=== PATIENT | female | born 1970 | race Caucasian/White ===

== ENCOUNTER 2024-07-01 12:33 | Emergency (ER) | payer BC, SELFPAY ==
[2024-07-01 12:40] VITALS: BP 127/67; PULSE 86; RESP 20; TEMP 36.6; O2SAT 98
--- NOTE | 2024-07-01 13:05 | ED_ITS ---
HPI - URI/Sore Throat General Chief Complaint: Upper Respiratory Infection Stated Complaint: congestion/ears/throat Time Seen by Provider: 07/01/24 13:05 Source: patient Mode of arrival: ambulatory Limitations: no limitations History of Present Illness HPI Narrative: 54-year-old female presents with complaint of cough, congestion, hoarse voice for 2 days. Afebrile. Patient is well-appearing. Not taking any ov fk-bux-isojuwx medications to treat symptoms. Thought I may need antibiotic . All systems reviewed and negative except as noted above. Related Data Home Medications Medication Instructions Recorded Confirmed levothyroxine 50 mcg tablet mcg 07/01/24 tirzepatide 7.5 mg/0.5 mL mg subcut 07/01/24 subcutaneous pen injector (Sharron) Allergies Allergy/AdvReac Type Severity Reaction Status Date / Time acetaminophen Allergy Unknown Unconscious Verified 07/01/24 13:00 oseltamivir Allergy Unknown Swelling Verified 08/09/21 16:07 sulfamethoxazole Allergy Unknown Unknown Verified 07/01/24 13:00 trimethoprim Allergy Unknown Unknown Verified 07/01/24 13:00 azithromycin AdvReac Unknown DOESNT Verified 08/09/21 16:07 WORK FLUVOXAMINE MALEATE Allergy Unknown Unknown Uncoded 07/01/24 13:00 PROPOXYPHENE NAPSYLATE Allergy Unknown Unknown Uncoded 07/01/24 13:00 Review of Systems Review of Systems: CONSTITUTIONAL: Denies fever, chills, or sweats. EYES: Denies visual changes, redness, or discharge. ENT: Reports rhinorrhea, congestion, hoarse voice. Denies sore throat, or otalgia. CARDIOVASCULAR: Denies chest pain, palpitations, or edema. RESPIRATORY: reports cough. Denies dyspnea. GASTROINTESTINAL: Denies abdominal pain, nausea, vomiting, or diarrhea. GENITOURINARY: Denies dysuria or hematuria. SKIN: Denies rash or itching. MUSCULOSKELETAL: Denies back pain, joint pain, or myalgia. NEUROLOGIC: Denies headache, numbness, or weakness. PSYCHIATRIC: Denies anxiety or depression. All other systems reviewed are negative, except as documented in HPI. PMFSH Comments At time of signature, agree with nursing past medical, surgical, social and family history. There is no relevant family history pertinent to the presenting complaint. Exam Narrative: GENERAL: This is a well-nourished, well-developed patient, in no apparent distress. HEAD: normocephalic, atraumatic. EYES: PERRL. Sclera clear/white. Vision is grossly intact. EARS: External ears normal, auditory canals clear and without drainage, TMs normal without perforation. Hearing grossly intact. NOSE: External nose normal with no obvious nasal discharge, nares without redness, no rhinorrhea. THROAT: Mucous membranes moist, postnasal drainage with mild erythema. Voice is hoarse. NECK: Neck supple, non-tender without lymphadenopathy, masses or thyromegaly. CARDIOVASCULAR: Regular rate and rhythm without murmurs, gallops, or rubs. RESPIRATORY: Clear to auscultation. Breath sounds equal bilaterally. No wheezes, rales, or rhonchi. SKIN: warm, Dry, intact with no suspicious lesions or rash, good texture and turgor. NEURO: awake, alert, and oriented to person, place and time. There were no obvious focal neurologic abnormalities. EXTREMITIES: No joint tenderness, effusion, or edema noted. Course Course Level of Care: Express Care Visit Vital Signs Vital signs: Vital Signs Temperature 36.6 C 07/01/24 12:40 Pulse Rate 86 07/01/24 12:40 Respiratory Rate 20 07/01/24 12:40 Blood Pressure 127/67 07/01/24 12:40 Pulse Oximetry 98 07/01/24 12:40 Oxygen Delivery Room Air 07/01/24 12:40 Temperature 36.6 C 07/01/24 12:40 Pulse Rate 86 07/01/24 12:40 Respiratory Rate 20 07/01/24 12:40 Blood Pressure 127/67 07/01/24 12:40 Pulse Oximetry 98 07/01/24 12:40 Oxygen Delivery Room Air 07/01/24 12:40 Review MDM - URI/Sore Throat MDM Narrative Medical decision making narrative: patient is well-appearing. Lungs clear to auscultation. Afebrile. Recommend she take qjtw-uee-inoovae medications to treat viral symptoms. Patient is aware of diagnosis, understands and agrees to treatment plan. Anticipatory guidance given. Patient agrees to follow-up as directed and is aware of reasons to seek care at the emergency department. Portions of this record may have been created with voice recognition software Differential Diagnosis Differential diagnosis: Likely upper respiratory infection, sinusitis and viral infection Discharge Plan Discharge Clinical Impression: Viral upper respiratory tract infection with cough, Laryngitis Patient Disposition: Home, Self-Care Condition: Stable Instructions: Upper Respiratory Infection (ED) Additional Instructions: your symptoms are viral and may last 10-14 days. Take medications as prescribed. Take Tylenol or ibuprofen every 6-8 hours as needed for pain and fever. Drink at least 64 oz of water a day. Place cool mist humidifier in bedroom where you sleep. Follow-up your primary care physician if symptoms are not improving. Prescriptions: New benzonatate 200 mg capsule 200 mg PO TID PRN (Reason: cough) Qty: 20 0RF methylprednisolone [Medrol (Randal)] 4 mg tablets,dose pack See Rx Instructions PO .COMPLEX Qty: 21 0RF Rx Instructions: orally per package directions No Action levothyroxine 50 mcg tablet Сергейunlisa 7.5 mg/0.5 mL pen injector SUBCUT Follow-up/Referrals: PHYSICIAN NOT ON STAFF,NONSTAFF [Primary Care Provider] - Time of Disposition: 13:10
== END 2024-07-01 13:19 | disposition home or self-care (01) ==
PROVIDERS: Emergency Provider Nurse Practitioner Family
DX: J06.9 Acute upper respiratory infection, unspecified (principal); J04.0 Acute laryngitis; E11.9 Type 2 diabetes mellitus without complications; E03.9 Hypothyroidism, unspecified
CPT/HCPCS: 99203; G0463

== ENCOUNTER 2024-08-24 11:30 | Emergency (ER) | payer BC, SELFPAY ==
--- NOTE | ~2024-08-24 | XR_ITS ---
EXAMINATION: XR chest 2V DATE: 08/24/2024 12:20 INDICATION: Chest pain. TECHNIQUE: Frontal and lateral views of the chest were obtained. COMPARISON: None. FINDINGS: There is no pneumonia, pleural effusion, or pneumothorax. The heart size is normal. Surgica l clips in the right upper quadrant are likely from cholecystectomy. IMPRESSION: 1. No acute cardiopulmonary disease. Reviewed, dictated and finalized at location A. R SALES ASSOCIATE
--- OUTSIDE RECORDS SUMMARY | 2024-08-24 11:33 | XMS_ITS | Encounter Summary ---
Author Organization [facility] Address [address] [place] [address] Care Team Providers Care Hash Slinger Name Role Phone Enoch Rosario MD Primary Care Provider [phone] Reason for Visit * Reason Onset Date Comments Question 11/11/2021 Encounter Details Date Type Department Care Team (Late st Contact Info) Description 11/11/2021 Telephone [facility] - [place] [address] [facility] [place] [address] Enoch Rosario MD [address] [place] [address] Question Social History Tobacco Use Types Packs/Day Years Used Date Smoking Tobacco: Former Cigarettes 0.5 15 Smokeless Tobacco: Never Alcohol Use Standard Drinks/Week Comments Yes 0 (1 standard drink = 0.6 oz pur e alcohol) rare Comments No Sex and Gender Information Value Date Recorded Sex Assigned at Not on file Legal Sex Female 5:48 AM CASTING MACHINE ADJUSTER Gender Identity Not on file Sexual Orientation Not on file COVID-19 Exposure Response Date Recorded In the last 10 days, have yo u been in contact with someone who was confirmed or suspected to have Coronavirus/COVID-19? No / Unsure 11/10/2021 2:24 PM CDT documented as of this encounter Miscellaneous Notes * Telephone Encounter - Romulo Curry Kaela - 11/11/2021 3:33 PM CDT The patient called and said that Dr. Rosario was suppose to send her a prescription to the pharmacy for Acid Reflux documented in this encounter Plan of Treatment Upcoming Encounters Date Type Department Care Team (Late st Contact Info) Description 08/26/2024 10:45 AM CASTING MACHINE ADJUSTER Office Visit [facility] Orthopedic Surgery at the [facility] [address] [place] [phone] Alli Ferrer MD [address] [facility] [address] [place] [address] 08/26/2024 4:30 PM CASTING MACHINE ADJUSTER Video Visit [facility] - [place] [address] [facility] [place] [address] Enoch Rosario MD [address] [facility] [address] [facility] [address] [place] [address] documented as of this encounter Visit Diagnoses Not on filedocumented in this encounter Additional Health Concerns Infection Onset Date Last Indicated Resolved Time COVID-19 05/16/2022 05/16/2022 06/15/2022 1:16 AM CASTING MACHINE ADJUSTER documented as of this encounter Care Teams Hash Slinger Relationship Specialty Start Date End Date Enoch Rosario MD [address] [facility] [address] [place] [address] PCP - General Family Practice 09/14/11 documented as of this encounter
--- OUTSIDE RECORDS SUMMARY | 2024-08-24 11:33 | XMS_ITS | Clinical Summary ---
Author Organization [facility] Address [address] [place] [address] Care Team Providers Care Pier Hand Helper Name Role Phone Unavailable Primary Care Provider Unavailabl e Social History Tobacco Use Types Packs/Day Years Used Date Smoking Tobacco: Never Assessed Comments Unknown Sex and Gender Information Value Date Recorded Sex Assigned at Not on file Legal Sex Female 10:56 AM PDT Gender Identity Not on file Sexual Orientation Not on file Plan of Treatment Upcoming Encounters Date Type Department Care Team (Late st Contact Info) Description 10/03/2024 2:30 PM CDT Office Visit [facility] [address] [place] [phone] Luisa Kraft, DMD [address] [place] [address] Health Maintenance Due Date Last Done Comments Dental Prophylaxis 1968 Dental Oral Exam 09/21/2024 03/20/2024 Dental X-Ray: Bitewings 09/21/2024 03/20/2024 Dental X-Ray: Full Mouth 03/21/2027 03/20/2024 Dental X-Ray: Panoramic 03/21/2027 03/20/2024, 02/27 Meningococcal B Vaccine Aged Out No l onger eligible based on patient's age to complete this topic Procedures Procedure Name Priority Date/Time Associated Diagnosis Comments PANORAMIC RADIOGRAPHIC IMAGE Routine 03/20/2024 3:00 PM CDT INTRAORAL - COMPREHENSIVE SERIES OF RADIOGRAPHIC IMAGES Routine 03/20/2024 3:00 PM CDT COMPREHENSIVE ORAL EVALUATION - NEW OR ESTABLISHED PATIENT Routine 03/20/2024 3:00 PM CDT Encounter for dental examination and cleaning without abnormal findings from Last 3 Months or Most Recently Relevant to Health Maintenance Insurance
--- OUTSIDE RECORDS SUMMARY | 2024-08-24 11:33 | XMS_ITS | Encounter Summary ---
Author Organization [facility] Address [address] [place] [address] Care Team Providers Care Real Estate Firm Manager Name Role Phone Enoch Rosario MD Primary Care Provider [phone] Encounter Details Date Type Department Care Team (Late st Contact Info) Description 05/06/2015 Nurse Triage Report [facility] ABSTRACTION Katie Isaacs, RN Social History Tobacco Use Types Packs/Day Years Used Date Smoking Tobacco: Every Day Cigarettes 0.5 15 Smokeless Tobacco: Never Alcohol Use Standard Drinks/Week Comments Yes 0 (1 standard drink = 0.6 oz pur e alcohol) rare Comments No Sex and Gender Information Value Date Recorded Sex Assigned at Not on file Legal Sex Female 5:48 AM ECHOCARDIOGRAPHER Gender Identity Not on file Sexual Orientation Not on file documented as of this encounter Progress Notes * Katie Isaacs, RN - 05/06/2015 5:22 PM CDT CHART DOCUMENTATION ONLY Call Type: Triage Call Addendum Date and Time [id number] Presenting Problem: I am almost of out my sample Rx of Bystolic. Report feedback to Dr. Rosario. <<<<<<<< TRIAGE NOTE >>>>>>>> Triage Note: Floor Plan Adjuster Katie Isaacs added this note on May 06 2015 4:32PM: Pt's symptoms of palpations and BP have not improved on the sample 7 days of the bystolic 5mg. She has also had diarrhea as well. She had called in to the MD office Monday but has not heard back as to whether she needs to stay on this med or go onto another one. Paged MD to call me back. Floor Plan Adjuster [email or web address] added this note on May 06 2015 5:22PM [place]int[place] from Dr Rosario's nurse, Deann, and she asked MD. He requests that pt increase the Bystolic to 10mg and report back to the office Monday with her BP results and how she feels. Deann did e-scribe the med and I returned a call to the patient to let her know the instructions. She was grateful about solving her problem. She will also take her last 5mg tab that she has today so that today she will have gotten 10mg of the med. <<<<<<<< TRIAGE/OUTCOME >>>>>>>> Guideline Title: Medication Questions - Adult Recommended Disposition: Call Provider within 4 Hours Physician Contacted: No Recurrence of a symptom(s) or illness post prescribed medication treatment AND provider instructed patient to call if symptom(s) returned. ? YES documented in this encounter Plan of Treatment Upcoming Encounters Date Type Department Care Team (Late st Contact Info) Description 08/26/2024 10:45 AM ECHOCARDIOGRAPHER Office Visit [facility] Orthopedic Surgery at the [facility] [address] [place] [phone] Alli Ferrer MD [address] [facility] [address] [place] [address] 08/26/2024 4:30 PM ECHOCARDIOGRAPHER Video Visit [facility] Primary Care - [address] [place] [address] Enoch Rosario MD [address] [facility] [address] [place] [phone] documented as of this encounter Visit Diagnoses Not on filedocumented in this encounter Additional Health Concerns Infection Onset Date Last Indicated Resolved Time COVID-19 05/31/2021 05/31/2021 06/30/2021 1:16 AM ECHOCARDIOGRAPHER COVID-19 05/16/2022 05/16/2022 06/15/2022 1:16 AM ECHOCARDIOGRAPHER documented as of this encounter Care Teams Real Estate Firm Manager Relationship Specialty Start Date End Date Enoch Rosario MD [address] [facility] [address] [facility] [address] [place] [address] [place] [phone] PCP - General Family Practice 09/14/11 documented as of this encounter
--- OUTSIDE RECORDS SUMMARY | 2024-08-24 11:33 | XMS_ITS | Continuity of Care Document ---
Author Organization [facility] Address [address] [place] [address] Phone Care Team Providers Care Tobacco Sample Puller Name Role Phone Renan Escobar MD Unavailable Unavailable Allergies, Adverse Reactions, Alerts Substance Reaction Status Criticality No Known allergies Medications Medication Instructions Dosage Effective Dates (start - stop) Status Comments Percocet 5 mg-325 mg tablet take 1 - 2 Tablet by oral route every 4 - 6 hours as needed 1-2 Tablet - Active METOPROLOL SUCCINATE (unknown strength) Not Available - Active LIPITOR (unknown strength) Not Available - Active CLONAZEPAM (unknown strength) Not Available - Active PRILOSEC (unknown strength) Not Available - Active Procedures Procedure Date OFFICE/OUTPATIENT VISIT [facility] Advance Directives Directive Yes / No Effective Date File Name Resuscitation Not Answered N/A N/A Life Support Not Answered N/A N/A Intubation Not Answered N/A N/A Antibiotics Not Answered N/A N/A IV Fluid Support Not Answered N/A N/A Tube Feed Not Answered N/A N/A Other Directive N/A N/A WARNING:The information contained in this section is historical and is provided for information only and does not constitute a legal document or any assurance that the information is still accurate. Please verify the information with the srinivasan of the legal document before using it for clinical purposes. Encounters Encounter Description Practice Location Reason(s) For Visit Diagnoses Date Provider Providers Copied on Encounter OFFICE/OUTPAT IENT VISIT [facility], [address], [place], [address], [place] tel:[phone] [facility] Navicular fracture [address]. [address], [place], [place], [id number] . tel: [phone] Referring Provider: Enoch Rosario , [address], [place], [address]. tel:[phone] Family History Family Member Type Diagnosis Age At Onset No Information Payers Payer name Insurance type Covered green party ID Authorsilvioa mansoor(s) No Information Social History Type Description Quantity Date Captured Comments Alcohol Use Details Unknown Caffeine Use Details Unknown Tobacco Use Status No Information Smoking Status Current every day smoker Smoking Tobacco Use Details Cigarette: No Details Available Cigarette: No Details Available Sex Female Vital Signs Date / Time: Height Weight BMI Pulse Rate Blood Pressure Temperature Respiratory Rate Body Surface Area Head Circumference Head Circ. Percentile Wt./Robin. Percentile BMI percentile Pulse Ox Inhaled Ox 10:44 AM 60.00 in 162.00 lbs 31.6 4 kg/m eter (2) 139/89 mm[Hg] Chief Complaint And Reason For Visit No Information Reason For Referral Reason For Referral No Information Plan Of Treatment Date Type Action Status Referral Ordered: RADEX FOOT COMPL MINIMUM 3 VIEWS RT foot ordered History Of Present Illness Encounter Date Complaint History Of Prese nt Illness No Information Functional Status Date Functional Assessmen t No Information Instructions Date Instruction Additional Infor mation No Information Assessments Type Assessment Date No Information Patient Care Teams Name Effective Dates (start - stop) Status Members No Information
--- OUTSIDE RECORDS SUMMARY | 2024-08-24 11:33 | XMS_ITS | Referral Summary ---
Author Organization [facility] Address [address] [place] [address] Care Team Providers Care Safety Lead Name Role Phone Enoch Rosario MD Primary Care Provider [phone] Allergies Active Allergy Reactions Criticality Noted Date Comments Doxycycline Vomiting,Other (See comments) Low 08/12/2020 Hydrocodone-Acetaminophen Hydroxychloroquine Sulfate Rash Medium Metronidazole Rash Medium 08/14/2020 Possible reaction to metrogel-redness, itching and irritation Oseltamivir Phosphate Rash Medium 08/18/2020 Conjugated Estrogens Rash Medium 06/19/2023 Vaginal rash Propoxyphene-Acetaminophen Rosuvastatin Muscle pain Medium 12/29/2020 Sertraline Dizziness Low 09/29/2009 Sulfamethoxazole-Trimethopr im Medications ibuprofen (ADVIL,MOTRIN) 800 mg tablet Take 1 tablet (800 mg total) by mouth 3 (three) times a day as needed for pain Take with food. 30 tablet 07/21/20 22 Active nebivoloL (Bystolic) 2.5 mg tablet Take 1 tablet (2.5 mg total) by mouth daily Active clonazePAM (KlonoPIN) 0.125 mg disintegrating tablet Take 1 tablet (0.125 mg total) by mouth daily Active levothyroxine (SYNTHROID) 50 mcg tablet Take 1 tablet (50 mcg total) by mouth daily 03/08/20 23 Active simvastatin (ZOCOR) 20 mg tablet Take 0.5 tablets (10 mg total) by mouth daily 11/16/19 23 Active blood glucose diagnostic strip Test blood sugar 4 times a day 06/13/20 22 Active blood-glucose meter kit See package 09/30/19 Active lancets 33 gauge misc Test blood sugar 4 times a day 06/13/20 Active Mounjaro 2.5 mg/0.5 mL pen injector Inject 0.5 mL (2.5 mg total) under the skin once a week 06/07/20 Active olmesartan (BENICAR) 20 mg tablet Active estrogens, conjugated, (PREMARIN) vaginal cream Insert 0.5 g into the vagina daily 5 g 06/13/20 Active Additional Information Patient not taking.Reported on 06/19/2023 Mounjaro 5 mg/0.5 mL pen injector 06/13/20 Active Active Problems Problem Noted Date Diagnosed Date Well woman exam with routine gynecological exam 06/29/2023 Assessment & Plan (06/29/2023 11:49 AM HOG CUTTER): Postmenopausal, s/p ablation Pap smear: 2022 NILM, HRHPV neg Sexually transmitted disease screening: not indicated Mammogram: ordered Osteoporosis with Dexa Scan: completed 2022 normal Colon Cancer Screening: up to date History of UTI 06/29/2023 Assessment & Plan (06/29/2023 12:18 PM HOG CUTTER): Patient requests UCx to ensure resolution Asymptomatic at this time Stress incontinence, female 06/20/2023 Postmenopausal bleeding 04/20/2023 Assessment & Plan (06/29/2023 12:17 PM HOG CUTTER): Continues to have daily orange and brown spotting Normal pap 2022 Patient status post ablation procedure EMB attempted at prior visit but unable due to cervical stenosis Able to add on for TVUS today: normal with EMS 1.4mm Brown spotting likely from vaginal irritation, will proceed with monitoring and moisturization If symptoms persist or get worse will consider proceeding with hysteroscopy Assessment & Plan (04/20/2023 2:27 PM CDT): Notes orange and brown spotting for last 2 months 2021 normal pap, recollected today due to PMB and friable appearing cervix Attempted EMB but unable due to cervical stenosis, patient status post ablation Plan for TVUS to assess uterine lining Itching in the vaginal area 04/20/2023 Assessment & Plan (04/20/2023 2:27 PM CDT): Normal external vaginal exam BV swab obtained Discuss vulvar care with the patient Mixed incontinence 04/20/2023 Assessment & Plan (04/20/2023 2:28 PM CDT): Mixed picture of incontinence Not resolved with medications or pelvic floor exercises Desires referral for treatment Social History Tobacco Use Types Packs/Day Years Used Date Smoking Tobacco: Never Smokeless Tobacco: Never Tobacco Cessation:Counseling Given: Not Answered Alcohol Use Standard Drinks/Week Comments Yes 0 (1 standard drink = 0.6 oz pur e alcohol) occasionally Personal Safety Answer Date Recorded Getting School Help Needed Not on file 07/27 Comments No Sex and Gender Information Value Date Recorded Sex Assigned at Not on file Legal Sex Female 12:57 AM HOG CUTTER Gender Identity Not on file Sexual Orientation Not on file Last Filed Vital Signs Vital Sign Reading Time Taken Comments Blood Pressure 138/72 06/29/2023 2:32 PM HOG CUTTER Pulse 88 06/29/2023 2:32 PM HOG CUTTER Temperature 36.8 ??C (98.2 ??F) 07/21/2022 2:35 PM CS T Respiratory Rate 20 07/21/2022 2:35 PM HOG CUTTER Oxygen Saturation 92% 06/29/2023 2:32 PM HOG CUTTER Inhaled Oxygen Concentration - - Weight 80.2 kg (176 lb 14.4 oz) 06/29/2023 2:32 PM HOG CUTTER Height 152.4 cm (5') 06/29/2023 2:32 PM HOG CUTTER Body Mass Index 34.55 06/29/2023 2:32 PM HOG CUTTER Plan of Treatment Not on file Procedures Procedure Name Priority Date/Time Associated Diagnosis Comments HIGH RISK HPV DNA DETECTION WITH GENOTYPING Routine 04/20/2023 2:19 PM CDT Postmenopausal bleeding from Last 3 Months or Most Recently Relevant to Health Maintenance Results * High Risk HPV DNA Detection with Genotyping (Molecular component) (04/20/2023 2:19 PM CDT) HPV HR 16 Not Detected Not Detected [facility] HPV HR 18 Not Detected Not Detected [facility] HPV HR Non 16/18 Not Detected Not Detected [facility] Comment: Interpretive Data Nucleic acid amplification for detection of high-risk Human Papilloma virus (HPV) is performed by the Alesha Carito 4800 HPV test, which specifically detects high-risk HPV-16, 18, 31, 33, 35, 39, 45, 51, 52, 56, 58, 59, 66, and 68 genotypes. ??This assay has been approved by the [place] Food and Drug Administration for detection of HPV in cervical specimens collected by a physician using an endocervical brush/spatula or cervical broom and placed in the ThinPrep Pap Test PreservCyt collection containers. ??The performance characteristics of this test have been verified by the [facility]. Correlate with separately reported cytology results, as applicable. Interpretive data last revised 23 Endocervical 04/20/2023 2:19 PM CDT 04/20/2023 9:17 PM CDT Narrative JOSE GUADALUPE [facility] - 04/26/2023 7:34 PM CDT Clinical history and diagnosis->postmenopausal spotting Testing type->Diagnostic Last menstrual period (date if known)->postmenopauseal, status post ablation Menstrual status->Postmenopausal Previous atypical cytology->ASCUS Becca Wolfe MD LAB BODY FLUIDS AND STOOLS ORDERABLES Final Result Performing Organization Address City/State/[facility] Co de Phone Number [facility] [address] Department [place] [address] from Last 3 Months or Most Recently Relevant to Health Maintenance Insurance [address] [place] [address] [place] [address] Care Teams Safety Lead Relationship Specialty Start Date End Date Enoch Rosario MD PCP - General 09/13/18
--- OUTSIDE RECORDS SUMMARY | 2024-08-24 11:33 | XMS_ITS ---
Author Organization [facility] Address [address] [place] [address] Care Team Providers Care Manager Software Name Role Phone Unavailable Unavailable Unavailable Surgery Details Not on file Complications Check Surgery Details section. Procedure Estimated Blood Loss Check Surgery Details section. Procedure Findings Check Surgery Details section. Procedure Specimens Taken Check Surgery Details section.
--- OUTSIDE RECORDS SUMMARY | 2024-08-24 11:33 | XMS_ITS | Clinical Summary ---
Author Organization [facility] Address [address] [place] [address] Care Team Providers Care Industrial Welder Name Role Phone Enoch Rosario MD Primary Care Provider [phone] Source Comments [facility],non-owned Affiliates and Associated Physician Practices is amultiple site organization consisting of ambulatory clinics and hospital sitesin [place], [place], [place] and [place]. This disclosure is being madepursuant to the Care Everywhere program and may not contain all information available regarding this patient. Last updated 18.[facility] Outbox Allergies Active Allergy Reactions Criticality Noted Date Comments Doxycycline ADHESIVE PRIMER Dysfunction Low 08/12/2020 Hydrocodone-Acetaminophen Dizziness 12/25/2019 Hydroxychloroquine Sulfate Other Metronidazole Rash Medium 08/14/2020 Possible reaction to metrogel-redness, itching and irritation Oseltamivir Phosphate Unknown 08/18/2020 Rosuvastatin Myalgias Low 12/29/2020 Sertraline Dizziness Low 09/29/2009 Sulfamethoxazole W-Trimethoprim Unknown 05/12/2009 Bad stomach pains Medications * Be aware that medications may not be up to date on this document. Alwaysverify current medications with the patient. Medication Sig Dispensed Refills Start Date End Date Status aspirin EC (ECOTRIN) 81 MG tablet Take 81 mg by mouth once daily Active clonazePAM, disintegrating, (KLONOPIN WAFER) 0.125 MG tablet 09/30/2021 Active nebivolol (BYSTOLIC) 2.5 MG tablet TAKE 1 TABLET BY MOUTH ONCE DAILY. MAY TAKE AN EXTRA TABLET NEEDED FOR PALPITATIONS. 12/21/2021 Active Family History Medical History Relation Name Comments Arthritis - Osteo Mother Arthritis - Rheumatoid Mother CAD (Coronary Artery Disease) Mother Diabetes; unknown type Mother Hypertension Mother Arthritis - Osteo Sister Arthritis - Rheumatoid Sister Diabetes; unknown type Sister Hypertension Sister Relation Name Status Comments Mother Sister Social History Tobacco Use Types Packs/Day Years Used Date Smoking Tobacco: Former Cigarettes 1 8 Smokeless Tobacco: Never Alcohol Use Standard Drinks/Week Comments Yes 0 (1 standard drink = 0.6 oz pur e alcohol) Sex and Gender Information Value Date Recorded Sex Assigned at Not on file Gender Identity Not on file Sexual Orientation Not on file Last Filed Vital Signs Vital Sign Reading Time Taken Comments Blood Pressure 153/81 01/14/2022 1:27 PM CDT Pulse 94 01/14/2022 1:27 PM CDT Temperature 36.3 ??C (97.4 ??F) 01/14/2022 1:27 PM CD T Respiratory Rate - - Oxygen Saturation 97% 01/14/2022 1:27 PM CDT Inhaled Oxygen Concentration - - Weight 80.9 kg (178 lb 6 oz) 01/14/2022 1:27 PM CDT Height 152.4 cm (5') 01/14/2022 1:27 PM CDT Body Mass Index 34.84 01/14/2022 1:27 PM CDT Plan of Treatment Health Maintenance Due Date Last Done Comments COLOGUARD (AGES 45-75) - COL ON CA SCREENING 1968 COLON MONITORING 1968 COLONOSCOPY - COLON CA SCREENING 1968 CT COLONOGRAPHY - COLON CA SCREENING 1968 Colorectal Cancer Screening 1968 FIT - COLON CA SCREENING 1968 FLEX SIG - COLON CA SCREENING 1968 LIPID TESTING 1968 MAMMOGRAM 1968 PAP SMEAR 1968 HIV SCREENING 1983 HEPATITIS C SCREENING 04/06/1986 DTAP/TDAP/TD VACCINES (1 - Tdap) 1987 HEPATITIS B VACCINE (1 of 3 - 19+ 3-dose series) 1987 PNEUMOCOCCAL VACCINE 50+ (1 of 1 - PCV) 2018 ZOSTER VACCINE (1 of 2) 2018 COVID-19 VACCINE ( - 2023-2 5 season) 2024 INFLUENZA VACCINE (#1) 2024 DEPRESSION SCREENING 07/24/2024 SCREENING FOR DIABETES 01/14/2025 01/14/2022 HIB VACCINE Aged Out No longer eligi ble based on patient's age to complete this topic HPV VACCINE Aged Out No longer eligi ble based on patient's age to complete this topic MENINGOCOCCAL (Group B) VACCINE Aged Out No longer eligible based on patient's age to complete this topic MENINGOCOCCAL VACCINE Aged Out No montrell linda eligible based on patient's age to complete this topic PNEUMOCOCCAL VACCINE Aged Out No long er eligible based on patient's age to complete this topic Procedures Procedure Name Priority Date/Time Associated Diagnosis Comments COMPREHENSIVE METABOLIC PANEL Routine 01/14/2022 2:18 PM CDT Polyarthralgia from Last 3 Months or Most Recently Relevant to Health Maintenance Results * (ABNORMAL) COMPREHENSIVE METABOLIC PANEL (01/14/2022 2:18 PM CDT) Glucose 81 70 - 105 mg/dL [facility] ACCOUNT BILL BUN 9(L) 9.8 - 20.1 mg/dL [facility] ACCOUNT BILL Creatinine 0.82 0.57 - 1.11 mg/dL [facility] ACCOUNT BILL eGFR by CKD-EPI 85(L) >=90 mL/min/1.7 3 m2 [facility] ACCOUNT BILL Sodium 141 136 - 145 mmol/L [facility] ACCOUNT BILL Potassium 4.5 3.5 - 5.1 mmol/L [facility] ACCOUNT BILL Chloride 106 98 - 107 mmol/L [facility] ACCOUNT BILL CO2 25 23 - 31 mmol/L [facility] ACCOUNT BILL Calcium 10.0 8.4 - 10.4 mg/dL [facility] ACCOUNT BILL Protein Total 7.4 6.4 - 8.3 gm/dL [facility] ACCOUNT BILL Albumin 4.4 3.5 - 5.2 gm/dL [facility] ACCOUNT BILL Bilirubin Total 0.5 0.2 - 1.2 mg/dL [facility] ACCOUNT BILL Alkaline Phosphatase 111 40 - 150 U/L [facility] ACCOUNT BILL AST 19 5 - 34 U/L [facility] ACCOUNT BILL ALT 28 0 - 61 U/L [facility] ACCOUNT BILL Blood BLOOD SPECIMEN / Unknown 01/14/2022 2:18 PM CDT 01/14/2022 Narrative Resulting Agency Comment Lab Testing performed at: [address] ?? Nayeli EDWARDS [id number] Trang Zavala MD LAB - CHEMISTRY ABDULLAHI STANTON [facility] ACCOUNT BILL [address] [place] [address] from Last 3 Months or Most Recently Relevant to Health Maintenance Care Teams Industrial Welder Relationship Specialty Start Date End Date Enoch Rosario MD [address] [facility] [facility] [address] [place] [id number] PCP - General Family Medicine 01/14/22
--- OUTSIDE RECORDS SUMMARY | 2024-08-24 11:33 | XMS_ITS | Referral Summary ---
Author Organization [facility] Address [address] [place] [address] Care Team Providers Care Lens Fabricating Machine Tender Name Role Phone Unavailable Primary Care Provider [...] Description 10/03/2024 2:30 PM CDT Office Visit [facility] [address] [place] [id number] Luisa Kraft, DMD [address] [place] [address] Procedures Procedure Name Priority Date/Time Associated Diagnosis Comments PANORAMIC RADIOGRAPHIC IMAGE Routine 03/20/2024 3:00 PM CDT INTRAORAL - COMPREHENSIVE SERIES OF RADIOGRAPHIC IMAGES Routine 03/20/2024 3:00 PM CDT COMPREHENSIVE ORAL EVALUATION - NEW OR ESTABLISHED PATIENT Routine 03/20/2024 3:00 PM CDT Encounter for dental examination and cleaning without abnormal findings from Last 3 Months or Most Recently Relevant to Health Maintenance Insurance [facility] H[facility]
--- OUTSIDE RECORDS SUMMARY | 2024-08-24 11:33 | XMS_ITS | Encounter Summary ---
Author Organization [facility] Address [address] [place] [address] Care Team Providers Care Sap Senior Developer Name Role Phone Enoch Rosario MD Primary Care Provider [phone] Reason for Visit * Reason Comments Medication Refill Question Medication Assistance Encounter Details Date Type Department Care Team (Late st Contact Info) Description 12/20/2023 Telephone [facility] [place] [address] [facility] [place] [address] Enoch Rosario MD [address] [facility] [facility] [place] [address] Medication Refill; Question; Medication Assistance Social History Tobacco Use Types Packs/Day Years Used Date Smoking Tobacco: Former Cigarettes 0.5 15 1 - 05/17/2016 Smokeless Tobacco: Never Alcohol Use Standard Drinks/Week Comments Yes 4 (1 standard drink = 0.6 oz pur e alcohol) rare Feeling Safe Answer Date Recorded Are you in a relationship wi th someone who hurts you emotionally and/or physically? No 01/07/2023 Comments No Sex and Gender Information Value Date Recorded Sex Assigned at Not on file Legal Sex Female 5:48 AM ROLL INSPECTOR Gender Identity Not on file Sexual Orientation Not on file documented as of this encounter Miscellaneous Notes * Telephone Encounter - Lea Agudelo LPN - 12/21/2023 3:42 PM CDT I called and spoke with patient and she is asking what dose of Mounjaro she should take. The 5mg/0.5ml or the 7.5mg/0.5ml every 7 days Mik Agudelo LPN * Telephone Encounter - Kassie Regalado - 12/21/2023 2:53 PM CDT Copied from [facility] #[id number]. Topic: Patient or Caregiver Communication Request >> December 21, 2023 2:49 PM Kassie Jett wrote: Patient or Caregiver insisting that a message be sent to Care Team Caller: Chantalmari Singh Patient/Caregiver Callback Number: [phone] (home) Call Notes: Patient calling in stating that pharmacy has only one more box of mounjaro left and shewould really like to get this. Asking if mounjaro can be sent to pharmacy today if possible. Patient has called in multiple times about this. Asking if mounjaro can be sent over to pharmacy listed below. Please advise. [facility] [address] [place] [address] [[id number]] * Telephone Encounter - Veena Blandon - 12/21/2023 10:23 AM CDT Copied from [facility] #[id number]. Topic: Patient or Caregiver Communication Request >> December 21, 2023 10:21 AM Veena Houser wrote: Patient or Caregiver requesting advice Caller: Chantal Singh Patient/Caregiver Callback Number: [phone] (home) Call Notes: Patient is calling to check the status of the PA that she requested to have expedited. A call back was requested. * Telephone Encounter - Мария Valles - 12/20/2023 12:16 PM CDT Copied from [facility] #[id number]. Topic: Medication Request >> December 20, 2023 12:14 PM Мария Murillo wrote: Medication Refill Request from: Patient/Caregiver Did the patient/caregiver contact their pharmacy for refill prior to calling? Yes Medication (Ask patient/caregiver to spell if possible): tirzepatide (Mounjaro) 5 mg/0.5 mL Pen Injector, and tirzepatide (Mounjaro) 7.5 mg/0.5 mL Pen Injector [facility] [address] [place] [address] Patient/Caregiver Callback Number: Telephone Information: Call Notes: Patient needs a medication refill for this. She states that she needs it expedited and a PA sent to the above pharmacy. documented in this encounter Plan of Treatment Upcoming Encounters Date Type Department Care Team (Late st Contact Info) Description 08/26/2024 10:45 AM ROLL INSPECTOR [facility] Medicine [address] [address] [place] [phone] Alli Ferrer MD [address] [facility] [address] [place] [address] 08/26/2024 4:30 PM ROLL INSPECTOR Video Visit [facility] - [address] [place] [address] Enoch Rosario MD [address] [place] [address] [address] documented as of this encounter Visit Diagnoses Not on filedocumented in this encounter Care Teams Sap Senior Developer Relationship Specialty Start Date End Date Enoch Rosario MD [address] [place], [place] [address] S[address]on [address] [place] [address] PCP - General Family Practice 09/14/11 documented as of this encounter
--- OUTSIDE RECORDS SUMMARY | 2024-08-24 11:33 | XMS_ITS | Referral Summary ---
Author Organization [facility] Address [address] [facility] [address] [place] [address] Care Team Providers Care Clock And Watch Hands Dipper Name Role Phone Enoch Rosario MD Primary Care Provider [phone] Source Comments [facility],non-owned Affiliates and Associated Physician Practices is amultiple site organization consisting of ambulatory clinics and hospital sitesin [place], [place], [place] and [place]. This disclosure is being madepursuant to the Care Everywhere program and may not contain all information available regarding this patient. Last updated 18.[facility] Allergies Active Allergy Reactions Criticality Noted Date Comments Doxycycline AIRWORTHINESS SAFETY INSPECTOR Dysfunction Low 08/12/2020 Hydrocodone-Acetaminophen Dizziness 12/25/2019 Hydroxychloroquine [...] EXTRA TABLET NEEDED FOR PALPITATIONS. 12/21/2021 Active Social History Tobacco Use Types Packs/Day Years [...] 01/14/2022 1:27 PM CDT Plan of Treatment Not on file Procedures [...] Resulting Agency Comment Lab Testing performed at: [place] [address] [facility] ?? Nayeli EDWARDS [id number] Trang Zavala MD LAB - CHEMISTRY ABDULLAHI STANTON [facility] ACCOUNT BILL [address] [place] [address] from Last 3 Months or Most Recently Relevant to Health Maintenance Care Teams Clock And Watch Hands Dipper Relationship Specialty Start Date End Date Enoch Rosario MD [address] [place] [address] PCP - General Family Medicine 01/14/22
--- OUTSIDE RECORDS SUMMARY | 2024-08-24 11:33 | XMS_ITS | Clinical Summary ---
Author Organization [facility] Address [address] [place] [address] Care Team Providers Care Radiology Rn Name Role Phone Enoch Rosario MD Primary Care Provider [phone] Allergies Active Allergy Reactions Criticality Noted Date [...] 06/29/2023 Assessment & Plan (06/29/2023 11:49 AM MEXICAN FOOD MAKER): Postmenopausal, s/p ablation Pap smear: 2022 NILM, HRHPV neg Sexually transmitted disease screening: not indicated Mammogram: ordered Osteoporosis with Dexa Scan: completed 2022 normal Colon Cancer Screening: up to date History of UTI 06/29/2023 Assessment & Plan (06/29/2023 12:18 PM MEXICAN FOOD MAKER): Patient requests UCx to ensure resolution Asymptomatic at this time Stress incontinence, female 06/20/2023 Postmenopausal bleeding 04/20/2023 Assessment & Plan (06/29/2023 12:17 PM MEXICAN FOOD MAKER): Continues to have daily orange and brown [...] pelvic floor exercises Desires referral for treatment Surgical History Surgery Date Site/Laterality Comments CHOLECYSTECTOMY 07/24/2015 - 07/23/2016 SECTION x4 ENDOMETRIAL ABLATION 07/24/2015 - 07/23/2016 Medical History Medical History Date Comments Diabetes mellitus (HCC) Family History Medical History Relation Name Comments intestinal cancer Father Diabetes Mother Hypertension Mother Heart attack Sister 1 Diabetes Sister 2 Relation Name Status Comments Father Mother Sister 1 Sister 2 Alive Social History Tobacco Use Types Packs/Day Years [...] on file Legal Sex Female 12:57 AM MEXICAN FOOD MAKER Gender Identity Not on file Sexual Orientation Not on file Obstetrics History Para Term AB IAB SAB Ectopic Multiple Livin g Live Births 4 4 4 4 4 Date Outcome GA Total Labor Labor/2nd/3rd Weight Sex Type Anes PTL Princess A1 A5 Name Clin 02/22 Term 40w 0d F C-S j incis N Living Complications:None 1985 Term 3.6 kg (7 lb 15 oz) M C-S j incis N Living Complications:None 1991 Term 2.948 kg (6 lb 8 oz) F C-S j incis N Living Complications:None 1992 Term M C-S j incis N Living Complications:None Last Filed Vital Signs Vital Sign Reading Time Taken Comments Blood Pressure 138/72 06/29/2023 2:32 PM MEXICAN FOOD MAKER Pulse 88 06/29/2023 2:32 PM MEXICAN FOOD MAKER Temperature 36.8 ??C (98.2 ??F) 07/21/2022 2:35 PM CS T Respiratory Rate 20 07/21/2022 2:35 PM MEXICAN FOOD MAKER Oxygen Saturation 92% 06/29/2023 2:32 PM MEXICAN FOOD MAKER Inhaled Oxygen Concentration - - Weight 80.2 kg (176 lb 14.4 oz) 06/29/2023 2:32 PM MEXICAN FOOD MAKER Height 152.4 cm (5') 06/29/2023 2:32 PM MEXICAN FOOD MAKER Body Mass Index 34.55 06/29/2023 2:32 PM MEXICAN FOOD MAKER Plan of Treatment Health Maintenance Due Date Last Done Comments Colon Cancer Screening-Colonoscopy 1968 Depression Screening 1968 Hepatitis C Screening 1968 DTaP/Tdap/Td Vaccine (1 - Tdap) 1979 Hepatitis B Screening 1986 Zoster Vaccine (1 of 2) 2018 Breast Cancer Screening-Mammogram 12/23/2022 12/23/2021 Influenza Vaccine (#1) 2024 Cervical Cancer Screening 04/20/20242022, 04/20/2023 Regular Well Visit/Exam 18-64 06/29/2024 06/29/2023 Pneumococcal vaccine <65 Aged Out No longer eligible based on [...] HPV HR 16 Not Detected Not Detected [facility] HPV HR 18 Not Detected Not Detected [facility] HPV HR Non 16/18 Not Detected Not Detected [facility] Comment: Interpretive Data Nucleic acid amplification for [...] this test have been verified by the [facility]. Correlate with separately reported cytology results, as applicable. Interpretive data last revised 23 Endocervical 04/20/2023 2:19 PM CDT 04/20/2023 9:17 PM CDT Narrative [facility] - 04/26/2023 7:34 PM CDT Clinical history and diagnosis->postmenopausal spotting Testing type->Diagnostic Last menstrual period (date if known)->postmenopauseal, status post ablation Menstrual status->Postmenopausal Previous atypical cytology->ASCUS us Becca Wolfe MD LAB BODY FLUIDS AND STOOLS ORDERABLES Final Result [facility] [address] Department [place] [address] from Last 3 Months or Most Recently Relevant to Health Maintenance Insurance ANTHEM ACCESS ANTHEM ACCESS Care Teams Radiology Rn Relationship Specialty Start Date End Date Enoch Rosario MD PCP - General 09/13/18
--- OUTSIDE RECORDS SUMMARY | 2024-08-24 11:33 | XMS_ITS | Clinical Summary ---
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 Name Role Phone Enoch Rosario MD Primary Care Provider [phone] Allergies Active Allergy Reactions Criticality Noted Date Comments Doxycycline Hyclate Confusion Low 08/12/2020 Hydrocodone-Acetaminophen Nausea and Vomiting Low 12/25/2019 Hydroxychloroquine Sulfate Rash Low Metronidazole Rash Low 08/14/2020 Possible reaction to metrogel-redness, itching and irritation Oseltamivir Phosphate Rash Low 08/18/2020 Propoxyphene N-Acetaminophen Nausea and Vomiting Low 05/12/2009 Propoxyphene-Acetaminophen Nausea and Vomiting Low 12/25/2019 Rosuvastatin Muscle Pain Low 12/29/2020 Sertraline Dizziness Low 09/29/2009 Sulfamethoxazole-Trimethopr im Other (See Comments) Low 05/12/2009 Bad stomach pains Medications vitamin E mixed/tocotrien ol (VITAMIN E COMPLEX ORAL) Take by mouth. A ctive blood sugar diagnostic (OneTouch Verio test strips) Strip Test blood sugar 4 times a day 200 Each 10 06/13/20 22 Active clonazePAM (KlonoPIN RAPID DISSOLVE) 0.125 mg Tablet, Rapid DissolveIndicat ions:Panic disorder without agoraphobia PLACE 1 TABLET ON THE TONGUE EVERY 12 HOURS NEEDED 180 Tablet 04/24/20 23 Active nebivoloL (BYSTOLIC) 2.5 mg TabletIndicatio ns:Palpitations ,Benign hypertension,PV C's (premature ventricular contractions) TAKE 1 TABLET DAILY, MAY TAKE AN EXTRA TABLET NEEDED FOR PALPITATIONS 90 Tablet 1 07/20/20 23 Active tirzepatide (Mounjaro) 7.5 mg/0.5 mL Pen Injector Inject 0.5 mL (7.5 mg) by subcutaneous injection every 7 days. 6 mL 2 10/04/19 24 Active simvastatin (ZOCOR) 20 mg tablet TAKE 1 TABLET DAILY AT BEDTIME 90 Tablet 3 01/02/20 24 Active meloxicam (MOBIC) 7.5 mg tablet Take 1 Tablet (7.5 mg) by mouth daily. 30 Tablet 5 01/24/20 24 Active collagen-hyalur vvhg-khqh-jlcw 515 mg Capsule Take 1 Capsule by mouth daily. 30 Capsule 11 01/24/20 24 Active 5-hydroxytrypto vizcaino,5HTP,-B6-C 50-4-60 mg Tablet, Delayed Release (E.C.) Take 1 Tablet by mouth 2 times daily. 60 Tablet 11 01/24/20 24 Active Blood-Glucose Meter (Alkermes Ultra System Kit) Kit See package 1 Kit 02/01/20 24 Active lancets (One Touch Delica) 33 gauge Test blood sugar 4 times a day 200 Each 10 02/01/20 24 Active nystatin (NYSTOP) 100,000 unit/gram powder Apply to affected area 2 times daily. Abdominal area 60 Gram 11 05/01/20 24 Active tirzepatide (Mounjaro) 7.5 mg/0.5 mL Pen Injector Inject 0.5 mL (7.5 mg) by subcutaneous injection every 7 days. 4 mL 08/01/19 25 Active levothyroxine 50 mcg tablet Take 1 Tablet (50 mcg) by mouth daily in the morning. 90 Tablet 3 08/01/19 25 Active levothyroxine 50 mcg tablet Take 1 Tablet (50 mcg) by mouth daily in the morning. 90 Tablet 3 05/01/20 24 025 Discontin ued(Reord er) Mounjaro 7.5 mg/0.5 mL Pen Injector INJECT 7.5 MG SUBCUTANEOUSLY ONCE A WEEK, EVERY 7 DAYS. 4 mL 07/12/20 24 025 Discontin ued(Reord er) Active Problems Patient Care Coordination No te Formatting of this note migh t be different from the original. 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 Problem Noted Date Diagnosed Date Family history of colon cancer 04/24/2023 History of IBS 04/24/2023 Itching in the vaginal area 04/20/2023 Overview (04/24/2023): Last Assessment & Plan: Normal external vaginal exam BV swab obtained Discuss vulvar care with the patient Mixed incontinence 04/20/2023 Overview (04/24/2023): Last Assessment & Plan: Mixed picture of incontinence Not resolved with medications or pelvic floor exercises Desires referral for treatment Postmenopausal bleeding 04/20/2023 Overview (04/24/2023): Last Assessment & Plan: Notes orange and brown spotting for last 2 months 2021 normal pap, recollected today due to PMB and friable appearing cervix Attempted EMB but unable due to cervical stenosis, patient status post ablation Plan for TVUS to assess uterine lining Constipation 05/03/2022 Diarrhea 05/03/2022 Heartburn 05/03/2022 Agatston coronary artery calcium score between 2 00 and 399 04/14/2022 Statin intolerance 11/29/2021 Rapid or irregular heartbeat 05/31/2021 Expressive aphasia 12/19/2019 Benign hypertension 08/18/2015 Pain, joint, multiple sites 10/14/2013 Status post endometrial ablation 04/04/2010 Dyslipidemia 10/21/2009 Hyperglycemia 09/18/2009 Panic disorder without agoraphobia 09/18/2009 Anxiety Acute cystitis Paresthesia HTN (hypertension), benign Pre-diabetes Acute confusional state Transient neurological symptoms Resolved Problems Problem Noted Date Diagnosed Date Resolved Date Type 2 diabetes mellitus with hyperglycemia 12/19/2019 09/23/2020 Chewing tobacco dependence 04/15/2015 1 Numbness and tingling of right face 05/03/2022 RA (rheumatoid arthritis) Encounters Date Type Department Care Team Description 08/20/2024 External Device Data STL ABSTRACTION Provider, Abstract 08/16/2024 Telephone [facility] Primary Care - [address] [place] [phone] Enoch Rosario MD Clinical Consult Before Scheduling 08/14/2024 External Device Data STL ABSTRACTION Provider, Abstract 08/06/2024 External Device Data STL ABSTRACTION Provider, Abstract 08/01/2024 [facility] [address] [place] [phone] Enoch Rosario MD 07/31/2024 [facility] [address] [place] [phone] Enoch Rosario MD Provider Call 07/29/[address] [place] [phone] Enoch Rosario MD Information 07/26/2024 1:45 PM EMERGENCY PLANNER - 07/26/2024 11:59 PM EMERGENCY PLANNER Hospital Encounter [address] [place] [phone] Enoch Rosario MD Discharge Disposition: Home or Self Care 07/12/[address] [place] [phone] Enoch Rosario MD 07/04/[address] [place] [phone] Enoch Rosario MD Clinical Consult Before Scheduling 07/02/[address] [place] [phone] Enoch Rosario MD Needs Orders Written 06/15/2024 [facility] [address] [place] [phone] Enoch Rosario MD 06/10/[address] [place] [phone] Enoch Rosario MD Results 06/10/[address] [place] [phone] Enoch Rosario MD 06/07/[address] [place] [phone] Enoch Rosario MD Results; Clinical Consult Before Scheduling 06/06/[address] [place] [phone] Enoch Rosario MD Clinical Consult Before Scheduling from Last 3 Months Family History Medical History Relation Name Comments Diabetes Brother 1 Other Brother 2 Twin Gout Healthy Daughter 1 Healthy Daughter 2 Colon Cancer Father Josh High Cholesterol Father Josh Hypertension Father Josh colon cancer/De mentia Arrhythmia Mother Komal Colon Cancer Mother Komal Diabetes Mother Komal Heart Attack Mother Komal Heart Disease Mother Komal High Cholesterol Mother Komal Hypertension Mother Komal Other Mother Komal Heart Surgery Other neice Other Other neice Heart Surgery Sister R Hypertension Sister R Other Sister R Healthy Son 1 Healthy Son 2 Relation Name Status Comments Brother 1 Alive Brother 2 Twin Alive Daughter 1 Alive Daughter 2 Alive Father Josh Alive Maternal Grandfather Maternal Grandmother Mother Komal heart murmur, M I age 42 Other neice Alive heart murmur Paternal Grandfather Paternal Grandmother Sister R heart murmur Son 1 Alive Son 2 Alive Social History Tobacco Use Types Packs/Day Years Used Date Smoking Tobacco: Former Cigarettes 0.5 15 1 - 05/17/2016 Smokeless Tobacco: Never Tobacco Cessation:Counseling Given: Not Answered Alcohol Use Standard Drinks/Week Comments Yes 4 (1 standard drink = 0.6 oz pur e alcohol) rare Feeling Safe Answer Date Recorded Are you in a relationship wi th someone who hurts you emotionally and/or physically? No 01/07/2023 Comments No Sex and Gender Information Value Date Recorded Sex Assigned at Not on file Legal Sex Female 5:48 AM EMERGENCY PLANNER Gender Identity Not on file Sexual Orientation Not on file Last Filed Vital Signs Vital Sign Reading Time Taken Comments Blood Pressure 126/70 05/01/2024 12:13 PM CDT Pulse 79 10/04/2023 2:05 PM CDT Temperature 36.4 ??C (97.5 ??F) 10/04/2023 2:05 PM CD T Respiratory Rate 16 06/02/2023 2:24 PM EMERGENCY PLANNER Oxygen Saturation 94% 10/04/2023 2:05 PM CDT Inhaled Oxygen Concentration - - Weight 73.5 kg (162 lb) 05/01/2024 12:13 PM CDT Height 154.9 cm (5' 1 ) 05/01/2024 12:13 PM CDT Body Mass Index 30.61 05/01/2024 12:13 PM CDT Plan of Treatment Upcoming Encounters Date Type Department Care Team (Late st Contact Info) Description 08/26/2024 10:45 AM EMERGENCY PLANNER Office Visit [facility] Orthopedic Surgery at the [facility] [address] [place] [phone] Alli Ferrer MD [address] [place], [place] [id number] 08/26/2024 4:30 PM EMERGENCY PLANNER Video Visit [facility] Primary Care - [place] [address] [place] [address] Enoch Rosario MD [address] [place] [address] Health Maintenance Due Date Last Done Comments DTAP/TDAP/TD VACCINES (1 - Tdap) 1987 HEPATITIS B VACCINES (1 of 3 - 19+ 3-dose series) 1987 FIT-DNA Q 3 years 2013 FIT/FOBT Q 1 year 2013 Flex Sig/CT Colonography Q 5 years 2013 ZOSTER VACCINE (1 of 2) 2018 BREAST CANCER SCREENING 12/23/2022 12/23/2021, 01/04 DIABETES ANNUAL FOOT EXAM 08/29/2023 08/29/2022 INFLUENZA VACCINE (#1) 2024 DIABETES ANNUAL RETINAL EXAM 04/24/202408/2022, 02/07/2023, 12/22/2021, Additional history exists Preventative Visit- Commercial 07/24/2024 1 08/30/2022, 08/29/2022, 08/16/2021, Additional history exists DIABETES HBA1C Q 6 MONTHS 12/04/20242023, 05/02/2024, 10/04/2023, Additional history exists DIABETES MICROALBUMIN ANNUAL SCREEN 05/02/2025 05/02/2024 LDL CHOLESTEROL ANNUAL 05/02/2025 , 10/04/2023, 08/29/2022, Additional history exists DIABETES: A1C (Auto Order) 06/06/202506/06, 05/02/2024, 10/04/2023, Additional history exists CERVICAL CANCER SCREENING 04/20/20262022, 08/16/2021, 08/10/2020 COLORECTAL SCREENING 05/09/2029 05/09/2019, 05/09/2019, 08/18/2011 Colorectal Cancer Screening 05/09/2029 Procedures Procedure Name Priority Date/Time Associated Diagnosis Comments MRI KNEE WO CONTRAST RIGHT Routine 07/26/2024 2:16 PM EMERGENCY PLANNER Acute pain of both knees Knee pain, unspecified chronicity, unspecified laterality HEMOGLOBIN A1C Routine 06/06/2024 2:13 PM EMERGENCY PLANNER Type 2 diabetes mellitus without complication, unspecified whether skilled nursing insulin use ([facility]) URINALYSIS WITH REFLEX CULTURE Routine 06/06/2024 2:09 PM EMERGENCY PLANNER Urinary tract infection without hematuria, site unspecified URINE CULTURE Routine 06/06/2024 2:09 PM EMERGENCY PLANNER MICROALBUMIN/CREATI NINE RATIO, RANDOM UR Routine 05/02/2024 9:59 AM CDT Type 2 diabetes mellitus without complication, unspecified whether skilled nursing insulin use ([facility]) LIPID PANEL Routine 05/02/2024 9:56 AM CDT Type 2 diabetes mellitus without complication, unspecified whether skilled nursing insulin use ([facility]) MAMMO 3D ORIN SCREEN BILAT W OR WO CAD Routine 12/23/2021 10:41 AM CDT Screening mammogram, encounter for HM DIABETES EYE EXAM Routine 12/22/2021 CERV/VAG CYTO AGE BASED SCREEN PAP Routine 08/16/2021 3:21 PM EMERGENCY PLANNER Encounter for gynecological examination without abnormal finding Screening for HPV (human papillomavirus) ENDOSCOPY, COLON, SCREENING Routine 05/09/2019 from Last 3 Months or Most Recently Relevant to Health Maintenance Results * MRI KNEE WO CONTRAST RIGHT (07/26/2024 2:16 PM EMERGENCY PLANNER) Anatomical Region Laterality Modality Lower Extremity Magnetic Resonan ce 07/26/2024 2:17 PM EMERGENCY PLANNER Impressions 07/26/2024 5:04 PM EMERGENCY PLANNER IMPRESSION: 1. 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 2. Slightly abnormal signal of the medial meniscus but no definitive MRI evidence of a meniscal tear. 3. Superolateral Hoffa's fat edema that can be seen in patellar maltracking and fat pad impingement. DICTATION LOCATION: [address] CPM Narrative 07/26/2024 5:04 PM EMERGENCY PLANNER MRI KNEE WO CONTRAST RIGHT DATE: 07/26/2024 2:16 PM HISTORY: Knee pain, chronic, positive xray (Age >= 5y), no relief from physical therapy. ?? Acute pain of both knees; Acute pain of both knees; Knee pain, unspecified chronicity, unspecified laterality ?? Technique:: Multiplanar, multisequence without contrast COMPARISON: Radiographs from 04/23/2024 FINDINGS: The osseous structures are intact and there is no fracture or mass. Degenerative disease at the patellofemoral joint is present. This includes large areas of full-thickness patellar cartilage loss with reactive subchondral edema and cystic change. There is mild to moderate cartilage loss at the medial femoral condyle. There is trace joint fluid. No loose bodies are identified. There is intermediate signal within the substance of the medial meniscus that approaches the inferior horn. No definitive tear is seen on MRI. The lateral meniscus appears intact with no definite tear. The cruciate and collateral ligaments are intact. Extensor mechanism is intact. Slight superolateral Hoffa's fat edema is seen. There is no soft tissue mass or fluid collection. Procedure Note Jhonny Cano MD - 07/26/2024 MRI KNEE WO CONTRAST RIGHT DATE: 07/26/2024 2:16 PM HISTORY: Knee pain, chronic, positive xray (Age >= 5y), no relief from physical therapy. Acute pain of both knees; Acute pain of both knees; Knee pain, unspecified chronicity, unspecified laterality Technique:: Multiplanar, multisequence without contrast COMPARISON: Radiographs from 04/23/2024 FINDINGS: The osseous structures are intact and there is no fracture or mass. Degenerative disease at the patellofemoral joint is present. This includes large areas of full-thickness patellar cartilage loss with reactive subchondral edema and cystic change. There is mild to moderate cartilage loss at the medial femoral condyle. There is trace joint fluid. No loose bodies are identified. There is intermediate signal within the substance of the medial meniscus that approaches the inferior horn. No definitive tear is seen on MRI. The lateral meniscus appears intact with no definite tear. The cruciate and collateral ligaments are intact. Extensor mechanism is intact. Slight superolateral Hoffa's fat edema is seen. There is no soft tissue mass or fluid collection. IMPRESSION: 1. 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 2. Slightly abnormal signal of the medial meniscus but no definitive MRI evidence of a meniscal tear. 3. Superolateral Hoffa's fat edema that can be seen in patellar maltracking and fat pad impingement. DICTATION LOCATION: [address] Enoch Rosario MD MR ORDERABLES Final Result * (ABNORMAL) HEMOGLOBIN A1C (06/06/2024 2:13 PM EMERGENCY PLANNER) HEMOGLOBIN A1C 5.8(H) <5.7 % of total Hgb [facility] Comment: For someone without known diabetes, a hemoglobin A1c value between 5.7% and 6.4% is consistent with prediabetes and should be confirmed with a follow-up test. For someone with known diabetes, a value <7% indicates that their diabetes is well controlled. A1c targets should be individualized based on duration of diabetes, age, comorbid conditions, and other considerations. This assay result is consistent with an increased risk of diabetes. Currently, no consensus exists regarding use of hemoglobin A1c for diagnosis of diabetes for children. ESTIMATED AVERAGE GLUCOSE (MG/DL) 120 mg/dL [facility] ESTIMATED AVERAGE GLUCOSE (MMOL/L) 6.6 mmol/L [facility] Comment: FASTING:NO AN UPDATE OR CORRECTION HAS BEEN MADE TO NAME FASTING: NO Test Performed at: [facility] [address] [place] ??[phone] Carter Velasquez Vo Blood 06/06/2024 2:13 PM EMERGENCY PLANNER 06/06/2024 2:14 PM EMERGENCY PLANNER Enoch Rosario MD CHEMISTRY ORDERABLES Final R esult [facility] [phone] [facility] [place] [address] [place] [phone] * (ABNORMAL) URINALYSIS WITH REFLEX CULTURE (06/06/2024 2:09 PM EMERGENCY PLANNER) COLOR UA DARK YELLOW YELLOW [facility] CLARITY UA CLOUDY(A) CLEAR [facility] SPECIFIC GRAVITY UA 1.005 1.001 - 1.[address] [facility] PH UA 5.5 5.0 - 8.0 [facility] GLUCOSE UA NEGATIVE NEGATIVE [facility] BILIRUBIN UA NEGATIVE NEGATIVE [facility] KETONES UA NEGATIVE NEGATIVE [facility] BLOOD UA 3+(A) NEGATIVE [facility] PROTEIN UA NEGATIVE NEGATIVE [facility] NITRITE UA POSITIVE(A) NEGATIVE [facility] LEUKOCYTE ESTERASE UA 2+(A) NEGATIVE [facility] WBC UA 20-40(A) < OR = 5 /HPF [facility] RBC UA NONE SEEN < OR = 2 /HPF [facility] EPITHELIAL CELLS, URINE NONE SEEN < OR = 5 /HPF [facility] BACTERIA UA FEW(A) NONE SEEN /HPF [facility] HYALINE CAST NONE SEEN NONE SEEN /LPF [facility] URINE NOTE [facility] Comment: This urine was analyzed for the presence of WBC, RBC, bacteria, casts, and other formed elements. Only those elements seen were reported. URINE CULTURE [facility] Comment: CULTURE INDICATED - RESULTS TO FOLLOW Test Performed at: [place] [address] [place] ??[phone] Carter Johnson Urine URINE SPECIMEN OBTAINED BY CLEAN CATCH PROCEDURE / Unknown 06/06/2024 2:09 PM EMERGENCY PLANNER 06/06/2024 2:12 PM EMERGENCY PLANNER us Enoch Rosario MD URINE ORDERABLES Final Resul t [facility] [phone] [place] [address] [place] [phone] * (ABNORMAL) URINE CULTURE (06/06/2024 2:09 PM EMERGENCY PLANNER) URINE CULTURE SEE NOTE(A) [facility] Comment: ??CULTURE, URINE, ROUTINE ?Micro Number: ?[id number] ??Test Status: ? Final ??Specimen Source: ?? Urine ??Specimen Quality: ??Adequate ??Result: ?50,000-100,000 CFU/mL of Escherichia coli ?E.coli ?INT ?? BRIGITTE ?? AMOX/CLAVULANATE ? S ? 4 ?? AMP/SULBACTAM ?I ? 16 ?? CEFAZOLIN ?NR ?<=4 2 ?? CEFEPIME ? S ? <=0.12 ?? CEFTAZIDIME ?S ? <=1 ?? CEFTRIAXONE ?S ? <=0.25 ?? CIPROFLOXACIN ?R ? >=4 ?? GENTAMICIN ? S ? <=1 ?? IMIPENEM ? S ? <=0.25 ?? LEVOFLOXACIN ? R ? >=8 ?? MEROPENEM ?S ? <=0.25 ?? NITROFURANTOIN ? S ? <=16 ?? PIP/TAZOBACTAM ? S ? <=4 ?? TRIMETHOPRIM/SULFA ? S ? <=20 S = Susceptible ??I = Intermediate ??R = Resistant ??NS = Not susceptible SDD = Susceptible Dose Dependent ??* = Not Tested ??NR = Not Reported NN = See Therapy Comments THERAPY COMMENTS ?Note 1: ?For infections other than uncomplicated UTI ?caused by E. coli, K. pneumoniae or P. mirabilis: ?Cefazolin is resistant if BRIGITTE > or = 8 mcg/mL. ?(Distinguishing susceptible versus intermediate ?for isolates with BRIGITTE < or = 4 mcg/mL requires ?additional testing.) ?Note 2: ?For uncomplicated UTI caused by E. coli, ?K. pneumoniae or P. mirabilis: Cefazolin is ?susceptible if BRIGITTE <32 mcg/mL and predicts ?susceptible to the oral agents cefaclor, cefdinir, ?cefpodoxime, cefprozil, cefuroxime, cephalexin ?and loracarbef. Test Performed at: [facility] [address] [place] ??[phone] Carter Johnson 06/06/2024 2:09 PM EMERGENCY PLANNER 06/06/2024 2:12 PM EMERGENCY PLANNER Enoch Rosario MD MICROBIOLOGY - GENERAL ORDER ALISHA Final Result Performing Organization Address City/[facility]/ZIP [facility] Phone Number [facility] [phone] [facility] [address] [place] [address] * (ABNORMAL) MICROALBUMIN/CREATININE RATIO, RANDOM UR (05/02/2024 9:59 AM CDT) Creatinine, Urine 174 20 - 275 mg/dL [facility] MICROALBUMIN, URINE 6.8 See Note: mg/dL [facility] Comment: Reference Range: Reference Range Not established MICROALBUMIN/CREAT RATIO, UR 39(H) <30 mg/g creat [facility] Comment: The ADA defines abnormalities in albumin excretion as follows: Albuminuria Category ?Result (mg/g creatinine) Normal to Mildly increased ?? <30 Moderately increased ? 30-299 Severely increased ? > OR = 300 The ADA recommends that at least two of three specimens collected within a 3-6 month period be abnormal before considering a patient to be within a diagnostic category. FASTING:YES FASTING: YES Test Performed at: [facility] [address] [place], [place] ??[phone] Carter Johnson MD Urine URINE SPECIMEN OBTAINED BY CLEAN CATCH PROCEDURE / Unknown 05/02/2024 9:59 AM CDT 05/02/2024 9:59 AM CDT Enoch Rosario MD URINE ORDERABLES Final Resul t Performing Organization Address City/State/ZIP Co il Phone Number [facility] [phone] [facility] [address] [place] [address] * (ABNORMAL) LIPID PANEL (05/02/2024 9:56 AM CDT) CHOLESTEROL 264(H) <200 mg/dL [facility] HDL 54 > OR = 50 mg/dL [facility] TRIGLYCERIDE 207(H) <150 mg/dL [facility] Comment: If a non-fasting specimen was collected, consider repeat triglyceride testing on a fasting specimen if clinically indicated. Anand et al. J. of Clin. Lipidol. 2015;9:129-169. LDL CALCULATED 173(H) mg/dL (calc) [facility] Comment: Reference range: <100 Desirable range <100 mg/dL for primary prevention; ?? <70 mg/dL for patients with CHD or diabetic patients with > or = 2 CHD risk factors. LDL-C is now calculated using the Rudi calculation, which is a validated novel method providing better accuracy than the Friedewald equation in the estimation of LDL-C. Leobardo SS et al. DARYL. 2013;310(19): 8569-4483 (http://education.LearnUpon/faq/XDT212) CHOL/HDL RATIO 4.9 <5.0 (calc) [facility] NON-HDL CHOLESTEROL 210(H) <130 mg/dL (calc) [facility] Comment: For patients with diabetes plus 1 major ASCVD risk factor, treating to a non-HDL-C goal of <100 mg/dL (LDL-C of <70 mg/dL) is considered a therapeutic option. Test Performed at: [employer] [facility] [address] [facility] [place] ??[phone] Carter Johnson MD Blood 05/02/2024 9:56 AM CDT 05/02/2024 9:57 AM CDT us Enoch Rosario MD CHEMISTRY ORDERABLES Final R esult [facility] [phone] [facility] [address] [place] [address] * MAMMO SCRN BILAT 3D ORIN W OR WO CAD (12/23/2021 10:41 AM CDT) Anatomical Region Laterality Modality Breast Bilateral Mammography Narrative 12/23/2021 12:39 PM CDT Bilateral Digital Mammogram with CAD and 3D Tomography Reason for Exam: Screening Comparison: No prior exam(s) for comparison. Technique: 3D MLO and CC digital tomosynthesis images were acquired and synthesized 2D images (C view) were generated. ??This digital mammogram was also analyzed by the Computer Aided Detection System CAD). Findings: ??There are scattered areas of fibroglandular density. There are no suspicious masses, areas of architectural distortions, or microcalcifications to suggest malignancy. Impression: Negative screening mammogram. Recommendation: Routine annual follow-up Overall Assessment: Birads Category 1: Negative us Marija Peralta SAW EDGE FUSER CIRCULAR MAMMO ORDERABLES Final Result * DIABETES EYE EXAM (12/22/2021) us Mendez Vega HEALTH MAINTENANCE Final Result [facility] CLIA# [id number] [address] [place] [address] * CERV/VAG CYTO AGE BASED SCREEN PAP (08/16/2021 3:21 PM EMERGENCY PLANNER) COMMENT (PAP): [facility] Comment: This order for age-based cervical cancer and STI screening follows ACOG guidelines(PB 168, 140, CDV860). See individual assays for performing site location. CLINICAL INFORMATION [facility] Comment:SCREENING LAST MENSTRUAL PERIOD [facility] Comment:INFORMATION NOT PROV IDED PREV PAP: [facility] Comment:INFORMATION NOT PROV IDED PREV BX: [facility] Comment:INFORMATION NOT PROV IDED SOURCE [facility] Comment:Endocervix ADEQUACY: [facility] Comment: Satisfactory for evaluation. Endocervical/transformation zone component present. Age and/or menstrual status not provided PAP INTERP [facility] Comment:Negative for intraep ithelial lesion or malignancy. COMMENT (PAP TEST) [facility] Comment: This Pap test has been evaluated with computer assisted technology. ENGRAVER: [facility] Comment: BIANCHI, CT(ASCP) CT Screening location: [facility] [place] [address] EXPLANATORY NOTE [facility] Comment: EXPLANATORY NOTE: The Pap is a screening test for cervical cancer. It is not a diagnostic test and is subject to false negative and false positive results. It is most reliable when a satisfactory sample, regularly obtained, is submitted with relevant clinical findings and history, and when the Pap result is evaluated along with historic and current clinical information. HPV E6/E7 Not Detected Not Detected [facility] Comment: Methodology: Panel Beater-Mediated Amplification This assay detects E6/E7 viral messenger RNA (mRNA) from 14 high-risk HPV types (16,18,31,33,35,39,45,51,52,56,58,59,66,68). The analytical performance characteristics of this assay have been determined by [facility]. The modifications have not been cleared or approved by the FDA. This assay has been validated pursuant to the CLIA regulations and is used for clinical purposes. For additional information, please refer to http://education.Etece/faq/YYR413v5 (This link if provided for information/ educational purposes only.) Test Performed at: [facility] ??[id number] Cesar Ortiz D.O., MPH SL Genital SWAB OF ENDOCERVIX / Unknown 08/16/2021 3:21 PM EMERGENCY PLANNER 08/16/2021 11:13 PM EMERGENCY PLANNER Marija Peralta SAW EDGE FUSER CIRCULAR PATHOLOGY/CYTOLOGY ORDERABLES Final Result Performing Organization Address [facility] Co de Phone Number [facility] [address] [place] [address] * ENDOSCOPY, COLON, SCREENING (05/09/2019) Anton Vang MD GI PROCEDURE ORDERA BLES Edited Result - Final Performing Organization Address City/[facility]/ZIP Co de Phone Number [facility] GRIMALDO IA# [id number] [address] [place] [address] from Last 3 Months or Most Recently Relevant to Health Maintenance Insurance [employer] [address] BCBS BLUE ACCESS/TRUE BLUE PPO [facility] Advance Directives For more information, please contact: [phone] * Full Code (Latest Code Status on File) Date Activated Date Inactivated Comments 12/19/2019 3:38 AM 12/20/2019 3:23 PM * Full Code Date Activated Date Inactivated Comments 12/19/2019 3:37 AM 12/19/2019 3:38 AM Care Teams Ventilation Equipment Tender Relationship Specialty Start Date End Date Enoch Rosario MD [address] [place] [phone] PCP - General Family Practice 09/14/11
--- OUTSIDE RECORDS SUMMARY | 2024-08-24 11:33 | XMS_ITS | Encounter Summary ---
Author Organization [facility] Address [address] [place] [address] Care Team Providers Care Branch Operation Evaluation Manager Name Role Phone Enoch Rosario MD Primary Care Provider [phone] Encounter Details Date Type Department Care Team (Late Contact Info) Description 05/13/2021 Refill [facility] - [place] [address] [place] [address] Enoch Rosario MD [address] [facility] [place] [address] Social History Tobacco Use Types Packs/Day Years Used Date Smoking Tobacco: Former Cigarettes 0.5 15 Smokeless Tobacco: Never Alcohol Use Standard Drinks/Week Comments Yes 0 (1 standard drink = 0.6 oz pur e alcohol) rare Comments No Sex and Gender Information Value Date Recorded Sex Assigned at Not on file Legal Sex Female 5:48 AM FOOD AND BEVERAGE COORDINATOR Gender Identity Not on file Sexual Orientation Not on file COVID-19 Exposure Response Date Recorded In the last month, have you been in contact with someone who was confirmed or suspected to have Coronavirus / COVID-19? No / Unsure 05/03/2021 11:35 AM CDT documented as of this encounter Plan of Treatment Upcoming Encounters Date Type Department Care Team (Late Contact Info) Description 08/26/2024 10:45 AM FOOD AND BEVERAGE COORDINATOR Office Visit [facility] at the [facility] [address] [place] [phone] Alli Ferrer MD [address] [facility] [address] [place] [address] 08/26/2024 4:30 PM FOOD AND BEVERAGE COORDINATOR Video Visit [facility] - [place] [address] [place] [phone] Enoch Rosario MD [address] [place] [address] documented as of this encounter Visit Diagnoses Not on filedocumented in this encounter Additional Health Concerns Infection Onset Date Last Indicated Resolved Time COVID-19 05/31/2021 05/31/2021 06/30/2021 1:16 AM FOOD AND BEVERAGE COORDINATOR COVID-19 05/16/2022 05/16/2022 06/15/2022 1:16 AM FOOD AND BEVERAGE COORDINATOR documented as of this encounter Care Teams Branch Operation Evaluation Manager Relationship Specialty Start Date End Date Enoch Rosario MD [address] [place] [phone] PCP - General Family Practice 09/14/11 documented as of this encounter
--- OUTSIDE RECORDS SUMMARY | 2024-08-24 11:33 | XMS_ITS | Encounter Summary ---
Author Organization [facility] Address [address] [place] [address] Care Team Providers Care Yard Jockey Name Role Phone Unavailable Primary Care Provider Unavailabl e Prior Encounters Date Type Department Care Team Description 05/23/2024 2:00 PM CDT Office Visit [facility] [address] [place] [phone] Luisa Kraft DMD 05/10/2024 12:00 PM CDT Office Visit [facility] [address] [place] [phone] Luisa Kraft DMD 04/23/2024 11:30 AM CDT Office Visit [facility] [address] [place] [phone] Luisa Kraft DMD 03/28/2024 Travel 03/28/2024 2:00 PM CDT Office Visit [facility] [address] [place] [phone] Luisa Kraft DMD 03/20/2024 3:00 PM CDT Office Visit [facility] [address] [place] [phone] Luisa Kraft DMD Encounter for dental examination and cleaning without abnormal findings (Primary Dx) 02/27/2024 Travel 02/27/2024 10:00 AM CDT Office Visit [facility] [address] [place] [phone] Luisa Kraft DMD Plan of Treatment Upcoming Encounters Date Type Department Care Team (Late st Contact Info) Description 10/03/2024 2:30 PM CDT [facility] [address] [place] [phone] Luisa Kraft, MAXX [address] [place] [address] Procedures Procedure Name Priority Date/Time Associated Diagnosis Comments DELIVER UPPER DENT Routine 05/23/2024 2: 00 PM CDT WAX TRY-IN Routine 05/10/2024 12:00 PM CDT WAX TRY-IN Routine 04/23/2024 11:30 AM CDT WAX TRY-IN Routine 03/28/2024 2:00 PM CDT CUSTOM TRAYS Routine 03/20/2024 3:00 PM CDT CLEANING AND INSPECTION OF REMOVABLE COMPLETE DENTURE, MANDIBULAR Routine 03/20/2024 3:00 PM CDT PANORAMIC RADIOGRAPHIC IMAGE Routine 03/20/2024 3:00 PM CDT COMPREHENSIVE ORAL EVALUATION - NEW OR ESTABLISHED PATIENT Routine 03/20/2024 3:00 PM CDT Encounter for dental examination and cleaning without abnormal findings INTRAORAL - COMPREHENSIVE SERIES OF RADIOGRAPHIC IMAGES Routine 03/20/2024 3:00 PM CDT 29 ABUTMENT Routine 03/20/2024 12:00 AM CDT 24 ABUTMENT Routine 03/20/2024 12:00 AM CDT 21 ABUTMENT Routine 03/20/2024 12:00 AM CDT 20 ABUTMENT Routine 03/20/2024 12:00 AM CDT 28 ABUTMENT Routine 03/20/2024 12:00 AM CDT 27 ABUTMENT Routine 03/20/2024 12:00 AM CDT 26 ABUTMENT Routine 03/20/2024 12:00 AM CDT 23 PONTIC Routine 03/20/2024 12:00 AM CDT 22 PONTIC Routine 03/20/2024 12:00 AM CDT 25 PONTIC Routine 03/20/2024 12:00 AM CDT 28 DENTAL IMPLANT Routine 03/20/2024 12: 00 AM CDT 27 DENTAL IMPLANT Routine 03/20/2024 12: 00 AM CDT 26 DENTAL IMPLANT Routine 03/20/2024 12: 00 AM CDT 24 DENTAL IMPLANT Routine 03/20/2024 12: 00 AM CDT 21 DENTAL IMPLANT Routine 03/20/2024 12: 00 AM CDT 20 DENTAL IMPLANT Routine 03/20/2024 12: 00 AM CDT ORAL HEALTH BUNDLE Routine 02/27/2024 10 :00 AM CDT Max FUD PREMIUM Routine 02/27/2024 10:00 AM CDT Visit Diagnoses Diagnosis Start Date Encounter for dental examination and cleaning without abnormal findings 03/20/2024 Insurance
--- OUTSIDE RECORDS SUMMARY | 2024-08-24 11:33 | XMS_ITS | Encounter Summary ---
Author Organization [facility] Address [address] [place] [address] Care Team Providers Care Counselor Manager Name Role Phone Enoch Rosario MD Primary Care Provider [phone] Reason for Visit * Reason Comments Clinical Consult Before Scheduling Encounter Details Date Type Department Care Team (Late st Contact Info) Description 07/04/2024 Telephone [facility] Primary Care - [address] [place] [address] Enoch Rosario MD [address] [facility] [place] [address] Clinical Consult Before Scheduling Social History Tobacco Use Types Packs/Day Years [...] on file Legal Sex Female 5:48 AM QA AUTOMATION DEVELOPER Gender Identity Not on file Sexual Orientation Not on file documented as of this encounter Miscellaneous Notes * Telephone Encounter - Lea Agudelo LPN - 07/04/2024 9:42 AM QA AUTOMATION DEVELOPER Called and spoke to patient. Patient stated she has been coughing with chest congestion she stated she has been coughing up green and yellow mucus she was seen in the urgent care and given prednisoneand symptoms have not gotten any better. Let patient know that Dr Rosario is on vacation. Mik Agudelo LPN AUTOMATION DEVELOPER * Telephone Encounter - Clara Gavin - 07/04/2024 9:26 AM CST Copied from [facility] #[id number]. Topic: Symptomatic Care >> Jul 04, 2024 9:20 AM Clara Avalos wrote: Caller has new symptoms and is seeking care. Age Range/Symptom: Adult: 18+ - Cold, Flu, COVID, Sinus, Hay Fever, Allergies, Cough, Fever Does patient have any of the following other urgent symptoms: No urgent symptoms requiring warm call transfer Caller Name: Chantal Singh Callback Number: Telephone Information: Call Notes: patient stated she has been coughing with chest congestion she stated she has been coughing up green and yellow mucus she was seen in the urgent care and given prednisone and symptoms have not gotten any better Unable to schedule appointment within patient's desired timeframe. Patient declined all other options for immediate care, preferring to schedule first available. Scheduled appointment for declined appointment stated she stated she has a flight at 11 am and is requesting an antibiotics to be sent [facility] [address] [facility] please advise SVEN . If this is not clinically appropriate, please contact patient. No AUTOMATION DEVELOPER documented in this encounter Plan of Treatment Upcoming Encounters Date Type Department Care Team (Late st Contact Info) Description 08/26/2024 10:45 AM QA AUTOMATION DEVELOPER Office Visit [facility] Orthopedic Surgery at the [facility] [address] [place] [phone] Alli Ferrer MD [address] [facility] [address] [place] [address] 08/26/2024 4:30 PM QA AUTOMATION DEVELOPER Video Visit [facility] Primary Care - [address] [place] [phone] Enoch Rosario MD [address] [facility] [address] [place] [address] documented as of this encounter Visit Diagnoses Not on filedocumented in this encounter Care Teams Counselor Manager Relationship Specialty Start Date End Date Enoch Rosario MD [address] [facility] [address] [place] [address] PCP - General Family Practice 09/14/11 documented as of this encounter
--- OUTSIDE RECORDS SUMMARY | 2024-08-24 11:33 | XMS_ITS | CCD ---
Author Organization [facility] [place] [address] [place] [address] Care Team Providers Care Blowing Engineer Name Role Phone Unavailable Primary Care Provider [...] Description 10/03/2024 2:30 PM CDT Office Visit [facility] [address] [place] [address] Luisa Kraft, DMD [address] [place], [place] [phone] Procedures Procedure Name Priority Date/Time Associated Diagnosis [...]
--- OUTSIDE RECORDS SUMMARY | 2024-08-24 11:33 | XMS_ITS | Patient Health Summary ---
Author Organization [facility] Address [address] [place] [address] Care Team Providers Care Custom Decorating Consultant Name Role Phone Enoch Rosario MD Primary Care Provider [phone] Note from [facility],non-owned Affiliates and Associated Physician Practices is amultiple site organization consisting of ambulatory clinics and hospital sitesin [place], [place], [place] and [place]. This disclosure is being madepursuant to the Care Everywhere program and may not contain all information available regarding this patient. Last updated 18.[facility] Allergies * Doxycycline(CHAIR CAR ATTENDANT Dysfunction) -Low Criticality * Hydrocodone-Acetaminophen(Dizziness) * Hydroxychloroquine Sulfate(Other) * Metronidazole(Rash) -Medium Criticality * Oseltamivir Phosphate(Unknown) * Rosuvastatin(Myalgias) -Low Criticality * Sertraline(Dizziness) -Low Criticality * Sulfamethoxazole W-Trimethoprim(Unknown) Medications * Be aware that medications may not be up to date on this document. Alwaysverify current medications with the patient. * aspirin EC (ECOTRIN) 81 MG tablet Take 81 mg by mouth once daily * clonazePAM, disintegrating, (KLONOPIN WAFER) 0.125 MG tablet(Started 09/30/2021) * nebivolol (BYSTOLIC) 2.5 MG tablet(Started 12/21/2021) TAKE 1 TABLET BY MOUTH ONCE DAILY. MAY TAKE AN EXTRA TABLET NEEDED FOR PALPITATIONS. Social History Tobacco Use Types Packs/Day Years [...] Mass Index 34.84 01/14/2022 1:27 PM CDT Procedures * XR HAND BILAT 2VW(Performed 01/14/2022) Performed for Polyarthralgia * URIC ACID BLOOD(Performed 01/14/2022) Performed for Polyarthralgia * RHEUMATOID FACTOR BLOOD QUANTITATIVE(Performed 01/14/2022) Performed for Polyarthralgia * ERYTHROCYTE SEDIMENTATION RATE(Performed 01/14/2022) Performed for Polyarthralgia * CYCLIC CITRUL PEPTIDE ANTIBODY IGG/IGA (CCP)(Performed 01/14/2022) Performed for Polyarthralgia * C-REACTIVE PROTEIN(Performed 01/14/2022) Performed for Polyarthralgia * COMPREHENSIVE METABOLIC PANEL(Performed 01/14/2022) Performed for Polyarthralgia * CBC W AUTO DIFFERENTIAL(Performed 01/14/2022) Performed for Polyarthralgia * SS-A/SS-B (SJOGREN'S) ANTIBODY PANEL(Performed 01/14/2022) Performed for Polyarthralgia * NEDA BLOOD SCREEN W/REFLEX TITER(Performed 01/14/2022) Performed for Polyarthralgia * GROSS + MICRO EXAM(Performed 04/20/2007) Results * XR HAND BILAT 2VW (01/14/2022 2:40 PM CDT) Anatomical Region Laterality Modality Wrist / Hand, Upper Extremity Ra diographic Imaging 01/14/2022 2:58 PM CDT Narrative 01/14/2022 3:03 PM CDT 2 VIEWS RIGHT HAND 2 VIEWS LEFT HAND INDICATION: Bilateral hand pain FINDINGS: 2 views right hand shows no fracture, dislocation or osseous destruction. There is joint space narrowing and hypertrophic spurring at the basilar joint and interphalangeal joint of the thumb. Ossicular density is present adjacent to the ulnar styloid. This may represent remote ulnar styloid fracture. 2 views left hand shows no acute fracture, dislocation or osseous destruction. There is joint space narrowing and hypertrophic spurring at the basilar joint and interphalangeal joint of the thumb. There is mild joint space narrowing and hypertrophic spurring at the distal interphalangeal joints of the second and third fingers. *Reading Radiologist: Gagan Vargas on 01/14/2022 at 3:03 PM Procedure Note Gagan Vargas MD - 01/14/2022 2 VIEWS RIGHT HAND 2 VIEWS LEFT HAND INDICATION: Bilateral hand pain FINDINGS: 2 views right hand shows no fracture, dislocation or osseous destruction. There is joint space narrowing and hypertrophic spurring at the basilar joint and interphalangeal joint of the thumb. Ossicular density is present adjacent to the ulnar styloid. This may represent remote ulnar styloid fracture. 2 views left hand shows no acute fracture, dislocation or osseous destruction. There is joint space narrowing and hypertrophic spurring at the basilar joint and interphalangeal joint of the thumb. There is mild joint space narrowing and hypertrophic spurring at the distal interphalangeal joints of the second and third fingers. *Reading Radiologist: Gagan Vargas on 01/14/2022 at 3:03 PM Trang Zavala MD DIAGNOSTIC IMAGING O RDERABLES * CYCLIC CITRUL PEPTIDE ANTIBODY IGG/IGA (CCP) (01/14/2022 2:18 PM CDT) CCP Antibodies IgG/IgA 7 0 - 19 units [facility] ACCOUNT BILL Comment: ? Negative ? <20 ? Weak positive ?20 - 39 ? Moderate positive ??40 - 59 ? Strong positive ?>59 Blood BLOOD SPECIMEN / Unknown 01/14/2022 2:18 PM CDT 01/14/2022 Narrative Resulting Agency Comment Lab Testing performed at: [facility] [address] ??[facility] [id number] Trang Zavala MD LAB - SEROLOGY ORDER ALISHA Performing Organization Address [facility] Co de Phone Number [facility] ACCOUNT BILL [address] [place] [address] * URIC ACID BLOOD (01/14/2022 2:18 PM CDT) Uric Acid 6.0 2.6 - 6.0 mg/dL [facility] ACCOUNT BILL Blood BLOOD SPECIMEN / Unknown 01/14/2022 2:18 PM CDT 01/14/2022 Narrative Resulting Agency Comment Lab Testing performed at: [place] [id number] [facility] ?? [place] [id number] Trang Zavala MD LAB - CHEMISTRY ABDULLAHI STANTON Performing Organization Address [facility] Co de Phone Number [facility] ACCOUNT BILL [address] [place] [address] * RHEUMATOID FACTOR BLOOD QUANTITATIVE (01/14/2022 2:18 PM CDT) Rheumatoid Factor <15 <30 IU/mL [facility] ACCOUNT BILL Blood BLOOD SPECIMEN / Unknown 01/14/2022 2:18 PM CDT 01/14/2022 Narrative Resulting Agency Comment Lab Testing performed at: [address] ??[facility] [id number] Trang Zavala MD LAB - CHEMISTRY ABDULLAHI STANTON Performing Organization Address City/[facility] Co de Phone Number [facility] ACCOUNT BILL [address] [place] [address] * C-REACTIVE PROTEIN (01/14/2022 2:18 PM CDT) C-Reactive Protein 0.38 <=0.50 mg/dL [facility] ACCOUNT BILL Blood BLOOD SPECIMEN / Unknown 01/14/2022 2:18 PM CDT 01/14/2022 Narrative Resulting Agency Comment Lab Testing performed at: [facility] [address] [facility] ?? [facility] [id number] Trang Zavala MD LAB - CHEMISTRY ABDULLAHI STANTON Performing Organization Address [facility] Co de Phone Number [facility] ACCOUNT BILL [address] [place] [address] * NEDA BLOOD SCREEN W/REFLEX TITER (01/14/2022 2:18 PM CDT) NEDA Negative Negative [facility] ACCOUNT BILL Comment: Methodology: Indirect Immunofluorescence Assay (IFA) [facility] Hep-2-Gamma cells. Blood BLOOD SPECIMEN / Unknown 01/14/2022 2:18 PM CDT 01/14/2022 Narrative Resulting Agency Comment Lab Testing performed at: [address] ??[facility] [id number] Trang Zavala MD LAB - CHEMISTRY ABDULLAHI STANTON Performing Organization Address City/[facility]/ZIP Co de Phone Number [facility] ACCOUNT BILL [address] [place] [address] * SS-A/SS-B (SJOGREN'S) ANTIBODY PANEL (01/14/2022 2:18 PM CDT) Sjogren's Antibodies (SSA) 0.4 0.0 - 0.9 AI [facility] ACCOUNT BILL Sjogren's Antibodies (SSB) <0.2 0.0 - 0.9 AI [facility] ACCOUNT BILL Blood BLOOD SPECIMEN / Unknown 01/14/2022 2:18 PM CDT 01/14/2022 Narrative Resulting Agency Comment Lab Testing performed at: [facility] [place] [id number] [facility] ??[facility] [id number] Trang Zavala MD LAB - CHEMISTRY ABDULLAHI STANTON Performing Organization Address City/[facility]/ZIP Co de Phone Number [facility] ACCOUNT BILL [address] [place] [address] * ERYTHROCYTE SEDIMENTATION RATE (01/14/2022 2:18 PM CDT) Erythrocyte Sedimentation Rate Westergren 11 0 - 30 MM/HR [facility] ACCOUNT BILL Blood BLOOD SPECIMEN / Unknown 01/14/2022 2:18 PM CDT 01/14/2022 Narrative Resulting Agency Comment Lab Testing performed at: [place] [address] [facility] ?? [place] [id number] Trang Zavala MD LAB - HEMATOLOGY SONJA WALSH Performing Organization Address City/[facility]/ZIP Co de Phone Number [facility] ACCOUNT BILL [address] [place] [address] * (ABNORMAL) CBC WITH DIFFERENTIAL (01/14/2022 2:18 PM CDT) WBC 7.7 4.4 - 10.7 x10E9/L [facility] ACCOUNT BILL RBC 5.18 3.80 - 5.20 x10E12/L [facility] ACCOUNT BILL Hemoglobin 15.1 12.0 - 15.6 gm/dL [facility] ACCOUNT BILL Hematocrit 47.1(H) 35.9 - 45.5 % [facility] ACCOUNT BILL MCV 90.9 80.7 - 98.3 fl [facility] ACCOUNT BILL MCH 29.2 26.7 - 34.0 pg [facility] ACCOUNT BILL MCHC 32.1 30.8 - 35.9 gm/dL [facility] ACCOUNT BILL RDW 12.5 12.1 - 14.9 % [facility] ACCOUNT BILL Platelet Count 311 153 - 416 x10E9/L [facility] ACCOUNT BILL Comment:MPV FL BLOOD ([facility]) 9 .6 fl 9.4-12.9 Granulocytes % 53.7 44.0 - 73.0 % [facility] ACCOUNT BILL Lymphocytes % 35.3 20.0 - 43.0 % [facility] ACCOUNT BILL Monocytes % 7.5 5.0 - 13.0 % [facility] ACCOUNT BILL Eosinophils % 2.6 0.0 - 6.0 % [facility] ACCOUNT BILL Basophils % 0.6 0.0 - 2.0 % [facility] ACCOUNT BILL Granulocytes Absolute 4.14 2.01 - 7.14 x10E9/L [facility] ACCOUNT BILL Lymphocytes Absolute 2.72 1.07 - 3.94 x10E9/L [facility] ACCOUNT BILL Monocytes Absolute 0.58 0.26 - 1.07 x10E9/L [facility] ACCOUNT BILL Eosinophils Absolute 0.20 0 - 0.47 x10E9/L [facility] ACCOUNT BILL Basophils Absolute 0.05 0 - 0.08 x10E9/L [facility] ACCOUNT BILL Immature Granulocytes 0.3 0 - 1 % [facility] ACCOUNT BILL Immature Granulocytes Absolute 0.02 0.00 - 0.06 x10E9/L [facility] ACCOUNT BILL nRBC 0 /100 WBC [facility] ACCOUNT BILL Blood BLOOD SPECIMEN / Unknown 01/14/2022 2:18 PM CDT 01/14/2022 Narrative Resulting Agency Comment Lab Testing performed at: [address] ?? [place] [id number] Trang Zavala MD LAB - HEMATOLOGY ORD ERABLES [facility] ACCOUNT BILL [address] [place] [address] * (ABNORMAL) COMPREHENSIVE METABOLIC PANEL (01/14/2022 2:18 PM CDT) [facility] Glucose 81 70 - 105 mg/dL [facility] [...] Resulting Agency Comment Lab Testing performed at: [address] ?? [place] [id number] Trang Zavala MD LAB - CHEMISTRY ABDULLAHI STANTON [facility] Organization Address City/State/ZIP Co de Phone Number [facility] ACCOUNT BILL [address] [place] [address] * GROSS + MICRO EXAM (04/20/2007 2:11 PM CDT) Result CASE NUMBER [id number] Comment: ORDERING PHYSICIAN ??LYDIA ADDISON SPECIMEN TYPE ?Gallbladder Date ? 04/20/2007 Physician ?Vince Addison Gross Description ? The specimen is labeled with the patient's name, Chantal Figueroa, and gallbladder. ??It consists of a gallbladder measuring 7 cm in length and 2 cm in maximum transverse dimension. ??The external surface is unremarkable. ??On opening, the lumen is filled with green viscous bile. No gallstones identified. ??The mucosal surface is greenish yellow and velvety. ??No lymph nodes or tumor mass identified. ??The cystic duct is patent. ??The wall varies in thickness from 1-2 mm. ??Biomass Boiler Operator sections are submitted in one block. RN day Microscopic Exam ? Sections show gallbladder with focal mild chronic inflammation. No dysplasia or malignancy is seen. MC/na Diagnosis ? I. ?Gallbladder, cholecystectomy -- ?Focal mild chronic inflammation MC/na Master Motorcycle Technician ? na Pathologist ?Elaina Pete M.D. [place]. ?04/23/2007 1135 <1> CPT code ? 70411 MISCELLANEOUS SAMPLES / Unknown 04/20/2007 2:11 PM CDT 04/20/2007 2:11 PM CDT Historical Provider MD LAB - PATHOLOGY/C YTOLOGY ORDERABLES Care Teams Custom Decorating Consultant Relationship Specialty Start Date End Date Enoch Rosario MD [address] [facility] [facility] [address] [place] [phone] PCP - General Family Medicine 01/14/22
--- OUTSIDE RECORDS SUMMARY | 2024-08-24 11:33 | XMS_ITS | Continuity of Care Document ---
Author Organization [facility] Address [address] [place] [address] Phone Care Team Providers Care It Sales Executive Name Role Phone Agusto Guerra MD Unavailable Unavailable Allergies, Adverse Reactions, Alerts Substance Reaction Status Criticality No Known allergies Medications Medication Instructions Dosage Effective Dates (start - stop) Status Comments dicyclomine 20 mg tablet take 1 tablet by oral route 4 times every day prn as needed 20 MG - Active Bystolic 5 mg tablet take 1 tablet by oral route every day 5 MG - Active clonazepam 0.5 mg tablet take 1 tablet by oral route 3 times every day 0.5 MG - Active FISH OIL (unknown strength) Not Available - Active Advance Directives Directive Yes / No Effective Date File Name No Information Encounters Encounter Description Practice Location Reason(s) For Visit Diagnoses Date Provider Providers Copied on Encounter [facility], [address], [place], [place], [id number], [place] tel:[phone] [facility] Di[facility] [address] [place], [place], [id number], [place]. tel:[phone] Referring Provider: Enoch Rosario, [address] [place] [address] [address], [place], [address]. tel:[phone] Family History Family Member Type Diagnosis Age At Onset Close relative Problem (finding) cancer of colon Payers Payer name Insurance type Covered libertarian ID Authoriza tion(s) BCBS INACTIVE OUT OF STATE [id number] 1 Social History Type Description Quantity Date Captured Comments Alcohol Use Details Unknown Caffeine Use Details Unknown Tobacco Use Status Smoking Status Current every day smoker 2015 Sex Female Vital Signs Date / Time: Height Weight BMI Pulse Rate Blood Pressure Temperature Respiratory Rate Body Surface Area Head Circumference Head Circ. Percentile Wt./Robin. Percentile BMI percentile Pulse Ox Inhaled Ox 1:56 PM 60.00 in 80.739 kg (178.00 lbs) 34.7 6 kg/m eter (2) 64 /min 100/60 mm[Hg] Chief Complaint And Reason For Visit No Information Reason For Referral Reason For Referral No Information History Of Present Illness Encounter Date Complaint History Of Prese nt Illness No Information Functional Status Date Functional Assessmen t No Information Instructions Date Instruction Additional Infor mation No Information Assessments Type Assessment Date No Information Patient Care Teams Name Effective Dates (start - stop) Status Members No Information
[2024-08-24 11:47] VITALS: BP 123/70; PULSE 88; RESP 20; TEMP 36.6; O2SAT 100
--- NOTE | 2024-08-24 11:47 | ECG_ITS ---
Test Date: 2024-08-24 11:54:43 Measurements Intervals [place] Rate: 79 P: 75 MI: 158 QRS: 74 QRSD: 101 T: 63 QT: 385 QTc: 443 Interpretive Statements SINUS RHYTHM WITH SINUS ARRHYTHMIA POSSIBLE LEFT ATRIAL ENLARGEMENT BORDERLINE ECG No previous ECG available for comparison Electronically Signed On 08-24-2024 18:16:57 MANAGER CLEANING by Boston Triplett D.O.
[2024-08-24 12:14] LABS: Basophils Absolute Auto 0.1 K/mm3 (0.0-0.1); Eosinophils Absolute Auto 0.3 K/mm3 (0-0.3); Eosinophils Percent Auto 5.6 % (0-4.4); Hematocrit 44.4 % (37.0-47.0); Hemoglobin 14.6 g/dL (12.0-15.0); Immature Granulocyte Absolute 0.01 K/mm3 (0.00-0.031); Immature Granulocyte Percent A 0.2 % (0-0.5); Lymphocytes Absolute Auto 1.78 K/mm3 (0.9-3.2); Lymphocytes Percent Auto 29.4 % (18.3-44.2); Mean Corpuscular HGB Conc 32.9 g/dl (32-36); Mean Corpuscular Hemoglobin 29.3 pg (26-34); Mean Platelet Volume 8.8 fl (7.4-10.4); Monocytes Absolute Auto 0.3 K/mm3 (0.1-0.6); Monocytes Percent Auto 5.1 % (2.6-8.5); Neutrophils Absolute Auto 3.6 K/mm3 (1.3-6.7); Neutrophils Percent Auto 58.7 % (45.5-73.1); Platelet Count Result 238 k/mm3 (150-375); Red Blood Count 4.99 M/mm3 (4.2-5.4); Red Cell Distribution Width 12.9 % (11.5-14.5); White Blood Count 6.1 K/mm3 (4.5-10.0)
[2024-08-24 12:27] LABS: Alanine Aminotransferase 29 U/L (6-35); Albumin Level 4.1 g/dL (3.5-5.1); Alkaline Phosphatase 107 U/L (38-126); Anion Gap 9 mmol/L (4-12); Aspartate Amino Transferase 26 U/L (14-36); Bilirubin,Total 0.7 mg/dL (0.2-1.3); Blood Urea Nitrogen 16 mg/dL (7-17); Calcium 9.4 mg/dL (8.4-10.2); Carbon Dioxide 24 mmol/L (22-30); Chloride 106 mmol/L (98-107); Estimated CRCL calculation 79 ml/min; Estimated Glomerular Filt Rate > 60; Glucose 106 mg/dL (65-110); Lipase 99 U/L (23-300); Potassium 4.1 mmol/L (3.4-5.0); Sodium 139 mmol/L (137-145)
[2024-08-24 12:34] VITALS: BP 134/73; PULSE 78; RESP 16; O2SAT 97
[2024-08-24 12:35] LABS: Partial Thromboplastin Time 27.4 Seconds (22.3-36.8); Prothrombin Time 13.1 Seconds (11.1-14.7)
[2024-08-24 12:37] LABS: Troponin I < 0.012 ng/mL (0.000-0.034)
[2024-08-24] MEDS: ASPIRIN 81 MG CHEWABLE TABLET 324 MG PO (12:52)
--- NOTE | 2024-08-24 13:23 | ED_ITS ---
HPI - Arrhythmia/Palpitations General Chief Complaint: Arrhythmia/Palpitations Stated Complaint: IRREGULAR HEART RATE CHEST PAIN Time Seen by Provider: 08/24/24 13:22 Source: patient and family Mode of arrival: ambulatory History of Present Illness HPI narrative: 54 YEARS OLD WHITE FEMALE WITH HISTORY OF DIABETES AND HYPOTHYROIDISM CAME TO THE EMERGENCY ROOM BY PRIVATE CAR COMPLAINING OF INTERMITTENT PALPITATION, SHE FEELS THAT HER HEART JUMPING AND FLUTTERING MAXIMUM 10 MINUTES EACH TIME. SHE DENIES CHEST PAIN, SHORTNESS OF BREATH, FEVER, CHILLS OR RESPIRATORY SYMPTOMS. PATIENT DENIES ANY STRESS Related Data Home Medications ?Medication ?Instructions ?Recorded ?Confirmed ?Last Taken ?Type levothyroxine 50 mcg tablet mcg 07/01/24 Unknown History tirzepatide 7.5 mg/0.5 mL mg subcut 07/01/24 Unknown History subcutaneous pen injector (Сергейunlisa) Allergies Allergy/AdvReac Type Severity Reaction Status Date / Time acetaminophen Allergy Unknown Unconscious Verified 08/24/24 11:31 oseltamivir Allergy Unknown Swelling Verified 08/24/24 11:31 sulfamethoxazole Allergy Unknown Unknown Verified 08/24/24 11:31 trimethoprim Allergy Unknown Unknown Verified 08/24/24 11:31 azithromycin AdvReac Unknown DOESNT Verified 08/24/24 11:31 WORK FLUVOXAMINE MALEATE Allergy Unknown Unknown Uncoded 08/24/24 11:31 PROPOXYPHENE NAPSYLATE Allergy Unknown Unknown Uncoded 08/24/24 11:31 Review of Systems 2 Review of Systems: All systems reviewed & are unremarkable except as noted in HPI and below Exam 2 Narrative: GENERAL APPEARANCE: WELL-DEVELOPED, WELL-NOURISHED SKIN: NORMAL COLOR HEAD: NORMOCEPHALIC, NONTRAUMATIC EYES: CLEAR CONJUNCTIVA ENT: OROPHARYNX NORMAL, EARS NORMAL, NOSE NORMAL NECK: SUPPLE, NONTENDER CHEST AND RESPIRATORY: AIRWAY PATENT, NO RESPIRATORY DISTRESS, NO ACCESSORY MUSCLE USE HEART: REGULAR RATE/RHYTHM ABDOMEN: SOFT, NONTENDER, NO ORGANOMEGALY, QUIET BOWEL SOUNDS VASCULAR: NORMAL PERIPHERAL PULSES, NORMAL CAPILLARY REFILL. MUSCULOSKELETAL: NORMAL RANGE OF MOTION, NONTENDER BACK NEUROLOGIC: ALERT AND ORIENTED ?3, ARCHITECTURAL WOOD MODEL MAKER IS NORMAL TESTED, NO GROSS MOTOR DEFICIT Course Vital Signs Vital signs: Vital Signs Temperature 36.6 C 08/24/24 11:47 Pulse Rate 88 08/24/24 11:47 Respiratory Rate 20 08/24/24 11:47 Blood Pressure 123/70 08/24/24 11:47 Pulse Oximetry 100 08/24/24 11:47 Oxygen Delivery Room Air 08/24/24 11:47 Temperature 36.6 C 08/24/24 11:47 Pulse Rate 78 08/24/24 12:34 Respiratory Rate 16 08/24/24 12:34 Blood Pressure 134/73 08/24/24 12:34 Pulse Oximetry 97 08/24/24 12:34 Oxygen Delivery Room Air 08/24/24 11:47 MDM - Arrhythmia/Palpitations MDM Narrative Medical decision making narrative: PATIENT PRESENTS WITH PALPITATION VITAL SIGNS ARE STABLE PHYSICAL EXAMINATION IS UNREMARKABLE DIFFERENTIAL DIAGNOSIS INCLUDE ANXIETY LIKE SYMPTOMS, INTERMITTENT CARDIAC ARRHYTHMIA, ELECTROLYTE IMBALANCE, DEHYDRATION, HYPERTHYROIDISM BLOOD WORKUP TODAY INCLUDES CBC, CMP, TROPONIN SHOWED NO SIGNIFICANT ABNORMALITIES EKG ON ARRIVAL SHOWED NORMAL SINUS RHYTHM CHEST X-RAY SHOWED NO ACUTE ABNORMALITIES ED DIAGNOSIS PALPITATION OF UNKNOWN ETIOLOGY. PATIENT WAS ADVISED TO FOLLOW-UP WITH HER FAMILY PHYSICIAN FOR POSSIBLE HOLTER MONITOR PLACEMENT. THE PT WAS DISCHARGED TO HOME.THE PT,S CONDITION UPON DISCHARGE WAS FAIR,EDUCATION WAS PROVIDED TO THE PT IN REFERENCE TO THE FINAL IMPRESSION,DISCHARGE STUDY RESULTS,TREATMENT,PROGNOSIS AND NEED FOR FOLLOW UP . Lab Data 08/24/24 12:08 08/24/24 12:08 Labs: Lab Results 08/24/24 Range/Units 12:08 WBC 6.1 (4.5-10.0) K/mm3 RBC 4.99 (4.2-5.4) M/mm3 Hgb 14.6 (12.0-15.0) g/dL Hct 44.4 (37.0-47.0) % MCV 89.0 (80-100) fl MCH 29.3 (26-34) pg MCHC 32.9 (32-36) g/dl RDW 12.9 (11.5-14.5) % Plt Count 238 (150-375) k/mm3 MPV 8.8 (7.4-10.4) fl Immature Gran % (Auto) 0.2 (0-0.5) % Neut % (Auto) 58.7 (45.5-73.1) % Lymph % (Auto) 29.4 (18.3-44.2) % Tyrrell % (Auto) 5.1 (2.6-8.5) % Eos % (Auto) 5.6 H (0-4.4) % Baso % (Auto) 1.0 (0.2-1.2) % Lymph # (Auto) 1.78 (0.9-3.2) K/mm3 Tyrrell # (Auto) 0.3 (0.1-0.6) K/mm3 Eos # (Auto) 0.3 (0-0.3) K/mm3 Baso # (Auto) 0.1 (0.0-0.1) K/mm3 Abs Immat Gran (auto) 0.01 (0.00-0.031) K/mm3 Absolute Neuts (auto) 3.6 (1.3-6.7) K/mm3 Absolute Nucleated RBC 0.000 (0.0-0.012) K/mm3 Nucleated RBC % 0.0 (0.0-0.2) % PT 13.1 (11.1-14.7) Seconds INR 1.0 APTT 27.4 (22.3-36.8) Seconds Sodium 139 (137-145) mmol/L Potassium 4.1 (3.4-5.0) mmol/L Chloride 106 (98-107) mmol/L Carbon Dioxide 24 (22-30) mmol/L Anion Gap 9 (4-12) mmol/L BUN 16 (7-17) mg/dL Creatinine 0.61 L (0.7-1.0) mg/dL Estim Creat Clear Calc 79 ml/min Estimated GFR > 60 (59 - ) Glucose 106 (65-110) mg/dL Calcium 9.4 (8.4-10.2) mg/dL Total Bilirubin 0.7 (0.2-1.3) mg/dL AST 26 (14-36) U/L ALT 29 (6-35) U/L Alkaline Phosphatase 107 (38-126) U/L Troponin I < 0.012 (0.000-0.034) ng/mL Total Protein 7.0 (6.3-8.2) g/dL Albumin 4.1 (3.5-5.1) g/dL Lipase 99 (23-300) U/L TSH Pending Imaging Data Radiologist's impression: Impressions Chest X-Ray 08/24/24 12:23 IMPRESSION: 1. No acute cardiopulmonary disease. ECG Data EKG #1: Attestation: I personally reviewed and interpreted this ECG as follows: ECG completion date: 08/24/24 Interpretation: NORMAL SINUS RHYTHM AT 79 BEATS PER MINUTE WITH SINUS ARRHYTHMIA, LEFT ATRIAL ENLARGEMENT, NO PREVIOUS EKG AVAILABLE FOR COMPARISON Discharge Plan Discharge Clinical Impression: Palpitation Patient Disposition: Home, Self-Care Condition: Stable Instructions: Heart Palpitations (ED) Additional Instructions: RETURN IF SYMPTOMS ARE WORSENING , CALL YOUR FAMILY PHYSICIAN FOR APPOINTMENT, TAKE TYLENOL NEEDED FOR ACHES AND PAIN, CONTINUE HOME MEDICATIONS. Patient Language: Finnish Prescriptions: No Action levothyroxine 50 mcg tablet Mounjaro 7.5 mg/0.5 mL pen injector SUBCUT benzonatate 200 mg capsule 200 mg PO TID PRN (Reason: cough) Qty: 20 0RF methylprednisolone [Medrol (Randal)] 4 mg tablets,dose pack See Rx Instructions PO .COMPLEX Qty: 21 0RF Rx Instructions: orally per package directions Follow-up/Referrals: PHYSICIAN NOT ON STAFF,NONSTAFF [Primary Care Provider] -
--- OUTSIDE RECORDS SUMMARY | 2024-08-24 13:38 | XMS_ITS | Encounter Summary ---
Author Organization [facility] Address [address] [place] [address] Care Team Providers Care Business Objects Architect Name Role Phone Enoch Rosario MD Primary Care Provider [phone] Encounter Details Date Type Department Care Team [...] on file Legal Sex Female 5:48 AM COMMUNITY RELATIONS SPECIALIST Gender Identity Not on file Sexual Orientation Not on file documented as of this encounter Progress Notes * Katie Isaacs, RN - 05/06/2015 5:22 PM CDT CHART DOCUMENTATION ONLY Call Type: Triage Call Addendum Date and Time [id number] Presenting Problem: I am almost of out my sample Rx of Bystolic. Report feedback to Dr. Rosario. <<<<<<<< TRIAGE NOTE >>>>>>>> Triage Note: Plant Senior Manager Katie Isaacs added this note on May [...] one. Paged MD to call me back. Plant Senior Manager [email or web address] added this note on May 06 2015 5:22PM [place] from Dr Rosario's nurse, Deann, and she [...] st Contact Info) Description 08/26/2024 10:45 AM COMMUNITY RELATIONS SPECIALIST Office Visit [facility] Orthopedic Surgery at the [facility] [address] [address] [place] [phone] Alli Ferrer MD [address] [facility] [address] [place] [address] 08/26/2024 4:30 PM COMMUNITY RELATIONS SPECIALIST Video Visit [facility] Primary Care - [address] [place] [address] Enoch Rosario MD [address] [facility] [address] [place] [phone] documented as of this encounter Visit Diagnoses Not on filedocumented in this encounter Additional Health Concerns Infection Onset Date Last Indicated Resolved Time COVID-19 05/31/2021 05/31/2021 06/30/2021 1:16 AM COMMUNITY RELATIONS SPECIALIST COVID-19 05/16/2022 05/16/2022 06/15/2022 1:16 AM COMMUNITY RELATIONS SPECIALIST documented as of this encounter Care Teams Business Objects Architect Relationship Specialty Start Date End Date Enoch Rosario MD [address] [facility] [address] [place] [address] [place] [phone] PCP - General Family Practice 09/14/11 documented as of this encounter
--- OUTSIDE RECORDS SUMMARY | 2024-08-24 13:39 | XMS_ITS | Referral Summary ---
Author Organization [facility] Address [address] [place] [address] Care Team Providers Care Seam Stayer Name Role Phone Unavailable Primary Care Provider [...] Description 10/03/2024 2:30 PM CDT Office Visit [facility] [address] [place] [phone] Luisa Kraft, DMD [address] [place] [address] Procedures Procedure Name Priority Date/Time Associated Diagnosis Comments PANORAMIC RADIOGRAPHIC IMAGE Routine 03/20/2024 3:00 PM CDT INTRAORAL - COMPREHENSIVE SERIES OF RADIOGRAPHIC IMAGES Routine 03/20/2024 3:00 PM CDT COMPREHENSIVE ORAL EVALUATION - NEW OR ESTABLISHED PATIENT Routine 03/20/2024 3:00 PM CDT Encounter for dental examination and cleaning without abnormal findings from Last 3 Months or Most Recently Relevant to Health Maintenance Insurance [facility] H[facility]
--- OUTSIDE RECORDS SUMMARY | 2024-08-24 13:39 | XMS_ITS | Clinical Summary ---
Author Organization [facility] Address [address] [facility] [place] [address] Care Team Providers Care Logistics Coordinator Name Role Phone Enoch Rosario MD Primary Care Provider [phone] Source Comments [facility],non-owned Affiliates and Associated Physician Practices is amultiple site organization consisting of ambulatory clinics and hospital sitesin [place], [place], [place] and [place]. This disclosure is being madepursuant to the Care Everywhere program and may not contain all information available regarding this patient. Last updated 18.[facility] [employer] Allergies Active Allergy Reactions Criticality Noted Date Comments Doxycycline ORACLE DATABASE ANALYST Dysfunction Low 08/12/2020 Hydrocodone-Acetaminophen Dizziness 12/25/2019 Hydroxychloroquine [...] Resulting Agency Comment Lab Testing performed at: [address] ?? Nayeli EDWARDS [id number] Trang Zavala MD LAB - CHEMISTRY ABDULLAHI [facility] ACCOUNT BILL [address] [place] [address] from Last 3 Months or Most Recently Relevant to Health Maintenance Care Teams Logistics Coordinator Relationship Specialty Start Date End Date Enoch Rosario MD [address] [place] [address] PCP - General Family Medicine 01/14/22
--- OUTSIDE RECORDS SUMMARY | 2024-08-24 13:39 | XMS_ITS | Encounter Summary ---
Author Organization [facility] Address [address] [place] [address] Care Team Providers Care Data Processing Auditor Name Role Phone Unavailable Primary Care Provider Unavailabl e Prior Encounters Date Type Department Care Team Description 05/23/2024 2:00 PM CDT Office Visit [facility] [address] [place] [phone] Luisa Kraft DMD 05/10/2024 12:00 PM CDT Office Visit [facility] [address] [place] [phone] Luisa Kraft DMD 04/23/2024 11:30 AM CDT Office Visit [facility] [address] [place] [phone] Luisa Kraft DMD 03/28/2024 Travel 03/28/2024 2:00 PM CDT Office Visit [facility] [address] [place] [phone] Luisa Kraft DMD 03/20/2024 3:00 PM CDT Office Visit [facility] [address] [place] [phone] Luisa Kraft DMD Encounter for dental examination and cleaning without abnormal findings (Primary Dx) 02/27/2024 Travel 02/27/2024 10:00 AM CDT Office Visit [facility] [address] [place] [phone] Luisa Kraft DMD Plan of Treatment Upcoming Encounters Date Type Department Care Team (Late st Contact Info) Description 10/03/2024 2:30 PM CDT [facility] [address] [place] [phone] Luisa Kraft, MAXX [address] [place] [address] Procedures Procedure Name Priority Date/Time Associated Diagnosis [...]
--- OUTSIDE RECORDS SUMMARY | 2024-08-24 13:39 | XMS_ITS | Clinical Summary ---
Author Organization [facility] Address [address] [place] [address] Phone Care Team Providers Care Sporting Goods Sales Associate Name Role Phone Enoch Rosario MD Primary Care Provider [phone] Allergies Active Allergy Reactions Criticality Noted Date [...] 30 Tablet 5 01/24/20 24 Active collagen-hyalur arnu-tfax-shbh 515 mg Capsule Take 1 Capsule by mouth daily. 30 Capsule 11 01/24/20 24 Active 5-hydroxytrypto vizcaino,5HTP,-B6-C 50-4-60 mg Tablet, Delayed Release (E.C.) Take 1 Tablet by mouth 2 times daily. 60 Tablet 11 01/24/20 24 Active Blood-Glucose Meter (TextualAds Ultra System Kit) Kit See package 1 [...] migh t be different from the original. Spiral Binder Dr Troy Lazo Problem Noted Date Diagnosed [...] Data STL ABSTRACTION Provider, Abstract 08/16/[address] [facility] Primary Care - [address] [place] [address] Enoch Rosario MD Clinical Consult Before Scheduling 08/14/2024 External Device Data STL ABSTRACTION Provider, Abstract 08/06/2024 External Device Data STL ABSTRACTION Provider, Abstract 08/01/2024 [facility] [address] [place] [phone] Enoch Rosario MD 07/31/2024 [facility] [address] [place] [phone] Enoch Rosario MD Provider Call 07/29/[address] [place] [address] Enoch Rosario MD Information 07/26/2024 1:45 PM PBX TEACHER - 07/26/2024 11:59 PM PBX TEACHER Hospital Encounter [address] [place] [address] Enoch Rosario MD Discharge Disposition: Home or Self Care 07/12/[address] [place] [phone] Enoch Rosario MD 07/04/[address] [place] [phone] Enoch Rosario MD Clinical Consult Before Scheduling 07/02/[address] [place] [phone] Enoch Rosario MD Needs Orders Written 06/15/2024 [facility] [address] [place] [phone] Enoch Rosario MD 06/10/[address] [place] [phone] Enoch Rosario MD Results 06/10/[address] [place] [address] Enoch Rosario MD 06/07/[address] [place] [phone] Enoch Rosario MD Results; Clinical Consult Before Scheduling 06/06/[address] [place] [address] Enoch Rosario MD Clinical Consult Before [...] on file Legal Sex Female 5:48 AM PBX TEACHER Gender Identity Not on file Sexual Orientation Not on file Last Filed Vital Signs Vital Sign Reading Time Taken Comments Blood Pressure 126/70 05/01/2024 12:13 PM CDT Pulse 79 10/04/2023 2:05 PM CDT Temperature 36.4 ??C (97.5 ??F) 10/04/2023 2:05 PM CD T Respiratory Rate 16 06/02/2023 2:24 PM PBX TEACHER Oxygen Saturation 94% 10/04/2023 2:05 PM CDT Inhaled Oxygen Concentration - - Weight 73.5 kg (162 lb) 05/01/2024 12:13 PM CDT Height 154.9 cm (5' 1 ) 05/01/2024 12:13 PM CDT Body Mass Index 30.61 05/01/2024 12:13 PM CDT Plan of Treatment Upcoming Encounters Date Type Department Care Team (Late st Contact Info) Description 08/26/2024 10:45 AM PBX TEACHER Office Visit [facility] Orthopedic Surgery at the [facility] Medicine [address] [place] [phone] Alli Ferrer MD [address] [facility] [address] [place], [place] [phone] 08/26/2024 4:30 PM PBX TEACHER Video Visit [facility] Primary Care - [place] [address] [place] [address] Enoch Rosario MD [address] [place] [address] Health Maintenance Due Date Last [...] WO CONTRAST RIGHT Routine 07/26/2024 2:16 PM PBX TEACHER Acute pain of both knees Knee pain, unspecified chronicity, unspecified laterality HEMOGLOBIN A1C Routine 06/06/2024 2:13 PM PBX TEACHER Type 2 diabetes mellitus without complication, unspecified whether usp insulin use ([facility]) URINALYSIS WITH REFLEX CULTURE Routine 06/06/2024 2:09 PM PBX TEACHER Urinary tract infection without hematuria, site unspecified URINE CULTURE Routine 06/06/2024 2:09 PM PBX TEACHER MICROALBUMIN/CREATI NINE RATIO, RANDOM UR Routine 05/02/2024 9:59 AM CDT Type 2 diabetes mellitus without complication, unspecified whether usp insulin use ([facility]) LIPID PANEL Routine 05/02/2024 9:56 AM CDT Type 2 diabetes mellitus without complication, unspecified whether usp insulin use ([facility]) MAMMO 3D ORIN SCREEN BILAT W OR WO CAD Routine 12/23/2021 10:41 AM CDT Screening mammogram, encounter for HM DIABETES EYE EXAM Routine 12/22/2021 CERV/VAG CYTO AGE BASED SCREEN PAP Routine 08/16/2021 3:21 PM PBX TEACHER Encounter for gynecological examination without abnormal finding Screening for HPV (human papillomavirus) ENDOSCOPY, COLON, SCREENING Routine 05/09/2019 from Last 3 Months or Most Recently Relevant to Health Maintenance Results * MRI KNEE WO CONTRAST RIGHT (07/26/2024 2:16 PM PBX TEACHER) Anatomical Region Laterality Modality Lower Extremity Magnetic Resonan ce 07/26/2024 2:17 PM PBX TEACHER Impressions 07/26/2024 5:04 PM PBX TEACHER IMPRESSION: 1. 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 2. Slightly abnormal signal of the medial meniscus but no definitive MRI evidence of a meniscal tear. 3. Superolateral Hoffa's fat edema that can be seen in patellar maltracking and fat pad impingement. DICTATION LOCATION: [address] CPM Narrative 07/26/2024 5:04 PM PBX TEACHER MRI KNEE WO CONTRAST RIGHT DATE: 07/26/2024 [...] maltracking and fat pad impingement. DICTATION LOCATION: [address] Enoch Rosario MD MR ORDERABLES Final Result * (ABNORMAL) HEMOGLOBIN A1C (06/06/2024 2:13 PM PBX TEACHER) HEMOGLOBIN A1C 5.8(H) <5.7 % of total Hgb [facility] Comment: For someone without known diabetes, [...] children. ESTIMATED AVERAGE GLUCOSE (MG/DL) 120 mg/dL [facility] ESTIMATED AVERAGE GLUCOSE (MMOL/L) 6.6 mmol/L [facility] Comment: FASTING:NO AN UPDATE OR CORRECTION HAS BEEN MADE TO NAME FASTING: NO Test Performed at: [facility] [address] [phone] Carter Velasquez Vo Blood 06/06/2024 2:13 PM PBX TEACHER 06/06/2024 2:14 PM PBX TEACHER Enoch Rosario MD CHEMISTRY ORDERABLES Final R esult [facility] [phone] [facility] [address] [place] [address] * (ABNORMAL) URINALYSIS WITH REFLEX CULTURE (06/06/2024 2:09 PM PBX TEACHER) COLOR UA DARK YELLOW [facility]LLOW [facility] CLARITY UA CLOUDY(A) CLEAR [facility] SPECIFIC GRAVITY UA 1.005 1.001 - 1.035 [facility] PH UA 5.5 5.0 - 8.[address] [facility] GLUCOSE UA NEGATIVE NEGATIVE [facility] BILIRUBIN UA NEGATIVE NEGATIVE [facility] KETONES UA NEGATIVE NEGATIVE [facility] BLOOD UA 3+(A) NEGATIVE [facility] PROTEIN UA NEGATIVE NEGATIVE [facility] NITRITE UA POSITIVE(A) NEGATIVE [facility] LEUKOCYTE ESTERASE UA 2+(A) NEGATIVE [facility] WBC UA 20-40(A) < OR = 5 /HPF [facility] RBC UA NONE SEEN < OR = 2 /HPF [facility] EPITHELIAL CELLS, URINE NONE SEEN < OR = 5 /HPF [facility] BACTERIA UA FEW(A) NONE SEEN /HPF [facility] HYALINE CAST NONE SEEN NONE SEEN /LPF [facility] URINE NOTE [facility] Comment: This urine was analyzed for the presence of WBC, RBC, bacteria, casts, and other formed elements. Only those elements seen were reported. URINE CULTURE [facility] Comment: CULTURE INDICATED - RESULTS TO FOLLOW Test Performed at: [place] [address] [place] ??[phone] Carter Johnson Urine URINE SPECIMEN OBTAINED BY CLEAN CATCH PROCEDURE / Unknown 06/06/2024 2:09 PM PBX TEACHER 06/06/2024 2:12 PM PBX TEACHER us Enoch Rosario MD URINE ORDERABLES Final Resul t [facility] [phone] [place] [address] [place] [address] * (ABNORMAL) URINE CULTURE (06/06/2024 2:09 PM PBX TEACHER) URINE CULTURE SEE NOTE(A) [facility][1][facility] Comment: ??CULTURE, URINE, ROUTINE ?Micro Number: ?[id number] ??Test Status: ? Final ??Specimen Source: ?? [...] cefuroxime, cephalexin ?and loracarbef. Test Performed at: [facility] [address] [place] ??[address] Carter Johnson 06/06/2024 2:09 PM PBX TEACHER 06/06/2024 2:12 PM PBX TEACHER Enoch Rosario MD MICROBIOLOGY - GENERAL ORDER ALISHA Final Result Performing Organization Address City/[facility]/ZIP [facility] Phone Number [facility] [phone] [facility] [place] [address] [place] [address] * (ABNORMAL) MICROALBUMIN/CREATININE RATIO, RANDOM UR (05/02/2024 [...] category. FASTING:YES FASTING: YES Test Performed at: [facility] [address] [place], [place] ??[address] Carter Johnson MD Urine URINE SPECIMEN OBTAINED BY CLEAN CATCH PROCEDURE / Unknown 05/02/2024 9:59 AM CDT 05/02/2024 9:59 AM CDT Enoch Rosario MD URINE ORDERABLES Final Resul t Performing Organization Address City/State/ZIP Co il Phone Number [facility] [phone] [facility] [address] [place] [address] * (ABNORMAL) LIPID PANEL (05/02/2024 9:56 AM [...] LDL-C. Leobardo SS et al. DARYL. 2013;310(19): 3858-8615 (http://education.We Heart It/faq/EPL509) CHOL/HDL RATIO 4.9 <5.0 (calc) [facility] NON-HDL CHOLESTEROL 210(H) <130 mg/dL (calc) [facility] Comment: For patients with diabetes plus 1 major ASCVD risk factor, treating to a non-HDL-C goal of <100 mg/dL (LDL-C of <70 mg/dL) is considered a therapeutic option. Test Performed at: [facility] [address] [facility] [place] ??[phone] Carter Johnson MD Blood 05/02/2024 9:56 AM CDT 05/02/2024 9:57 AM CDT us Enoch Rosario MD CHEMISTRY ORDERABLES Final R esult [facility] [phone] [facility] [address] [place] [address] * MAMMO SCRN BILAT 3D ORIN W [...] Birads Category 1: Negative us Marija Peralta RIVET THROWER MAMMO ORDERABLES Final Result * DIABETES EYE EXAM (12/22/2021) us Mendez [facility] HEALTH MAINTENANCE Final Result [facility] CLIA# [id number] [address] [place] [address] * CERV/VAG CYTO AGE BASED SCREEN PAP (08/16/2021 3:21 PM PBX TEACHER) COMMENT (PAP): [facility] Comment: This order for age-based cervical cancer and STI screening follows ACOG guidelines(PB 168, 140, XDJ598). See individual assays for performing site location. [...] has been evaluated with computer assisted technology. MANAGER OF PMO: [facility] Comment: BIANCHI, CT(ASCP) CT Screening location: [facility] [place] [address] EXPLANATORY NOTE [facility] Comment: EXPLANATORY NOTE: The Pap is a [...] information. HPV E6/E7 Not Detected Not Detected [facility] Comment: Methodology: Pipe Caulker-Mediated Amplification This assay detects E6/E7 viral messenger RNA (mRNA) from 14 high-risk HPV types (16,18,31,33,35,39,45,51,52,56,58,59,66,68). The analytical performance characteristics of this assay have been determined by [facility]. The modifications have not been cleared or approved by the FDA. This assay has been validated pursuant to the CLIA regulations and is used for clinical purposes. For additional information, please refer to http://education.T[employer]/faq/IFA425v6 (This link if provided for information/ educational purposes only.) Test Performed at: [facility] ??[phone] Cesar Ortiz D.O., MPH SL Genital SWAB OF ENDOCERVIX / Unknown 08/16/2021 3:21 PM PBX TEACHER 08/16/2021 11:13 PM PBX TEACHER Marija Peralta RIVET THROWER PATHOLOGY/CYTOLOGY ORDERABLES Final Result Performing Organization Address [facility] Co de Phone Number [facility] [address] [place] [address] * ENDOSCOPY, COLON, SCREENING (05/09/2019) Anton Vang MD GI PROCEDURE ORDERA BLES Edited Result - Final Performing Organization Address City/[facility]/ZIP Co de Phone Number [facility] [place]# [id number] [address] [place] [address] from Last 3 Months or Most Recently Relevant to Health Maintenance Insurance RX [employer] [address] BCBS BLUE ACCESS/TRUE BLUE PPO [facility] Advance Directives For more information, please contact: [phone] * Full Code (Latest Code Status on File) Date Activated Date Inactivated Comments 12/19/2019 3:38 AM 12/20/2019 3:23 PM * Full Code Date Activated Date Inactivated Comments 12/19/2019 3:37 AM 12/19/2019 3:38 AM Care Teams Sporting Goods Sales Associate Relationship Specialty Start Date End Date Enoch Rosario MD [address] [place] [address] PCP - General Family Practice 09/14/11
--- OUTSIDE RECORDS SUMMARY | 2024-08-24 13:39 | XMS_ITS | Continuity of Care Document ---
Author Organization [facility] Address [address] [place] [address] Phone Care Team Providers Care Skylights Assembler Name Role Phone Agusto Guerra MD Unavailable [...] route every day 5 MG - Active FISH OIL (unknown strength) Not Available - Active clonazepam 0.5 mg tablet take 1 tablet by oral route 3 times every day 0.5 MG - Active Advance Directives Directive Yes / No Effective Date File Name No Information Encounters Encounter Description Practice Location Reason(s) For Visit Diagnoses Date Provider Providers Copied on Encounter [facility], [address], [place], [place], [id number], [place] tel:[phone] [facility] [address] [place], [place], [id number], [place]. tel:[phone] Referring Provider: Enoch Rosario, [address] [place] [address] [address], [place], [address]. tel:[phone] Family History Family Member Type Diagnosis Age At Onset Close relative Problem (finding) cancer of colon Payers Payer name Insurance type Covered republican ID Authoriza tion(s) BCBS INACTIVE OUT OF STATE [id number] 1 Social History Type Description Quantity Date [...]
--- OUTSIDE RECORDS SUMMARY | 2024-08-24 13:39 | XMS_ITS | Encounter Summary ---
Author Organization [facility] Address [address] [place] [address] Care Team Providers Care Certified Personal Chef Name Role Phone Enoch Rosario MD Primary Care Provider [phone] Reason for Visit * Reason Comments Medication Refill Question Medication Assistance Encounter Details Date Type Department Care Team (Late st Contact Info) Description 12/20/2023 Telephone [facility] Primary Care - [place] [address] [place] [address] Enoch Rosario MD [address] [facility] [place] [address] Medication Refill; Question; Medication Assistance [...] on file Legal Sex Female 5:48 AM METAL MOULDER Gender Identity Not on file Sexual Orientation [...] - 12/21/2023 2:53 PM CDT Copied from [facility] #[id number]. Topic: Patient or Caregiver Communication Request >> December 21, 2023 2:49 PM Kassie Jett wrote: Patient or Caregiver insisting that a message be sent to Care Team Caller: Chantalmari Singh Patient/Caregiver Callback Number: [phone] (home) Call Notes: Patient calling in stating that pharmacy has only one more box of mounjaro left and shewould really like to get this. Asking if mounjaro can be sent to pharmacy today if possible. Patient has called in multiple times about this. Asking if mounjaro can be sent over to pharmacy listed below. Please advise. [facility] [address] [place] [address] [[id number]] * Telephone Encounter - Veena Blandon - 12/21/2023 10:23 AM CDT Copied from [facility] #[id number]. Topic: Patient or Caregiver Communication Request >> December 21, 2023 10:21 AM Veena Houser wrote: Patient or Caregiver requesting advice Caller: Chantal Singh Patient/Caregiver Callback Number: [phone] (home) Call Notes: Patient is calling to check the status of the PA that she requested to have expedited. A call back was requested. * Telephone Encounter - Мария Valles - 12/20/2023 12:16 PM CDT Copied from [facility] #[id number]. Topic: Medication Request >> December 20, 2023 12:14 PM Мария Murillo wrote: Medication Refill Request from: Patient/Caregiver Did the patient/caregiver contact their pharmacy for refill prior to calling? Yes Medication (Ask patient/caregiver to spell if possible): tirzepatide (Mounjaro) 5 mg/0.5 mL Pen Injector, and tirzepatide (Mounjaro) 7.5 mg/0.5 mL Pen Injector [facility] [address] [place] [address] Patient/Caregiver Callback Number: Telephone Information: Call Notes: Patient needs a medication refill for this. She states that she needs it expedited and a PA sent to the above pharmacy. documented in this encounter Plan of Treatment Upcoming Encounters Date Type Department Care Team (Late st Contact Info) Description 08/26/2024 10:45 AM METAL MOULDER Office Visit [facility] Orthopedic Surgery at the [facility] Medicine [address] [address] [place] [address] Alli Ferrer MD [address] [facility] [address] [place] [address] 08/26/2024 4:30 PM METAL MOULDER Video Visit [facility] Primary Care - [address] [place] [address] Enoch Rosario MD [address] [place] [address] [address] documented as of this encounter Visit Diagnoses Not on filedocumented in this encounter Care Teams Certified Personal Chef Relationship Specialty Start Date End Date Enoch Rosario MD [address] [place], [place] [address]bryan Simeon [address] [place] [address] PCP - General Family Practice 09/14/11 documented as of this encounter
--- OUTSIDE RECORDS SUMMARY | 2024-08-24 13:39 | XMS_ITS | Encounter Summary ---
Author Organization [facility] Address [address] [place] [address] Care Team Providers Care Tax Manager Cpa Name Role Phone Enoch Rosario MD Primary Care Provider [phone] Encounter Details Date Type Department Care Team (Late Contact Info) Description 05/13/2021 Refill [facility] Primary Care - [place] [address] [place] [address] Enoch Rosario MD [address] [facility] [place] [address] Social History Tobacco Use Types Packs/Day Years Used Date Smoking Tobacco: Former Cigarettes 0.5 15 Smokeless Tobacco: Never Alcohol Use Standard Drinks/Week Comments Yes 0 (1 standard drink = 0.6 oz pur e alcohol) rare Comments No Sex and Gender Information Value Date Recorded Sex Assigned at Not on file Legal Sex Female 5:48 AM OPERATIONS ASST Gender Identity Not on file Sexual Orientation [...] (Late Contact Info) Description 08/26/2024 10:45 AM OPERATIONS ASST Office Visit [facility] Orthopedic Surgery at the [facility] Medicine [address] [place] [address] Alli Ferrer MD [address] [facility] [address] [place] [address] 08/26/2024 4:30 PM OPERATIONS ASST Video Visit [facility] Primary Care - [place] [address] [place] [address] Enoch Rosario MD [address] [place] [address] documented as of this encounter Visit Diagnoses Not on filedocumented in this encounter Additional Health Concerns Infection Onset Date Last Indicated Resolved Time COVID-19 05/31/2021 05/31/2021 06/30/2021 1:16 AM OPERATIONS ASST COVID-19 05/16/2022 05/16/2022 06/15/2022 1:16 AM OPERATIONS ASST documented as of this encounter Care Teams Tax Manager Cpa Relationship Specialty Start Date End Date Enoch Rosario MD [address] [facility] [place] [address] PCP - General Family Practice 09/14/11 documented as of this encounter
--- OUTSIDE RECORDS SUMMARY | 2024-08-24 13:39 | XMS_ITS | Clinical Summary ---
Author Organization [facility] Address [address] [place] [address] Care Team Providers Care Quality Process Lead Name Role Phone Unavailable Primary Care Provider [...] Description 10/03/2024 2:30 PM CDT Office Visit [facility] [address] [place] [phone] Luisa Kraft, DMD [address] [place] [address] Health Maintenance Due Date Last Done Comments [...]
--- OUTSIDE RECORDS SUMMARY | 2024-08-24 13:39 | XMS_ITS | Referral Summary ---
Author Organization [facility] Address [address] [place] [address] Care Team Providers Care Oil Well Service Operator Name Role Phone Enoch Rosario MD Primary Care Provider [phone] Allergies Active Allergy Reactions Criticality Noted Date [...] 06/29/2023 Assessment & Plan (06/29/2023 11:49 AM MINISTER HELPER): Postmenopausal, s/p ablation Pap smear: 2022 NILM, HRHPV neg Sexually transmitted disease screening: not indicated Mammogram: ordered Osteoporosis with Dexa Scan: completed 2022 normal Colon Cancer Screening: up to date History of UTI 06/29/2023 Assessment & Plan (06/29/2023 12:18 PM MINISTER HELPER): Patient requests UCx to ensure resolution Asymptomatic at this time Stress incontinence, female 06/20/2023 Postmenopausal bleeding 04/20/2023 Assessment & Plan (06/29/2023 12:17 PM MINISTER HELPER): Continues to have daily orange and brown [...] on file Legal Sex Female 12:57 AM MINISTER HELPER Gender Identity Not on file Sexual Orientation Not on file Last Filed Vital Signs Vital Sign Reading Time Taken Comments Blood Pressure 138/72 06/29/2023 2:32 PM MINISTER HELPER Pulse 88 06/29/2023 2:32 PM MINISTER HELPER Temperature 36.8 ??C (98.2 ??F) 07/21/2022 2:35 PM CS T Respiratory Rate 20 07/21/2022 2:35 PM MINISTER HELPER Oxygen Saturation 92% 06/29/2023 2:32 PM MINISTER HELPER Inhaled Oxygen Concentration - - Weight 80.2 kg (176 lb 14.4 oz) 06/29/2023 2:32 PM MINISTER HELPER Height 152.4 cm (5') 06/29/2023 2:32 PM MINISTER HELPER Body Mass Index 34.55 06/29/2023 2:32 PM MINISTER HELPER Plan of Treatment Not on file Procedures Procedure Name Priority Date/Time Associated Diagnosis Comments HIGH RISK HPV DNA DETECTION WITH GENOTYPING Routine 04/20/2023 2:19 PM CDT Postmenopausal bleeding from Last 3 Months or Most Recently Relevant to Health Maintenance Results * High Risk HPV DNA Detection with Genotyping (Molecular component) (04/20/2023 2:19 PM CDT) HPV HR 16 Not Detected Not Detected [facility] HPV HR 18 Not Detected Not Detected [facility] HPV HR Non 16/18 Not Detected Not Detected [facility] Comment: Interpretive Data Nucleic acid amplification for [...] this test have been verified by the [facility]. Correlate with separately reported cytology results, as applicable. Interpretive data last revised 23 Endocervical 04/20/2023 2:19 PM CDT 04/20/2023 9:17 PM CDT Narrative [facility]SE [facility] - 04/26/2023 7:34 PM CDT Clinical history and diagnosis->postmenopausal spotting Testing type->Diagnostic Last menstrual period (date if known)->postmenopauseal, status post ablation Menstrual status->Postmenopausal Previous atypical cytology->ASCUS Becca Wolfe MD LAB BODY FLUIDS AND STOOLS ORDERABLES Final Result Performing Organization Address City/State/[facility] Co de Phone Number [facility] [address] Department [place] [address] from Last 3 Months or Most Recently Relevant to Health Maintenance Insurance [employer] [address] [place] [address] [place] [address] Care Teams Oil Well Service Operator Relationship Specialty Start Date End Date Enoch Rosario MD PCP - General 09/13/18
--- OUTSIDE RECORDS SUMMARY | 2024-08-24 13:39 | XMS_ITS | Clinical Summary ---
Author Organization [facility] Address [address] [place] [address] Care Team Providers Care Sales Trainer Name Role Phone Enoch Rosario MD Primary Care Provider [phone] Allergies Active Allergy Reactions Criticality Noted Date [...] 06/29/2023 Assessment & Plan (06/29/2023 11:49 AM UPHOLSTERY COVERS INSPECTOR): Postmenopausal, s/p ablation Pap smear: 2022 NILM, HRHPV neg Sexually transmitted disease screening: not indicated Mammogram: ordered Osteoporosis with Dexa Scan: completed 2022 normal Colon Cancer Screening: up to date History of UTI 06/29/2023 Assessment & Plan (06/29/2023 12:18 PM UPHOLSTERY COVERS INSPECTOR): Patient requests UCx to ensure resolution Asymptomatic at this time Stress incontinence, female 06/20/2023 Postmenopausal bleeding 04/20/2023 Assessment & Plan (06/29/2023 12:17 PM UPHOLSTERY COVERS INSPECTOR): Continues to have daily orange and brown [...] on file Legal Sex Female 12:57 AM UPHOLSTERY COVERS INSPECTOR Gender Identity Not on file Sexual [...] Comments Blood Pressure 138/72 06/29/2023 2:32 PM UPHOLSTERY COVERS INSPECTOR Pulse 88 06/29/2023 2:32 PM UPHOLSTERY COVERS INSPECTOR Temperature 36.8 ??C (98.2 ??F) 07/21/2022 2:35 PM CS T Respiratory Rate 20 07/21/2022 2:35 PM UPHOLSTERY COVERS INSPECTOR Oxygen Saturation 92% 06/29/2023 2:32 PM UPHOLSTERY COVERS INSPECTOR Inhaled Oxygen Concentration - - Weight 80.2 kg (176 lb 14.4 oz) 06/29/2023 2:32 PM UPHOLSTERY COVERS INSPECTOR Height 152.4 cm (5') 06/29/2023 2:32 PM UPHOLSTERY COVERS INSPECTOR Body Mass Index 34.55 06/29/2023 2:32 PM UPHOLSTERY COVERS INSPECTOR Plan of Treatment Health Maintenance Due Date [...] HPV HR 16 Not Detected Not Detected [facility] HPV HR 18 Not Detected Not Detected [facility] HPV HR Non 16/18 Not Detected Not Detected [facility] Comment: Interpretive Data Nucleic acid amplification for [...] this test have been verified by the [facility]. Correlate with separately reported cytology results, as applicable. Interpretive data last revised 23 Endocervical 04/20/2023 2:19 PM CDT 04/20/2023 9:17 PM CDT Narrative [facility]ADAL[facility] - 04/26/2023 7:34 PM CDT Clinical history and diagnosis->postmenopausal spotting Testing type->Diagnostic Last menstrual period (date if known)->postmenopauseal, status post ablation Menstrual status->Postmenopausal Previous atypical cytology->ASCUS us Becca oWlfe MD LAB BODY FLUIDS AND STOOLS ORDERABLES Final Result [facility] [address] [place] [address] from Last 3 Months or Most Recently Relevant to Health Maintenance Insurance ANTHEM ACCESS ANTHEM ACCESS Care Teams Sales Trainer Relationship Specialty Start Date End Date Enoch Rosario MD PCP - General 09/13/18
--- OUTSIDE RECORDS SUMMARY | 2024-08-24 13:39 | XMS_ITS | CCD ---
Author Organization [facility] Address [address] [place] [address] Care Team Providers Care Workers Compensation Legal Secretary Name Role Phone Unavailable Primary Care Provider [...] Description 10/03/2024 2:30 PM CDT Office Visit [facility] [address] [place] [address] Luisa Kraft, DMD [address] [place], [place] [id number] Procedures Procedure Name Priority Date/Time Associated Diagnosis [...]
--- OUTSIDE RECORDS SUMMARY | 2024-08-24 13:39 | XMS_ITS | Encounter Summary ---
Author Organization [facility] Address [address] [place] [address] Care Team Providers Care Nursery Helper Name Role Phone Enoch Rosario MD Primary Care Provider [phone] Reason for Visit * Reason Comments Clinical Consult Before Scheduling Encounter Details Date Type Department Care Team (Late st Contact Info) Description 07/04/2024 Telephone [facility] Primary Care - [address] [place] [address] Enoch Rosario MD [address] [place] [address] Clinical Consult Before Scheduling Social [...] on file Legal Sex Female 5:48 AM CONSTRUCTION SITE CROSSING GUARD Gender Identity Not on file Sexual Orientation Not on file documented as of this encounter Miscellaneous Notes * Telephone Encounter - Lea Agudelo LPN - 07/04/2024 9:42 AM CONSTRUCTION SITE CROSSING GUARD Called and spoke to patient. Patient stated she has been coughing with chest congestion she stated she has been coughing up green and yellow mucus she was seen in the urgent care and given prednisoneand symptoms have not gotten any better. Let patient know that Dr Rosario is on vacation. Mik Agudelo LPN TRUCTION SITE CROSSING GUARD * Telephone Encounter - Clara Gavin - 07/04/2024 9:26 AM CST Copied from [facility] #[id number]. Topic: Symptomatic Care >> Jul 04, 2024 [...] is requesting an antibiotics to be sent [place] [address] [facility] please advise SVEN . If this is not clinically appropriate, please contact patient. No TRUCTION SITE CROSSING GUARD documented in this encounter Plan of Treatment Upcoming Encounters Date Type Department Care Team (Late st Contact Info) Description 08/26/2024 10:45 AM CONSTRUCTION SITE CROSSING GUARD Office Visit [facility] Orthopedic Surgery at the [facility] [address] [place] [address] Alli Ferrer MD [address] [facility] [address] [place] [address] 08/26/2024 4:30 PM CONSTRUCTION SITE CROSSING GUARD Video Visit [facility] Primary Care - [address] [place] [address] Enoch Roasrio MD [address] [facility] [address] [place] [address] documented as of this encounter Visit Diagnoses Not on filedocumented in this encounter Care Teams Nursery Helper Relationship Specialty Start Date End Date Enoch Rosario MD [address] [facility] [address] [place] [address] PCP - General Family Practice 09/14/11 documented as of this encounter
--- OUTSIDE RECORDS SUMMARY | 2024-08-24 13:39 | XMS_ITS | Continuity of Care Document ---
Author Organization [facility] Address [address] [place] [address] Phone Care Team Providers Care Drafting Supervisor Name Role Phone Renan Escobar MD Unavailable [...] - Active Procedures Procedure Date OFFICE/OUTPATIENT VISIT [facility] Advance Directives Directive Yes / No Effective [...] Providers Copied on Encounter OFFICE/OUTPAT IENT VISIT [facility], [address], [place], [address], [place] tel:[phone] [facility] [place] [facility] Navicular fracture [address]. [address], [place], [place], [address] . tel: [phone] Referring Provider: Enoch Rosario , [address], [place], [address]. tel:[phone] Family History Family Member Type Diagnosis Age At Onset No Information Payers Payer name Insurance type Covered democrat ID [id number] mansoor(s) No Information Social History [...]
--- OUTSIDE RECORDS SUMMARY | 2024-08-24 13:39 | XMS_ITS | Referral Summary ---
Author Organization [facility] Address [address] [place] [address] Care Team Providers Care Donkey Doctor Name Role Phone Enoch Rosario MD Primary Care Provider [phone] Source Comments [facility],non-owned Affiliates and Associated Physician Practices is amultiple site organization consisting of ambulatory clinics and hospital sitesin [place], [place], [place] and [place]. This disclosure is being madepursuant to the Care Everywhere program and may not contain all information available regarding this patient. Last updated 18.[facility] Allergies Active Allergy Reactions Criticality Noted Date Comments Doxycycline HAZARDOUS WASTE TECHNICIAN Dysfunction Low 08/12/2020 Hydrocodone-Acetaminophen Dizziness 12/25/2019 Hydroxychloroquine [...] Resulting Agency Comment Lab Testing performed at: [place] [id number] [facility] ?? [place] [id number] Trang Zavala MD LAB - CHEMISTRY ABDULLAHI STANTON [facility] ACCOUNT BILL [address] [place] [address] from Last 3 Months or Most Recently Relevant to Health Maintenance Care Teams Donkey Doctor Relationship Specialty Start Date End Date Enoch Rosario MD [address] [place] [address] PCP - General Family Medicine 01/14/22
--- OUTSIDE RECORDS SUMMARY | 2024-08-24 13:39 | XMS_ITS | Patient Health Summary ---
Author Organization [facility] Address [address] [facility] [place] [address] Care Team Providers Care Brake Liner Name Role Phone Enoch Rosario MD Primary Care Provider [phone] Note from [facility],non-owned Affiliates and Associated Physician Practices is amultiple site organization consisting of ambulatory clinics and hospital sitesin [place], [place], [place] and [place]. This disclosure is being madepursuant to the Care Everywhere program and may not contain all information available regarding this patient. Last updated 18.[facility] Allergies * Doxycycline(MARKETING PLANNER Dysfunction) -Low Criticality * Hydrocodone-Acetaminophen(Dizziness) * Hydroxychloroquine [...] Agency Comment Lab Testing performed at: [facility] [address] ??[facility] [id number] Trang Zavala MD LAB - SEROLOGY ORDER ALISHA Performing Organization Address [facility] Co de Phone Number [facility] ACCOUNT BILL [address] [place] [address] * URIC ACID BLOOD (01/14/2022 2:18 PM CDT) Uric Acid 6.0 2.6 - 6.0 mg/dL [facility] ACCOUNT BILL Blood BLOOD SPECIMEN / Unknown 01/14/2022 2:18 PM CDT 01/14/2022 Narrative Resulting Agency Comment Lab Testing performed at: [place] [id number] [facility] ?? [place] [id number] Trang Zavala MD LAB - CHEMISTRY ABDULLAHI STANTON Performing Organization Address [facility] Co de Phone Number [facility] ACCOUNT BILL [address] [place] [address] * RHEUMATOID FACTOR BLOOD QUANTITATIVE (01/14/2022 2:18 PM CDT) Rheumatoid Factor <15 <30 IU/mL [facility] ACCOUNT BILL Blood BLOOD SPECIMEN / Unknown 01/14/2022 2:18 PM CDT 01/14/2022 Narrative Resulting Agency Comment Lab Testing performed at: [address] ??[facility] [id number] Trang Zavala MD LAB - CHEMISTRY ABDULLAHI STANTON Performing Organization Address City/[facility] Co de Phone Number [facility] ACCOUNT BILL [address] [place] [address] * C-REACTIVE PROTEIN (01/14/2022 2:18 PM CDT) C-Reactive Protein 0.38 <=0.50 mg/dL [facility] ACCOUNT BILL Blood BLOOD SPECIMEN / Unknown 01/14/2022 2:18 PM CDT 01/14/2022 Narrative Resulting Agency Comment Lab Testing performed at: [facility] [address] [facility] ?? [facility] [id number] Trang Zavala MD LAB - CHEMISTRY ABDULLAHI STANTON Performing Organization Address [facility] Co de Phone Number [facility] ACCOUNT BILL [address] [place] [address] * NEDA BLOOD SCREEN W/REFLEX TITER (01/14/2022 2:18 PM CDT) NEDA Negative Negative [facility] ACCOUNT BILL Comment: Methodology: Indirect Immunofluorescence Assay (IFA) [facility] Hep-2-Gamma cells. Blood BLOOD SPECIMEN / Unknown 01/14/2022 2:18 PM CDT 01/14/2022 Narrative Resulting Agency Comment Lab Testing performed at: [address] ??[facility] [id number] Trang Zavala MD LAB - CHEMISTRY ABDULLAHI STANTON Performing Organization Address City/[facility]/ZIP Co de Phone Number [facility] ACCOUNT BILL [address] [place] [address] * SS-A/SS-B (SJOGREN'S) ANTIBODY PANEL (01/14/2022 2:18 PM CDT) Sjogren's Antibodies (SSA) 0.4 0.0 - 0.9 AI [facility] ACCOUNT BILL Sjogren's Antibodies (SSB) <0.2 0.0 - 0.9 AI [facility] ACCOUNT BILL Blood BLOOD SPECIMEN / Unknown 01/14/2022 2:18 PM CDT 01/14/2022 Narrative Resulting Agency Comment Lab Testing performed at: [facility] [place] [id number] [facility] ??[facility] [id number] Trang Zavala MD LAB - CHEMISTRY ABDULLAHI STANTON Performing Organization Address City/[facility]/ZIP Co de Phone Number [facility] ACCOUNT BILL [address] [place] [address] * ERYTHROCYTE SEDIMENTATION RATE (01/14/2022 2:18 PM CDT) Erythrocyte Sedimentation Rate Westergren 11 0 - 30 MM/HR [facility] ACCOUNT BILL Blood BLOOD SPECIMEN / Unknown 01/14/2022 2:18 PM CDT 01/14/2022 Narrative Resulting Agency Comment Lab Testing performed at: [place] [address] [facility] ?? [place] [id number] Trang Zavala MD LAB - HEMATOLOGY SONJA WALSH Performing Organization Address City/[facility]/ZIP Co de Phone Number [facility] ACCOUNT BILL [address] [place] [address] * (ABNORMAL) CBC WITH DIFFERENTIAL (01/14/2022 2:18 [...] x10E9/L [facility] ACCOUNT BILL Comment:MPV FL BLOOD ([facility]) 9 .6 fl 9.4-12.9 Granulocytes % 53.7 [...] Resulting Agency Comment Lab Testing performed at: [address] ?? [place] [id number] Trang Zavala MD LAB - HEMATOLOGY ORD ERABLES [facility] ACCOUNT BILL [address] [place] [address] * (ABNORMAL) COMPREHENSIVE METABOLIC PANEL (01/14/2022 2:18 PM CDT) [facility] Glucose 81 70 - 105 mg/dL [facility] [...] Resulting Agency Comment Lab Testing performed at: [address] ?? [place] [id number] Trang Zavala MD LAB - CHEMISTRY ABDULLAHI STANTON [facility] Organization Address City/State/ZIP Co de Phone Number [facility] ACCOUNT BILL [address] [place] [address] * GROSS + MICRO EXAM (04/20/2007 2:11 [...] wall varies in thickness from 1-2 mm. ??Corporate Operations Compliance Manager sections are submitted in one block. RN day Microscopic Exam ? Sections show gallbladder with focal mild chronic inflammation. No dysplasia or malignancy is seen. MC/na Diagnosis ? I. ?Gallbladder, cholecystectomy -- ?Focal mild chronic inflammation MC/na Millwright Instructor ? na Pathologist ?Elaina Pete M.D. Snomed. ?04/23/2007 1135 <1> CPT code ? 13072 MISCELLANEOUS SAMPLES / Unknown 04/20/2007 2:11 PM CDT 04/20/2007 2:11 PM CDT Historical Provider MD LAB - PATHOLOGY/C YTOLOGY ORDERABLES Care Teams Brake Liner Relationship Specialty Start Date End Date Enoch Rosario MD [address] [place] [address] PCP - General Family Medicine 01/14/22
--- OUTSIDE RECORDS SUMMARY | 2024-08-24 13:39 | XMS_ITS | Encounter Summary ---
Author Organization [facility] Address [address] [place] [address] Care Team Providers Care Diamond Die Driller Name Role Phone Enoch Rosario MD Primary Care Provider [phone] Reason for Visit * Reason Onset Date Comments Question 11/11/2021 Encounter Details Date Type Department Care Team (Late st Contact Info) Description 11/11/2021 Telephone [facility] Primary Care - [place] [address] [facility] [place] [address] Enoch Rosario MD [address] [facility] [place] [address] Question Social History Tobacco Use Types Packs/Day Years Used Date Smoking Tobacco: Former Cigarettes 0.5 15 Smokeless Tobacco: Never Alcohol Use Standard Drinks/Week Comments Yes 0 (1 standard drink = 0.6 oz pur e alcohol) rare Comments No Sex and Gender Information Value Date Recorded Sex Assigned at Not on file Legal Sex Female 5:48 AM NUCLEAR PHYSICIAN Gender Identity Not on file Sexual Orientation [...] st Contact Info) Description 08/26/2024 10:45 AM NUCLEAR PHYSICIAN Office Visit [facility] Orthopedic Surgery at the [facility] [address] [place] [address] Alli Ferrer MD [address] [facility] [address] [place] [address] 08/26/2024 4:30 PM NUCLEAR PHYSICIAN Video Visit [facility] Primary Care - [place] [address] [facility] [place] [address] Enoch Rosario MD [address] [facility] [address] [place] [address] documented as of this encounter Visit Diagnoses Not on filedocumented in this encounter Additional Health Concerns Infection Onset Date Last Indicated Resolved Time COVID-19 05/16/2022 05/16/2022 06/15/2022 1:16 AM NUCLEAR PHYSICIAN documented as of this encounter Care Teams Diamond Die Driller Relationship Specialty Start Date End Date Enoch Rosario MD [address] [facility] [address] [place] [address] PCP - General Family Practice 09/14/11 documented as of this encounter
--- OUTSIDE RECORDS SUMMARY | 2024-08-24 13:39 | XMS_ITS ---
Author Organization [facility] Address [address] [place] [address] Care Team Providers Care Block Sorter Name Role Phone Unavailable Unavailable Unavailable Surgery Details Not on file Complications Check Surgery Details section. Procedure Estimated Blood Loss Check Surgery Details section. Procedure Findings Check Surgery Details section. Procedure Specimens Taken Check Surgery Details section.
[2024-08-24 15:04] VITALS: BP 118/76; PULSE 91; RESP 16; TEMP 36.9; O2SAT 100
== END 2024-08-24 15:06 | disposition home or self-care (01) ==
PROVIDERS: Emergency Provider Emergency Medicine
DX: R00.2 Palpitations (principal); E11.9 Type 2 diabetes mellitus without complications; E03.9 Hypothyroidism, unspecified
CPT/HCPCS: 36415; 71046; 80053; 83690; 84443; 84484; 85025; 85610; 85730; 93005; 99284; A9270

== ENCOUNTER 2024-09-10 04:44 | Emergency (ER) | payer BC, SELFPAY ==
--- NOTE | ~2024-09-10 | XR_ITS ---
Portable chest x-ray Comparison: 08/24/2024 Clinical History: Shortness of breath Findings: Lungs are clear, without focal consolidation or pleural effusion. Cardiomediastinal silho uette is stable. Bones and soft tissues are unremarkable. Impression: Clear lungs. Reviewed, dictated and finalized at location . ER EMBOSSER Impression: Clear lungs.
--- NOTE | 2024-09-10 04:45 | ECG_ITS ---
Test Date: 2024-09-10 04:51:21 Measurements Intervals [place] Rate: 86 P: 78 AR: 147 QRS: 55 QRSD: 93 T: 49 QT: 363 QTc: 435 Interpretive Statements SINUS RHYTHM BASELINE ARTIFACT- I, II, III, AVR, AVL, AVF NORMAL ECG Compared to ECG 08/24/2024 11:54:43 Sinus arrhythmia no longer present Electronically Signed On 09-10-2024 06:26:43 RECYCLING SPECIALIST by Boston Triplett D.O.
[2024-09-10 04:47] VITALS: BP 161/64; PULSE 96; RESP 14; TEMP 36.6; O2SAT 100
--- OUTSIDE RECORDS SUMMARY | 2024-09-10 04:47 | XMS_ITS | Referral Summary ---
Author Organization [facility] Address [address] [place] [address] Care Team Providers Care House Piping Inspector Name Role Phone Enoch Rosario MD Primary Care Provider [phone] Source Comments [facility],non-owned Affiliates and Associated Physician Practices is amultiple site organization consisting of ambulatory clinics and hospital sitesin [place], [place], [place] and [place]. This disclosure is being madepursuant to the Care Everywhere program and may not contain all information available regarding this patient. Last updated 18.[facility] Allergies Active Allergy Reactions Criticality Noted Date Comments Doxycycline STOCKROOM KEEPER Dysfunction Low 08/12/2020 Hydrocodone-Acetaminophen Dizziness 12/25/2019 Hydroxychloroquine [...] 94 01/14/2022 1:27 PM CDT Temperature 36.3 C (97.4 F) 01/14/2022 1:27 PM CDT Respiratory Rate - - Oxygen Saturation 97% [...] Resulting Agency Comment Lab Testing performed at: [place] [id number] [facility] [id number] Trang Zavala MD LAB - CHEMISTRY ABDULLAHI STANTON [facility] Organization Address City/State/ZIP Co de Phone Number [facility] ACCOUNT BILL [address] [place] [address] from Last 3 Months or Most Recently Relevant to Health Maintenance Care Teams House Piping Inspector Relationship Specialty Start Date End Date Enoch Rosario MD [address] [place] [address] PCP - General Family Medicine 01/14/22
--- OUTSIDE RECORDS SUMMARY | 2024-09-10 04:47 | XMS_ITS | Referral Summary ---
Author Organization [facility] Address [address] [place] [address] Care Team Providers Care It Trainer Name Role Phone Unavailable Primary Care Provider [...] Description 10/03/2024 2:30 PM CDT Office Visit [facility] [address] [place] [phone] Luisa Kraft, DMD [address] [place] [address] Procedures Procedure Name Priority Date/Time Associated Diagnosis Comments PANORAMIC RADIOGRAPHIC IMAGE Routine 03/20/2024 3:00 PM CDT INTRAORAL - COMPREHENSIVE SERIES OF RADIOGRAPHIC IMAGES Routine 03/20/2024 3:00 PM CDT COMPREHENSIVE ORAL EVALUATION - NEW OR ESTABLISHED PATIENT Routine 03/20/2024 3:00 PM CDT Encounter for dental examination and cleaning without abnormal findings from Last 3 Months or Most Recently Relevant to Health Maintenance Insurance [facility]
--- OUTSIDE RECORDS SUMMARY | 2024-09-10 04:47 | XMS_ITS | Patient Health Record ---
Author Organization [facility] Address [address] [facility] [address] [place] [address] Support Name Relationship Address Phone Harman Singh Emergency Contact Unknown Chantal Singh Guarantor Unknown [phone] Reason For Referral No Information Medications Medication SIG (Take, Route, Frequency, Duration) Notes Start Date End Date Status Bystolic 2.5 MG take 2 tablets (5 mg ) by oral route once daily Oral 1 Active Olmesartan Medoxomil 20 MG Oral Active clonazePAM 0.125 MG Oral Active Plan Of Treatment No Information Insurance Providers Payer Name Payer Address Payer Phone Subscriber Number Group Number Insured Name Patient Relationship to Insured Coverage Start Date Coverage End Date Shepherd [address] [place] [address] [id number] Francisco Chantal Self - patient is the insured Medical (General) History Surgical History Surgery Date(Month/Year) endometrial ablation, Date of Procedure: 2005; 2019-09-06 tonsilectomy; 2019-09-06 : [id number]; Gallbladder removal, Date of Procedure: 2007; 2019-09-06 Knee replacement: Right knee., Date of P rocedure: 07/2018; 2019-09-06
--- OUTSIDE RECORDS SUMMARY | 2024-09-10 04:47 | XMS_ITS | CCD ---
Author Organization [facility] Address [address] [place] [address] Care Team Providers Care Middle School Art Teacher Name Role Phone Unavailable Primary Care Provider [...] Description 10/03/2024 2:30 PM CDT Office Visit [facility] [address] [place] [address] Luisa Kraft, DMD [address] [place], [place] [phone] Procedures Procedure Name Priority Date/Time Associated Diagnosis [...]
--- OUTSIDE RECORDS SUMMARY | 2024-09-10 04:47 | XMS_ITS | Patient Health Summary ---
Author Organization [facility] Address [address] [facility] [place] [place] [address] Care Team Providers Care Credit Director Name Role Phone Enoch Rosario MD Primary Care Provider [phone] Note from [facility],non-owned Affiliates and Associated Physician Practices is amultiple site organization consisting of ambulatory clinics and hospital sitesin [place], [place], [place] and [place]. This disclosure is being madepursuant to the Care Everywhere program and may not contain all information available regarding this patient. Last updated 18.[facility] Allergies * Doxycycline(HUMANE OFFICER Dysfunction) -Low Criticality * Hydrocodone-Acetaminophen(Dizziness) * Hydroxychloroquine [...] - 19 units [facility] ACCOUNT BILL Comment: Negative <20 Weak positive 20 - 39 Moderate positive 40 - 59 Strong positive >59 Blood BLOOD SPECIMEN / Unknown 01/14/2022 2:18 PM CDT 01/14/2022 Narrative Resulting Agency Comment Lab Testing performed at: [facility] [id number] Trang Zavala MD LAB - SEROLOGY ORDER ALISHA [facility] ACCOUNT BILL [address] [place] [address] * URIC ACID BLOOD (01/14/2022 2:18 PM CDT) Uric Acid 6.0 2.6 - 6.0 mg/dL [facility] ACCOUNT BILL Blood BLOOD SPECIMEN / Unknown 01/14/2022 2:18 PM CDT 01/14/2022 Narrative Resulting Agency Comment Lab Testing performed at: [address] [id number] Trang Zavala MD LAB - CHEMISTRY ABDULLAHI STANTON [facility] ACCOUNT BILL [address] [place] [address] * RHEUMATOID FACTOR BLOOD QUANTITATIVE (01/14/2022 2:18 PM CDT) Rheumatoid Factor <15 <30 IU/mL [facility] ACCOUNT BILL Blood BLOOD SPECIMEN / Unknown 01/14/2022 2:18 PM CDT 01/14/2022 Narrative Resulting Agency Comment Lab Testing performed at: [facility] [address] [place] [id number] Trang Zavala MD LAB - CHEMISTRY ABDULLAHI STANTON [facility] ACCOUNT BILL [address] [place] [address] * C-REACTIVE PROTEIN (01/14/2022 2:18 PM CDT) C-Reactive Protein 0.38 <=0.50 mg/dL [facility] ACCOUNT BILL Blood BLOOD SPECIMEN / Unknown 01/14/2022 2:18 PM CDT 01/14/2022 Narrative Resulting Agency Comment Lab Testing performed at: [address] [id number] Trang Zavala MD LAB - CHEMISTRY ABDULLAHI STANTON [facility] ACCOUNT BILL [address] [place] [address] * NEDA BLOOD SCREEN W/REFLEX TITER (01/14/2022 2:18 PM CDT) NEDA Negative Negative [facility] ACCOUNT BILL Comment: Methodology: Indirect Immunofluorescence Assay (IFA) rachna arana Hep-2-Gamma cells. Blood BLOOD SPECIMEN / Unknown 01/14/2022 2:18 PM CDT 01/14/2022 Narrative Resulting Agency Comment Lab Testing performed at: [facility] [address] [id number] Trang Zavala MD LAB - CHEMISTRY ABDULLAHI STANTON [facility] ACCOUNT BILL [address] [place] [address] * SS-A/SS-B (SJOGREN'S) ANTIBODY PANEL (01/14/2022 2:18 PM CDT) Sjogren's Antibodies (SSA) 0.4 0.0 - 0.9 AI [facility] ACCOUNT BILL Sjogren's Antibodies (SSB) <0.2 0.0 - 0.9 AI [facility] ACCOUNT BILL Blood BLOOD SPECIMEN / Unknown 01/14/2022 2:18 PM CDT 01/14/2022 Narrative Resulting Agency Comment Lab Testing performed at: [facility] [address] [facility] [id number] Trang Zavala MD LAB - CHEMISTRY ABDULLAHI STANTON [facility] ACCOUNT BILL [address] [place] [address] * ERYTHROCYTE SEDIMENTATION RATE (01/14/2022 2:18 PM CDT) Erythrocyte Sedimentation Rate Westergren 11 0 - 30 MM/HR [facility] ACCOUNT BILL Blood BLOOD SPECIMEN / Unknown 01/14/2022 2:18 PM CDT 01/14/2022 Narrative Resulting Agency Comment Lab Testing performed at: [address] [id number] Trang Zavala MD LAB - HEMATOLOGY ORD ERABLES [facility] ACCOUNT BILL [address] [place] [address] * (ABNORMAL) CBC WITH DIFFERENTIAL (01/14/2022 2:18 [...] x10E9/L [facility] ACCOUNT BILL Comment:MPV FL BLOOD (SSM) 9 .6 fl 9.4-12.9 Granulocytes % 53.7 [...] Resulting Agency Comment Lab Testing performed at: [address] [id number] Trang Zavala MD LAB - HEMATOLOGY ORD NICO [facility] ACCOUNT BILL [address] [place] [address] * (ABNORMAL) COMPREHENSIVE METABOLIC PANEL (01/14/2022 2:18 [...] Resulting Agency Comment Lab Testing performed at: [address] [id number] Trang Zavala MD LAB - CHEMISTRY ABDULLAHI STANTON [facility] ACCOUNT [place] [address] * GROSS + MICRO EXAM (04/20/2007 2:11 PM CDT) Result CASE NUMBER [id number] Comment: ORDERING PHYSICIAN LYDIA ADDISON SPECIMEN TYPE Gallbladder Date 04/20/2007 Physician Vince Addison Gross Description The specimen is labeled with the patient's name, Chantal Figueroa, and gallbladder. It consists of a gallbladder measuring 7 cm in length and 2 cm in maximum transverse dimension. The external surface is unremarkable. On opening, the lumen is filled with green viscous bile. No gallstones identified. The mucosal surface is greenish yellow and velvety. No lymph nodes or tumor mass identified. The cystic duct is patent. The wall varies in thickness from 1-2 mm. Rapid Extractor Operator sections are submitted in one block. RN day Microscopic Exam Sections show gallbladder with focal mild chronic inflammation. No dysplasia or malignancy is seen. MC/na Diagnosis I. Gallbladder, cholecystectomy -- Focal mild chronic inflammation MC/na Mammalogy Teacher na Pathologist Elaina Pete M.D. Snomed. 04/23/2007 1135 <1> CPT code 93661 MISCELLANEOUS SAMPLES / Unknown 04/20/2007 2:11 PM CDT 04/20/2007 2:11 PM CDT Historical Provider LAB - PATHOLOGY/C YTOLOGY ORDERABLES Care Teams Credit Director Relationship Specialty Start Date End Date Enoch Rosario MD [address] [place] [address] [place] [phone] PCP - General Family Medicine 01/14/22
--- OUTSIDE RECORDS SUMMARY | 2024-09-10 04:47 | XMS_ITS | Continuity of Care Document ---
Author Organization [facility] Address [address] [place] [address] Phone Care Team Providers Care Nitric Acid Plant Operator Name Role Phone Agusto Guerra MD Unavailable [...] Diagnoses Date Provider Providers Copied on Encounter [facility], [address], [place], [place], [id number], [place] tel:[phone] [facility] Diarrhea Mari Liz. [address] [place], [place], [id number], [place]. tel:[phone] Referring Provider: Enoch Rosario, [address] [place] [address] [address], [place], [address]. tel:[phone] Family History Family Member Type Diagnosis Age At Onset Close relative Problem (finding) cancer of colon Payers Payer name Insurance type Covered republican ID Authoriza tion(s) BCBS INACTIVE OUT OF STATE [id number] 1 Social History Type Description Quantity Date [...]
--- OUTSIDE RECORDS SUMMARY | 2024-09-10 04:47 | XMS_ITS | Encounter Summary ---
Author Organization [facility] Address [address] [place] [address] Care Team Providers Care Shoe Parts Molder Name Role Phone Unavailable Primary Care Provider Unavailabl e Prior Encounters Date Type Department Care Team Description 05/23/2024 2:00 PM CDT Office Visit [facility] [address] [place] [phone] Luisa Kraft DMD 05/10/2024 12:00 PM CDT Office Visit [facility] [address] [place] [phone] Luisa Kraft DMD 04/23/2024 11:30 AM CDT Office Visit [facility] [address] [place] [phone] Luisa Kraft DMD 03/28/2024 Travel 03/28/2024 2:00 PM CDT Office Visit [facility] [address] [place] [phone] Luisa Kraft DMD 03/20/2024 3:00 PM CDT Office Visit [facility] [address] [place] [phone] Luisa Kraft DMD Encounter for dental examination and cleaning without abnormal findings (Primary Dx) 02/27/2024 Travel 02/27/2024 10:00 AM CDT Office Visit [facility] [address] [place] [phone] Luisa Kraft DMD Plan of Treatment Upcoming Encounters Date Type Department Care Team (Late st Contact Info) Description 10/03/2024 2:30 PM CDT [facility] [address] [place] [phone] Luisa Kraft, MAXX [address] [place] [address] Procedures Procedure Name Priority Date/Time Associated Diagnosis [...]
--- OUTSIDE RECORDS SUMMARY | 2024-09-10 04:47 | XMS_ITS ---
Author Organization [facility] Address [address] [facility] [address] [place] [address] Care Team Providers Care Gameplay Engineer Name Role Phone zcarlaMigration, zulyProvider Unavailable Unav ailable REASON FOR VISIT [facility] Medications Medication SIG (Take, Route, Frequency, Duration) Notes Start Date End Date Status Bystolic 2.5 MG take 2 tablets (5 mg ) by oral route once daily Oral 1 Active Olmesartan Medoxomil 20 MG Oral Active clonazePAM 0.125 MG Oral Active Encounters Encounter Location Date Provider Diagnosis [facility] [address] [facility] [address] [place] [address] 05/14/2023 zzzzProvider zzzzMigration Plan Of Treatment No Information Progress Notes * Steffanie CARTWRIGHTaDOB:1970 ( 54 yo F)Acc No.[id number]:05/14/2023 Patient: Chantal SINCLAIR :1970 A ge:53 Y S ex:Female Address:[address] [place] [address] [facility] [address] Subjective: * Chief Complaints: * E MR-Kwasi * Medical History: * Surgical History: t onsilectomy; 2465-70-81qnwikpqetlc ablation, Date of Procedure: 2005; 8116-01-89Uwdp replacement: Right knee., Date of Procedure: 07/2018; 7878-08-70R-section: [id number]; 6070-02-99Rcmhfuewtez removal, Date of Procedure: 2007; 2019-09-06 * Hospitalization/Major Diagno stic Procedure: * Family History: M other: Heart Attack . * Social History: M igrated Social History: M igrated Social History: :: Shoe Size: :: note : 07/25 , Substance Use :: Tobacco :: Never. * Medications: T akingOlmesartan Medoxomil 20 MG Tablet Oral Bystolic 2.5 MG Tablet take 2 tablets (5 mg) by oral route once daily Oral 1 clonazePAM 0.125 MG Tablet Disintegrating Oral Taking Olmesartan Medoxomil 20 MG Tablet Oral Taking Bystolic 2.5 MG Tablet take 2 tablets (5 mg) by oral route once daily Oral 1 Taking clonazePAM 0.125 MG Tablet Disintegrating Oral Objective: * Vitals: * Physical Examination: Assessment: Plan: * Treatment: * Procedure Codes: * * Date:
--- OUTSIDE RECORDS SUMMARY | 2024-09-10 04:47 | XMS_ITS ---
Author Organization [facility]ene Address [address] [facility] [address] [place] [address] Care Team Providers Care Fine Wire Drawer Name Role Phone zzzzMigration, zzzzProvider Unavailable Unav ailable REASON FOR VISIT EMR-Kwasi Encounters Encounter Location Date Provider Diagnosis [facility] [address] [facility] [address] [place] [address] 05/13/2023 zzzzProvider zzzzMigration Plan Of Treatment Medication Medication Name Sig Start Date Stop Date Notes PARoxetine HCl ER 12.5 MG take 1 tablet (12.5 mg) by oral route once daily Oral 1 Pantoprazole Sodium 40 MG Oral LORazepam 0.5 MG Oral Progress Notes * Steffanie CARTWRIGHTLeighB:1970 ( 54 yo F)Acc No.[id number]:05/13/2023 Patient: Chantal SINCLAIR :1970 A ge:53 Y S ex:Female Address:[address] [place], [place] [address], [address] * Refills Stop Pantoprazole Sodium Tablet Delayed Release, 40 MG, Oral, 0 Stop PARoxetine HCl ER Tablet Extended Release 24 Hour, 12.5 MG, Oral, 0, take 1 tablet (12.5 mg) by oral route once daily, 1 Stop LORazepam Tablet, 0.5 MG, Oral, 0 Subjective: * Chief Complaints: * E MR-Kwasi * Medical History: * Surgical History: * Hospitalization/Major Diagno stic Procedure: * Medications: Objective: * Vitals: * Physical Examination: Assessment: Plan: * Treatment: * Procedure Codes: * * Date:
--- OUTSIDE RECORDS SUMMARY | 2024-09-10 04:47 | XMS_ITS | Referral Summary ---
Author Organization [facility] Address [address] [place] [address] Care Team Providers Care Bank Secrecy Act Officer Name Role Phone Enoch Rosario MD Primary Care Provider [phone] Allergies Active Allergy Reactions Criticality Noted Date [...] 06/29/2023 Assessment & Plan (06/29/2023 11:49 AM SUPPLEMENTAL MANAGER): Postmenopausal, s/p ablation Pap smear: 2022 NILM, HRHPV neg Sexually transmitted disease screening: not indicated Mammogram: ordered Osteoporosis with Dexa Scan: completed 2022 normal Colon Cancer Screening: up to date History of UTI 06/29/2023 Assessment & Plan (06/29/2023 12:18 PM SUPPLEMENTAL MANAGER): Patient requests UCx to ensure resolution Asymptomatic at this time Stress incontinence, female 06/20/2023 Postmenopausal bleeding 04/20/2023 Assessment & Plan (06/29/2023 12:17 PM SUPPLEMENTAL MANAGER): Continues to have daily orange and brown [...] on file Legal Sex Female 12:57 AM SUPPLEMENTAL MANAGER Gender Identity Not on file Sexual Orientation Not on file Last Filed Vital Signs Vital Sign Reading Time Taken Comments Blood Pressure 138/72 06/29/2023 2:32 PM SUPPLEMENTAL MANAGER Pulse 88 06/29/2023 2:32 PM SUPPLEMENTAL MANAGER Temperature 36.8 C (98.2 F) 07/21/2022 2:35 PM SUPPLEMENTAL MANAGER Respiratory Rate 20 07/21/2022 2:35 PM SUPPLEMENTAL MANAGER Oxygen Saturation 92% 06/29/2023 2:32 PM SUPPLEMENTAL MANAGER Inhaled Oxygen Concentration - - Weight 80.2 kg (176 lb 14.4 oz) 06/29/2023 2:32 PM SUPPLEMENTAL MANAGER Height 152.4 cm (5') 06/29/2023 2:32 PM SUPPLEMENTAL MANAGER Body Mass Index 34.55 06/29/2023 2:32 PM SUPPLEMENTAL MANAGER Plan of Treatment Not on file Procedures Procedure Name Priority Date/Time Associated Diagnosis Comments HIGH RISK HPV DNA DETECTION WITH GENOTYPING Routine 04/20/2023 2:19 PM CDT Postmenopausal bleeding from Last 3 Months or Most Recently Relevant to Health Maintenance Results * High Risk HPV DNA Detection with Genotyping (Molecular component) (04/20/2023 2:19 PM CDT) HPV HR 16 Not Detected Not Detected [facility] HPV HR 18 Not Detected Not Detected [facility] HPV HR Non 16/18 Not Detected Not Detected [facility] Comment: Interpretive Data Nucleic acid amplification for detection of high-risk Human Papilloma virus (HPV) is performed by the Alesha Carito 4800 HPV test, which specifically detects high-risk HPV-16, 18, 31, 33, 35, 39, 45, 51, 52, 56, 58, 59, 66, and 68 genotypes. This assay has been approved by the [place] Food and Drug Administration for detection of HPV in cervical specimens collected by a physician using an endocervical brush/spatula or cervical broom and placed in the ThinPrep Pap Test PreservCyt collection containers. The performance characteristics of this test have been verified by the [facility]. Correlate with separately reported cytology results, as applicable. Interpretive data last revised 23 Endocervical 04/20/2023 2:19 PM CDT 04/20/2023 9:17 PM CDT Narrative [facility] - 04/26/2023 7:34 PM CDT Clinical history and diagnosis->postmenopausal spotting Testing type->Diagnostic Last menstrual period (date if known)->postmenopauseal, status post ablation Menstrual status->Postmenopausal Previous atypical cytology->ASCUS us Becca Wolfe MD LAB BODY FLUIDS AND STOOLS ORDERABLES Final Result Performing Organization Address City/State/[facility] Co de Phone Number [facility] [address] [place] [address] from Last 3 Months or Most Recently Relevant to Health Maintenance Insurance [employer] Care Teams Bank Secrecy Act Officer Relationship Specialty Start Date End Date Enoch Rosario MD PCP - General 09/13/18
--- OUTSIDE RECORDS SUMMARY | 2024-09-10 04:47 | XMS_ITS | Patient Health Record ---
Author Organization [facility] Address [address] [place] [address] Care Team Providers Care General Farmworker Name Role Phone Enoch Rosario MD Primary Care Provider Unava ilable Reason For Referral No Information Medications Medication SIG (Take, Route, Frequency, Duration) Notes Start Date End Date Status Olmesartan Medoxomil-HCTZ Active Bystolic Active KlonoPIN Active Social History Tobacco Use: Social History Observation Description Date Details (start date - stop date) Never Smoker NA - NA Tobacco Use/Smoking Question Answer Notes Are you a nonsmoker Problems Problem Type SNOMED Code ICD Code Onset Dates Problem Status W/U Status Risk Notes Problem 03486888 Heartburn (R12) Active confirmed She has frequent heartburn and is taking rhtq-cqj-jthywq r Rolaids as needed. There are no other alarm features. Suspect she has symptoms related to GERD. Other considerations for ongoing symptoms would include Moore's esophagus, hiatal hernia, esophagitis, peptic ulcer, H. pylori, or others. Problem 08416500 Diarrhea, unspecified type (R19.7) Active confirmed She has known IBS with fecal urgency. Her stools have been alternating between constipation and diarrhea in form for the past two months, which is new. She has associated bloating and nausea. There are no other alarm features. She has not had a colonoscopy. Her father had colon cancer. Differential diagnosis includes C. Diff, Giardia, parasitic infection, microscopic colitis, IBD, neoplasm, or others. Other thoughts would be SIBO or food intolerance. Problem 291434579 Family history of colon cancer (Z80.0) Active confirmed Problem 42496316 Constipation, unspecified constipation type (K59.00) Active confirmed Problem 06331445552334 History of IBS (Z87.19) Active confirmed Plan Of Treatment Pending Test Test Name Order Date Colonoscopy 05/06/2019 GIARDIA AG, EIA, STOOL 05/06/2019 C difficile Toxins A+B, EIA 05/10/2019 Insurance Providers Payer Name Payer Address Payer Phone Subscriber Number Group Number Insured Name Patient Relationship to Insured Coverage Start Date Coverage End Date Blue Access PPO E2 [address] [place] [address] [id number] Harman Singh Spouse - patient is the spouse of the insured Medical (General) History Medical History History ICD Code Hypertension Surgical History Surgery Date(Month/Year) EGD 2011 Cholecystectomy x4
--- OUTSIDE RECORDS SUMMARY | 2024-09-10 04:47 | XMS_ITS | Clinical Summary ---
Author Organization [facility] Address [address] [place] [address] Care Team Providers Care Field Crop Farm Worker Name Role Phone Unavailable Primary Care Provider [...] Description 10/03/2024 2:30 PM CDT Office Visit [facility] [address] [place] [phone] Luisa Kraft, DMD [address] [place] [address] Health Maintenance Due Date Last Done Comments [...]
--- OUTSIDE RECORDS SUMMARY | 2024-09-10 04:47 | XMS_ITS ---
Author Organization [facility] Address [address] [place] [address] Care Team Providers Care Belting Cutter Name Role Phone Unavailable Unavailable Unavailable Surgery Details Not on file Complications Check Surgery Details section. Procedure Estimated Blood Loss Check Surgery Details section. Procedure Findings Check Surgery Details section. Procedure Specimens Taken Check Surgery Details section.
--- OUTSIDE RECORDS SUMMARY | 2024-09-10 04:47 | XMS_ITS | Clinical Summary ---
Author Organization [facility] Address [address] [facility] [place] [address] Care Team Providers Care Site Monitor Name Role Phone Enoch Rosario MD Primary Care Provider [phone] Source Comments [facility],non-owned Affiliates and Associated Physician Practices is amultiple site organization consisting of ambulatory clinics and hospital sitesin [place], [place], [place] and [place]. This disclosure is being madepursuant to the Care Everywhere program and may not contain all information available regarding this patient. Last updated 18.[facility] Allergies Active Allergy Reactions Criticality Noted Date Comments Doxycycline LINING MARKER Dysfunction Low 08/12/2020 Hydrocodone-Acetaminophen Dizziness 12/25/2019 Hydroxychloroquine [...] VACCINE (1 of 2) 2018 COVID-19 VACCINE (1 - 2023-2 5 season) 2024 INFLUENZA VACCINE [...] Resulting Agency Comment Lab Testing performed at: [address] [phone] Trang Zavala MD LAB - CHEMISTRY ABDULLAHI Davalos Organization Address City/State/ZIP Co de Phone Number [facility] ACCOUNT BILL [address] [place] [address] from Last 3 Months or Most Recently Relevant to Health Maintenance Care Teams Site Monitor Relationship Specialty Start Date End Date Enoch Rosario MD [address] [facility] [address] [place] [phone] PCP - General Family Medicine 01/14/22
--- OUTSIDE RECORDS SUMMARY | 2024-09-10 04:47 | XMS_ITS | Continuity of Care Document ---
Author Organization [facility] Address [address] [place] [address] Phone Care Team Providers Care Aurist Name Role Phone Renan Escobar MD Unavailable [...] - Active Procedures Procedure Date OFFICE/OUTPATIENT VISIT [facility] Advance Directives Directive Yes / No [...] Providers Copied on Encounter OFFICE/OUTPAT IENT VISIT [facility], [address], [place], [address], [place] tel:[phone] [facility] Navicular fracture 3 Shawn Urrutia. [address], [place], [place], [id number] . tel: [phone] Referring Provider: Enoch Rosario , [address], [place], [address]. tel:[phone] Family History Family Member Type Diagnosis Age [...]
--- OUTSIDE RECORDS SUMMARY | 2024-09-10 04:47 | XMS_ITS | Clinical Summary ---
Author Organization [facility] Address [address] [place] [address] Care Team Providers Care Bunk House Worker Name Role Phone Enoch Rosario MD Primary Care Provider [phone] Allergies Active Allergy Reactions Criticality Noted Date [...] 06/29/2023 Assessment & Plan (06/29/2023 11:49 AM LPN): Postmenopausal, s/p ablation Pap smear: 2022 NILM, HRHPV neg Sexually transmitted disease screening: not indicated Mammogram: ordered Osteoporosis with Dexa Scan: completed 2022 normal Colon Cancer Screening: up to date History of UTI 06/29/2023 Assessment & Plan (06/29/2023 12:18 PM LPN): Patient requests UCx to ensure resolution Asymptomatic at this time Stress incontinence, female 06/20/2023 Postmenopausal bleeding 04/20/2023 Assessment & Plan (06/29/2023 12:17 PM LPN): Continues to have daily orange and brown [...] on file Legal Sex Female 12:57 AM LPN Gender Identity Not on file Sexual Orientation [...] Comments Blood Pressure 138/72 06/29/2023 2:32 PM LPN Pulse 88 06/29/2023 2:32 PM LPN Temperature 36.8 C (98.2 F) 07/21/2022 2:35 PM LPN Respiratory Rate 20 07/21/2022 2:35 PM LPN Oxygen Saturation 92% 06/29/2023 2:32 PM LPN Inhaled Oxygen Concentration - - Weight 80.2 kg (176 lb 14.4 oz) 06/29/2023 2:32 PM LPN Height 152.4 cm (5') 06/29/2023 2:32 PM LPN Body Mass Index 34.55 06/29/2023 2:32 PM LPN Plan of Treatment Health Maintenance Due Date [...] HPV HR 16 Not Detected Not Detected [facility] HPV HR 18 Not Detected Not Detected [facility] HPV HR Non 16/18 Not Detected Not Detected [facility] Comment: Interpretive Data Nucleic acid [...] this test have been verified by the [facility]. Correlate with separately reported cytology results, as applicable. Interpretive data last revised 23 Endocervical 04/20/2023 2:19 PM CDT 04/20/2023 9:17 PM CDT Narrative [facility] - 04/26/2023 7:34 PM CDT Clinical history and diagnosis->postmenopausal spotting Testing type->Diagnostic Last menstrual period (date if known)->postmenopauseal, status post ablation Menstrual status->Postmenopausal Previous atypical cytology->ASCUS Becca Wolfe MD LAB BODY FLUIDS AND STOOLS ORDERABLES Final Result [facility] [address] [place] [address] from Last 3 Months or Most Recently Relevant to Health Maintenance Insurance ANTHEM ACCESS ANTHEM ACCESS Care Teams Bunk House Worker Relationship Specialty Start Date End Date Enoch Rosario MD PCP - General 09/13/18
[2024-09-10 05:04] LABS: Basophils Percent Auto 0.4 % (0.2-1.2); Eosinophils Absolute Auto 0.3 K/mm3 (0-0.3); Eosinophils Percent Auto 3.6 % (0-4.4); Hematocrit 45.9 % (37.0-47.0); Hemoglobin 15.4 g/dL (12.0-15.0); Immature Granulocyte Absolute 0.02 K/mm3 (0.00-0.031); Immature Granulocyte Percent A 0.3 % (0-0.5); Lymphocytes Absolute Auto 2.73 K/mm3 (0.9-3.2); Lymphocytes Percent Auto 36.5 % (18.3-44.2); Mean Corpuscular HGB Conc 33.6 g/dl (32-36); Mean Corpuscular Hemoglobin 30.1 pg (26-34); Mean Corpuscular Volume 89.8 fl (80-100); Monocytes Absolute Auto 0.5 K/mm3 (0.1-0.6); Monocytes Percent Auto 6.7 % (2.6-8.5); Neutrophils Absolute Auto 3.9 K/mm3 (1.3-6.7); Neutrophils Percent Auto 52.5 % (45.5-73.1); Platelet Count Result 255 k/mm3 (150-375); Red Blood Count 5.11 M/mm3 (4.2-5.4); White Blood Count 7.5 K/mm3 (4.5-10.0)
[2024-09-10 05:14] LABS: INR 0.9; Prothrombin Time 12.3 Seconds (11.1-14.7)
[2024-09-10 05:15] LABS: Partial Thromboplastin Time 26.7 Seconds (22.3-36.8)
--- OUTSIDE RECORDS SUMMARY | 2024-09-10 05:24 | XMS_ITS | Encounter Summary ---
Author Organization [facility] Address [address] [place] [address] Care Team Providers Care Patient Service Technician Pst Name Role Phone Enoch Rosario MD Primary Care Provider [phone] Reason for Visit * Reason Onset Date Comments Question 11/11/2021 Encounter Details Date Type Department Care Team (Late st Contact Info) Description 11/11/2021 Telephone [facility] Primary Care - [place] [address] [place] [address] Enoch Rosario MD [address] [place] [address] Question Social History Tobacco Use Types Packs/Day Years Used Date Smoking Tobacco: Former Cigarettes 0.5 15 Smokeless Tobacco: Never Alcohol Use Standard Drinks/Week Comments Yes 0 (1 standard drink = 0.6 oz pur e alcohol) rare Comments No Sex and Gender Information Value Date Recorded Sex Assigned at Not on file Legal Sex Female 5:48 AM VISUAL LEAD Gender Identity Not on file Sexual Orientation Not on file COVID-19 Exposure Response Date Recorded In the last 10 days, have yo u been in contact with someone who was confirmed or suspected to have Coronavirus/COVID-19? No / Unsure 11/10/2021 2:24 PM CDT documented as of this encounter Miscellaneous Notes * Telephone Encounter - Romulo Curry - 11/11/2021 3:33 PM CDT The patient called and said that Dr. Rosario was suppose to send her a prescription to the pharmacy for Acid Reflux documented in this encounter Plan of Treatment Upcoming Encounters Date Type Department Care Team (Late st Contact Info) Description 09/11/2024 1:45 PM VISUAL LEAD Hospital Encounter [facility] Diagnostic Cardiology Services [address] [place] [phone] Enoch Rosario MD [address] [place] [address] documented as of this encounter Visit Diagnoses Not on filedocumented in this encounter Additional Health Concerns Infection Onset Date Last Indicated Resolved Time COVID-19 05/16/2022 05/16/2022 06/15/2022 1:16 AM VISUAL LEAD documented as of this encounter Care Teams Patient Service Technician Pst Relationship Specialty Start Date End Date Enoch Rosario MD [address] [place] [address] PCP - General Family Practice 09/14/11 documented as of this encounter
--- OUTSIDE RECORDS SUMMARY | 2024-09-10 05:24 | XMS_ITS | Referral Summary ---
Author Organization [facility] Address [address] [place] [address] Care Team Providers Care Caustic Loader Name Role Phone Enoch Rosario MD Primary Care Provider [phone] Source Comments [facility],non-owned Affiliates and Associated Physician Practices is amultiple site organization consisting of ambulatory clinics and hospital sitesin [place], [place], [place] and [place]. This disclosure is being madepursuant to the Care Everywhere program and may not contain all information available regarding this patient. Last updated 18.[facility] Allergies Active Allergy Reactions Criticality Noted Date Comments Doxycycline GREENSMAN Dysfunction Low 08/12/2020 Hydrocodone-Acetaminophen Dizziness 12/25/2019 Hydroxychloroquine [...] Resulting Agency Comment Lab Testing performed at: [place] [id number] [facility] [id number] Trang Zavala MD LAB - CHEMISTRY ABDULLAHI STANTON [facility] Organization Address City/State/ZIP Co de Phone Number [facility] ACCOUNT BILL [address] [place] [address] from Last 3 Months or Most Recently Relevant to Health Maintenance Care Teams Caustic Loader Relationship Specialty Start Date End Date Enoch Rosario MD [address] [place] [address] PCP - General Family Medicine 01/14/22
--- OUTSIDE RECORDS SUMMARY | 2024-09-10 05:24 | XMS_ITS | Continuity of Care Document ---
Author Organization [facility] Address [address] [place] [address] Phone Care Team Providers Care Facsimile Operator Name Role Phone Renan Escobar MD Unavailable [...] - Active Procedures Procedure Date OFFICE/OUTPATIENT VISIT [facility] Advance Directives Directive Yes / No Effective [...] Providers Copied on Encounter OFFICE/OUTPAT IENT VISIT [facility] Orthopaedic Surgery, [address], [place], [address], [place] tel:[phone] [facility] Navicular fracture 3 Shawn Urrutia. [address], [place], [place], [address] . tel: [phone] Referring Provider: Enoch Rosario , [address], [place], [address]. tel:[phone] Family History Family Member Type Diagnosis Age [...]
--- OUTSIDE RECORDS SUMMARY | 2024-09-10 05:24 | XMS_ITS | Encounter Summary ---
Author Organization [facility] Address [address] [place] [address] Care Team Providers Care Pump Rebuilder Name Role Phone Unavailable Primary Care Provider Unavailabl e Prior Encounters Date Type Department Care Team Description 05/23/2024 2:00 PM CDT Office Visit [facility] [address] [place] [phone] Luisa Kraft DMD 05/10/2024 12:00 PM CDT Office Visit [facility] [address] [place] [phone] Luisa Kraft DMD 04/23/2024 11:30 AM CDT Office Visit [facility] [address] [place] [phone] Luisa Kraft DMD 03/28/2024 Travel 03/28/2024 2:00 PM CDT Office Visit [facility] [address] [place] [phone] Luisa Kraft DMD 03/20/2024 3:00 PM CDT Office Visit [facility] [address] [place] [phone] Luisa Kraft DMD Encounter for dental examination and cleaning without abnormal findings (Primary Dx) 02/27/2024 Travel 02/27/2024 10:00 AM CDT Office Visit [facility] [address] [place] [phone] Luisa Kraft DMD Plan of Treatment Upcoming Encounters Date Type Department Care Team (Late st Contact Info) Description 10/03/2024 2:30 PM CDT [facility] [address] [place] [phone] Luisa Kraft, MAXX [address] [place] [address] Procedures Procedure Name Priority Date/Time Associated Diagnosis [...]
--- OUTSIDE RECORDS SUMMARY | 2024-09-10 05:24 | XMS_ITS | Referral Summary ---
Author Organization [facility] Address [address] [place] [address] Care Team Providers Care Automotive Detailer Name Role Phone Enoch [place]ario MD Primary Care Provider [phone] Allergies Active Allergy Reactions Criticality Noted Date [...] 06/29/2023 Assessment & Plan (06/29/2023 11:49 AM TOPOLOGY PROFESSOR): Postmenopausal, s/p ablation Pap smear: 2022 NILM, HRHPV neg Sexually transmitted disease screening: not indicated Mammogram: ordered Osteoporosis with Dexa Scan: completed 2022 normal Colon Cancer Screening: up to date History of UTI 06/29/2023 Assessment & Plan (06/29/2023 12:18 PM TOPOLOGY PROFESSOR): Patient requests UCx to ensure resolution Asymptomatic at this time Stress incontinence, female 06/20/2023 Postmenopausal bleeding 04/20/2023 Assessment & Plan (06/29/2023 12:17 PM TOPOLOGY PROFESSOR): Continues to have daily orange and brown [...] on file Legal Sex Female 12:57 AM TOPOLOGY PROFESSOR Gender Identity Not on file Sexual Orientation Not on file Last Filed Vital Signs Vital Sign Reading Time Taken Comments Blood Pressure 138/72 06/29/2023 2:32 PM TOPOLOGY PROFESSOR Pulse 88 06/29/2023 2:32 PM TOPOLOGY PROFESSOR Temperature 36.8 C (98.2 F) 07/21/2022 2:35 PM TOPOLOGY PROFESSOR Respiratory Rate 20 07/21/2022 2:35 PM TOPOLOGY PROFESSOR Oxygen Saturation 92% 06/29/2023 2:32 PM TOPOLOGY PROFESSOR Inhaled Oxygen Concentration - - Weight 80.2 kg (176 lb 14.4 oz) 06/29/2023 2:32 PM TOPOLOGY PROFESSOR Height 152.4 cm (5') 06/29/2023 2:32 PM TOPOLOGY PROFESSOR Body Mass Index 34.55 06/29/2023 2:32 PM TOPOLOGY PROFESSOR Plan of Treatment Not on file Procedures Procedure Name Priority Date/Time Associated Diagnosis Comments HIGH RISK HPV DNA DETECTION WITH GENOTYPING Routine 04/20/2023 2:19 PM CDT Postmenopausal bleeding from Last 3 Months or Most Recently Relevant to Health Maintenance Results * High Risk HPV DNA Detection with Genotyping (Molecular component) (04/20/2023 2:19 PM CDT) HPV HR 16 Not Detected Not Detected [facility] HPV HR 18 Not Detected Not Detected [facility] HPV HR Non 16/18 Not Detected Not Detected [facility] Comment: Interpretive Data Nucleic acid amplification [...] this test have been verified by the [facility]. Correlate with separately reported cytology results, as applicable. Interpretive data last revised 23 Endocervical 04/20/2023 2:19 PM CDT 04/20/2023 9:17 PM CDT Narrative [facility] - 04/26/2023 7:34 PM CDT Clinical history and diagnosis->postmenopausal spotting Testing type->Diagnostic Last menstrual period (date if known)->postmenopauseal, status post ablation Menstrual status->Postmenopausal Previous atypical cytology->ASCUS us Becca Wolfe MD LAB BODY FLUIDS AND STOOLS ORDERABLES Final Result Performing Organization Address City/State/[facility] Co de Phone Number [facility] [address] Department [place] [address] from Last 3 Months or Most Recently Relevant to Health Maintenance Insurance [employer] ANTHEM ACCESS Care Teams Automotive Detailer Relationship Specialty Start Date End Date Enoch [place]ario MD PCP - General 09/13/18
--- OUTSIDE RECORDS SUMMARY | 2024-09-10 05:24 | XMS_ITS | Encounter Summary ---
Author Organization [facility] Address [address] [place] [address] Care Team Providers Care Capsule Maker Name Role Phone Enoch [place] MD Primary Care Provider [phone] Encounter Details Date Type Department Care Team (Late Contact Info) Description 05/13/2021 Refill [facility] Primary Care - [place] [address] [place] [address] Enoch Rosario MD [address] [place] [address] [address] [place] [address] Social History Tobacco Use Types Packs/Day Years Used Date Smoking Tobacco: Former Cigarettes 0.5 15 Smokeless Tobacco: Never Alcohol Use Standard Drinks/Week Comments Yes 0 (1 standard drink = 0.6 oz pur e alcohol) rare Comments No Sex and Gender Information Value Date Recorded Sex Assigned at Not on file Legal Sex Female 5:48 AM INTENSIVE CARE UNIT REGISTERED NURSE Gender Identity Not on file Sexual Orientation Not on file COVID-19 Exposure Response Date Recorded In the last month, have you been in contact with someone who was confirmed or suspected to have Coronavirus / COVID-19? No / Unsure 05/03/2021 11:35 AM CDT documented as of this encounter Plan of Treatment Upcoming Encounters Date Type Department Care Team (Late Contact Info) Description 09/11/2024 1:45 PM INTENSIVE CARE UNIT REGISTERED NURSE Hospital Encounter [facility] Diagnostic Cardiology Services [address] [place] [address] Enoch Rosario MD [address] [place], [place] [address]lydia S[address] [place] [phone] documented as of this encounter Visit Diagnoses Not on filedocumented in this encounter Additional Health Concerns Infection Onset Date Last Indicated Resolved Time COVID-19 05/31/2021 05/31/2021 06/30/2021 1:16 AM INTENSIVE CARE UNIT REGISTERED NURSE COVID-19 05/16/2022 05/16/2022 06/15/2022 1:16 AM INTENSIVE CARE UNIT REGISTERED NURSE documented as of this encounter Care Teams Capsule Maker Relationship Specialty Start Date End Date Enoch [place]ario MD [address] [place] [phone] PCP - General Family Practice 09/14/11 documented as of this encounter
--- OUTSIDE RECORDS SUMMARY | 2024-09-10 05:24 | XMS_ITS | Patient Health Summary ---
Author Organization [facility] Address [address] [place] [address] Care Team Providers Care Relocation Counselor Name Role Phone Enoch Rosario MD Primary Care Provider [phone] Note from [facility],non-owned Affiliates and Associated Physician Practices is amultiple site organization consisting of ambulatory clinics and hospital sitesin [place], [place], [place] and [place]. This disclosure is being madepursuant to the Care Everywhere program and may not contain all information available regarding this patient. Last updated 18.[facility] Allergies * Doxycycline(INTERNAL MEDICINE DOCTOR Dysfunction) -Low Criticality * Hydrocodone-Acetaminophen(Dizziness) * Hydroxychloroquine [...] Resulting Agency Comment Lab Testing performed at: [facility] [id number] Trang Zavala MD LAB - SEROLOGY ORDER ALISHA [facility] ACCOUNT BILL [address] [place] [address] * URIC ACID BLOOD (01/14/2022 2:18 PM CDT) Uric Acid 6.0 2.6 - 6.0 mg/dL [facility] ACCOUNT BILL Blood BLOOD SPECIMEN / Unknown 01/14/2022 2:18 PM CDT 01/14/2022 Narrative Resulting Agency Comment Lab Testing performed at: [address] [id number] Trang Zavala MD LAB - CHEMISTRY ABDULLAHI STANTON [facility] ACCOUNT BILL [address] [place] [address] * RHEUMATOID FACTOR BLOOD QUANTITATIVE (01/14/2022 2:18 PM CDT) Rheumatoid Factor <15 <30 IU/mL [facility] ACCOUNT BILL Blood BLOOD SPECIMEN / Unknown 01/14/2022 2:18 PM CDT 01/14/2022 Narrative Resulting Agency Comment Lab Testing performed at: [facility] [address] [place] [id number] Trang Zavala MD LAB - CHEMISTRY ABDULLAHI STANTON [facility] ACCOUNT BILL [address] [place] [address] * C-REACTIVE PROTEIN (01/14/2022 2:18 PM CDT) C-Reactive Protein 0.38 <=0.50 mg/dL [facility] ACCOUNT BILL Blood BLOOD SPECIMEN / Unknown 01/14/2022 2:18 PM CDT 01/14/2022 Narrative Resulting Agency Comment Lab Testing performed at: [address] [id number] Trang Zavala MD LAB - CHEMISTRY ABDULLAHI STANTON [facility] ACCOUNT BILL [address] [place] [address] * NEDA BLOOD SCREEN W/REFLEX TITER (01/14/2022 2:18 PM CDT) NEDA Negative Negative [facility] ACCOUNT BILL Comment: Methodology: Indirect Immunofluorescence Assay (IFA) rachna arana Hep-2-Gamma cells. Blood BLOOD SPECIMEN / Unknown 01/14/2022 2:18 PM CDT 01/14/2022 Narrative Resulting Agency Comment Lab Testing performed at: [facility] [address] [facility] [id number] Trang Zavala MD LAB - CHEMISTRY ABDULLAHI STANTON [facility] ACCOUNT BILL [address] [place] [address] * SS-A/SS-B (SJOGREN'S) ANTIBODY PANEL (01/14/2022 2:18 PM CDT) Sjogren's Antibodies (SSA) 0.4 0.0 - 0.9 AI [facility] ACCOUNT BILL Sjogren's Antibodies (SSB) <0.2 0.0 - 0.9 AI [facility] ACCOUNT BILL Blood BLOOD SPECIMEN / Unknown 01/14/2022 2:18 PM CDT 01/14/2022 Narrative Resulting Agency Comment Lab Testing performed at: [facility] [address] [facility] [id number] Trang Zavala MD LAB - CHEMISTRY ABDULLAHI STANTON [facility] ACCOUNT BILL [address] [place] [address] * ERYTHROCYTE SEDIMENTATION RATE (01/14/2022 2:18 PM CDT) Erythrocyte Sedimentation Rate Westergren 11 0 - 30 MM/HR [facility] ACCOUNT BILL Blood BLOOD SPECIMEN / Unknown 01/14/2022 2:18 PM CDT 01/14/2022 Narrative Resulting Agency Comment Lab Testing performed at: [address] [id number] Trang Zavala MD LAB - HEMATOLOGY ORD ERABLES [facility] ACCOUNT BILL [address] [place] [address] * (ABNORMAL) CBC WITH DIFFERENTIAL (01/14/2022 2:18 [...] Agency Comment Lab Testing performed at: [address] [id number] Trang Zavala MD LAB - HEMATOLOGY ORD NICO [facility] ACCOUNT BILL [address] [place] [address] * (ABNORMAL) COMPREHENSIVE METABOLIC PANEL (01/14/2022 2:18 [...] Agency Comment Lab Testing performed at: [address] [id number] Trang Zavala MD LAB - CHEMISTRY ABDULLAHI STANTON [facility] ACCOUNT [place]ILL [place] [address] * GROSS + MICRO EXAM (04/20/2007 2:11 [...] wall varies in thickness from 1-2 mm. State Pilot sections are submitted in one block. RN day Microscopic Exam Sections show gallbladder with focal mild chronic inflammation. No dysplasia or malignancy is seen. MC/na Diagnosis I. Gallbladder, cholecystectomy -- Focal mild chronic inflammation MC/na It Service Delivery Manager na Pathologist Elaina Pete M.D. Snomed. 04/23/2007 1135 <1> CPT code 95681 MISCELLANEOUS SAMPLES / Unknown 04/20/2007 2:11 PM CDT 04/20/2007 2:11 PM CDT Historical Provider LAB - PATHOLOGY/C YTOLOGY ORDERABLES Care Teams Relocation Counselor Relationship Specialty Start Date End Date Enoch Rosario MD [address] [place] [address] [place] [phone] PCP - General Family Medicine 01/14/22
--- OUTSIDE RECORDS SUMMARY | 2024-09-10 05:24 | XMS_ITS | Clinical Summary ---
Author Organization [facility] Address [address] [place] [address] Care Team Providers Care Printing Technician Name Role Phone Unavailable Primary Care Provider [...] Description 10/03/2024 2:30 PM CDT Office Visit [facility] [address] [place] [phone] Luisa Kraft, DMD [address] [place] [address] Health Maintenance Due Date Last Done Comments [...]
--- OUTSIDE RECORDS SUMMARY | 2024-09-10 05:24 | XMS_ITS | CCD ---
Author Organization [facility] Address [address] [place] [address] Care Team Providers Care Plan Consultant Name Role Phone Unavailable Primary Care Provider [...] Description 10/03/2024 2:30 PM CDT Office Visit [facility] [address] [place] [address] Luisa Kraft, DMD [address] [place], [place] [phone] Procedures Procedure Name Priority Date/Time Associated Diagnosis [...]
--- OUTSIDE RECORDS SUMMARY | 2024-09-10 05:24 | XMS_ITS | Encounter Summary ---
Author Organization [facility] Address [address] [place] [address] Care Team Providers Care Document Coordinator Name Role Phone Enoch [place] MD Primary Care Provider [phone] Encounter Details Date Type Department Care Team (Late Contact Info) Description 08/28/2024 Telephone [facility] Orthopedic Surgery at the [facility] [address] [place] [address] Alli Ferrer MD [address] [facility] [address] [place] [address] Social History Tobacco Use Types Packs/Day Years [...] on file Legal Sex Female 5:48 AM DEPUTY HEAD Gender Identity Not on file Sexual Orientation Not on file documented as of this encounter Plan of Treatment Upcoming Encounters Date Type Department Care Team (Late st Contact Info) Description 09/11/2024 1:45 PM DEPUTY HEAD Hospital Encounter [facility] Diagnostic Cardiology Services [address] [place] [address] Enoch Rosario MD [address] [facility] [address] [facility] [address] [place] [address] documented as of this encounter Visit Diagnoses Not on filedocumented in this encounter Care Teams Document Coordinator Relationship Specialty Start Date End Date Enoch [place]ario MD [address] [facility] [address] [place] [address] PCP - General Family Practice 09/14/11 documented as of this encounter
--- OUTSIDE RECORDS SUMMARY | 2024-09-10 05:24 | XMS_ITS | Clinical Summary ---
Author Organization [employer] [facility] Address [address] [place] [address] Phone Care Team Providers Care Restaurant Operations Manager Name Role Phone Enoch Rosario MD Primary Care Provider [phone] Allergies Active Allergy Reactions Criticality Noted Date [...] COMPLEX ORAL) Take by mouth. A ctive clonazePAM (KlonoPIN RAPID DISSOLVE) 0.125 mg Tablet, Rapid DissolveIndicat ions:Panic disorder without agoraphobia PLACE 1 TABLET ON THE TONGUE EVERY 12 HOURS NEEDED 180 Tablet 04/24/20 Active nebivoloL (BYSTOLIC) 2.5 mg TabletIndicatio ns:Palpitations ,Benign hypertension,PV C's (premature ventricular contractions) TAKE 1 TABLET DAILY, MAY TAKE AN EXTRA TABLET NEEDED FOR PALPITATIONS 90 Tablet 1 07/20/20 23 Active Additional Information Patient not taking.Reported on 08/26/2024 tirzepatide (Mounjaro) 7.5 mg/0.5 mL Pen Injector Inject 0.5 mL (7.5 mg) by subcutaneous injection every 7 days. 6 mL 2 10/04/19 24 Active meloxicam (MOBIC) 7.5 mg tablet Take 1 Tablet (7.5 mg) by mouth daily. 30 Tablet 5 01/24/20 24 Active nystatin (NYSTOP) 100,000 unit/gram powder [...] morning. 90 Tablet 3 08/01/19 25 Active ciclopirox (LOPROX) 0.77 % Cream Apply to affected area 2 times daily. foot 90 Gram 08/26/19 25 Active cyclobenzaprine (FLEXERIL) 5 mg Tablet Take 1 Tablet (5 mg) by mouth 3 times daily as needed for Spasm. 30 Tablet 08/29/19 25 Active simvastatin (ZOCOR) 20 mg tablet Take 1 Tablet (20 mg) by mouth daily at bedtime. 100 Tablet 09/03/19 25 Active collagen-hyalur exlf-xfdf-dvtz 515 mg Capsule Take 1 Capsule by mouth daily. 30 Capsule 09/03/19 25 Active 5-hydroxytrypto vizcaino,5HTP,-B6-C 50-4-60 mg Tablet, Delayed Release (E.C.) Take 1 Tablet by mouth 2 times daily. 60 Tablet 09/03/19 25 Active blood sugar diagnostic (OneTouch Verio test strips) Strip Test blood sugar 4 times a day 200 Each 09/05/19 25 Active Blood-Glucose Meter (OneTouch Ultra System Kit) KitIndications: Type 2 diabetes mellitus without complication, unspecified whether half-way insulin use ([facility]) See package 1 Kit 09/05/19 25 Active lancets (One Touch Delica) 33 gauge Test blood sugar 4 times a day 200 Each 09/05/19 25 Active blood sugar diagnostic (OneTouch Verio test strips) Strip Test blood sugar 4 times a day 200 Each 10 06/13/20 22 025 Discontin ued(Reord er) simvastatin (ZOCOR) 20 mg tablet TAKE 1 TABLET DAILY AT BEDTIME 90 Tablet 3 01/02/20 24 025 Discontin ued(Reord er) collagen-hyalur pdga-fjxd-gegw 515 mg Capsule Take 1 Capsule by mouth daily. 30 Capsule 11 01/24/20 24 025 Discontin ued(Reord er) 5-hydroxytrypto vizcaino,5HTP,-B6-C 50-4-60 mg Tablet, Delayed Release (E.C.) Take 1 Tablet by mouth 2 times daily. 60 Tablet 11 01/24/20 24 025 Discontin ued(Reord er) Blood-Glucose Meter (OneTouch Ultra System Kit) Kit See package 1 Kit 02/01/20 24 025 Discontin ued(Reord er) lancets (One Touch Delica) 33 gauge Test blood sugar 4 times a day 200 Each 02/01/20 24 025 Discontin ued(Reord er) Blood-Glucose Meter (OneTouch Ultra System Kit) KitIndications: Type 2 diabetes mellitus without complication, unspecified whether half-way insulin use ([facility]) See package 1 Kit 09/02/19 25 025 Discontin ued(Reord er) Hospital, Clinic, or Other Facility Administered Medication Ordered Dose Route Frequency Start Date End Date Status triamcinolone acetonide (KENALOG-40) injectable suspension 60 mgIndications:Primar y osteoarthritis of right knee 60 mg Intra-arTIC u ONE TIME ONLY 08/26/2024 5 Ended Active Problems Patient Care Coordination No te Formatting of this note migh t be different from the original. Pipe [address] Dr Troy Lazo Problem Noted Date Diagnosed [...] Encounters Date Type Department Care Team Description 09/05/2024 Refill [facility] Care [address] [place] [phone] Enoch Rosario MD Type 2 diabetes mellitus without complication, unspecified whether terminal operations manager insulin use ([facility]) 09/03/[address] [place] [address] Enoch Rosario MD 09/01/2024 Results Follow-Up [address] [place] [address] Enoch Rosario MD CBC WITHOUT DIFFERENTIAL, COMPREHENSIVE METABOLIC PANEL, MAGNESIUM LEVEL, Additional followed-up results: 2 08/30/2024 Telephone [place] [address] [place] [address] Enoch Rosario MD Information 08/30/2024 Telephone [place] [address] [place] [address] Enoch Rosario MD Results 08/30/2024 Refill [place] [address] [place] [address] Enoch Rosario MD 08/28/2024 Telephone [facility] Orthopedic Surgery at the [facility] [address] [place] [address] Alli Ferrer MD 08/26/2024 4:30 PM BRICK HANDLER Video Visit [address] [place] [address] Enoch Rosario MD Palpitation (Primary Dx); Hyperglycemia 08/26/2024 10:45 AM BRICK HANDLER Office Visit [facility] Orthopedic Surgery at the [place] [address] [place] [phone] Alli Ferrer MD Primary osteoarthritis of right knee (Primary Dx) 08/26/2024 [place] [address] [place] [address] Enoch Rosario MD Information 08/20/2024 External Device Data STL ABSTRACTION Provider, Abstract 08/16/2024 [place] [address] [place] [address] Enoch Rosario MD Clinical Consult Before Scheduling 08/14/2024 External Device Data STL ABSTRACTION Provider, Abstract 08/06/2024 External Device Data STL ABSTRACTION Provider, Abstract 08/01/2024 Refill [facility] [address] [place] [address] Enoch Rosario MD 07/31/2024 Telephone [facility] [address] [place] [address] Enoch Rosario MD Provider Call 07/29/[address] [place] [address] Enoch Rosario MD Information 07/26/2024 1:45 PM BRICK HANDLER - 07/26/2024 11:59 PM BRICK HANDLER Hospital Encounter [facility] [address] [place] [address] Enoch Rosario MD Discharge Disposition: Home or Self Care 07/12/[address] [place] [address] Enoch Rosario MD 07/04/[address] [place] [address] Enoch Rosario MD Clinical Consult Before Scheduling 07/02/[address] [place] [address] Enoch Rosario MD Needs Orders Written 06/15/2024 Refill [facility] [address] [place] [address] Enoch Rosario MD 06/10/[address] [place] [address] Enoch Rosario MD Results 06/10/2024 Abstract [facility] [address] [place] [address] Enoch Rosario MD from Last 3 Months Family History Medical [...] neice Other Other neice Heart Surgery Sister 1 R Hypertension Sister 1 R Other Sister 1 R Colon Cancer Sister 2 Radha Nathaniel 2 Heart Attacks Healthy Son 1 Healthy Son 2 Relation Name Status Comments Brother 1 Alive Brother 2 Twin Alive Daughter 1 Alive Daughter 2 Alive Father Josh Alive Maternal Grandfather Maternal Grandmother Mother Komal heart murmur, M I age 42 Other neice Alive heart murmur Paternal Grandfather Paternal Grandmother Sister 1 R heart murmur Sister 2 Radha Nathaniel Alive Son 1 Alive Son 2 Alive Social [...] on file Legal Sex Female 5:48 AM BRICK HANDLER Gender Identity Not on file Sexual Orientation Not on file Last Filed Vital Signs Vital Sign Reading Time Taken Comments Blood Pressure 126/70 05/01/2024 12:13 PM CDT Pulse 79 10/04/2023 2:05 PM CDT Temperature 36.4 C (97.5 F) 10/04/2023 2:05 PM CDT Respiratory Rate 16 06/02/2023 2:24 PM BRICK HANDLER Oxygen Saturation 94% 10/04/2023 2:05 PM CDT Inhaled Oxygen Concentration - - Weight 71.2 kg (157 lb) 08/26/2024 3:45 PM BRICK HANDLER Height 152.4 cm (5') 08/26/2024 3:45 PM BRICK HANDLER Body Mass Index 30.66 08/26/2024 3:45 PM BRICK HANDLER Plan of Treatment Upcoming Encounters Date Type Department Care Team (Late st Contact Info) Description 09/11/2024 1:45 PM BRICK HANDLER Hospital Encounter [facility] Diagnostic Cardiology Services [facility] [address] [place] [address] Enoch Rosario MD [address] [place] [address] Health Maintenance Due Date Last [...] exists DIABETES MICROALBUMIN ANNUAL SCREEN 05/02/2025 05/02/2024 DIABETES: A1C (Auto Order) 06/06/202506/06, 05/02/2024, 10/04/2023, Additional history exists LDL CHOLESTEROL ANNUAL 08/28/2025 , 05/02/2024, 10/04/2023, Additional history exists CERVICAL CANCER SCREENING 04/20/20262022, 08/16/2021, 08/10/2020 COLORECTAL SCREENING 05/09/2029 05/09/2019, 05/09/2019, 08/18/2011 Colorectal Cancer Screening 05/09/2029 Procedures Procedure Name Priority Date/Time Associated Diagnosis Comments LIPID PANEL Routine 08/28/2024 12:54 PM BRICK HANDLER Hyperglycemia TSH REFLEXIVE Routine 08/28/2024 12:54 PM BRICK HANDLER Palpitation MAGNESIUM LEVEL Routine 08/28/2024 12:54 PM BRICK HANDLER Palpitation COMPREHENSIVE METABOLIC PANEL Routine 08/28/2024 12:54 PM BRICK HANDLER Palpitation CBC WITHOUT DIFFERENTIAL Routine 08/28/2024 12:54 PM BRICK HANDLER Palpitation ME ARTHROCENTESIS ASPIR&/INJ MAJOR JT/BURSA W/O US Routine 08/26/2024 10:45 AM BRICK HANDLER Primary osteoarthritis of right knee MRI KNEE WO CONTRAST RIGHT Routine 07/26/2024 2:16 PM BRICK HANDLER Acute pain of both knees Knee pain, unspecified chronicity, unspecified laterality HEMOGLOBIN A1C Routine 06/06/2024 2:13 PM BRICK HANDLER Type 2 diabetes mellitus without complication, unspecified whether half-way insulin use (CMS/HCC) MICROALBUMIN/CREATININ E RATIO, RANDOM UR Routine 05/02/2024 9:59 AM CDT Type 2 diabetes mellitus without complication, unspecified whether half-way insulin use (CMS/HCC) MAMMO 3D ORIN SCREEN BILAT W OR WO CAD Routine 12/23/2021 10:41 AM CDT Screening mammogram, encounter for HM DIABETES EYE EXAM Routine 12/22/2021 CERV/VAG CYTO AGE BASED SCREEN PAP Routine 08/16/2021 3:21 PM BRICK HANDLER Encounter for gynecological examination without abnormal finding Screening for HPV (human papillomavirus) ENDOSCOPY, COLON, SCREENING Routine 05/09/2019 from Last 3 Months or Most Recently Relevant to Health Maintenance Results * TSH REFLEXIVE (08/28/2024 12:54 PM BRICK HANDLER) Pathologist [facility] TSH 1.18 0.40 - 4.50 mIU/L [facility] Comment: Test Performed at: [facility] [address] [place] [address] Carter Johnson MD Blood 08/28/2024 12:5 4 PM BRICK HANDLER 08/28/2024 12:55 PM BRICK HANDLER Enoch Rosario MD CHEMISTRY ORDERABLES Final R esult [facility] [phone] [address] * (ABNORMAL) CBC WITHOUT DIFFERENTIAL (08/28/2024 12:54 PM BRICK HANDLER) [facility] WBC 13.0(H) 3.8 - 10.8 Thousand/u L [facility] RBC 4.78 3.80 - 5.10 Million/uL [facility] HEMOGLOBIN 14.4 11.7 - 15.5 g/dL [facility] HEMATOCRIT 42.4 35.0 - 45.0 % [facility] MCV 88.7 80.0 - 100.0 fL [facility] MCH 30.1 27.0 - 33.0 pg [facility] MCHC 34.0 32.0 - 36.0 g/dL [facility] Comment: For adults, a slight decrease in the calculated MCHC value (in the range of 30 to 32 g/dL) is most likely not clinically significant; however, it should be interpreted with caution in correlation with other red cell parameters and the patient's clinical condition. RDW 13.3 11.0 - 15.0 % [facility] PLATELETS 313 140 - 400 Thousand/u L [facility] MPV 9.2 7.5 - 12.5 fL [facility] Comment: Test Performed at: [facility] [address] [facility] [place] [address] Carter Johnson MD Blood 08/28/2024 12:5 4 PM BRICK HANDLER 08/28/2024 12:55 PM BRICK HANDLER Enoch Rosario MD HEMATOLOGY ORDERABLES Final Result Performing Organization Address City/[facility]/ZIP Co de Phone Number [facility] [phone] [facility] [id number] [place] [address] * MAGNESIUM LEVEL (08/28/2024 12:54 PM BRICK HANDLER) MAGNESIUM 2.3 1.5 - 2.5 mg/dL [facility] Comment: Test Performed at: [facility] [address] [place] [address] Carter Johnson MD Blood 08/28/2024 12:5 4 PM BRICK HANDLER 08/28/2024 12:55 PM BRICK HANDLER Enoch Rosario MD CHEMISTRY ORDERABLES Final R esult Performing Organization Address [facility] Co de Phone Number [facility] [phone] [facility] [address] [place] [address] * (ABNORMAL) LIPID PANEL (08/28/2024 12:54 PM BRICK HANDLER) CHOLESTEROL 287(H) <200 mg/dL [facility] HDL 61 > OR = 50 mg/dL [facility] TRIGLYCERIDE 142 <150 mg/dL [facility] LDL CALCULATED 196(H) mg/dL (calc) [facility] Comment: LDL-C levels > or = 190 mg/dL may indicate familial hypercholesterolemia (FH). Clinical assessment and measurement of blood lipid levels should be considered for all first degree relatives of patients with an FH diagnosis. LDL Cholesterol (LDL-C) levels > or = 300 mg/dL may indicate homozygous familial hypercholesterolemia (HoFH). Untreated, these extremely high LDL-C levels can result in premature CV events and mortality. Patients should be identified early and provided appropriate interventions to reduce the cumulative LDL-C burden from . For questions about testing for familial hypercholesterolemia, please call 1-800-DENTIST Client Services at 2.823.GENE.INFO. Anand T, et al. J National Lipid Association Recommendations for Patient-Centered Management of Dyslipidemia: Part 1 Journal of Clinical Lipidology 2015;9(2), 129-169. Kristan Lo et al. (2014). Homozygous familial hypercholesterolaemia: new insights and guidance for clinicians to improve detection and clinical management. Heart Journal, 35(32), 3909-4834. Reference range: <100 Desirable range <100 mg/dL for primary prevention; <70 mg/dL for patients with CHD or diabetic patients with > or = 2 CHD risk factors. LDL-C is now calculated using the Leobardo-Lane calculation, which is a validated novel method providing better accuracy than the Friedewald equation in the estimation of LDL-C. Leobardo LAZAR et al. DARYL. 2013;310(19): 1708-3756 (http://education.[employer]/faq/TXQ728) CHOL/HDL RATIO 4.7 <5.0 (calc) [facility] [place] NON-HDL CHOLESTEROL 226(H) <130 mg/dL (calc) [facility] [place] Comment: Non-HDL level > or = 220 is very high and may indicate genetic familial hypercholesterolemia (FH). Clinical assessment and measurement of blood lipid levels should be considered for all first-degree relatives of patients with an FH diagnosis. For patients with diabetes plus 1 major ASCVD risk factor, treating to a non-HDL-C goal of <100 mg/dL (LDL-C of <70 mg/dL) is considered a therapeutic option. Test Performed at: [facility] [address] [facility] [place] [address] Carter Johnson MD Blood 08/28/2024 12:5 4 PM BRICK HANDLER 08/28/2024 12:55 PM BRICK HANDLER Enoch Rosario MD CHEMISTRY ORDERABLES Final R esult [facility] [phone] [facility] [address] [facility] [place] [address] * COMPREHENSIVE METABOLIC PANEL (08/28/2024 12:54 PM BRICK HANDLER) GLUCOSE 94 65 - 99 mg/dL [facility] Comment: Fasting reference interval BUN 24 7 - 25 mg/dL [facility] CREATININE 0.82 0.50 - 1.03 mg/dL [facility] GFR 84 > OR = 60 mL/min/1. 73m2 [facility] BUN/CREAT RATIO SEE NOTE: 6 - 22 (calc) [facility] Comment: Not Reported: BUN and Creatinine are within reference range. SODIUM 139 135 - 146 mmol/L [facility] POTASSIUM 4.1 3.5 - 5.3 mmol/L [facility] CHLORIDE 106 98 - 110 mmol/L [facility] CO2 22 20 - 32 mmol/L [facility] CALCIUM 9.3 8.6 - 10.4 mg/dL [facility] TOTAL PROTEIN 6.6 6.1 - 8.1 g/dL [facility] ALBUMIN 4.2 3.6 - 5.1 g/dL [facility] GLOBULIN 2.4 1.9 - 3.7 g/dL (calc) [facility] ALBUMIN/GLOBULIN RATIO 1.8 1.0 - 2.5 (calc) [facility] BILIRUBIN TOTAL 0.5 0.2 - 1.2 mg/dL [facility] ALKALINE PHOSPHATASE 81 37 - 153 U/L [facility] AST 13 10 - 35 U/L [facility] ALT 25 6 - 29 U/L [facility] Comment: Test Performed at: [facility] [address] [place] [address] Carter Johnson MD Blood 08/28/2024 12:5 4 PM BRICK HANDLER 08/28/2024 12:55 PM BRICK HANDLER Enoch Rosario MD CHEMISTRY ORDERABLES Final R esult [facility] [phone] [facility] [address] [facility] [place] [address] * ME ARTHROCENTESIS ASPIR&/INJ MAJOR JT/BURSA W/O US (08/26/2024 10:45 AM BRICK HANDLER) Narrative Alli Ferrer MD - 08/26/2024 10:45 AM BRICK HANDLER Alli Ferrer MD 08/26/2024 12:56 PM Large Joint Drain/Inject Date/Time: 08/26/2024 10:45 AM Authorized by: Alli Ferrer MD Performed by: Alli Ferrer MD Consent given by: patient Site marked: site marked Timeout: Immediately prior to procedure a time out was called to verify the correct patient, procedure, equipment, ict support engineer and site/side marked as required Supporting Documentation Indications: pain Sedation Patient sedated?: patient not sedated Procedure Details Location: knee - R knee Preparation: Patient was prepped and draped in the usual sterile fashion Needle size: 22 G Triamcinolone amount: 60 mg Lidocaine 2% amount: 2 mL Patient tolerance: patient tolerated the procedure well with no immediate complications Alli Ferrer MD PROCEDURE/MINOR SURGICAL ORDERAB LES Final Result * MRI KNEE WO CONTRAST RIGHT (07/26/2024 2:16 PM BRICK HANDLER) Anatomical Region Laterality Modality Lower Extremity Magnetic Resonan ce 07/26/2024 2:17 PM BRICK HANDLER Impressions 07/26/2024 5:04 PM BRICK HANDLER IMPRESSION: 1. 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 2. Slightly abnormal signal of the medial meniscus but no definitive MRI evidence of a meniscal tear. 3. Superolateral Hoffa's fat edema that can be seen in patellar maltracking and fat pad impingement. DICTATION LOCATION: Location [address] [place] [address] CPM Narrative 07/26/2024 5:04 PM BRICK HANDLER MRI KNEE WO CONTRAST RIGHT DATE: 07/26/2024 [...] maltracking and fat pad impingement. DICTATION LOCATION: Location [facility] CPM Enoch Rosario MD MR ORDERABLES Final Result * (ABNORMAL) HEMOGLOBIN A1C (06/06/2024 2:13 PM BRICK HANDLER) HEMOGLOBIN A1C 5.8(H) <5.7 % of total Hgb [facility] bill[facility] Comment: For someone without known diabetes, a [...] children. ESTIMATED AVERAGE GLUCOSE (MG/DL) 120 mg/dL [facility] HoldingsHayden manuelito Fregoso ESTIMATED AVERAGE GLUCOSE (MMOL/L) 6.6 mmol/L [employer] manuelito Fregoso Comment: FASTING:NO AN UPDATE OR CORRECTION HAS BEEN MADE TO NAME FASTING: NO Test Performed at: [facility] [place] [address] [place] [address] MarinaLouise Thi Vo Blood 06/06/2024 2:13 PM BRICK HANDLER 06/06/2024 2:14 PM BRICK HANDLER Enoch Rosario MD CHEMISTRY ORDERABLES Final R esult [facility] [phone] [place] [address] [place] [address] * (ABNORMAL) MICROALBUMIN/CREATININE RATIO, RANDOM UR (05/02/2024 9:59 AM CDT) Creatinine, Urine 174 20 - 275 mg/dL [facility] MICROALBUMIN, URINE 6.8 See Note: mg/dL [facility] Comment: Reference Range: Reference Range Not established MICROALBUMIN/CREAT RATIO, UR 39(H) <30 mg/g creat [facility] Comment: The ADA defines abnormalities in albumin excretion as follows: Albuminuria Category Result (mg/g creatinine) Normal to Mildly increased <30 Moderately increased 30-299 Severely increased > OR = 300 The ADA recommends that at least two of three specimens collected within a 3-6 month period be abnormal before considering a patient to be within a diagnostic category. FASTING:YES FASTING: YES Test Performed at: [facility] [address] [place] [address] Carter Johnson MD Urine URINE SPECIMEN OBTAINED BY CLEAN CATCH PROCEDURE / Unknown 05/02/2024 9:59 AM CDT 05/02/2024 9:59 AM CDT Enoch Rosario MD URINE ORDERABLES Final Resul t Performing Organization Address City/[facility]/ZIP Co de Phone Number [facility] [phone] [facility] [address] [place] [address] * MAMMO SCRN BILAT 3D ORIN W OR WO CAD (12/23/2021 10:41 AM CDT) Anatomical Region Laterality Modality Breast Bilateral Mammography Narrative 12/23/2021 12:39 PM CDT Bilateral Digital Mammogram with CAD and 3D Tomography Reason for Exam: Screening Comparison: No prior exam(s) for comparison. Technique: 3D MLO and CC digital tomosynthesis images were acquired and synthesized 2D images (C view) were generated. This digital mammogram was also analyzed by the Computer Aided Detection System CAD). Findings: There are scattered areas of fibroglandular density. There are no suspicious masses, areas of architectural distortions, or microcalcifications to suggest malignancy. Impression: Negative screening mammogram. Recommendation: Routine annual follow-up Overall Assessment: Birads Category 1: Negative us Marija Peralta ENERGY SYSTEMS ENGINEER MAMMO ORDERABLES Final Result * HM DIABETES EYE EXAM (12/22/2021) us Mendez Vega OD HEALTH MAINTENANCE Final Result [facility] CLIA# [id number] [address] [place] [id number] * CERV/VAG CYTO AGE BASED SCREEN PAP (08/16/2021 3:21 PM BRICK HANDLER) COMMENT (PAP): [facility] Comment: This order for age-based cervical cancer and STI screening follows ACOG guidelines(PB 168, 140, PLZ184). See individual assays for performing site location. CLINICAL INFORMATION [facility] Comment:SCREENING LAST MENSTRUAL PERIOD [facility] Comment:INFORMATION NOT PROV IDED PREV PAP: [facility] Comment:INFORMATION NOT PROV IDED PREV BX: [facility] Comment:INFORMATION NOT PROV IDED SOURCE [facility] Comment:Endocervix ADEQUACY: [facility] Comment: Satisfactory for evaluation. Endocervical/transformation zone component present. Age and/or menstrual status not provided PAP INTERP [facility] Comment:Negative for intraep ithelial lesion or malignancy. COMMENT (PAP TEST) [facility] Comment: This Pap test has been evaluated with computer assisted technology. MISSION MANAGER: [facility] Comment: MARY KAY BIANCHI(ASCP) CT Screening location: [address] [place] [address] [place] [address] EXPLANATORY NOTE [facility] Comment: EXPLANATORY NOTE: The Pap is [...] information. HPV E6/E7 Not Detected Not Detected [facility] Comment: Methodology: Cafe Worker-Mediated Amplification This assay detects E6/E7 viral messenger RNA (mRNA) from 14 high-risk HPV types (16,18,31,33,35,39,45,51,52,56,58,59,66,68). The analytical performance characteristics of this assay have been determined by [facility] The modifications have not been cleared or approved by the FDA. This assay has been validated pursuant to the CLIA regulations and is used for clinical purposes. For additional information, please refer to http://education.Creactives/faq/QOD792z4 (This link if provided for information/ educational purposes only.) Test Performed at: [facility] [address] [place] [address] Cesar Ortiz D.O., MPH SL Genital SWAB OF ENDOCERVIX / Unknown 08/16/2021 3:21 PM BRICK HANDLER 08/16/2021 11:13 PM BRICK HANDLER Marija Peralta ENERGY SYSTEMS ENGINEER PATHOLOGY/CYTOLOGY ORDERABLES Final Result [facility] [address] [place] [address] * ENDOSCOPY, COLON, SCREENING (05/09/2019) Anton Vang MD GI PROCEDURE ORDERA BLES Edited Result - Final KIKE PANDYA# [id number] [address] [place] [address] from Last 3 Months or Most Recently Relevant to Health Maintenance Insurance [employer] Commercial BS BLUE ACCESS/TRUE BLUE PPO BCBS BLUE ACCESS/TRUE BLUE PPO [facility] Advance Directives For more information, please contact: [phone] * Full Code (Latest Code Status on File) Date Activated Date Inactivated Comments 12/19/2019 3:38 AM 12/20/2019 3:23 PM * Full Code Date Activated Date Inactivated Comments 12/19/2019 3:37 AM 12/19/2019 3:38 AM Care Teams Restaurant Operations Manager Relationship Specialty Start Date End Date Enoch Rosario MD [address] [place] [phone] PCP - General Family Practice 09/14/11
--- OUTSIDE RECORDS SUMMARY | 2024-09-10 05:24 | XMS_ITS | Encounter Summary ---
Author Organization [facility] Address [address] [place] [address] Care Team Providers Care Chocolate Finisher Name Role Phone Enoch Rosario MD Primary Care Provider [phone] Reason for Visit * Reason Comments Medication Refill Question Medication Assistance Encounter Details Date Type Department Care Team (Late st Contact Info) Description 12/20/2023 Telephone [facility] Primary Care - [place] [address] [facility] [place] [address] Enoch Rosario MD [address] [facility] [place] [address] Medication Refill; Question; Medication Assistance [...] on file Legal Sex Female 5:48 AM EDITOR MANAGING NEWSPAPER Gender Identity Not on file Sexual Orientation Not on file documented as of this encounter Miscellaneous Notes * Telephone Encounter - Lea Agudelo LPN - 12/21/2023 3:42 PM CDT I called and spoke with patient and she is asking what dose of Mounjaro she should take. The 5mg/0.5ml or the 7.5mg/0.5ml every 7 days Mik Agudelo LPN * Telephone Encounter - Kassie Reglaado - 12/21/2023 2:53 PM CDT Copied from [facility] #[id number]. Topic: Patient or Caregiver Communication Request >> December 21, 2023 2:49 PM Kassie Jett wrote: Patient or Caregiver insisting that a message be sent to Care Team Caller: Chantalmari Singh Patient/Caregiver Callback Number: [phone] (home) Call Notes: Patient calling in stating that pharmacy has only one more box of mounjaro left and shewould really like to get this. Asking if mounjaro can be sent to pharmacy today if possible. Patient has called in multiple times about this. Asking if mounjaro can be sent over to pharmacy listed below. Please advise. [facility] [address] [place] [address] [[id number]] * Telephone Encounter - Veena Blandon - 12/21/2023 10:23 AM CDT Copied from [facility] #[id number]. Topic: Patient or Caregiver Communication Request >> December 21, 2023 10:21 AM Veena Houser wrote: Patient or Caregiver requesting advice Caller: Chantal Singh Patient/Caregiver Callback Number: [phone] (home) Call Notes: Patient is calling to check the status of the PA that she requested to have expedited. A call back was requested. * Telephone Encounter - Мария Valles - 12/20/2023 12:16 PM CDT Copied from [facility] #[id number]. Topic: Medication Request >> December 20, 2023 12:14 PM Мария Murillo wrote: Medication Refill Request from: Patient/Caregiver Did the patient/caregiver contact their pharmacy for refill prior to calling? Yes Medication (Ask patient/caregiver to spell if possible): tirzepatide (Mounjaro) 5 mg/0.5 mL Pen Injector, and tirzepatide (Mounjaro) 7.5 mg/0.5 mL Pen Injector Preferred Pharmacy: [facility] [address] [place] [address] Patient/Caregiver Callback Number: Telephone Information: Call Notes: Patient needs a medication refill for this. She states that she needs it expedited and a PA sent to the above pharmacy. documented in this encounter Plan of Treatment Upcoming Encounters Date Type Department Care Team (Late st Contact Info) Description 09/11/2024 1:45 PM EDITOR MANAGING NEWSPAPER Hospital Encounter [facility] Diagnostic Cardiology Services [address] [place] [phone] Enoch Rosario MD [address] [facility] [address] [place] [phone] documented as of this encounter Visit Diagnoses Not on filedocumented in this encounter Care Teams Chocolate Finisher Relationship Specialty Start Date End Date Enoch Rosario MD [address] [place] [address] [place] [phone] PCP - General Family Practice 09/14/11 documented as of this encounter
--- OUTSIDE RECORDS SUMMARY | 2024-09-10 05:24 | XMS_ITS | Clinical Summary ---
Author Organization [facility] Address [address] [place] [address] Care Team Providers Care Claim Auditor Name Role Phone Enoch Rosario MD Primary Care Provider [phone] Source Comments [facility],non-owned Affiliates and Associated Physician Practices is amultiple site organization consisting of ambulatory clinics and hospital sitesin [place], [place], [place] and [place]. This disclosure is being madepursuant to the Care Everywhere program and may not contain all information available regarding this patient. Last updated 18.[facility] [employer] Allergies Active Allergy Reactions Criticality Noted Date Comments Doxycycline CHILDCARE WORKER Dysfunction Low 08/12/2020 Hydrocodone-Acetaminophen Dizziness 12/25/2019 Hydroxychloroquine [...] Resulting Agency Comment Lab Testing performed at: [address] [id number] Trang Zavala MD LAB - CHEMISTRY ABDULLAHI Davalos Organization Address City/State/ZIP Co de Phone Number [facility] ACCOUNT BILL [address] [place] [address] from Last 3 Months or Most Recently Relevant to Health Maintenance Care Teams Claim Auditor Relationship Specialty Start Date End Date Enoch Rosario MD [address] [facility] [address] [place] [phone] PCP - General Family Medicine 01/14/22
--- OUTSIDE RECORDS SUMMARY | 2024-09-10 05:24 | XMS_ITS | Clinical Summary ---
Author Organization [facility] Address [address] [place] [address] Care Team Providers Care Bat Lathe Operator Name Role Phone Enoch Rosario MD Primary Care Provider [phone] Allergies Active Allergy Reactions Criticality Noted Date [...] 06/29/2023 Assessment & Plan (06/29/2023 11:49 AM EDITORIAL MANAGER): Postmenopausal, s/p ablation Pap smear: 2022 NILM, HRHPV neg Sexually transmitted disease screening: not indicated Mammogram: ordered Osteoporosis with Dexa Scan: completed 2022 normal Colon Cancer Screening: up to date History of UTI 06/29/2023 Assessment & Plan (06/29/2023 12:18 PM EDITORIAL MANAGER): Patient requests UCx to ensure resolution Asymptomatic at this time Stress incontinence, female 06/20/2023 Postmenopausal bleeding 04/20/2023 Assessment & Plan (06/29/2023 12:17 PM EDITORIAL MANAGER): Continues to have daily orange and [...] on file Legal Sex Female 12:57 AM EDITORIAL MANAGER Gender Identity Not on file Sexual [...] Comments Blood Pressure 138/72 06/29/2023 2:32 PM EDITORIAL MANAGER Pulse 88 06/29/2023 2:32 PM EDITORIAL MANAGER Temperature 36.8 C (98.2 F) 07/21/2022 2:35 PM EDITORIAL MANAGER Respiratory Rate 20 07/21/2022 2:35 PM EDITORIAL MANAGER Oxygen Saturation 92% 06/29/2023 2:32 PM EDITORIAL MANAGER Inhaled Oxygen Concentration - - Weight 80.2 kg (176 lb 14.4 oz) 06/29/2023 2:32 PM EDITORIAL MANAGER Height 152.4 cm (5') 06/29/2023 2:32 PM EDITORIAL MANAGER Body Mass Index 34.55 06/29/2023 2:32 PM EDITORIAL MANAGER Plan of Treatment Health Maintenance Due Date [...] HPV HR 16 Not Detected Not Detected [facility] HPV HR 18 Not Detected Not Detected [facility] HPV HR Non 16/18 Not Detected Not Detected [facility] Comment: Interpretive Data Nucleic acid [...] this test have been verified by the [facility]. Correlate with separately reported cytology results, as applicable. Interpretive data last revised 23 Endocervical 04/20/2023 2:19 PM CDT 04/20/2023 9:17 PM CDT Narrative [facility] - 04/26/2023 7:34 PM CDT Clinical history and diagnosis->postmenopausal spotting Testing type->Diagnostic Last menstrual period (date if known)->postmenopauseal, status post ablation Menstrual status->Postmenopausal Previous atypical cytology->ASCUS Becca Wolfe MD LAB BODY FLUIDS AND STOOLS ORDERABLES Final Result [facility] [address] Department [place] [address] from Last 3 Months or Most Recently Relevant to Health Maintenance Insurance [facility] Address: [facility] [address] [place] [address] [facility] Address: [facility] [id number] [place] [address] Care Teams Bat Lathe Operator Relationship Specialty Start Date End Date Enoch Rosario MD PCP - General 09/13/18
--- OUTSIDE RECORDS SUMMARY | 2024-09-10 05:24 | XMS_ITS | Encounter Summary ---
Author Organization [facility] Address [address] [place] [address] Care Team Providers Care English As A Second Language Instructor Name Role Phone Enoch Rosario MD Primary Care Provider [phone] Reason for Visit * Reason Comments Clinical Consult Before Scheduling Encounter Details Date Type Department Care Team (Late st Contact Info) Description 07/04/2024 Telephone [facility] Primary Care - [address] [place] [address] Enoch Rosario MD [address] [facility] [place] [address] Clinical Consult Before Scheduling Social [...] on file Legal Sex Female 5:48 AM OFFICE CLERK ROUTINE Gender Identity Not on file Sexual Orientation Not on file documented as of this encounter Miscellaneous Notes * Telephone Encounter - Lea Agudelo LPN - 07/04/2024 9:42 AM OFFICE CLERK ROUTINE Called and spoke to patient. Patient stated she has been coughing with chest congestion she stated she has been coughing up green and yellow mucus she was seen in the urgent care and given prednisoneand symptoms have not gotten any better. Let patient know that Dr Rosario is on vacation. Mik Agudelo LPN CE CLERK ROUTINE * Telephone Encounter - Clara Gavin - 07/04/2024 9:26 AM CST Copied from [facility] #[id number]. Topic: Symptomatic Care >> Jul 04, 2024 [...] is requesting an antibiotics to be sent [facility] on [address] [facility] please advise SVEN . If this is not clinically appropriate, please contact patient. No CE CLERK ROUTINE documented in this encounter Plan of Treatment Upcoming Encounters Date Type Department Care Team (Late st Contact Info) Description 09/11/2024 1:45 PM OFFICE CLERK ROUTINE Hospital Encounter [facility] Diagnostic Cardiology Services [address] [address] Enoch Rosario MD [address] [facility] [address] [place] [address] documented as of this encounter Visit Diagnoses Not on filedocumented in this encounter Care Teams English As A Second Language Instructor Relationship Specialty Start Date End Date Enoch Rosario MD [address] [place] [phone] PCP - General Family Practice 09/14/11 documented as of this encounter
--- OUTSIDE RECORDS SUMMARY | 2024-09-10 05:24 | XMS_ITS | Encounter Summary ---
Author Organization [employer] [facility] Address [address] [place] [address] Care Team Providers Care Communications Controller Name Role Phone Enoch Rosario MD Primary Care Provider [phone] Encounter Details Date Type Department Care Team [...] on file Legal Sex Female 5:48 AM SOCIAL SERVICE DIRECTOR Gender Identity Not on file Sexual Orientation Not on file documented as of this encounter Progress Notes * Katie Isaacs, RN - 05/06/2015 5:22 PM CDT CHART DOCUMENTATION ONLY Call Type: Triage Call Addendum Date and Time [id number] Presenting Problem: I am almost of out my sample Rx of Bystolic. Report feedback to Dr. Rosario. <<<<<<<< TRIAGE NOTE >>>>>>>> Triage Note: Automobile Rental Agent Katie Isaacs added this note on May [...] one. Paged MD to call me back. Automobile Rental Agent [email or web address] added this note on May 06 2015 5:22PM [place] from Dr Rosario's nurse, Deann, and she [...] st Contact Info) Description 09/11/2024 1:45 PM [facility] Hospital Encounter [facility] Diagnostic Cardiology Services [address] [address] Enoch Rosario MD [address] [place] [address] [address] [place] [address] documented as of this encounter Visit Diagnoses Not on filedocumented in this encounter Additional Health Concerns Infection Onset Date Last Indicated Resolved Time COVID-19 05/31/2021 05/31/2021 06/30/2021 1:16 AM SOCIAL SERVICE DIRECTOR COVID-19 05/16/2022 05/16/2022 06/15/2022 1:16 AM SOCIAL SERVICE DIRECTOR documented as of this encounter Care Teams Communications Controller Relationship Specialty Start Date End Date Enoch Rosario MD [address] [facility] [address] [phone] PCP - General Family Practice 09/14/11 documented as of this encounter
--- OUTSIDE RECORDS SUMMARY | 2024-09-10 05:24 | XMS_ITS ---
Author Organization [facility] Address [address] [place] [address] Care Team Providers Care Electronic Prepress System Operator Name Role Phone Unavailable Unavailable Unavailable Surgery Details Not on file Complications Check Surgery Details section. Procedure Estimated Blood Loss Check Surgery Details section. Procedure Findings Check Surgery Details section. Procedure Specimens Taken Check Surgery Details section.
--- OUTSIDE RECORDS SUMMARY | 2024-09-10 05:24 | XMS_ITS | Continuity of Care Document ---
Author Organization [facility] Address [address] [place] [address] Phone Care Team Providers Care Brand Communications Manager Name Role Phone Agusto Guerra MD Unavailable [...] Diagnoses Date Provider Providers Copied on Encounter [facility], [address], [place], [place], [id number], [place] tel:[phone] [facility] Diarrhea [address] [place], [place], [id number], [place]. tel:[phone] Referring Provider: Enoch Rosario, [address] [place] [address] [address], [place], [address]. tel:[phone] Family History Family Member Type Diagnosis Age At Onset Close relative Problem (finding) cancer of colon Payers Payer name Insurance type Covered republican ID Authoriza tion(s) BCBS INACTIVE OUT OF STATE [id number] 1 Social History Type Description Quantity Date [...]
--- OUTSIDE RECORDS SUMMARY | 2024-09-10 05:24 | XMS_ITS | Referral Summary ---
Author Organization [facility] Address [address] [place] [address] Care Team Providers Care Gravity Prospecting Supervisor Name Role Phone Unavailable Primary Care Provider [...] Description 10/03/2024 2:30 PM CDT Office Visit [facility] [address] [place] [phone] Luisa Kraft, DMD [address] [place] [address] Procedures Procedure Name Priority Date/Time Associated Diagnosis Comments PANORAMIC RADIOGRAPHIC IMAGE Routine 03/20/2024 3:00 PM CDT INTRAORAL - COMPREHENSIVE SERIES OF RADIOGRAPHIC IMAGES Routine 03/20/2024 3:00 PM CDT COMPREHENSIVE ORAL EVALUATION - NEW OR ESTABLISHED PATIENT Routine 03/20/2024 3:00 PM CDT Encounter for dental examination and cleaning without abnormal findings from Last 3 Months or Most Recently Relevant to Health Maintenance Insurance [facility]
[2024-09-10 05:31] LABS: Alanine Aminotransferase 32 U/L (6-35); Albumin Level 4.2 g/dL (3.5-5.1); Alkaline Phosphatase 96 U/L (38-126); Anion Gap 12 mmol/L (4-12); Aspartate Amino Transferase 26 U/L (14-36); Bilirubin,Total 0.6 mg/dL (0.2-1.3); Blood Urea Nitrogen 16 mg/dL (7-17); Calcium 9.7 mg/dL (8.4-10.2); Carbon Dioxide 24 mmol/L (22-30); Chloride 105 mmol/L (98-107); Estimated CRCL calculation 80 ml/min; Estimated Glomerular Filt Rate > 60; Glucose 124 mg/dL (65-110); Lipase 116 U/L (23-300); Sodium 141 mmol/L (137-145)
[2024-09-10 05:38] LABS: Troponin I < 0.012 ng/mL (0.000-0.034)
[2024-09-10 05:59] VITALS: BP 125/79; PULSE 88; RESP 15; O2SAT 96
[2024-09-10 06:00] VITALS: O2SAT 97
--- NOTE | 2024-09-10 06:02 | ED.GENADULT ---
HPI - General Adult General Chief complaint: Chest Pain Stated complaint: rapid HR Time Seen by Provider: 09/10/24 05:14 History of Present Illness HPI narrative: This is a 54-year-old female presenting ED with chief complaint palpitations. Patient has been having intermittent palpitations for the last 3 weeks. They usually last less than 5 minutes at time. She can usually control them by taking some deep breaths. They do make her very anxious. She has follow-up with her typesetting machine tender him our tomorrow to get a Holter monitor. She has not had any other physical symptoms. No syncope. No lower extremity edema chest pain difficulty breathing. Related Data Home Medications ?Medication ?Instructions ?Recorded ?Confirmed ?Last Taken ?Type levothyroxine 50 mcg tablet mcg 07/01/24 Unknown History tirzepatide 7.5 mg/0.5 mL mg subcut 07/01/24 Unknown History subcutaneous pen injector (Sharron) Allergies Allergy/AdvReac Type Severity Reaction Status Date / Time oseltamivir Allergy Unknown Swelling Verified 09/10/24 04:53 sulfamethoxazole Allergy Unknown Unknown Verified 09/10/24 04:53 trimethoprim Allergy Unknown Unknown Verified 09/10/24 04:53 azithromycin AdvReac Unknown DOESNT Verified 09/10/24 04:53 WORK FLUVOXAMINE MALEATE Allergy Unknown Unknown Uncoded 09/10/24 04:53 PROPOXYPHENE NAPSYLATE Allergy Unknown Unknown Uncoded 09/10/24 04:53 Exam Narrative: APPEARANCE: No apparent distress. Head: atraumatic. EYES: EOMI, NOSE: Atraumatic NECK: Trachea midline RESPIRATORY: No increased rate of breathing clear to auscultation CARDIOVASCULAR: RRR, no peripheral edema ABDOMINAL: Non-distended nontender MUSCULOSKELETAl: No obvious deformities NEURO: Alert. Moving 4/4 extremities SKIN:: Warm, dry. Normal color PSYCHIATRIC: Normal affect Course Vital Signs Vital signs: Vital Signs Temperature 97.8 F 09/10/24 04:47 Pulse Rate 96 09/10/24 04:47 Respiratory Rate 14 09/10/24 04:47 Blood Pressure 161/64 H 09/10/24 04:47 Pulse Oximetry 100 09/10/24 04:47 Oxygen Delivery Room Air 09/10/24 04:47 Temperature 97.8 F 09/10/24 04:47 Pulse Rate 88 09/10/24 05:59 Respiratory Rate 15 09/10/24 05:59 Blood Pressure 125/79 09/10/24 05:59 Pulse Oximetry 97 09/10/24 06:00 Oxygen Delivery Room Air 09/10/24 06:00 Medical Decision Making MDM Narrative Medical decision making narrative: -Course: 54-year-old female presenting with intermittent palpitations. She is in normal sinus rhythm at this time does not have a palpitations at this moment. She has an appointment to see her typesetting machine tender to get a Holter monitor. No interventions at this time. She can follow up with Cardiology. Return precautions given. -DDX includes but is not limited to: SVT, anxiety, AFib Vital Signs Vital Signs: Vital Signs Temperature 97.8 F 09/10/24 04:47 Pulse Rate 96 09/10/24 04:47 Respiratory Rate 14 09/10/24 04:47 Blood Pressure 161/64 H 09/10/24 04:47 Pulse Oximetry 100 09/10/24 04:47 Oxygen Delivery Room Air 09/10/24 04:47 Temperature 97.8 F 09/10/24 04:47 Pulse Rate 88 09/10/24 05:59 Respiratory Rate 15 09/10/24 05:59 Blood Pressure 125/79 09/10/24 05:59 Pulse Oximetry 97 09/10/24 06:00 Oxygen Delivery Room Air 09/10/24 06:00 Lab Data 09/10/24 04:54 09/10/24 04:54 Labs: Lab Results 09/10/24 Range/Units 04:54 WBC 7.5 (4.5-10.0) K/mm3 RBC 5.11 (4.2-5.4) M/mm3 Hgb 15.4 H (12.0-15.0) g/dL Hct 45.9 (37.0-47.0) % MCV 89.8 (80-100) fl MCH 30.1 (26-34) pg MCHC 33.6 (32-36) g/dl RDW 13.0 (11.5-14.5) % Plt Count 255 (150-375) k/mm3 MPV 9.0 (7.4-10.4) fl Immature Gran % (Auto) 0.3 (0-0.5) % Neut % (Auto) 52.5 (45.5-73.1) % Lymph % (Auto) 36.5 (18.3-44.2) % [place] % (Auto) 6.7 (2.6-8.5) % Eos % (Auto) 3.6 (0-4.4) % Baso % (Auto) 0.4 (0.2-1.2) % Lymph # (Auto) 2.73 (0.9-3.2) K/mm3 [place]worth # (Auto) 0.5 (0.1-0.6) K/mm3 Eos # (Auto) 0.3 (0-0.3) K/mm3 Baso # (Auto) 0.0 (0.0-0.1) K/mm3 Abs Immat Gran (auto) 0.02 (0.00-0.031) K/mm3 Absolute Neuts (auto) 3.9 (1.3-6.7) K/mm3 Absolute Nucleated RBC 0.000 (0.0-0.012) K/mm3 Nucleated RBC % 0.0 (0.0-0.2) % PT 12.3 (11.1-14.7) Seconds INR 0.9 APTT 26.7 (22.3-36.8) Seconds Sodium 141 (137-145) mmol/L Potassium 4.0 (3.4-5.0) mmol/L Chloride 105 (98-107) mmol/L Carbon Dioxide 24 (22-30) mmol/L Anion Gap 12 (4-12) mmol/L BUN 16 (7-17) mg/dL Creatinine 0.59 L (0.7-1.0) mg/dL Estim Creat Clear Calc 80 ml/min Estimated GFR > 60 (59 - ) Glucose 124 H (65-110) mg/dL Calcium 9.7 (8.4-10.2) mg/dL Total Bilirubin 0.6 (0.2-1.3) mg/dL AST 26 (14-36) U/L ALT 32 (6-35) U/L Alkaline Phosphatase 96 (38-126) U/L Troponin I < 0.012 (0.000-0.034) ng/mL Total Protein 8.0 (6.3-8.2) g/dL Albumin 4.2 (3.5-5.1) g/dL Lipase 116 (23-300) U/L Discharge Plan Discharge Clinical Impression: Palpitations Patient Disposition: Home, Self-Care Condition: Stable Instructions: Antibiotic Form, Heart Palpitations (DC) Additional Instructions: Please follow-up with your typesetting machine tender at your appointment to get a Holter monitor. Return to ED if you develop chest pain, persistent palpitations or shortness of breath. Patient Language: [place] Citizen Prescriptions: No Action levothyroxine 50 mcg tablet Mounjaro 7.5 mg/0.5 mL pen injector SUBCUT benzonatate 200 mg capsule 200 mg PO TID PRN (Reason: cough) Qty: 20 0RF methylprednisolone [Medrol (Randal)] 4 mg tablets,dose pack See Rx Instructions PO .COMPLEX Qty: 21 0RF Rx Instructions: orally per package directions Follow-up/Referrals: PHYSICIAN NOT ON STAFF,NONSTAFF [Primary Care Provider] -
[2024-09-10 06:26] VITALS: BP 142/92; PULSE 82; RESP 15; O2SAT 96
== END 2024-09-10 06:28 | disposition home or self-care (01) ==
PROVIDERS: Emergency Provider Emergency Medicine
DX: R00.2 Palpitations (principal)
CPT/HCPCS: 36415; 71045; 80053; 83690; 84484; 85025; 85610; 85730; 93005; 99284

== ENCOUNTER 2025-04-13 18:12 | Emergency (ER) | payer SELFPAY ==
[2025-04-13 18:18] VITALS: BP 147/81; PULSE 70; RESP 20; TEMP 36.6; O2SAT 100
[2025-04-13 18:33] LABS: EDUAAPPEAR Clear; EDUABILI Negative (Negative); EDUABLOOD 1+ (Negative); EDUACOLOR1 Yellow; EDUAGLUCOSE Negative (Negative); EDUAKETONE Negative (Negative); EDUALEUKO 1+ (Negative); EDUANITRATE Positive (Negative); EDUAPH 5.5; EDUAPROTEIN Negative (Negative); EDUASPGRAVITY 1.005; EDUAUROBILI 0.2
--- NOTE | 2025-04-13 18:50 | ED_ITS ---
HPI - General Adult General Chief complaint: Urogenital-Female Stated complaint: UTI Source: patient Mode of arrival: ambulatory Limitations: no limitations History of Present Illness HPI narrative: Patient presents for evaluation of urinary symptoms for last 2 days. Symptoms include urinary frequency, dysuria, urgency, incomplete emptying, suprapubic discomfort and low back pain. She also has had a subjective fever, noting that her T-max at home was 99? F. She denies any nausea, vomiting, diarrhea. She is diabetic. Her blood sugars are controlled since she has started mounjaro, losing a significant amount of weight. She has been taking Azo and a cranberry supplement. Related Data Home Medications ?Medication ?Instructions ?Recorded ?Confirmed ?Last Taken ?Type levothyroxine 50 mcg tablet mcg 07/01/24 Unknown Hist ory tirzepatide 10 mg/0.5 mL mg subcut 04/13/25 Unknown History subcutaneous pen injector (Mounjaro) Allergies Allergy/AdvReac Type Severity Reaction Status Date / Time oseltamivir Allergy Unknown Swelling Verified 04/13/25 18:25 sulfamethoxazole Allergy Unknown Unknown Verified 04/13/25 18:25 trimethoprim Allergy Unknown Unknown Verified 04/13/25 18:25 azithromycin AdvReac Unknown DOESNT Verified 04/13/25 18:25 WORK FLUVOXAMINE MALEATE Allergy Unknown Unknown Uncoded 09/10/24 04:53 PROPOXYPHENE NAPSYLATE Allergy Unknown Unknown Uncoded 09/10/24 04:53 Review of Systems Review of Systems: CONSTITUTIONAL: Denies fever, chills, or sweats. EYES: Denies visual changes, redness, or discharge. ENT: Denies rhinorrhea, congestion, sore throat, or otalgia. CARDIOVASCULAR: Denies chest pain, palpitations, or edema. RESPIRATORY: Denies cough or dyspnea. GASTROINTESTINAL: Denies nausea, vomiting, or diarrhea. GENITOURINARY: Reports suprapubic discomfort, urinary frequency, dysuria, hesitancy, and incomplete emptying SKIN: Denies rash or itching. MUSCULOSKELETAL: Reports low back pain. Denies joint pain, or myalgia. NEUROLOGIC: Denies headache, numbness, dizziness, or weakness. PSYCHIATRIC: Denies anxiety or depression. [facility] Past Medical History Medical History Hypothyroidism Diabetes Surgical History Surgical History No pertinent past surgical history Family History Family History Mother Family history non-contributory Social History Social History Substance use: never Gender identity (if verbalized by the patient): Female Spiritual care concerns: No Exam Narrative: GENERAL: Well-appearing, well-nourished, and in no acute distress. HEAD: Normocephalic, atraumatic. EYES: PERRLA and EOMI. ENT: Nares clear, no rhinorrhea or epistaxis. Mucous membranes moist. Oropharynx without tonsillar hypertrophy exudate or other lesions. Bilateral TMs pearly melton nonbulging NECK: Supple. No adenopathy or masses. No carotid bruits or JVD CHEST: Clear to auscultation. No respiratory distress. No wheezes rales or rhonchi HEART: Regular rate and rhythm. No murmur heard. Normal peripheral pulses. ABDOMEN: Soft, nontender, nondistended, normal active bowel sounds. BACK: Mild bilateral CVA tenderness EXTREMITIES: Normal range of motion. No edema. SKIN: Warm, dry, no rash. NEURO: No focal deficits. Alert and oriented x3. PSYCH: Normal mood and affect. Course Course Emergency Course: This is a 55-year-old female who presented for evaluation of urinary symptoms. She is nitrate positive urine. Based upon presence of bilateral low back pain this appears to be a complicated UTI for which we will treat her with Cipro. Advise she must go to the emergency department if she has intractable vomiting, fever or worsening symptoms. She should increase hydration and follow up with her primary care provider. Patient in agreement with plan of care. Level of Care: Express Care Visit Vital Signs Vital signs: Vital Signs Temperature 36.6 C 04/13/25 18:18 Pulse Rate 70 04/13/25 18:18 Respiratory Rate 20 04/13/25 18:18 Blood Pressure 147/81 H 04/13/25 18:18 Pulse Oximetry 100 04/13/25 18:18 Oxygen Delivery Room Air 04/13/25 18:18 Temperature 36.6 C 04/13/25 18:18 Pulse Rate 70 04/13/25 18:18 Respiratory Rate 20 04/13/25 18:18 Blood Pressure 147/81 H 04/13/25 18:18 Pulse Oximetry 100 04/13/25 18:18 Oxygen Delivery Room Air 04/13/25 18:18 Medical Decision Making Vital Signs Vital Signs: Vital Signs Temperature 36.6 C 04/13/25 18:18 Pulse Rate 70 04/13/25 18:18 Respiratory Rate 20 04/13/25 18:18 Blood Pressure 147/81 H 04/13/25 18:18 Pulse Oximetry 100 04/13/25 18:18 Oxygen Delivery Room Air 04/13/25 18:18 Temperature 36.6 C 04/13/25 18:18 Pulse Rate 70 04/13/25 18:18 Respiratory Rate 04/13/25 18:18 Blood Pressure 147/81 H 04/13/25 18:18 Pulse Oximetry 100 04/13/25 18:18 Oxygen Delivery Room Air 04/13/25 18:18 Lab Data Labs: Lab Results 04/13/25 Range/Units 18:18 POC Urine Color Yellow POC Urine Clarity Clear POC Urine pH 5.5 POC Ur Specif [place] 1.005 POC Urine Protein Negative (Negative) POC Ur Glucose (UA) Negative (Negative) POC Urine Ketones Negative (Negative) POC Urine Blood 1+ (Negative) POC Urine Nitrite Positive (Negative) POC Urine Bilirubin Negative (Negative) POC Urine Urobilinogen 0.2 POC U Leukocyte Esteras 1+ (Negative) Discharge Plan Discharge Clinical Impression: Complicated urinary tract infection Patient Disposition: Home Condition: Stable Instructions: Antibiotic Form, Urinary Tract Infection in Women (DC) Additional Instructions: PLEASE INCREASE WATER INTAKE TAKE ANTIBIOTICS DIRECTED IF YOU HAVE FEVER, WORSENING SYMPTOMS OR ARE NOT ABLE TO KEEP FLUIDS/FOOD/MEDICATION DOWN, PLEASE GO TO THE ER Patient Language: Occitan Prescriptions: New ciprofloxacin HCl [Cipro] 500 mg tablet 500 mg PO Q12H Qty: 14 0RF No Action levothyroxine 50 mcg tablet Mounjaro 10 mg/0.5 mL pen injector SUBCUT Follow-up/Referrals: Stephen Esquivel DO [Physician, Family Practice] Time of Disposition: 18:47
== END 2025-04-13 18:50 | disposition home or self-care (01) ==
PROVIDERS: Emergency Provider Nurse Practitioner
DX: N39.0 Urinary tract infection, site not specified (principal); E11.9 Type 2 diabetes mellitus without complications; Z79.85 Long-term (current) use of injectable non-insulin antidiabetic drugs; E03.9 Hypothyroidism, unspecified
CPT/HCPCS: 81003; 87077; 87086; 87186; 99213; G0463

== ENCOUNTER 2025-07-14 12:28 | Inpatient (IN) | payer BC, SELFPAY ==
[2025-07-14] VITALS (12 sets, daily range): BP systolic 93–173; BP diastolic 72–90; PULSE 93–107; RESP 13–23; TEMP 36.4–36.9; O2SAT 95–100; BMI 31.8
--- NOTE | 2025-07-14 | CONSULT_PTH ---
PATIENT: Chantal Singh LOC: [facility] U#:[id number] AGE/SX: 55/F ROOM: 206 RE07/14/[address]: Robin Keane MD : 1970 BED: 02 DIS: 07/15/2025 SPEC #: [id number] RECD: 07/14/25 13:38 STATUS: KENYATTA REQ #: [id number] JAZMYNE: 07/14/25 00:[address]: Arsalan Fay DEPT: [facility] Consult RECD BY: Karen Isaacs MLT ENTERED: 07/14/25 13:39 SP TYPE: Consult OT DR: UNKNOWN,DOCTOR Tissues: A - Peripheral Smear Procedures: Hematology Consult
--- NOTE | ~2025-07-14 | CT_ITS ---
CTA CHEST CT ABDOMEN PELVIS CLINICAL HISTORY: shortness of breath, poss CA . COMPARISON: Chest x-ray today TECHNIQUE: Helical CT performed from thoracic inlet to symphysis pubis IV contrast information not listed in PACS Coronal, sagittal reformats. Multiplanar MIPS CT images acquired with automatic exposure control for dose reduction DLP: 724 mGy-cm FINDINGS: CHEST- Thoracic Aorta: No dissection. No aneurysm. Atherosclerotic disease. Pulmonary arteries: Normal caliber. No PE. Lungs/Pleura: Mild emphysema. Minimal foci of groundglass opacity, mostly dependent. Heart: Coronary artery calcifications. Tracheobronchial tree: Patent. Nodes: No enlarged nodes. Mediastinal and hilar calcifications. Bones: No acute bony abnormality. Soft tissues: Unremarkable. ABDOMEN/PELVIS- Liver: Enlarged. Steatosis. Gallbladder: Removed. Spleen: Enlarged. Pancreas: Unremarkable. Adrenal glands: Unremarkable. Kidneys: Right kidney- No hydronephrosis. No renal stones. Small cyst. Left kidney- No hydronephrosis. No renal stones. Distal esophagus/stomach: Small sliding hiatal hernia. Small bowel loops: Normal caliber and wall thickness. Colon: Normal caliber and wall thickness. Normal appendix, right upper quadrant. Nodes: No enlarged nodes. Peritoneum: No ascites. No free air. Urinary bladder: Unremarkable. Uterus: Unremarkable. Adnexa: No masses. Bones: No acute bony abnormality. Soft tissues: Unremarkable. Abdominal aorta: Distal aortic stenosis. Atherosclerotic disease. IVC: Unremarkable. Main portal vein, SMV: Patent. IMPRESSION: CHEST- 1. Minimal pneumonitis not excluded. 2. Otherwise no evidence of malignancy or acute cardiopulmonary abnormality. ABDOMEN/PELVIS- 1. No evidence of malignancy or acute abdominopelvic findings. 2. Distal aortic stenosis. Reviewed, dictated and finalized at location R. ING COACH
--- NOTE | ~2025-07-14 | XR_ITS ---
Examination: XR chest 2V Clinical History: cp, sob Comparison: 09/10/2024 Technique: PA and Lateral Findings: Cardiomediastinal silhouette normal size and configuration. Lungs clear. No acute bony abnormality. IMPRESSION: 1. No acute cardiopulmonary findings. Reviewed, dictated and finalized at location R. IDE SALESMAN
--- NOTE | 2025-07-14 12:31 | ECG_ITS ---
Test Date: 2025-07-14 12:33:47 Measurements Intervals Jack Rate: 108 P: 74 MI: 137 QRS: 68 QRSD: 90 T: 55 QT: 354 QTc: 475 Interpretive Statements SINUS TACHYCARDIA POSSIBLE LEFT ATRIAL ENLARGEMENT NONSPECIFIC ST & T-WAVE ABNORMALITY- ANTEROLAT/INF LEADS BASELINE ARTIFACT- I, III, AVR, AVL, AVF, V1-V2 ABNORMAL ECG Compared to ECG 09/10/2024 04:51:21 HEART RATE HAS INCREASED Electronically Signed On 07-14-2025 13:00:53 SAP BASIS by Boston Triplett D.O.
[2025-07-14] MEDS: ASPIRIN 81 MG CHEWABLE TABLET 324 MG PO (12:36)
[2025-07-14 12:58] LABS: Hematocrit 36.2 % (37.0-47.0); Hemoglobin 12.5 g/dL (12.0-15.0); Immature Platelet Fraction Pct 3.5 % (0.9-11.2); Mean Corpuscular HGB Conc 34.5 g/dl (32-36); Mean Corpuscular Hemoglobin 31.4 pg (26-34); Mean Corpuscular Volume 91.0 fl (80-100); Platelet Count Result 32 k/mm3 (150-375); Red Blood Count 3.98 M/mm3 (4.2-5.4); White Blood Count 46.2 K/mm3 (4.5-10.0)
[2025-07-14 13:08] LABS: INR 1.5; Prothrombin Time 17.5 Seconds (11.1-14.7)
[2025-07-14 13:09] LABS: Partial Thromboplastin Time 26.7 Seconds (22.3-36.8)
[2025-07-14 13:16] LABS: Alanine Aminotransferase 31 U/L (6-35); Albumin Level 4.5 g/dL (3.5-5.1); Alkaline Phosphatase 83 U/L (38-126); Anion Gap 8 mmol/L (4-12); Aspartate Amino Transferase 43 U/L (14-36); Bilirubin,Total 1.1 mg/dL (0.2-1.3); Blood Urea Nitrogen 20 mg/dL (7-17); Calcium 9.5 mg/dL (8.4-10.2); Carbon Dioxide 25 mmol/L (22-30); Chloride 106 mmol/L (98-107); Estimated CRCL calculation 59 ml/min; Estimated Glomerular Filt Rate > 60; Glucose 117 mg/dL (65-110); Lipase 47 U/L (23-300); Potassium 4.1 mmol/L (3.4-5.0); Sodium 139 mmol/L (137-145); Total Protein 7.7 g/dL (6.3-8.2)
--- NOTE | 2025-07-14 13:25 | ED_ITS ---
HPI - SOB/Dyspnea General Chief Complaint: Shortness of Breath/Dyspnea Stated Complaint: SOB, CP, headache, tachycardia Time Seen by Provider: 07/14/25 13:09 Source: patient Mode of arrival: ambulatory Limitations: no limitations History of Present Illness HPI Narrative: This is a 55-year-old female with history of hypothyroidism who presents the ED for shortness of breath and palpitations. Patient states for the past week, she has been having the symptoms with chest pain. She states that they tend to happen with exertion including walking short distances. She has never had this issue before. No known cardiac history. Denies fevers, chills. Has had intermittent nausea. She reports feeling weak as well. Related Data Home Medications ?Medication ?Instructions ?Recorded ?Confirmed ?Last Taken ?Type levothyroxine 50 mcg tablet 50 mcg PO DAILY 07/01/24 1 09/14/24 07/13/25 History tirzepatide 10 mg/0.5 mL 10 mg subcut WEEKLY 04/13/25 07/14/25 07/12/25 History subcutaneous pen injector (Mounjaro) Allergies Allergy/AdvReac Type Severity Reaction Status Date / Time oseltamivir Allergy Severe Swelling Verified 07/14/25 16:54 of Lip/Tongue/Throat propoxyphene Allergy Intermediate Vomiting Verified 07/14/25 16:54 fluvoxamine Allergy Unknown Unknown Verified 07/14/25 16:54 sulfamethoxazole Allergy Unknown Unknown Verified 07/14/25 16:54 trimethoprim Allergy Unknown Unknown Verified 07/14/25 16:54 azithromycin AdvReac Unknown DOESNT Verified 07/14/25 16:54 WORK Review of Systems 2 Review of Systems: All systems reviewed & are unremarkable except as noted in HPI and below PMFSH Past Medical History Medical History Hypothyroidism Diabetes Surgical History Surgical History No pertinent past surgical history Family History Family History (Updated 07/14/25 @ 16:58 by Georgette Vega RN) Mother Acute myocardial infarction Passed at age of 43 2 heart attacks prior to passing Sibling Acute myocardial infarction, Onset Age: 57 has pacemaker now Diabetes mellitus Hypertension Other Leukemia Uncle Social History Social History Smoking packs per day: 1 Smoking cigarettes per day: 20.0 Years smoked: 12 Smoking pack-years: 12.00 Smoking status: Former smoker Second hand tobacco smoke exposure: Yes Additional smoking assessment comments: quit in 2014 Alcohol intake: current Drinks per week: 3 Substance use: current Substance use type: marijuana Last use: 07/07/25 Lack of Transportation: No Lack of Food: Never True Current Housing: I Have Housing Concerned About Future Housing: No Difficulty Paying Gas/Electric Bills: No Difficulty Paying for Meds: No Currently Unemployed: No Education: High School Diploma/GED Difficulty w/ Childcare or Family Care: No Gender identity (if verbalized by the patient): Female Spiritual care concerns: No Exam 2 Narrative: APPEARANCE: No acute distress, nontoxic, resting in bed EYES: EOMI. No conjunctival pallor HEENT: Normocephalic, atraumatic, OMM. No mucosal pallor RESPIRATORY: No respiratory distress Clear to auscultation bilaterally with no rhonchi wheezing or rales. CARDIOVASCULAR: Regular rate and rhythm without murmurs rubs or gallops. ABDOMINAL: Soft, nontender, nondistended, no rebound or guarding MUSCULOSKELETAl: Moves all extremities. No clubbing, cyanosis or edema. NEURO: Awake and alert. Following commands, speech normal, no focal deficits SKIN:: Warm, dry. No rashes lesions or abrasions PSYCHIATRIC: Normal affect/mood, Course Vital Signs Vital signs: Vital Signs Temperature 97.6 F 07/14/25 12:31 Pulse Rate 107 H 07/14/25 12:31 Respiratory Rate 23 H 07/14/25 12:31 Blood Pressure 93/78 L 07/14/25 12:31 Pulse Oximetry 100 07/14/25 12:31 Oxygen Delivery Room Air 07/14/25 12:31 Temperature 98 F 07/14/25 16:40 Pulse Rate 106 H 07/14/25 16:40 Respiratory Rate 22 H 07/14/25 16:40 Blood Pressure 173/82 H 07/14/25 16:40 Pulse Oximetry 98 07/14/25 16:40 Oxygen Delivery Room Air 07/14/25 16:40 MDM MDM Narrative Medical decision making narrative: 55-year-old female Presenting for shortness of breath and palpitations. On initial evaluation patient was in no acute distress afebrile, hemodynamic stable. Differentials include but are not limited to: ACS, CHF Exacerbation, COPD exacerbation, PE, PNA, PTX, bronchitis, viral syndrome Notable exam findings: Heart and lungs clear, abdomen soft and nontender. I personally reviewed the patient's lab result. Notable lab findings: Leukocytosis at 46.2, CMP without significant abnormalities. Initial troponin 0.05 for I personally reviewed the patient's images and interpret as follows: Chest x- ray: Normal cardiac silhouette, no consolidations, no pleural effusions, no pulmonary vascular congestion CTA chest showed questionable minimal pneumonitis but no evidence of malignancy, also noted distal aortic stenosis I personally reviewed the patient's EKGs: Sinus tachycardia rate of 108, normal axis, QTC 475, no acute ST or T-wave changes Given elevated troponins, patient will require admission for further evaluation. 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 Case was discussed with hospitalist to will admit the patient. Differential Diagnosis Differential Diagnosis: ACS, CHF Exacerbation, COPD exacerbation, PE, PNA, PTX, bronchitis, viral syndrome Lab Data 07/14/25 12:46 07/14/25 12:46 Labs: Lab Results 07/14/25 07/14/25 Range/Units 12:46 14:34 WBC 46.2 H (4.5-10.0) K/mm3 RBC 3.98 L (4.2-5.4) M/mm3 Hgb 12.5 (12.0-15.0) g/dL Hct 36.2 L (37.0-47.0) % MCV 91.0 (80-100) fl MCH 31.4 (26-34) pg MCHC 34.5 (32-36) g/dl RDW 13.8 (11.5-14.5) % Plt Count 32 L D (150-375) k/mm3 MPV 10.7 H (7.4-10.4) fl Immature Gran % (Auto) Not Reportable Neut % (Auto) Not Reportable Lymph % (Auto) Not Reportable [place] % (Auto) Not Reportable Eos % (Auto) Not Reportable Baso % (Auto) Not Reportable Lymph # (Auto) Not Reportable [place] # (Auto) Not Reportable Eos # (Auto) Not Reportable Baso # (Auto) Not Reportable Abs Immat Gran (auto) Not Reportable Absolute Neuts (auto) Not Reportable Absolute Nucleated RBC Not Reportable Total Counted 100 Neutrophils % (Manual) 17 L (46-73) % Band Neutrophils % 0 (0-6) % Lymphocytes % (Manual) 24 (18-44) % Monocytes % (Manual) 5 (3-9) % Nucleated RBC % Not Reportable Abs Neuts (Manual) 7.85 H (1.3-6.7) K/mm3 Abs Lymphs (Manual) 11.08 H (1.1-4.5) K/mm3 Abs Monocytes (Manual) 2.31 H (0.1-0.90) K/mm3 Nucleated RBCs 1 % Blast Cells 53 % Platelet Estimate Decreased (Adequate) % Immature Plt Fraction 3.5 (0.9-11.2) % Schistocytes None seen PT 17.5 H (11.1-14.7) Seconds INR 1.5 APTT 26.7 (22.3-36.8) Seconds Sodium 139 (137-145) mmol/L Potassium 4.1 (3.4-5.0) mmol/L Chloride 106 (98-107) mmol/L Carbon Dioxide 25 (22-30) mmol/L Anion Gap 8 (4-12) mmol/L BUN 20 H (7-17) mg/dL Creatinine 0.80 (0.7-1.0) mg/dL Estim Creat Clear Calc 59 ml/min Estimated GFR > 60 (59 - ) Glucose 117 H (65-110) mg/dL Calcium 9.5 (8.4-10.2) mg/dL Total Bilirubin 1.1 (0.2-1.3) mg/dL AST 43 H (14-36) U/L ALT 31 (6-35) U/L Alkaline Phosphatase 83 (38-126) U/L Troponin I 0.054 H* (0.000-0.034) ng/mL Total Protein 7.7 (6.3-8.2) g/dL Albumin 4.5 (3.5-5.1) g/dL Lipase 47 (23-300) U/L Influenza A (RT-PCR) Negative (Negative) Influenza B (RT-PCR) Negative (Negative) RSV (RT-PCR) Negative (Negative) SARS-CoV-2 RNA (RT-PCR) Negative (Negative) Imaging Data Radiologist's impression: ITS Impressions Chest X-Ray 07/14/25 13:22 IMPRESSION: 1. No acute cardiopulmonary findings. Chest/Abdomen/Pelvis CTA 07/14/25 13:58 IMPRESSION: CHEST- 1. Minimal pneumonitis not excluded. 2. Otherwise no evidence of malignancy or acute cardiopulmonary abnormality. ABDOMEN/PELVIS- 1. No evidence of malignancy or acute abdominopelvic findings. 2. Distal aortic stenosis. Discharge Plan Discharge Clinical Impression: Acute non-ST elevation myocardial infarction (NSTEMI) Patient Disposition: Still a Patient Condition: Stable
[2025-07-14] MEDS: SODIUM CHLORIDE 0.9% IV 1,000 ML 999 ML IV CONT ×2 (13:27→22:09)
[2025-07-14 13:29] LABS: Troponin I 0.054 ng/mL (0.000-0.034)
[2025-07-14 13:30] LABS: Total Cells Counted 100
[2025-07-14 13:34] LABS: Band Neutrophils Percent 0 % (0-6)
[2025-07-14 13:35] LABS: Lymphocytes Absolute Manual 11.08 K/mm3 (1.1-4.5); Lymphocytes Percent Manual 24 % (18-44); Monocytes Absolute Manual 2.31 K/mm3 (0.1-0.90); Monocytes Percent Manual 5 % (3-9); Neutrophils Absolute Manual 7.85 K/mm3 (1.3-6.7); Neutrophils Percent Manual 17 % (46-73)
[2025-07-14 13:37] LABS: Schistocytes None Seen
--- OUTSIDE RECORDS SUMMARY | 2025-07-14 13:59 | XMS_ITS | Encounter Summary ---
Author Organization [facility] Address [address] [place] [address] Care Team Providers Care Wound Care Nurse Name Role Phone Enoch Rosario MD Primary Care Provider [phone] Reason for Visit * Reason Onset Date Comments Question 11/11/2021 Encounter Details Date Type Department Care Team (Late st Contact Info) Description 11/11/2021 Telephone [facility] Primary Care - [place] [address] [facility] [place] [address] Enoch Rosario MD [address] [facility] [address] [facility] 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 Gender Identity Not on file Sexual [...] documented in this encounter Plan of Treatment Not on file documented as of this encounter Visit Diagnoses Not on filedocumented in this encounter Additional Health Concerns Infection Onset Date Last Indicated Resolved Time COVID-19 05/16/2022 05/16/2022 06/15/2022 1:16 AM FIELD ACCOUNT DIRECTOR documented as of this encounter Care Teams Wound Care Nurse Relationship Specialty Start Date End Date Enoch Rosario MD [address] [facility] [address] [place] [id number] PCP - General Family Practice 09/14/11 documented as of this encounter
--- OUTSIDE RECORDS SUMMARY | 2025-07-14 13:59 | XMS_ITS | Encounter Summary ---
Author Organization [facility] Address [address] [place] [address] Care Team Providers Care Compressor Station Chief Engineer Name Role Phone Enoch Rosario MD Primary Care Provider [phone] Encounter Details Date Type Department Care Team (Late st Contact Info) Description 08/28/[address] [facility] at [facility] [place] [facility] Medicine [address] [facility] [address] [place] [phone] Alli Ferrer MD [address] [facility] [address] [place], [place] [id number] Social History Tobacco Use Types Packs/Day Years [...] on file Legal Sex Female 5:48 AM STATISTICAL ANALYST Gender Identity Not on file Sexual Orientation Not on file documented as of this encounter Plan of Treatment Not on file documented as of this encounter Visit Diagnoses Not on filedocumented in this encounter Care Teams Compressor Station Chief Engineer Relationship Specialty Start Date End Date Enoch Rosario MD [address] [facility] [address] [place] [address] PCP - General Family Practice 09/14/11 documented as of this encounter
--- OUTSIDE RECORDS SUMMARY | 2025-07-14 13:59 | XMS_ITS | Clinical Summary ---
Author Organization [facility] Address [address] [place] [address] Care Team Providers Care Vessel Captain Name Role Phone Enoch Rosario MD Primary Care Provider [phone] Source Comments [facility],non-owned Affiliates and Associated Physician Practices is amultiple site organization consisting of ambulatory clinics and hospital sitesin [place], [place], [place] and [place]. This disclosure is being madepursuant to the Care Everywhere program and may not contain all information available regarding this patient. Last updated 18.[facility] Allergies Active Allergy Reactions Criticality Noted Date Comments Doxycycline EDGER MACHINE HELPER Dysfunction Low 08/12/2020 Hydrocodone-Acetaminophen Dizziness 12/25/2019 Hydroxychloroquine Sulfate Other Metronidazole Rash Medium 08/14/2020 Possible reaction to metrogel-redness, itching and irritation Oseltamivir Phosphate Unknown 08/18/2020 Rosuvastatin Myalgias Low 12/29/2020 Sertraline Dizziness Low 09/29/2009 Sulfamethoxazole W-Trimethoprim Unknown 05/12/2009 Bad stomach pains Medications * Be aware that medications may not be up to date on this document. Alwaysverify current medications with the patient. aspirin EC (ECOTRIN) 81 MG tablet Take 81 mg by mouth once daily Active clonazePAM, disintegrating, (KLONOPIN WAFER) 0.125 MG tablet 09/30/2021 Act arthur nebivolol (BYSTOLIC) 2.5 MG tablet TAKE 1 TABLET BY MOUTH ONCE DAILY. MAY TAKE AN EXTRA TABLET NEEDED FOR PALPITATION S. 12/21/2021 Active Family History Medical History Relation [...] drink = 0.6 oz pur e alcohol) Comments Unknown Sex and Gender Information Value Date Recorded Sex Assigned at Not on file Legal Sex Female 6:32 AM MACHINE MAINTENANCE TECHNICIAN Gender Identity Not on file Sexual Orientation [...] SCREENING 1970 LIPID TESTING 1970 MAMMOGRAM 1970 HIV SCREENING 1983 HEPATITIS C SCREENING 04/06/1986 DTAP/TDAP/TD VACCINES (1 - Tdap) 1987 HEPATITIS B VACCINE (1 of 3 - 19+ 3-dose series) 1987 PNEUMOCOCCAL VACCINE 50+ (1 of 1 - PCV) 2018 ZOSTER VACCINE (1 of 2) 2018 DEPRESSION SCREENING 07/24/2024 SCREENING FOR DIABETES 01/14/2025 01/14/2022 COVID-19 VACCINE (1 - 2024-2 6 season) 2025 INFLUENZA VACCINE (#1) 2025 HIB VACCINE Aged Out No longer eligi ble based on patient's age to complete this topic HPV VACCINE Aged Out No longer eligi ble based on patient's age to complete this topic MENINGOCOCCAL (Group B) VACC INE SHARED DECISION-MAKING Aged Out No longer eligibl e based on patient's age to complete this topic MENINGOCOCCAL GROUPS A/C/Y/W VACCINE Aged Out No longer eligible b ased on patient's age to complete this topic [...] Resulting Agency Comment Lab Testing performed at: [address] [phone] Trang Zavala MD LAB - CHEMISTRY ORDERABLES Final Result [facility] ACCOUNT BILL [address] [place] [address] from Last 3 Months or Most Recently Relevant to Health Maintenance Insurance ANTH Care Teams Vessel Captain Relationship Specialty Start Date End Date Enoch Rosario MD [address] [facility] [place] [phone] PCP - General Family Medicine 01/14/22
--- OUTSIDE RECORDS SUMMARY | 2025-07-14 13:59 | XMS_ITS | Encounter Summary ---
Author Organization [facility] Address [address] [place] [address] Care Team Providers Care Research Test Engine Evaluator Name Role Phone Enoch Rosario MD Primary Care Provider [phone] Reason for Visit * Reason Comments Medication Refill Question Medication Assistance Encounter Details Date Type Department Care Team (Late st Contact Info) Description 12/20/2023 Telephone [facility] Primary Care - [address] [place] [address] Enoch Rosario MD [address] [place] [address] Medication Refill; Question; Medication Assistance [...] on file Legal Sex Female 5:48 AM WAREHOUSE HAND Gender Identity Not on file Sexual Orientation Not on file documented as of this encounter Miscellaneous Notes * Telephone Encounter - Lea Agudelo LPN - 12/21/2023 3:42 PM CDT I called and spoke with patient and she is asking what dose of Mounjaro she should take. The 5mg/0.5ml or the 7.5mg/0.5ml every 7 days Mik Agudelo LPN * Telephone Encounter - RegaladoKassie - 12/21/2023 2:53 PM CDT Copied from [facility] #[id number]. Topic: Patient or Caregiver Communication Request >> December 21, 2023 2:49 PM Kassie Jett wrote: Patient or Caregiver insisting that a message be sent to Care Team Caller: Chantal Singh Patient/Caregiver Callback Number: [phone] (home) Call Notes: Patient calling in stating that pharmacy has only one more box of mounjaro left and shewould really like to get this. Asking if mounjaro can be sent to pharmacy today if possible. Patient has called in multiple times about this. Asking if mounjaro can be sent over to pharmacy listed below. Please advise. [facility] [address] [place] [address] [[id number]] * Telephone Encounter - Veena Blandon - 12/21/2023 10:23 AM CDT Copied from [facility] #[id number]. Topic: Patient or Caregiver Communication Request >> December 21, 2023 10:21 AM Veena Houser wrote: Patient or Caregiver requesting advice Caller: Chantal Singh Patient/Caregiver Callback Number: [phone] (home) Call Notes: Patient is calling to check the status of the PA that she requested to have expedited. A call back was requested. * Telephone Encounter - Мария Valles - 12/20/2023 12:16 PM CDT Copied from [facility] #[id number]. Topic: Medication Request >> December 20, 2023 12:14 PM Мария Murillo wrote: Medication Refill Request from: Patient/Caregiver Did the patient/caregiver contact their pharmacy for refill prior to calling? Yes Medication (Ask patient/caregiver to spell if possible): tirzepatide (Mounjaro) 5 mg/0.5 mL Pen Injector, and tirzepatide (Mounjaro) 7.5 mg/0.5 mL Pen Injector Preferred Pharmacy: [facility] [address] [place] [address] Patient/Caregiver Callback Number: Telephone Information: Call Notes: Patient needs a medication refill for this. She states that she needs it expedited and a PA sent to the above pharmacy. documented in this encounter Plan of Treatment Not on file documented as of this encounter Visit Diagnoses Not on filedocumented in this encounter Care Teams Research Test Engine Evaluator Relationship Specialty Start Date End Date Enoch Rosario MD [address] [place] [address] [address] PCP - General Family Practice 09/14/11 documented as of this encounter
--- OUTSIDE RECORDS SUMMARY | 2025-07-14 13:59 | XMS_ITS | Encounter Summary ---
Author Organization [facility] Address [address] [place] [address] Care Team Providers Care Copper Miner Name Role Phone Enoch Rosario MD Primary Care Provider [phone] Encounter Details Date Type Department Care Team [...] on file Legal Sex Female 5:48 AM SILK SPREADER Gender Identity Not on file Sexual Orientation Not on file documented as of this encounter Progress Notes * Katie Isaacs, RN - 05/06/2015 5:22 PM CDT CHART DOCUMENTATION ONLY Call Type: Triage Call Addendum Date and Time [id number] Presenting Problem: I am almost of out my sample Rx of Bystolic. Report feedback to Dr. Rosario. <<<<<<<< TRIAGE NOTE >>>>>>>> Triage Note: Senior Network Systems Engineer Katie Isaacs added this note on May [...] one. Paged MD to call me back. Senior Network Systems Engineer [email or web address] added this note on May 06 2015 5:22PM Braxton from Dr Rosario's nurse, Deann, and she [...] Time COVID-19 05/31/2021 05/31/2021 06/30/2021 1:16 AM SILK SPREADER COVID-19 05/16/2022 05/16/2022 06/15/2022 1:16 AM SILK SPREADER documented as of this encounter Care Teams Copper Miner Relationship Specialty Start Date End Date Enoch Rosario MD [address] [place] [address] [address] [place] [phone] PCP - General Family Practice 09/14/11 documented as of this encounter
--- OUTSIDE RECORDS SUMMARY | 2025-07-14 13:59 | XMS_ITS | Data Portability ---
Author Organization [facility], Main Office Address [address] [place] [address] Assessment Encounter Date Assessment Date Assessment LastModified by Organization Details LastModified Time 02/06/2025 02/06/2025 spider reticular veins bilateral lower extremities. Options discussed patient. Discussed injection sclerotherapy as first-line treatment at this time. Risks and benefits of the procedure were discussed. She will consider and possibly call us back schedule [email or web address] Not available 02/06/2025 11:40:42 Plan of Treatment Reminders Order Date Submit Date Provider Last Modified By Organization Details Last Modified Time Details Appointments None record ed. Lab None record ed. Referral None record ed. Procedures None record ed. Surgeries None record ed. Imaging None record ed. Medication Orders None record ed. Patient TargetsNo targets recorded. Patient InstructionsNo instructions recorded. Reason for Referral None Reported. Problems Name Problem SNOMED Code Status Onset Date Resolution Date Notes Provider Name and Address Organization Details Recorded Time Spider nevus [id number] Active 025 Emigdio alexander MD [address] [facility] [address], [place], [address] , [facility] 02/06/2025 16:24:50 Problem Notes None recorded. Medical Equipment None Reported. Allergies No known drug allergies Medications Name Sig Start Date Stop Date Status Note LastModified by Organization Details LastModified Time benzonatate 200 mg capsule TAKE 1 CAPSULE BY MOUTH THREE TIMES DAILY NEEDED FOR COUGH active Not Available Not Available No t Available Nystop 100,000 unit/gram topical powder APPY TO AFFECTED AREA ON ABDOMINAL AREA TWICE DAILY active Not Available Not Available No t Available hydroxyzine HCl 50 mg tablet TAKE 1 TABLET BY MOUTH 3 TIMES DAILY NEEDED FOR ANXIETY active Not Available Not Available No t Available levothyroxi ne 50 mcg tablet TAKE 1 TABLET BY MOUTH DAILY IN THE MORNING active Not Available Not Available No t Available simvastatin 20 mg tablet TAKE 1 TABLET BY MOUTH DAILY AT BEDTIME active Not Available Not Available No t Available methylpredn isolone 4 mg tablets in a dose pack FOLLOW PACKAGE DIRECTION S active Not Available Not Available No t Available mometasone 0.1 % topical cream APPLY A THIN FILM EXTERNALL Y TO THE AFFECTED AREAS ON THE LEFT FOOT TWICE DAILY FOR 2 WEEKS MAXIMUM AT A TIME active Not Available Not Available No t Available nitrofurant oin monohydrate /macrocryst als 100 mg capsule TAKE 1 CAPSULE BY MOUTH TWICE DAILY FOR 5 DAYS 02/06 completed Not Available Not Available Not Available OneTouch Verio test strips TEST BLOOD SUGAR FOUR TIMES DAILY active Not Available Not Available No t Available OneTouch Verio Flex Meter USE DIRECTED active Not Available Not Available No t Available OneTouch Delica Plus Lancet 33 gauge TEST BLOOD SUGAR 4 TIMES A DAY active Not Available Not Available No t Available Mounjaro 7.5 mg/0.5 mL subcutaneou s pen injector INJECT 7.5MG UNDER THE SKIN EVERY 7 DAYS active Not Available Not Available No t Available Mounjaro 5 mg/0.5 mL subcutaneou s pen injector INJECT 5MG UNDER THE SKIN EVERY 7 DAYS active Not Available Not Available No t Available Mounjaro 10 mg/0.5 mL subcutaneou s pen injector INJECT 10 MG UNDER THE SKIN EVERY 7 DAYS active Not Available Not Available No t Available Vitals Date Recorded Body height Body mass index (BMI) Body weight Body temperature Respiratory rate Oxygen saturation Heart rate Systolic And Diastolic Provider Name and Address Organization Details Last Updated DateTime 5 165.1 cm 25.8 kg/m2 09067.8 2 g 98.1 [degF] 14 /min 98 % 88 /min 110/70 mm[Hg] Nano [facility] 5 11:05:33 Social History None recorded. Functional Status None recorded. Mental Status None recorded. Family History Nothing Reported. Medical History Condition Response THYROID DISEASE Y Gynecological HistoryNo gynecological history recorded. Obstetrics History GPAL:G 0 P 0 0 0 0 Past Encounters Encounter ID Performer Location Encounter Start Date Encounter Closed Date Diagnosis/Indication Diagnosis SNOMED-CT Code Diagnosis ICD10 Code Diagnosis IMO Codes Diagnosis Note [id number] Emigdio alexander MD [facility] [place] General Surgery [address] [facility] [place] [address] 02/06/2025 10:55:37 02/06/2025 12:42:15 Spider nevus [id number] I78.1 803201 Health Concerns Section Related Observation LastModified by Organization Detai ls LastModified Time None Recorded Concern Status LastModified by Organization Details LastModified Time None Recorded Advance Directives Directive None Recorded Payers Insurance Date Sequence Insurance Name Policy Number Policy Tavera Covered Member ID Tavera Member ID Guarantor Name 03/17/2025 1 [employer] (PPO) [id number] Chantal Singh [id number] Chantal Singh Notes Date Note Type Note Provider Name and Address Organization Details Recorded Time 02/06/2025 text/html patient complains of purplish and red veins on her legs that have been coming more prominent in the last 2-3 years. also having some cramping and occasional swelling At the ankles. Emigdio Martinez MD [address] [facility], [email or web address] [address] [place], [address], [facility] 02/06/2025 16:25:00 OBGyn Episode No OBEpisode recorded.
--- OUTSIDE RECORDS SUMMARY | 2025-07-14 13:59 | XMS_ITS | Clinical Summary ---
Author Organization [facility] Health Address [address] [place] [address] Care Team Providers Care Telephone Clerk Name Role Phone Unavailable Primary Care Provider Unavailabl e Social History Tobacco Use Types Packs/Day Years Used Date Smoking Tobacco: Never Assessed Comments Unknown Sex and Gender Information Value Date Recorded Sex Assigned at Not on file Legal Sex Female 10:56 AM PDT Gender Identity Not on file Sexual Orientation Not on file Plan of Treatment Health Maintenance Due Date Last Done Comments Dental Prophylaxis 1968 Dental Oral Exam 09/21/2024 03/20/2024 Dental X-Ray: Bitewings 09/21/2024 03/20/2024 Dental X-Ray: Full Mouth 03/21/2027 03/20/2024 Dental X-Ray: Panoramic 03/21/2027 03/20/2024, 02/27 Procedures Procedure Name Priority Date/Time Associated Diagnosis Comments PANORAMIC RADIOGRAPHIC IMAGE Routine 03/20/2024 3:00 PM CDT INTRAORAL - COMPREHENSIVE SERIES OF RADIOGRAPHIC IMAGES Routine 03/20/2024 3:00 PM CDT COMPREHENSIVE ORAL EVALUATION - NEW OR ESTABLISHED PATIENT Routine 03/20/2024 3:00 PM CDT Encounter for dental examination and cleaning without abnormal findings from Last 3 Months or Most Recently Relevant to Health Maintenance Insurance [facility] HMO
--- OUTSIDE RECORDS SUMMARY | 2025-07-14 13:59 | XMS_ITS | Encounter Summary ---
Author Organization [facility] Health Address [address] [place] [address] Care Team Providers Care Independent Trader Name Role Phone Unavailable Primary Care Provider Unavailabl e Prior Encounters Date Type Department Care Team Description 05/23/2024 2:00 PM CDT Office Visit [facility] [address] [place] [address] Luisa Kraft DMD 05/10/2024 12:00 PM CDT Office Visit [address] [address] Luisa Kraft DMD 04/23/2024 11:30 AM CDT Office Visit [address] [address] Luisa Kraft DMD 03/28/2024 Travel 03/28/2024 2:00 PM CDT Office Visit [address] [address] Luisa Kraft DMD 03/20/2024 3:00 PM CDT Office Visit [facility] [address] [place] [address] Luisa Kraft DMD Encounter for dental examination and cleaning without abnormal findings (Primary Dx) 02/27/2024 Travel 02/27/2024 10:00 AM CDT Office Visit [address] [address] Luisa Kraft DMD Plan of Treatment Not on file Procedures [...] and cleaning without abnormal findings 03/20/2024 Insurance [address] [id number]
--- OUTSIDE RECORDS SUMMARY | 2025-07-14 13:59 | XMS_ITS | Encounter Summary ---
Author Organization [facility] Address [address] [place] [address] Care Team Providers Care Machine Operator Name Role Phone Enoch Rosario MD Primary Care Provider [phone] Encounter Details Date Type Department Care Team (Late st Contact Info) Description 05/13/2021 Refill [facility] Primary Care - [place] [address] [facility] [place] [address] Enoch Rosario MD [address] [facility] [place] [address] Social History Tobacco Use Types Packs/Day Years Used Date Smoking Tobacco: Former Cigarettes 0.5 15 Smokeless Tobacco: Never Alcohol Use Standard Drinks/Week Comments Yes 0 (1 standard drink = 0.6 oz pur e alcohol) rare Comments No Sex and Gender Information Value Date Recorded Sex Assigned at Not on file Legal Sex Female 5:48 AM EXCEL ANALYST Gender Identity Not on file Sexual [...] Time COVID-19 05/31/2021 05/31/2021 06/30/2021 1:16 AM EXCEL ANALYST COVID-19 05/16/2022 05/16/202206/1506/15/2022 1:16 AM EXCEL ANALYST documented as of this encounter Care Teams Machine Operator Relationship Specialty Start Date End Date Enoch Rosario MD [address] [place] [address] [place] [address] PCP - General Family Practice 09/14/11 documented as of this encounter
--- OUTSIDE RECORDS SUMMARY | 2025-07-14 13:59 | XMS_ITS | Encounter Summary ---
Author Organization [facility] Address [address] [place] [address] Care Team Providers Care Campaign Associate Name Role Phone Enoch Rosario MD Primary Care Provider [phone] Reason for Visit * Reason Comments Clinical Consult Before Scheduling Encounter Details Date Type Department Care Team (Late st Contact Info) Description 07/04/2024 Telephone [facility] Primary Care - [place] [address] [facility] [place] [address] Enoch Rosario MD [address] [facility] [address] [facility] [address] [place] [address] Clinical Consult Before Scheduling Social [...] on file Legal Sex Female 5:48 AM CASING MAN Gender Identity Not on file Sexual Orientation Not on file documented as of this encounter Miscellaneous Notes * Telephone Encounter - Lea Agudelo LPN - 07/04/2024 9:42 AM CASING MAN Called and spoke to patient. Patient stated she has been coughing with chest congestion she stated she has been coughing up green and yellow mucus she was seen in the urgent care and given prednisoneand symptoms have not gotten any better. Let patient know that Dr Rosario is on vacation. Mik Agudelo LPN NG MAN * Telephone Encounter - Karmen Gavinelle - 07/04/2024 9:26 AM CST Copied from [facility] #[id number]. Topic: Symptomatic Care >> Jul 04, 2024 [...] is requesting an [facility] [address] [facility] please advise SVEN . If this is not clinically appropriate, please contact patient. No NG MAN documented in this encounter Plan of Treatment Not on file documented as of this encounter Visit Diagnoses Not on filedocumented in this encounter Care Teams Campaign Associate Relationship Specialty Start Date End Date Enoch Rosario MD [address] [place] [phone] PCP - General Family Practice 09/14/11 documented as of this encounter
--- OUTSIDE RECORDS SUMMARY | 2025-07-14 13:59 | XMS_ITS | Patient Health Record ---
Author Organization [employer] Address [address] [place] [address] Care Team Providers Care Customer Order Clerk Name Role Phone Enoch Rosraio MD Primary Care Provider Unava ilable Reason [...] Problem Status W/U Status Risk Notes Problem Heartburn (18945917) Heartburn (R12) Active confirmed She has frequen t heartburn and is taking vlhm-yxd-rogpbur Rolaids as needed. There are no other alarm features. Suspect she has symptoms related to GERD. Other considerations for ongoing symptoms would include Moore's esophagus, hiatal hernia, esophagitis, peptic ulcer, H. pylori, or others. Problem Diarrhea (24091174) Diarrhea, unspecified type (R19.7) Active confirmed She [...] would be SIBO or food intolerance. Problem Family History of Cancer of Colon (Situation) (297278446) Family history of colon cancer (Z80.0) Active confirmed Problem Constipation (38197596) Constipation, unspecified constipation type (K59.00) Active confirmed Problem History of irritable bowel syndrome (6980992602633 0) History of IBS (Z87.19) Active confirmed Plan Of Treatment Pending Test Test Name Order Date Colonoscopy 05/06/2019 GIARDIA AG, EIA, STOOL 05/06/2019 C difficile Toxins A+B, EIA 05/10/2019 Insurance Providers Payer Name Payer Address Payer Phone Subscriber Number Group Number Insured Name Patient Relationship to Insured Coverage Start Date Coverage End Date Blue Access PPO E2 [address] [place] [address] [id number] Harman Singh Spouse - patient is the spouse of the insured Medical (General) History Medical History History ICD Code Hypertension Surgical History Surgery Date(Month/Year) EGD 2011 Cholecystectomy x4
--- OUTSIDE RECORDS SUMMARY | 2025-07-14 13:59 | XMS_ITS | Patient Health Record ---
Author Organization [facility] Address [address] [place] [address] Support Name Relationship Address Phone Harman Singh Emergency Contact Unknown Chantal Singh Guarantor Unknown [phone] Reason For Referral No Information Medications Medication [...] Insured Coverage Start Date Coverage End Date [place] [address] [place] [address] [id number] Chantal Singh Self - patient is the insured Medical (General) History Surgical History Surgery Date(Month/Year) endometrial ablation, Date of Procedure: 2005; 2019-09-06 tonsilectomy; 2019-09-06 : [id number]; Gallbladder removal, Date of Procedure: 2007; 2019-09-06 Knee replacement: Right knee., Date of P rocedure: 07/2018; 2019-09-06
--- OUTSIDE RECORDS SUMMARY | 2025-07-14 14:00 | XMS_ITS | Clinical Summary ---
Author Organization [facility] Formerly [facility] Address [address] [place] [address] Phone Care Team Providers Care Receiver Bulk System Name Role Phone Enoch Rosario MD Primary Care Provider [phone] Allergies Active Allergy Reactions Criticality Noted Date [...] COMPLEX ORAL) Take by mouth. A ctive nystatin (NYSTOP) 100,000 unit/gram powder Apply to affected area 2 times daily. Abdominal area 60 Gram 11 05/01/20 24 Active Additional Information Patient not taking.Reported on 06/25/2025 ciclopirox (LOPROX) 0.77 % Cream Apply to affected area 2 times daily. foot 90 Gram 08/26/19 25 Active Additional Information Patient not taking.Reported on 06/25/2025 simvastatin (ZOCOR) 20 mg tablet Take 1 Tablet (20 mg) by mouth daily at bedtime. 100 Tablet 3 09/03/19 Active Additional Information Patient not taking.Reported on 06/25/2025 collagen-hyalur wzyv-qaps-vhhf 515 mg Capsule Take 1 Capsule by mouth daily. 30 Capsule 09/03/19 Active 5-hydroxytrypto vizcaino,5HTP,-B6-C 50-4-60 mg Tablet, Delayed Release (E.C.) Take 1 Tablet by mouth 2 times daily. 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 09/24/19 Active propranoloL (INDERAL) 10 mg tablet Take 1 Tablet (10 mg) by mouth 2 times daily. 60 Tablet 2 11/06/19 Active Additional Information Patient not taking.Reported on 06/25/2025 hydrOXYzine HCL (ATARAX) 50 mg tablet Take 1 Tablet (50 mg) by mouth 3 times daily as needed for Anxiety. 60 Tablet 01/04/20 Active levothyroxine 50 mcg tablet Take 1 Tablet (50 mcg) by mouth daily in the morning. 90 Tablet 1 06/17/20 Active meloxicam (MOBIC) 7.5 mg tablet Take 1 Tablet (7.5 mg) by mouth daily. 30 Tablet 5 06/20/20 Active blood sugar diagnostic (OneTouch Verio test strips) Strip Test blood sugar 4 times a day 200 Each 06/20/20 Active cyclobenzaprine (FLEXERIL) 5 mg Tablet Take 1 Tablet (5 mg) by mouth 3 times daily as needed for Spasm. 30 Tablet 06/25/20 Active tirzepatide (Mounjaro) 12.5 mg/0.5 mL Pen InjectorIndicat ions:Type 2 diabetes mellitus without complication, with long-term current use of insulin ([facility]) Inject 0.5 mL (12.5 mg) by subcutaneous injection every 7 days. 6 mL 3 06/25/20 25 Active meloxicam (MOBIC) 7.5 mg tablet Take 1 Tablet (7.5 mg) by mouth daily. 30 Tablet 5 01/24/20 24 025 Discontin ued(Reord er) cyclobenzaprine (FLEXERIL) 5 mg Tablet Take 1 Tablet (5 mg) by mouth 3 times daily as needed for Spasm. 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 2 mL 4 03/03/20 25 025 Discontin ued(Reord er) levothyroxine 50 mcg tablet Take 1 Tablet (50 mcg) by mouth daily in the morning. 90 Tablet 3 03/03/20 25 025 Discontin ued(Reord er) Active Problems Patient Care Coordination No te Formatting of this note migh t be different from the original. Education Faculty Member Dr Troy Lazo Problem Noted Date Diagnosed Date Inappropriate sinus tachycardia 10/29/2024 Paroxysmal tachycardia 10/29/2024 Palpitations 10/29/2024 Mixed hyperlipidemia 10/29/2024 Family history of colon cancer 04/24/2023 History [...] Encounters Date Type Department Care Team Description 07/08/2025 External Device Data STL ABSTRACTION Provider, Abstract 06/28/2025 Patient Self-Triage [facility] [address] [place] [address] 06/25/2025 4:00 PM SENIOR WATER RESOURCES ENGINEER Video Visit [facility] - [address] [place] [address] Enoch Rosario MD Type 2 diabetes mellitus without complication, with long-term current use of insulin ([facility]) (Primary Dx); HTN (hypertension), benign; Hypothyroidism, unspecified type; Dermatitis 06/24/2025 External Device Data STL ABSTRACTION Provider, Abstract 06/20/2025 Orders Only [address] [place] [phone] Enoch Rosario MD 06/16/[address] [place] [phone] Enoch Rosario MD Type 2 diabetes mellitus with hyperosmolarity without coma, without long-term current use of insulin ([facility]) (Primary Dx); Type 2 diabetes mellitus without complication, 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; Type 2 diabetes mellitus without complication, with long-term current use of insulin ([facility]/H[facility]) 06/16/[address] [place] [phone] Enoch Rosario MD 06/16/[address] [place] [phone] Enoch Rosario MD 05/27/2025 External Device Data STL ABSTRACTION Provider, Abstract 05/22/[address] [place] [phone] Enoch Rosario MD Medication Refill 05/21/2025 External Device Data STL ABSTRACTION Provider, Abstract 05/21/2025 External Device Data STL ABSTRACTION Provider, Abstract 05/13/2025 External Device Data STL ABSTRACTION Provider, Abstract 05/06/2025 External Device Data STL ABSTRACTION Provider, Abstract from Last 3 Months Family History Medical [...] Other neice Heart Surgery Sister 1 R 2 heart attack s, pace maker Hypertension Sister 1 R Other Sister 1 R Colon Cancer Sister 2 Radha Konkel 2 Heart Attacks Healthy Son 1 Healthy Son 2 Relation Name Status Comments Brother 1 Alive Brother 2 Twin Alive Daughter 1 Alive Daughter 2 Alive Father Josh Alive Maternal Grandfather Maternal Grandmother Mother Komal heart murmur, M I age 42 Other neice Alive heart murmur Paternal Grandfather Paternal Grandmother Sister 1 R heart murmur Sister 2 Radha Armstrong Alive Son 1 Alive Son 2 Alive [...] on file Legal Sex Female 5:48 AM SENIOR WATER RESOURCES ENGINEER Gender Identity Not on file Sexual Orientation Not on file Last Filed Vital Signs Vital Sign Reading Time Taken Comments Blood Pressure 120/72 10/22/2024 1:36 PM CDT Pulse 78 10/22/2024 1:36 PM CDT Temperature 36.4 C (97.5 F) 10/04/2023 2:05 PM CDT Respiratory Rate 16 06/02/2023 2:24 PM SENIOR WATER RESOURCES ENGINEER Oxygen Saturation 96% 10/22/2024 1:36 PM CDT Inhaled Oxygen Concentration - - Weight 68 kg (150 lb) 06/25/2025 11:37 AM SENIOR WATER RESOURCES ENGINEER Height 152.4 cm (5') 06/25/2025 11:37 AM SENIOR WATER RESOURCES ENGINEER Body Mass Index 29.29 06/25/2025 11:37 AM SENIOR WATER RESOURCES ENGINEER Plan of Treatment Health Maintenance Due Date Last Done Comments DTAP/TDAP/TD VACCINES (1 - Tdap) 1987 HEPATITIS B VACCINES (1 of 3 - 19+ 3-dose series) 1987 FIT-DNA Q 3 years 2013 FIT/FOBT Q 1 year 2013 Flex Sig/CT Colonography Q 5 years 2013 ZOSTER VACCINE (1 of 2) 2018 BREAST CANCER SCREENING 12/23/2022 12/24/19 22, 12/23/2021, 01/04/2010 DIABETES ANNUAL FOOT EXAM 08/29/2023 08/29/2022 DIABETES ANNUAL RETINAL EXAM 04/24/202408/2022, 02/07/2023, 12/22/2021, Additional history exists INFLUENZA VACCINE (#1) 2025 DIABETES MICROALBUMIN ANNUAL SCREEN 05/02/2025 05/02/2024 DIABETES HBA1C Q 6 MONTHS 08/02/20252024, 06/06/2024, 05/02/2024, Additional history exists DIABETES: A1C (Auto Order) 01/30/202601/30, 06/06/2024, 05/02/2024, Additional history exists LDL CHOLESTEROL ANNUAL 01/30/2026 , 08/28/2024, 05/02/2024, Additional history exists PAP SMEAR 04/20/2026 04/20/2023, 07/25, 08/10/2020 CERVICAL CANCER SCREENING 08/16/2026 HPV/Cotest (21-29) 08/16/2026 08/16/2021, 08/10/2020 HPV/Cotest (30-65) 08/16/2026 08/16/2021, 08/10/2020 COLORECTAL SCREENING 05/09/2029 05/09/2019, 05/09/2019, 08/18/2011 Colorectal Cancer Screening 05/09/2029 Procedures Procedure Name Priority Date/Time Associated Diagnosis Comments LIPID PANEL Routine 01/30/2025 11:23 AM CDT Type 2 diabetes mellitus with other specified complication, without long-term current use of insulin (CMS/HCC) HEMOGLOBIN A1C Routine 01/30/2025 11:23 AM CDT Type 2 diabetes mellitus with other specified complication, without long-term current use of insulin (CMS/HCC) MICROALBUMIN/CREATI NINE RATIO, RANDOM UR Routine 05/02/2024 9:59 AM CDT Type 2 diabetes mellitus without complication, 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 (CMS/HCC) MAMMO 3D ORIN SCREEN BILAT W OR WO CAD Routine 12/23/2021 10:41 AM CDT Screening mammogram, encounter for HM DIABETES EYE EXAM Routine 12/22/2021 CERV/VAG CYTO AGE BASED SCREEN PAP Routine 08/16/2021 3:21 PM SENIOR WATER RESOURCES ENGINEER Encounter for gynecological examination without abnormal finding Screening for HPV (human papillomavirus) ENDOSCOPY, COLON, SCREENING Routine 05/09/2019 from Last 3 Months or Most Recently Relevant to Health Maintenance Results * (ABNORMAL) HEMOGLOBIN A1C (01/30/2025 11:23 AM CDT) HEMOGLOBIN A1C 5.8(H) <5.7 % of total Hgb [email or web address] Comment: For someone without known diabetes, [...] children. ESTIMATED AVERAGE GLUCOSE (MG/DL) 120 mg/dL [facility] ESTIMATED AVERAGE GLUCOSE (MMOL/L) 6.6 mmol/L [facility] Comment: FASTING:YES FASTING: YES Test Performed at: [email or web address] [address] [address] [place] [address] Carter Johnson Blood 01/30/2025 11:2 3 AM CDT 01/30/2025 11:25 AM CDT Enoch Rosario MD CHEMISTRY ORDERABLES Final R esult [facility] [phone] [email or web address] [address] [address] [place] [address] * (ABNORMAL) LIPID PANEL (01/30/2025 11:23 AM CDT) CHOLESTEROL 234(H) <200 mg/dL [facility] HDL 54 > OR = 50 mg/dL [facility] TRIGLYCERIDE 224(H) <150 mg/dL [facility] Comment: If a non-fasting specimen was collected, consider repeat triglyceride testing on a fasting specimen if clinically indicated. Anand et al. J. of Clin. Lipidol. 2015;9:129-169. LDL CALCULATED 144(H) mg/dL (calc) [facility] Comment: Reference [...] LDL-C. Leobardo SS et al. DARYL. 2013;310(19): 9126-6701 (http://education.[employer]/faq/ZGM916) CHOL/HDL RATIO 4.3 <5.0 (calc) [facility] NON-HDL CHOLESTEROL 180(H) <130 mg/dL (calc) [email or web address] Comment: For patients with diabetes plus 1 major ASCVD risk factor, treating to a non-HDL-C goal of <100 mg/dL (LDL-C of <70 mg/dL) is considered a therapeutic option. FASTING:YES FASTING: YES Test Performed at: [facility] [address] [place] [phone] Carter Johnson MD Blood 01/30/2025 11:2 3 AM CDT 01/30/2025 11:25 AM CDT us Enoch Rosario MD CHEMISTRY ORDERABLES Final R esult [facility] [phone] [facility] [address] [place] [phone] * (ABNORMAL) MICROALBUMIN/CREATININE RATIO, RANDOM UR (05/02/2024 9:59 AM CDT) Creatinine, Urine 174 20 - 275 mg/dL [facility] MICROALBUMIN, URINE 6.8 See Note: mg/dL [email or web address] Comment: Reference Range: Reference Range Not [...] category. FASTING:YES FASTING: YES Test Performed at: [facility] [address] [place] [address] Carter Johnson MD Urine URINE SPECIMEN OBTAINED BY CLEAN CATCH PROCEDURE / Unknown 05/02/2024 9:59 AM CDT 05/02/2024 9:59 AM CDT Enoch Rosario MD URINE ORDERABLES Final Resul t [facility] [phone] [email or web address] [address] [place] [address] * MAMMO SCRN BILAT 3D ORIN W [...] follow-up Overall Assessment: Birads Category 1: Negative Marija BARROSO MAMMO ORDERABLES Final Result * DIABETES EYE EXAM (12/22/2021) us Mendez Vega OD HEALTH MAINTENANCE Final Result [place] [place] IA# [id number] [address] [place] [address] * CERV/VAG CYTO AGE BASED SCREEN PAP (08/16/2021 3:21 PM SENIOR WATER RESOURCES ENGINEER) COMMENT (PAP): [facility] Comment: This order for age-based cervical cancer and STI screening follows ACOG guidelines(PB 168, 140, ILS870). See individual assays for performing site location. [...] has been evaluated with computer assisted technology. VIDEOTAPE OPERATOR: [facility] Comment: MARY KAY BIANCHI(ASCP) CT Screening location: [address] [place] [address] [place] [address] EXPLANATORY NOTE [facility] Comment: EXPLANATORY NOTE: The Pap is a [...] information. HPV E6/E7 Not Detected Not Detected [facility] Comment: Methodology: Brain Picker-Mediated Amplification This assay detects E6/E7 viral messenger RNA (mRNA) from 14 high-risk HPV types (16,18,31,33,35,39,45,51,52,56,58,59,66,68). The analytical performance characteristics of this assay have been determined by [email or web address]. The modifications have not been cleared or approved by the FDA. This assay has been validated pursuant to the CLIA regulations and is used for clinical purposes. For additional information, please refer to http://education.[employer]/faq/GQI567o1 (This link if provided for information/ educational purposes only.) Test Performed at: [email or web address] [address] [place] [address] Cesar Ortiz D.O., MPH SL Genital SWAB OF ENDOCERVIX / Unknown 08/16/2021 3:21 PM SENIOR WATER RESOURCES ENGINEER 08/16/2021 11:13 PM SENIOR WATER RESOURCES ENGINEER us Marija Peralta MANAGER IT TRAINING PATHOLOGY/CYTOLOGY ORDERABLES Final Result Performing Organization Address [facility]/ZIP Co de Phone Number [facility] [address] [place] [address] * ENDOSCOPY, COLON, SCREENING (05/09/2019) us Anton Vang MD GI PROCEDURE ORDERA BLES Edited Result - Final Performing Organization Address [facility] Co de Phone Number [facility] CLIA# [id number] [address] [place] [address] from Last 3 Months or Most Recently Relevant to Health Maintenance Insurance [employer] Commercial [facility] Advance Directives For more information, please contact: [phone] * Full Code (Latest Code Status on File) Date Activated Date Inactivated Comments 12/19/2019 3:38 AM 12/20/2019 3:23 PM * Full Code Date Activated Date Inactivated Comments 12/19/2019 3:37 AM 12/19/2019 3:38 AM Care Teams Receiver Bulk System Relationship Specialty Start Date End Date Enoch Rosario MD [address] [place], [place] [address]bryan Simeon [address] [phone] PCP - General Family Practice 09/14/11
--- OUTSIDE RECORDS SUMMARY | 2025-07-14 14:00 | XMS_ITS | Clinical Summary ---
Author Organization [facility] Address [address] [place] [address] Care Team Providers Care Optometry Assistant Name Role Phone Enohc Rosario MD Primary Care Provider [phone] Allergies Active Allergy Reactions Criticality Noted Date [...] 06/29/2023 Assessment & Plan (06/29/2023 11:49 AM BOOT TRIMMER): Postmenopausal, s/p ablation Pap smear: 2022 NILM, HRHPV neg Sexually transmitted disease screening: not indicated Mammogram: ordered Osteoporosis with Dexa Scan: completed 2022 normal Colon Cancer Screening: up to date History of UTI 06/29/2023 Assessment & Plan (06/29/2023 12:18 PM BOOT TRIMMER): Patient requests UCx to ensure resolution Asymptomatic at this time Stress incontinence, female 06/20/2023 Postmenopausal bleeding 04/20/2023 Assessment & Plan (06/29/2023 12:17 PM BOOT TRIMMER): Continues to have daily orange and brown [...] History Medical History Date Comments Diabetes mellitus Family History Medical History Relation Name Comments [...] on file Legal Sex Female 12:57 AM BOOT TRIMMER Gender Identity Not on file Sexual Orientation [...] Comments Blood Pressure 138/72 06/29/2023 2:32 PM BOOT TRIMMER Pulse 88 06/29/2023 2:32 PM BOOT TRIMMER Temperature 36.8 C (98.2 F) 07/21/2022 2:35 PM BOOT TRIMMER Respiratory Rate 20 07/21/2022 2:35 PM BOOT TRIMMER Oxygen Saturation 92% 06/29/2023 2:32 PM BOOT TRIMMER Inhaled Oxygen Concentration - - Weight 80.2 kg (176 lb 14.4 oz) 06/29/2023 2:32 PM BOOT TRIMMER Height 152.4 cm (5') 06/29/2023 2:32 PM BOOT TRIMMER Body Mass Index 34.55 06/29/2023 2:32 PM BOOT TRIMMER Plan of Treatment Health Maintenance Due Date Last Done Comments Colon Cancer Screening-Colonoscopy 1968 Depression Screening 1968 Hepatitis C Screening 1968 DTaP/Tdap/Td Vaccine (1 - Tdap) 1979 Hepatitis B Screening 1986 Zoster Vaccine (1 of 2) 2018 Breast Cancer Screening-Mammogram 12/23/2022 12/23/2021 Cervical Cancer Screening 04/20/20242022, 04/20/2023 Regular Well Visit/Exam 18-64 06/29/2024 06/29/2023 Influenza Vaccine (#1) 2025 Pneumococcal vaccine <65 Aged Out No longer [...] HPV HR 16 Not Detected Not Detected [facility] HPV HR 18 Not Detected Not Detected [facility] HPV HR Non 16/18 Not Detected Not Detected [facility] Comment: Interpretive Data Nucleic acid amplification [...] this test have been verified by the [facility]. Correlate with separately reported cytology results, as applicable. Interpretive data last revised 23 Endocervical 04/20/2023 2:19 PM CDT 04/20/2023 9:17 PM CDT Narrative [facility] - 04/26/2023 7:34 PM CDT Clinical history and diagnosis->postmenopausal spotting Testing type->Diagnostic Last menstrual period (date if known)->postmenopauseal, status post ablation Menstrual status->Postmenopausal Previous atypical cytology->ASCUS us Becca Wolfe MD LAB BODY FLUIDS AND STOOLS ORDERABLES Final Result [facility] [address] Department [place] [address] from Last 3 Months or Most Recently Relevant to Health Maintenance Insurance ANTHEM ACCESS ANTHEM ACCESS Care Teams Optometry Assistant Relationship Specialty Start Date End Date Enoch Rosario MD PCP - General 09/13/18
--- OUTSIDE RECORDS SUMMARY | 2025-07-14 15:01 | XMS_ITS | Clinical Summary ---
Author Organization [facility] Address [address] [facility] [place] [address] Phone Care Team Providers Care Vp Analysis Name Role Phone nEoch Rosario MD Primary Care Provider [phone] Allergies Active Allergy Reactions Criticality Noted Date [...] Information Patient not taking.Reported on 06/25/2025 collagen-hyalur xccx-ooty-frgf 515 mg Capsule Take 1 Capsule by mouth daily. 30 Capsule 09/03/19 Active 5-hydroxytrypto vizcaino,5HTP,-B6-C 50-4-60 mg Tablet, Delayed Release (E.C.) Take 1 Tablet by mouth 2 times daily. 60 Tablet 11 09/03/19 Active Additional Information Patient not taking.Reported on 06/25/2025 Blood-Glucose Meter (OneTouch Ultra System Kit) KitIndications: Type 2 diabetes mellitus without complication, unspecified whether central office installer insulin use See package 1 Kit 09/05/19 [...] complication, with long-term current use of insulin ([facility]) Inject 0.5 mL (12.5 mg) by subcutaneous [...] 2 diabetes mellitus without complication, unspecified whether central office installer insulin use Test blood glucose 4 times [...] migh t be different from the original. Bus Starter Dr Troy Lazo Problem Noted Date Diagnosed [...] STL ABSTRACTION Provider, Abstract 06/28/2025 Patient Self-Triage [facility] [address] [place] [address] 06/25/2025 4:00 PM SELF PAY COLLECTOR Video Visit [facility] - [address] [place] [address] Enoch Rosario MD Type 2 diabetes mellitus without complication, with long-term current use of insulin ([facility]) (Primary Dx); HTN (hypertension), benign; Hypothyroidism, unspecified type; Dermatitis 06/24/2025 External Device Data STL ABSTRACTION Provider, Abstract 06/20/2025 Orders Only [address] [place] [phone] Enoch Rosario MD 06/16/[address] [place] [phone] Enoch Rosario MD Type 2 diabetes mellitus with hyperosmolarity without coma, without long-term current use of insulin ([facility]) (Primary Dx); Type 2 diabetes mellitus without complication, unspecified whether central office installer insulin use; Type 2 diabetes mellitus without complication, with long-term current use of insulin ([facility]) 06/16/[address] [place] [phone] Enoch Rosario MD 06/16/[address] [place] [phone] Enoch Rosario MD 05/27/2025 External Device Data STL ABSTRACTION Provider, Abstract 05/22/[address] [place] [phone] Enoch Rosario MD Medication Refill 05/21/2025 External [...] on file Legal Sex Female 5:48 AM SELF PAY COLLECTOR Gender Identity Not on file Sexual Orientation Not on file Last Filed Vital Signs Vital Sign Reading Time Taken Comments Blood Pressure 120/72 10/22/2024 1:36 PM CDT Pulse 78 10/22/2024 1:36 PM CDT Temperature 36.4 C (97.5 F) 10/04/2023 2:05 PM CDT Respiratory Rate 16 06/02/2023 2:24 PM SELF PAY COLLECTOR Oxygen Saturation 96% 10/22/2024 1:36 PM CDT Inhaled Oxygen Concentration - - Weight 68 kg (150 lb) 06/25/2025 11:37 AM SELF PAY COLLECTOR Height 152.4 cm (5') 06/25/2025 11:37 AM SELF PAY COLLECTOR Body Mass Index 29.29 06/25/2025 11:37 AM SELF PAY COLLECTOR Plan of Treatment Health Maintenance Due Date [...] 2 diabetes mellitus without complication, unspecified whether central office installer insulin use (CMS/HCC) MAMMO 3D ORIN SCREEN BILAT W OR WO CAD Routine 12/23/2021 10:41 AM CDT Screening mammogram, encounter for HM DIABETES EYE EXAM Routine 12/22/2021 CERV/VAG CYTO AGE BASED SCREEN PAP Routine 08/16/2021 3:21 PM SELF PAY COLLECTOR Encounter for gynecological examination without abnormal finding Screening for HPV (human papillomavirus) ENDOSCOPY, COLON, SCREENING Routine 05/09/2019 from Last 3 Months or Most Recently Relevant to Health Maintenance Results * (ABNORMAL) HEMOGLOBIN A1C (01/30/2025 11:23 AM CDT) HEMOGLOBIN A1C 5.8(H) <5.7 % of total Hgb [facility] Comment: For someone without known diabetes, [...] ESTIMATED AVERAGE GLUCOSE (MMOL/L) 6.6 mmol/L [facility] Comment: FASTING:YES FASTING: YES Test Performed at: [facility] [address] [address] [place] [address] Carter Johnson Blood 01/30/2025 11:2 3 AM CDT 01/30/2025 11:25 AM CDT Enoch Rosario MD CHEMISTRY ORDERABLES Final R esult [facility] [phone] [facility] [address] [address] [place] [address] * (ABNORMAL) LIPID PANEL (01/30/2025 11:23 AM CDT) CHOLESTEROL 234(H) <200 mg/dL [facility] HDL 54 > OR = 50 mg/dL [facility] TRIGLYCERIDE 224(H) <150 mg/dL [facility] Comment: If a non-fasting specimen was [...] LDL-C. Leobardo SS et al. DARYL. 2013;310(19): 9447-2930 (http://education.CyActive/faq/ZNP170) CHOL/HDL RATIO 4.3 <5.0 (calc) [facility] NON-HDL CHOLESTEROL 180(H) <130 mg/dL (calc) [facility] Comment: For patients with diabetes plus 1 major ASCVD risk factor, treating to a non-HDL-C goal of <100 mg/dL (LDL-C of <70 mg/dL) is considered a therapeutic option. FASTING:YES FASTING: YES Test Performed at: [facility] [address] [place] [address] Carter Johnson MD Blood 01/30/2025 11:2 3 AM CDT 01/30/2025 11:25 AM CDT us Enoch Rosario MD CHEMISTRY ORDERABLES Final R esult [facility] [phone] [facility] [address] [place] [phone] * (ABNORMAL) MICROALBUMIN/CREATININE RATIO, RANDOM UR (05/02/2024 9:59 AM CDT) Creatinine, Urine 174 20 - 275 mg/dL [facility] MICROALBUMIN, URINE 6.8 See Note: mg/dL [facility] Comment: Reference Range: Reference Range Not [...] category. FASTING:YES FASTING: YES Test Performed at: [facility] [address] [place] [address] Carter Johnson MD Urine URINE SPECIMEN OBTAINED BY CLEAN CATCH PROCEDURE / Unknown 05/02/2024 9:59 AM CDT 05/02/2024 9:59 AM CDT Enoch Rosario MD URINE ORDERABLES Final Resul t [facility] [phone] [facility] [address] [place] [address] * MAMMO SCRN BILAT 3D ORIN W [...] HEALTH MAINTENANCE Final Result [facility] [place] IA# [id number] [address] [place] [address] * CERV/VAG CYTO AGE BASED SCREEN PAP (08/16/2021 3:21 PM SELF PAY COLLECTOR) COMMENT (PAP): [facility] Comment: This order for age-based cervical cancer and STI screening follows ACOG guidelines(PB 168, 140, VRV634). See individual assays for performing site location. [...] has been evaluated with computer assisted technology. ASSISTED LIVING MANAGER: [facility] Comment: MARY KAY BIANCHI(ASCP) CT Screening location: [address] [place] [address] [place] [address] EXPLANATORY NOTE [facility] Comment: EXPLANATORY NOTE: [...] Detected Not Detected [facility] Comment: Methodology: Sliver Cutter-Mediated Amplification This assay detects E6/E7 viral messenger RNA (mRNA) from 14 high-risk HPV types (16,18,31,33,35,39,45,51,52,56,58,59,66,68). The analytical performance characteristics of this assay have been determined by [facility] The modifications have not been cleared or approved by the FDA. This assay has been validated pursuant to the CLIA regulations and is used for clinical purposes. For additional information, please refer to http://education.Ocapo/faq/GDQ890p4 (This link if provided for information/ educational purposes only.) Test Performed at: [facility] [address] [place] [address] Cesar Ortiz D.O., MPH SL Genital SWAB OF ENDOCERVIX / Unknown 08/16/2021 3:21 PM SELF PAY COLLECTOR 08/16/2021 11:13 PM SELF PAY COLLECTOR us Marija Peralta REGIONAL MANAGER PATHOLOGY/CYTOLOGY ORDERABLES Final Result Performing Organization Address [facility]/ZIP Co de Phone Number [facility] [address] [place] [address] * ENDOSCOPY, COLON, SCREENING (05/09/2019) us Anton Vang MD GI PROCEDURE ORDERA BLES Edited Result - Final Performing Organization Address [facility] Co de Phone Number [facility] CLIA# [id number] [address] [place] [address] from Last 3 Months or Most Recently Relevant to Health Maintenance Insurance RX [employer] Express [employer] Commercial [place] [facility] Advance Directives For more information, please contact: [phone] * Full Code (Latest Code Status on File) Date Activated Date Inactivated Comments 12/19/2019 3:38 AM 12/20/2019 3:23 PM * Full Code Date Activated Date Inactivated Comments 12/19/2019 3:37 AM 12/19/2019 3:38 AM Care Teams Vp Analysis Relationship Specialty Start Date End Date Enoch Rosario MD [address] [place], [place] [address]bryan Simeon [address] [phone] PCP - General Family Practice 09/14/11
--- OUTSIDE RECORDS SUMMARY | 2025-07-14 15:01 | XMS_ITS | Clinical Summary ---
Author Organization [facility] Address [address] [place] [address] Care Team Providers Care General Education Professor Name Role Phone Enoch Rosario MD Primary Care Provider [phone] Source Comments [facility],non-owned Affiliates and Associated Physician Practices is amultiple site organization consisting of ambulatory clinics and hospital sitesin [place], [place], [place] and [place]. This disclosure is being madepursuant to the Care Everywhere program and may not contain all information available regarding this patient. Last updated 18.[facility] Allergies Active Allergy Reactions Criticality Noted Date Comments Doxycycline METERMAN Dysfunction Low 08/12/2020 Hydrocodone-Acetaminophen Dizziness 12/25/2019 Hydroxychloroquine [...] on file Legal Sex Female 6:32 AM WHITE WORK CLEANER Gender Identity Not on file Sexual Orientation [...] Resulting Agency Comment Lab Testing performed at: [address] [id number] Trang Zavala MD LAB - CHEMISTRY ORDERABLES Final Result [facility] ACCOUNT BILL [address] [place] [address] from Last 3 Months or Most Recently Relevant to Health Maintenance Insurance ANTH Care Teams General Education Professor Relationship Specialty Start Date End Date Enoch Rosario MD [address] [facility] [address] [place] [phone] PCP - General Family Medicine 01/14/22
--- OUTSIDE RECORDS SUMMARY | 2025-07-14 15:01 | XMS_ITS | Clinical Summary ---
Author Organization [facility] Address [address] [place] [address] Care Team Providers Care Bsa/Aml Compliance Officer Name Role Phone Unavailable Primary Care Provider [...] Most Recently Relevant to Health Maintenance Insurance [facility] HMO
--- OUTSIDE RECORDS SUMMARY | 2025-07-14 15:01 | XMS_ITS | Encounter Summary ---
Author Organization [facility] Address [address] [place] [address] Care Team Providers Care Report Developer Name Role Phone Enoch Rosario MD Primary Care Provider [phone] Reason for Visit * Reason Comments Clinical Consult Before Scheduling Encounter Details Date Type Department Care Team (Late st Contact Info) Description 07/04/[address] [facility] Primary Care - [place] [address] [facility] [place] [address] Enoch Rosario MD [address] [place] [address] Clinical Consult Before Scheduling Social [...] on file Legal Sex Female 5:48 AM WINE MAKER Gender Identity Not on file Sexual Orientation Not on file documented as of this encounter Miscellaneous Notes * Telephone Encounter - Lea Agudelo LPN - 07/04/2024 9:42 AM WINE MAKER Called and spoke to patient. Patient stated she has been coughing with chest congestion she stated she has been coughing up green and yellow mucus she was seen in the urgent care and given prednisoneand symptoms have not gotten any better. Let patient know that Dr Rosario is on vacation. Mik Agudelo LPN MAKER * Telephone Encounter - Karmen Gavinelle - 07/04/2024 9:26 AM CST Copied from [facility] #[id number]. Topic: Symptomatic Care >> Jul 04, 2024 [...] is [facility] an [facility] [address] [facility] please advise SVEN . If this is not clinically appropriate, please contact patient. No MAKER documented in this encounter Plan of Treatment Not on file documented as of this encounter Visit Diagnoses Not on filedocumented in this encounter Care Teams Report Developer Relationship Specialty Start Date End Date Enoch Rosario MD [address] [place] [address] [place] [phone] PCP - General Family Practice 09/14/11 documented as of this encounter
--- OUTSIDE RECORDS SUMMARY | 2025-07-14 15:01 | XMS_ITS | Encounter Summary ---
Author Organization [facility] Health Address [address] [place] [address] Care Team Providers Care Rock Drill Operator Name Role Phone Unavailable Primary Care Provider Unavailabl e Prior Encounters Date Type Department Care Team Description 05/23/2024 2:00 PM CDT Office Visit [facility] [address] [place] [phone] Luisa Kraft DMD 05/10/2024 12:00 PM CDT Office Visit [address] [address] Luisa Kraft DMD 04/23/2024 11:30 AM CDT Office Visit [address] [address] Luisa Kraft DMD 03/28/2024 Travel 03/28/2024 2:00 PM CDT Office Visit [address] [phone] Luisa Kraft DMD 03/20/2024 3:00 PM CDT Office Visit [facility] [address] [place] [phone] Luisa Kraft DMD Encounter for dental examination and cleaning without abnormal findings (Primary Dx) 02/27/2024 Travel 02/27/2024 10:00 AM CDT Office Visit [address] [address] Luisa Kraft DMD Plan of Treatment Not [...] cleaning without abnormal findings 03/20/2024 Insurance [address] [id number]
--- OUTSIDE RECORDS SUMMARY | 2025-07-14 15:01 | XMS_ITS | Encounter Summary ---
Author Organization [facility] Address [address] [place] [address] Care Team Providers Care Archaeology Professor Name Role Phone Enoch Rosario MD Primary Care Provider [phone] Reason for Visit * Reason Onset Date Comments Question 11/11/2021 Encounter Details Date Type Department Care Team (Late st Contact Info) Description 11/11/2021 Telephone [facility] Primary Care - [place] [address] [place] [address] Enoch Rosario MD [address] [facility] [address] [place] [address] Question Social History Tobacco Use Types Packs/Day Years Used Date Smoking Tobacco: Former Cigarettes 0.5 15 Smokeless Tobacco: Never Alcohol Use Standard Drinks/Week Comments Yes 0 (1 standard drink = 0.6 oz pur e alcohol) rare Comments No Sex and Gender Information Value Date Recorded Sex Assigned at Not on file Legal Sex Female 5:48 AM HEARING INSTRUMENT SPECIALIST Gender Identity Not on file Sexual [...] Time COVID-19 05/16/2022 05/16/2022 06/15/2022 1:16 AM HEARING INSTRUMENT SPECIALIST documented as of this encounter Care Teams Archaeology Professor Relationship Specialty Start Date End Date Enoch Rosario MD [address] [facility] [address] [place] [phone] PCP - General Family Practice 09/14/11 documented as of this encounter
--- OUTSIDE RECORDS SUMMARY | 2025-07-14 15:01 | XMS_ITS | Clinical Summary ---
Author Organization [facility] Address [address] [place] [address] Care Team Providers Care Soda Worker Name Role Phone Enoch Rosario MD Primary Care Provider [phone] Allergies Active Allergy Reactions Criticality Noted Date [...] 06/29/2023 Assessment & Plan (06/29/2023 11:49 AM PATIENT ACCOUNTS MANAGER): Postmenopausal, s/p ablation Pap smear: 2022 NILM, HRHPV neg Sexually transmitted disease screening: not indicated Mammogram: ordered Osteoporosis with Dexa Scan: completed 2022 normal Colon Cancer Screening: up to date History of UTI 06/29/2023 Assessment & Plan (06/29/2023 12:18 PM PATIENT ACCOUNTS MANAGER): Patient requests UCx to ensure resolution Asymptomatic at this time Stress incontinence, female 06/20/2023 Postmenopausal bleeding 04/20/2023 Assessment & Plan (06/29/2023 12:17 PM PATIENT ACCOUNTS MANAGER): Continues to have daily orange and [...] on file Legal Sex Female 12:57 AM PATIENT ACCOUNTS MANAGER Gender Identity Not on file Sexual [...] Comments Blood Pressure 138/72 06/29/2023 2:32 PM PATIENT ACCOUNTS MANAGER Pulse 88 06/29/2023 2:32 PM PATIENT ACCOUNTS MANAGER Temperature 36.8 C (98.2 F) 07/21/2022 2:35 PM PATIENT ACCOUNTS MANAGER Respiratory Rate 20 07/21/2022 2:35 PM PATIENT ACCOUNTS MANAGER Oxygen Saturation 92% 06/29/2023 2:32 PM PATIENT ACCOUNTS MANAGER Inhaled Oxygen Concentration - - Weight 80.2 kg (176 lb 14.4 oz) 06/29/2023 2:32 PM PATIENT ACCOUNTS MANAGER Height 152.4 cm (5') 06/29/2023 2:32 PM PATIENT ACCOUNTS MANAGER Body Mass Index 34.55 06/29/2023 2:32 PM PATIENT ACCOUNTS MANAGER Plan of Treatment Health Maintenance Due [...] HR 16 Not Detected Not Detected [facility] HPV HR 18 Not Detected Not Detected [facility] HPV HR Non 16/18 Not Detected Not Detected [facility] Comment: Interpretive Data Nucleic acid amplification for [...] this test have been verified by the [facility]. Correlate with separately reported cytology results, as applicable. Interpretive data last revised 23 Endocervical 04/20/2023 2:19 PM CDT 04/20/2023 9:17 PM CDT Narrative [facility] - 04/26/2023 7:34 PM CDT Clinical history and diagnosis->postmenopausal spotting Testing type->Diagnostic Last menstrual period (date if known)->postmenopauseal, status post ablation Menstrual status->Postmenopausal Previous atypical cytology->ASCUS us Becca Wolfe MD LAB BODY FLUIDS AND STOOLS ORDERABLES Final Result [facility] [address] [place] [address] from Last 3 Months or Most Recently Relevant to Health Maintenance Insurance ANTHEM ACCESS ANTHEM ACCESS Care Teams Soda Worker Relationship Specialty Start Date End Date Enoch Rosario MD PCP - General 09/13/18
--- OUTSIDE RECORDS SUMMARY | 2025-07-14 15:01 | XMS_ITS | Encounter Summary ---
Author Organization [facility] Address [address] [place] [address] Care Team Providers Care Research Home Economist Name Role Phone Enoch Rosario MD Primary Care Provider [phone] Encounter Details Date Type Department Care Team (Late st Contact Info) Description 05/13/2021 Refill [facility] Primary Care - [place] [address] [facility] [place] [address] Enoch Rosario MD [address] [facility] [place] [address] Social History Tobacco Use Types Packs/Day Years Used Date Smoking Tobacco: Former Cigarettes 0.5 15 Smokeless Tobacco: Never Alcohol Use Standard Drinks/Week Comments Yes 0 (1 standard drink = 0.6 oz pur e alcohol) rare Comments No Sex and Gender Information Value Date Recorded Sex Assigned at Not on file Legal Sex Female 5:48 AM HYDROTHERAPIST Gender Identity Not on file Sexual Orientation [...] Time COVID-19 05/31/2021 05/31/2021 06/30/2021 1:16 AM HYDROTHERAPIST COVID-19 05/16/2022 05/16/202206/1506/15/2022 1:16 AM HYDROTHERAPIST documented as of this encounter Care Teams Research Home Economist Relationship Specialty Start Date End Date Enoch Rosario MD [address] [place] [address] [place] [address] [place] [address] PCP - General Family Practice 09/14/11 documented as of this encounter
--- OUTSIDE RECORDS SUMMARY | 2025-07-14 15:01 | XMS_ITS | Encounter Summary ---
Author Organization [facility] Address [address] [place] [address] Care Team Providers Care Auto Cleaner Name Role Phone Enoch Rosario MD Primary Care Provider [phone] Encounter Details Date Type Department Care Team [...] on file Legal Sex Female 5:48 AM BRIDGE IRONWORKER Gender Identity Not on file Sexual Orientation Not on file documented as of this encounter Progress Notes * Katie Isaacs, RN - 05/06/2015 5:22 PM CDT CHART DOCUMENTATION ONLY Call Type: Triage Call Addendum Date and Time [id number] Presenting Problem: I am almost of out my sample Rx of Bystolic. Report feedback to Dr. Rosario. <<<<<<<< TRIAGE NOTE >>>>>>>> Triage Note: Hydrochloric Area Supervisor Katie Isaacs added this note on May [...] one. Paged MD to call me back. Hydrochloric Area Supervisor [email or web address] added this note on May 06 2015 5:22PM Ford from Dr Rosario's nurse, Deann, and she [...] Time COVID-19 05/31/2021 05/31/2021 06/30/2021 1:16 AM BRIDGE IRONWORKER COVID-19 05/16/2022 05/16/2022 06/15/2022 1:16 AM BRIDGE IRONWORKER documented as of this encounter Care Teams Auto Cleaner Relationship Specialty Start Date End Date Enoch Rosario MD [address] [place] [address] [address] [place] [phone] PCP - General Family Practice 09/14/11 documented as of this encounter
--- OUTSIDE RECORDS SUMMARY | 2025-07-14 15:01 | XMS_ITS | Encounter Summary ---
Author Organization [facility] Address [address] [place] [address] Care Team Providers Care Online Marketing Strategist Name Role Phone Enoch Rosario MD Primary Care Provider [phone] Reason for Visit * Reason Comments Medication Refill Question Medication Assistance Encounter Details Date Type Department Care Team (Late st Contact Info) Description 12/20/2023 Telephone [facility] Primary Care - [address] [place] [address] Encoh Rosario MD [address] [place] [address] Medication Refill; Question; Medication Assistance [...] on file Legal Sex Female 5:48 AM GRADUATE STUDENT INSTRUCTOR Gender Identity Not on file Sexual Orientation [...] - 12/21/2023 2:53 PM CDT Copied from [facility] #[id number]. Topic: Patient or Caregiver Communication Request >> December 21, 2023 2:49 PM Kassie Jett wrote: Patient or Caregiver insisting that a message be sent to Care Team Caller: Chantal Singh Patient/Caregiver Callback Number: [phone] (home) Call Notes: Patient calling in stating that pharmacy has only one more box of mounjaro left and shewould really like to get this. Asking if mounjaro can be sent to pharmacy today if possible. Patient has called in multiple times about this. Asking if mounjaro can be sent over to pharmacy listed below. Please advise. [facility] [address] [place] [address] [[id number]] * Telephone Encounter - Veena Blandon - 12/21/2023 10:23 AM CDT Copied from [facility] #[id number]. Topic: Patient or Caregiver Communication Request >> December 21, 2023 10:21 AM Veena Houser wrote: Patient or Caregiver requesting advice Caller: Chantal Singh Patient/Caregiver Callback Number: [phone] (home) Call Notes: Patient is calling to check the status of the PA that she requested to have expedited. A call back was requested. * Telephone Encounter - Маиря Valles - 12/20/2023 12:16 PM CDT Copied from [facility] #[id number]. Topic: Medication Request >> December 20, 2023 12:14 PM Мария Murillo wrote: Medication Refill Request from: Patient/Caregiver Did the patient/caregiver contact their pharmacy for refill prior to calling? Yes Medication (Ask patient/caregiver to spell if possible): tirzepatide (Mounjaro) 5 mg/0.5 mL Pen Injector, and tirzepatide (Mounjaro) 7.5 mg/0.5 mL Pen Injector Preferred Pharmacy: [facility] [address] [place] [address] Patient/Caregiver Callback Number: Telephone Information: Call Notes: Patient needs a medication refill for this. She states that she needs it expedited and a PA sent to the above pharmacy. documented in this encounter Plan of Treatment Not on file documented as of this encounter Visit Diagnoses Not on filedocumented in this encounter Care Teams Online Marketing Strategist Relationship Specialty Start Date End Date Enoch Rosario MD [address] [place] [address] [address] PCP - General Family Practice 09/14/11 documented as of this encounter
--- OUTSIDE RECORDS SUMMARY | 2025-07-14 15:01 | XMS_ITS | Encounter Summary ---
Author Organization [facility] Address [address] [place] [address] Care Team Providers Care Liability Analyst Name Role Phone Enoch Rosario MD Primary Care Provider [phone] Encounter Details Date Type Department Care Team (Late st Contact Info) Description 08/28/2024 Telephone [facility] Medicine [address] [place] [id number] Alli Ferrer MD [address] [facility] [address] [place], [place] [id number] Social History Tobacco Use Types Packs/Day Years [...] on file Legal Sex Female 5:48 AM ARMHOLE RAISER LOCKSTITCH Gender Identity Not on file Sexual Orientation Not on file documented as of this encounter Plan of Treatment Not on file documented as of this encounter Visit Diagnoses Not on filedocumented in this encounter Care Teams Liability Analyst Relationship Specialty Start Date End Date Enoch Rosario MD [address] [place] [address] PCP - General Family Practice 09/14/11 documented as of this encounter
[2025-07-14 15:13] LABS: Influenza A QL RT-PCR Negative (Negative); Influenza B QL RT-PCR Negative (Negative); RSV RNA, RT-PCR Negative (Negative); SARS-CoV-2 RNA PCR Negative (Negative)
--- NOTE | 2025-07-14 15:28 | P.HP_ITS ---
H&P: HPI History of Present Illness Date/Time: 07/14/25 15:28 Chief Complaint: Palpitations and shortness of breath Narrative: 55-year-old female past medical history of hypothyroidism and diabetes who presents the hospital with palpitations and shortness of breath. Patient states that she works at a [employer]. 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 She has complained of fatigue and night sweats. Patient states that she was to her doctor and got blood work about 4 months ago and she was not told of having an abnormal blood count. Patient denies fever, chills, nausea or vomiting, shortness of breath. Her only complaint is racing heart rate Lab work in the ED shows WBC of 46.2, hemoglobin 12.5, platelets of 32, neutrophils of 17, INR 1.5, troponin of 0.054, influenza A/B, RSV, COVID negative. Chest x-ray with no acute findings. Chest abdomen pelvis CTA shows minimal pneumonitis, no evidence of malignancy seen in chest abdomen pelvis. Telemetry shows sinus tachycardia 108. 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 Review of Systems Review of Systems: 12 systems were reviewed and are negativ e except for as per HPI. [facility] Past Medical History Medical History Hypothyroidism Diabetes Surgical History Surgical History No pertinent past surgical history Family History Family History (Updated 07/14/25 @ 16:58 by Georgette Vega RN) Mother Acute myocardial infarction Passed at age of 43 2 heart attacks prior to passing Sibling Acute myocardial infarction, Onset Age: 57 has pacemaker now Diabetes mellitus Hypertension Other Leukemia Uncle Social History Social History Smoking packs per day: 1 Smoking cigarettes per day: 20.0 Years smoked: 12 Smoking pack-years: 12.00 Smoking status: Former smoker Second hand tobacco smoke exposure: Yes Additional smoking assessment comments: quit in 2014 Alcohol intake: current Drinks per week: 3 Substance use: current Substance use type: marijuana Last use: 07/07/25 Lack of Transportation: No Lack of Food: Never True Current Housing: I Have Housing Concerned About Future Housing: No Difficulty Paying Gas/Electric Bills: No Difficulty Paying for Meds: No Currently Unemployed: No Education: High School Diploma/GED Difficulty w/ Childcare or Family Care: No Gender identity (if verbalized by the patient): Female Spiritual care concerns: No Meds Home Medications and Allergies Home Medications ?Medication ?Instructions ?Recorded ?Confirmed ?Type levothyroxine 50 mcg tablet 50 mcg PO DAILY 07/01/24 1 09/14/24 History tirzepatide 10 mg/0.5 mL 10 mg subcut WEEKLY 04/13/25 07/14/25 History subcutaneous pen injector (Mounjaro) Allergies Allergy/AdvReac Type Severity Reaction Status Date / Time oseltamivir Allergy Severe Swelling Verified 07/14/25 16:54 of Lip/Tongue/Throat propoxyphene Allergy Intermediate Vomiting Verified 07/14/25 16:54 fluvoxamine Allergy Unknown Unknown Verified 07/14/25 16:54 sulfamethoxazole Allergy Unknown Unknown Verified 07/14/25 16:54 trimethoprim Allergy Unknown Unknown Verified 07/14/25 16:54 azithromycin AdvReac Unknown DOESNT Verified 07/14/25 16:54 WORK Vital Signs Vital Signs - 24 hr 07/14/25 12:31 07/14/25 13:27 07/14/25 13:27 Temperature 97.6 F Pulse Rate 107 H 100 Respiratory Rate 23 H Blood Pressure 93/78 L Pulse Oximetry 100 98 Oxygen Delivery Room Air Room Air 07/14/25 14:59 Temperature 98.4 F Pulse Rate 100 Respiratory Rate 14 Blood Pressure 157/84 H Pulse Oximetry 98 Oxygen Delivery Exam Narrative: General: well appearing, appears stated age. HEENT: normocephalic, atraumatic. Mucous membranes moist. EOMI, PERRLA, bilateral sclera anicteric, no conjunctival injection. Neck supple without JVD, lymphadenopathy, or bruit. Respiratory: clear bilaterally. No rales/rhonic/wheezes. Cardiovascular: Regular rate and rhythm, normal S1-S2. No murmurs, rubs, or clicks. PMI is nondisplaced, capillary refill less than 3 second. Abdomen: Soft, round, no pulsatile masses, nondistended and nontender. No rebound, no guarding. Bowel sounds present to all four quadrants. No high pitch or tinkling sounds, resonant to percussion. Extremities: No cyanosis, clubbing, or edema present. Pulses are palpable 2/2. Active ROM to all four extremities. Neuro: Alert and orientated x 4. PERRLA. Cranial nerves 2-12 intact without focal deficit. Skin: Warm, dry, and intact, without rash, erythema, or lesion. Psych: pleasant, cooperative, normal speech, normal affect, no hallucinations, no dysarthia Sinus tachycardia on monitor Results Labs Labs: Short CBC 07/14/25 Range/Units 12:46 WBC 46.2 H (4.5-10.0) K/mm3 Hgb 12.5 (12.0-15.0) g/dL Hct 36.2 L (37.0-47.0) % Plt Count 32 L D (150-375) k/mm3 BMP 07/14/25 12:46 Sodium 139 Potassium 4.1 Chloride 106 Carbon Dioxide 25 BUN 20 H Creatinine 0.80 Glucose 117 H Calcium 9.5 Cardiac Enzymes 07/14/25 Range/Units 12:46 Troponin I 0.054 H* (0.000-0.034) ng/mL Liver Function 07/14/25 Range/Units 12:46 Total Bilirubin 1.1 (0.2-1.3) mg/dL AST 43 H (14-36) U/L ALT 31 (6-35) U/L Alkaline Phosphatase 83 (38-126) U/L Albumin 4.5 (3.5-5.1) g/dL Attestation: I personally reviewed all lab results Imaging CT scan - chest: Attestation: I personally reviewed this imaging study Radiologist's impression: IMPRESSION: CHEST- 1. Minimal pneumonitis not excluded. 2. Otherwise no evidence of malignancy or acute cardiopulmonary abnormality. ABDOMEN/PELVIS- 1. No evidence of malignancy or acute abdominopelvic findings. 2. Distal aortic stenosis. Chest x-ray: Attestation: I personally reviewed this imaging study Radiologist's impression: IMPRESSION: 1. No acute cardiopulmonary findings. 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 Blood cultures ordered ID consulted (2) Pneumonitis: Code(s): J98.4 - Other disorders of lung Status: Acute Assessment and Plan: Due to likely diagnosis of acute leukemia will treat for infection Doxy and Rocephin (3) Diabetes: Code(s): E11.9 - Type 2 diabetes mellitus without complications Status: Acute Assessment and Plan: on mounjaro (4) Hypothyroidism: Code(s): E03.9 - Hypothyroidism, unspecified Status: Acute Assessment and Plan: Continue Synthroid (5) Elevated troponin: Code(s): R79.89 - Other specified abnormal findings of blood chemistry Status: Acute Assessment and Plan: Denies chest pain Troponin trending down Time Spent with Patient Time with patient: 45 - 74 minutes Hospitalist MIPS Advance Care Plan I have confirmed that the patient's Advanced Care Plan is present, code status is documented, or surrogate decision maker is listed in patient medical record.: Yes Medication Reconciliation I have utilized all available resources to obtain, update and review the patients current medications (includes all prescriptions, OTC, herbals, cannabis, and nutritional supplements).: Yes
--- NOTE | 2025-07-14 15:56 | ECG_ITS ---
Test Date: 2025-07-14 16:00:44 Measurements Intervals [place] Rate: 95 P: 75 WI: 148 QRS: 62 QRSD: 93 T: 20 QT: 367 QTc: 462 Interpretive Statements SINUS RHYTHM NONSPECIFIC T-WAVE ABNORMALITY- INFERIOR LEADS BASELINE ARTIFACT- I, II, III, AVR, AVL, AVF BORDERLINE ECG Compared to ECG 07/14/2025 12:33:47 HEART RATE HAS DECREASED Electronically Signed On 07-14-2025 16:27:15 MILITARY PAY TECHNICIAN by Boston Triplett D.O.
--- NOTE | 2025-07-14 16:05 | WPCEDHO ---
ED Hand Off Checklist All vitals saved: YES IV Site documented: YES All med administrations documented: YES Triage Note Triage Note Patient presents with increasing 07/14/25 12:31 sob, palpitations, and headache for last couple days. states her symptoms have just gotten worse. sob worse with activity. also having midsternal chest pain that radiates to her back. Allergies fluvoxamine Allergy (Unknown, Verified 07/14/25 13:27) Unknown oseltamivir Allergy (Unknown, Verified 07/14/25 12:30) Swelling propoxyphene Allergy (Unknown, Verified 07/14/25 13:27) Unknown sulfamethoxazole Allergy (Unknown, Verified 07/14/25 12:30) Unknown trimethoprim Allergy (Unknown, Verified 07/14/25 12:30) Unknown azithromycin Adverse Reaction (Unknown, Verified 07/14/25 12:30) DOESNT WORK Family History (Last Reviewed 07/14/25 @ 13:26 by Arsalan Fay DO) Mother Family history non-contributory Administered/Completed Medications Discontinued Medications Aspirin (Aspirin 81 Mg Chewable Tablet) 324 mg PO ONCE STA Stop: 07/14/25 12:32 Last Admin: 07/14/25 12:36 Dose: 324 mg Documented By: GUSTAVO Sodium Chloride (Normal Saline Iv) 1,000 mls @ 999 mls/hr IV CONT .Q1H1M STA Stop: 07/14/25 14:24 Last Infusion: 07/14/25 16:05 Dose: Infused Documented By: Admin: 07/14/25 13:27 Dose: 999 mls/hr Documented By: DIMA Interventions/Assessments Cardiac Monitoring Start: 07/14/25 12:29 Freq: Status: Active Protocol: Document 07/14/25 13:27 DIMA (Rec: 07/14/25 13:30 DIMA [id number]) Physical Therapy Manager Assessment Physical Therapy Manager Yes Applied Pulse Rate (60-100 100 beats/min) EKG Rythm Sinus Rhythm IV / Saline Lock, Insert Start: 07/14/25 12:31 Freq: STAT Status: Active Protocol: Document 07/14/25 12:46 ANT (Rec: 07/14/25 12:46 ANT [id number]) IV Assessment Peripheral Access Right Antecubital IV Catheter Access Initiated IV Insertion Date 07/14/25 IV Insertion Time 12:46 Catheter Gauge 20 IV Site Assessment WNL IV Care and WNL Maintenance PA: Cardiovascular Assessment Start: 07/14/25 12:29 Freq: Status: Active Protocol: Document 07/14/25 13:27 KED (Rec: 07/14/25 13:30 KE [id number]) Cardiovascular Assessment Cardiovascular Dyspnea Symptoms Additional palpitations with exertion Cardiovascular Assessment Comments PA: Respiratory Assessment Start: 07/14/25 12:29 Freq: Status: Active Protocol: Document 07/14/25 13:27 KED (Rec: 07/14/25 13:30 KE [id number]) Respiratory Assessment Symptoms Shortness of Breath With Exertion Effort Normal Pattern Regular Depth Normal Chest Expansion Symmetrical Adult Capillary Normal/Less than 2 Seconds Refill Posterior Bilateral Throughout Phase Inspiratory & Expiratory Lung Sounds Clear Cough Description None Oxygen Delivery Oxygen Delivery Room Air Pulse Oximetry (90- 98 100 %) Last Vital Signs Temperature 98.3 F 07/14/25 16:03 Pulse Rate 96 07/14/25 16:03 Respiratory Rate 13 07/14/25 16:03 Pulse Oximetry 100 07/14/25 16:03 Blood Pressure 148/80 H 07/14/25 16:03 Blood Pressure Mean 102 07/14/25 16:03 Oxygen Delivery Room Air 07/14/25 13:27 Weight 68.95 kg 07/14/25 12:31 Last Result - Abnormals Only WBC 46.2 K/mm3 (4.5-10.0) H 07/14/25 12:46 RBC 3.98 M/mm3 (4.2-5.4) L 07/14/25 12:46 Hct 36.2 % (37.0-47.0) L 07/14/25 12:46 Plt Count 32 k/mm3 (150-375) L D 07/14/25 12:46 MPV 10.7 fl (7.4-10.4) H 07/14/25 12:46 Neutrophils % (Manual) 17 % (46-73) L 07/14/25 12:46 Abs Neuts (Manual) 7.85 K/mm3 (1.3-6.7) H 07/14/25 12:46 Abs Lymphs (Manual) 11.08 K/mm3 (1.1-4.5) H 07/14/25 12:46 Abs Monocytes (Manual) 2.31 K/mm3 (0.1-0.90) H 07/14/25 12:46 PT 17.5 Seconds (11.1-14.7) H 07/14/25 12:46 BUN 20 mg/dL (7-17) H 07/14/25 12:46 Glucose 117 mg/dL (65-110) H 07/14/25 12:46 AST 43 U/L (14-36) H 07/14/25 12:46 Troponin I 0.054 ng/mL (0.000-0.034) H* 07/14/25 12:46 Most Recent Suicide Severity Rating Suicide Severity Rating NO RISK INDICATED 07/14/25 12:31
[2025-07-14 16:44] LABS: Troponin I 0.057 ng/mL (0.000-0.034)
--- NOTE | 2025-07-14 16:48 | ADMGEN ---
This patient, Chantal Singh, was admitted to IMU Room 206-01. Patient/family oriented to hospital policies and general routines including ID bracelet, bed and alarms, visiting hours, pain management, procedures, bathroom and other care routines, personal items, smoking policy, room service/diet, and visiting hours. Information on how to activate the Rapid Response Team has been discussed. Patient/Family are encouraged to report perceived risks to care and to ask questions if they do not understand what they are told or what they should do.
[2025-07-14] MEDS: ACETAMINOPHEN 325 MG TABLET 650 MG PO ×2 (18:28→23:36)
[2025-07-14 20:16] LABS: Troponin I 0.047 ng/mL (0.000-0.034)
--- NOTE | 2025-07-14 20:26 | ECG_ITS ---
Test Date: 2025-07-14 20:38:38 Measurements Intervals [place] Rate: 84 P: 78 NM: 165 QRS: 66 QRSD: 87 T: 27 QT: 360 QTc: 426 Interpretive Statements SINUS RHYTHM MINIMAL Q WAVES- INFERIOR LEADS BORDERLINE ST-T WAVE ABNORMALITY- INFERIOR LEADS BASELINE ARTIFACT- I, II, III, AVR, AVL, AVF, V1 BORDERLINE ECG Compared to ECG 07/14/2025 16:00:44 NO SIGNIFICANT CHANGE Electronically Signed On 07-15-2025 07:15:23 MD SENIOR RESEARCH SCIENTIST by Boston Triplett D.O.
[2025-07-14] MEDS: SODIUM CHLORIDE 0.9% IV 1,000 ML 100 ML IV CONT (22:09)
[2025-07-14] MEDS: cefTRIAXone 1 GM in SODIUM CHLORIDE 0.9% IV 50 ML 100 ML IVPB (23:35)
[2025-07-14] MEDS: ONDANSETRON INJ 4 MG/2 ML VIAL IV PUSH (23:36)
[2025-07-14] MEDS: DOXYCYCLINE HYCLATE 100 MG TABLET PO (23:36)
[2025-07-15] VITALS (13 sets, daily range): BP systolic 125–159; BP diastolic 54–72; PULSE 88–107; RESP 16–20; TEMP 36.7–37; O2SAT 94–98
[2025-07-15] MEDS: LEVOTHYROXINE SODIUM 50 MCG TABLET PO (05:52)
[2025-07-15] MEDS: DOXYCYCLINE HYCLATE 100 MG TABLET PO ×2 (09:21→21:16)
[2025-07-15] MEDS: ACETAMINOPHEN 325 MG TABLET 650 MG PO (09:29)
--- NOTE | 2025-07-15 11:27 | P.PNIM_ITS ---
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 Blood cultures ordered ID consulted (2) Pneumonitis: Code(s): J98.4 - Other disorders of lung Status: Acute Assessment and Plan: Due to likely diagnosis of acute leukemia will treat for infection Doxy and Rocephin (3) Diabetes: Code(s): E11.9 - Type 2 diabetes mellitus without complications Status: Acute Assessment and Plan: on mounjaro (4) Hypothyroidism: Code(s): E03.9 - Hypothyroidism, unspecified Status: Acute Assessment and Plan: Continue Synthroid (5) Elevated troponin: Code(s): R79.89 - Other specified abnormal findings of blood chemistry Status: Acute Assessment and Plan: Denies chest pain Troponin trending down Plan Code status full DVT prophylaxis SCD boots Subjective Date/time seen: 07/15/25 11:27 Interval history: Patient was seen during the morning rounds today. Patient is feeling better. No shortness of breath or chest pain. Review of Systems Review of Systems: 12 systems were reviewed and are negativ e except for as per HPI. Exam Narrative: General: well appearing, appears stated age. HEENT: normocephalic, atraumatic. Mucous membranes moist. EOMI, PERRLA, bilateral sclera anicteric, no conjunctival injection. Neck supple without JVD, lymphadenopathy, or bruit. Respiratory: clear bilaterally. No rales/rhonic/wheezes. Cardiovascular: Regular rate and rhythm, normal S1-S2. No murmurs, rubs, or clicks. PMI is nondisplaced, capillary refill less than 3 second. Abdomen: Soft, round, no pulsatile masses, nondistended and nontender. No rebound, no guarding. Bowel sounds present to all four quadrants. No high pitch or tinkling sounds, resonant to percussion. Extremities: No cyanosis, clubbing, or edema present. Pulses are palpable 2/2. Active ROM to all four extremities. Neuro: Alert and orientated x 4. PERRLA. Cranial nerves 2-12 intact without focal deficit. Skin: Warm, dry, and intact, without rash, erythema, or lesion. Psych: pleasant, cooperative, normal speech, normal affect, no hallucinations, no dysarthia Sinus tachycardia on monitor Objective Data Vital Signs Vital Signs: Vital Signs - 24 hr 07/14/25 12:31 07/14/25 13:27 07/14/25 13:27 Temperature 36.4 C Pulse Rate 107 H 100 Respiratory Rate 23 H Blood Pressure 93/78 L Pulse Oximetry 100 98 Oxygen Delivery Room Air Room Air 07/14/25 14:00 07/14/25 14:48 07/14/25 14:59 Temperature 36.9 C Pulse Rate 101 H 99 100 Respiratory Rate 17 15 14 Blood Pressure 157/84 H Pulse Oximetry 100 96 98 Oxygen Delivery 07/14/25 15:16 07/14/25 15:38 07/14/25 16:03 Temperature 36.8 C Pulse Rate 94 97 96 Respiratory Rate 14 19 13 Blood Pressure 141/73 H 148/90 H 148/80 H Pulse Oximetry 95 100 Oxygen Delivery 07/14/25 16:40 07/14/25 16:40 07/14/25 18:00 Temperature 36.6 C Pulse Rate 106 H 102 H Respiratory Rate 22 H Blood Pressure 173/82 H Pulse Oximetry 98 Oxygen Delivery Room Air 07/14/25 19:53 07/14/25 20:00 07/14/25 20:00 Temperature 36.5 C Pulse Rate 96 96 93 Respiratory Rate 16 16 Blood Pressure 150/72 H Pulse Oximetry 100 100 Oxygen Delivery Room Air 07/15/25 00:00 07/15/25 00:00 07/15/25 00:00 Temperature 36.8 C Pulse Rate 107 H 101 H Respiratory Rate 20 Blood Pressure 159/72 H Pulse Oximetry 96 Oxygen Delivery Room Air 07/15/25 02:00 07/15/25 04:00 07/15/25 04:00 Temperature Pulse Rate 102 H 103 H 97 Respiratory Rate 20 Blood Pressure Pulse Oximetry 94 Oxygen Delivery Room Air 07/15/25 04:00 07/15/25 06:00 07/15/25 07:53 Temperature 36.9 C 36.7 C Pulse Rate 103 H 96 99 Respiratory Rate 20 16 Blood Pressure 130/68 126/54 L Pulse Oximetry 94 95 Oxygen Delivery Intake/Output Intake/Output: Intake & Output 07/12/25 07/13/25 07/14/25 07/15/25 23:59 23:59 23:59 23:59 Intake Total 2119 2049 Balance 2119 2049 Meds/Results Medications: Active Medications Generic Name Dose Route Start Last Admin Trade Name Freq PRN Reason Stop Dose Admin Acetaminophen 650 mg 07/14/25 17:51 07/15/25 09:29 Acetaminophen 325 Mg Tablet PO 650 mg Q4H PRN Administration Mild Pain (1-3) or Fever Alprazolam 0.5 mg 07/14/25 23:22 Alprazolam (*Crx) 0.5 Mg Tablet PO Q6HR PRN Anxiety Doxycycline Hyclate 100 mg 07/14/25 23:30 07/15/25 09:21 Doxycycline Hyclate 100 Mg Tablet PO 100 mg Q12HR JAMIL Administration Ceftriaxone Sodium 1 gm/ 50 mls @ 100 mls/hr 07/14/25 23:00 07/15/25 00:05 Sodium Chloride IVPB Infused Q24H JAMIL Infusion Levothyroxine Sodium 50 mcg 07/15/25 06:30 07/15/25 05:52 Levothyroxine Sodium 50 Mcg Tablet PO 50 mcg DAILY@0630 JAMIL Administration Morphine Sulfate 2 mg 07/14/25 17:28 Morphine Sulfate (*Crx) 4 Mg/Ml Inj IV PUSH Q5M PRN Pain Rated 4-6 Nitroglycerin 0.4 mg 07/14/25 17:28 Nitroglycerin Sl 0.4 Mg Tablet SUBLINGUAL Q5MIN PRN Chest Pain Ondansetron HCl 4 mg 07/14/25 23:22 07/14/25 23:36 Ondansetron Inj 4 Mg/2 Ml Vial IV PUSH 4 mg Q6H PRN Administration Nausea And Vomiting Perflutren Lipid Microsphere 0 ml 07/14/25 17:28 Perflutren Lipid Microspheres 1.5 Ml Vial Diluted To 10 Ml Total Volume IV PUSH 07/17/25 17:29 ONCE PRN adequate visualization Protocol Radiology Results: ITS Impressions Chest X-Ray 07/14/25 13:22 IMPRESSION: 1. No acute cardiopulmonary findings. Chest/Abdomen/Pelvis CTA 07/14/25 13:58 IMPRESSION: CHEST- 1. Minimal pneumonitis not excluded. 2. Otherwise no evidence of malignancy or acute cardiopulmonary abnormality. ABDOMEN/PELVIS- 1. No evidence of malignancy or acute abdominopelvic findings. 2. Distal aortic stenosis. Labs Labs: Laboratory Results - last 24 hr 07/14/25 07/14/25 07/14/25 12:46 14:34 16:01 WBC 46.2 H RBC 3.98 L Hgb 12.5 Hct 36.2 L MCV 91.0 MCH 31.4 MCHC 34.5 RDW 13.8 Plt Count 32 L D MPV 10.7 H Immature Gran % (Auto) Not Reportable Neut % (Auto) Not Reportable Lymph % (Auto) Not Reportable Stanton % (Auto) Not Reportable Eos % (Auto) Not Reportable Baso % (Auto) Not Reportable Lymph # (Auto) Not Reportable Stanton # (Auto) Not Reportable Eos # (Auto) Not Reportable Baso # (Auto) Not Reportable Abs Immat Gran (auto) Not Reportable Absolute Neuts (auto) Not Reportable Absolute Nucleated RBC Not Reportable Total Counted 100 Neutrophils % (Manual) 17 L Band Neutrophils % 0 Lymphocytes % (Manual) 24 Monocytes % (Manual) 5 Nucleated RBC % Not Reportable Abs Neuts (Manual) 7.85 H Abs Lymphs (Manual) 11.08 H Abs Monocytes (Manual) 2.31 H Nucleated RBCs 1 Blast Cells 53 Platelet Estimate Decreased % Immature Plt Fraction 3.5 Schistocytes None seen PT 17.5 H INR 1.5 APTT 26.7 Sodium 139 Potassium 4.1 Chloride 106 Carbon Dioxide 25 Anion Gap 8 BUN 20 H Creatinine 0.80 Estim Creat Clear Calc 59 Estimated GFR > 60 Glucose 117 H Calcium 9.5 Total Bilirubin 1.1 AST 43 H ALT 31 Alkaline Phosphatase 83 Troponin I 0.054 H* 0.057 H* Total Protein 7.7 Albumin 4.5 Lipase 47 Influenza A (RT-PCR) Negative Influenza B (RT-PCR) Negative RSV (RT-PCR) Negative SARS-CoV-2 RNA (RT-PCR) Negative 07/14/25 19:41 WBC RBC Hgb Hct MCV MCH MCHC RDW Plt Count MPV Immature Gran % (Auto) Neut % (Auto) Lymph % (Auto) Stanton % (Auto) Eos % (Auto) Baso % (Auto) Lymph # (Auto) Stanton # (Auto) Eos # (Auto) Baso # (Auto) Abs Immat Gran (auto) Absolute Neuts (auto) Absolute Nucleated RBC Total Counted Neutrophils % (Manual) Band Neutrophils % Lymphocytes % (Manual) Monocytes % (Manual) Nucleated RBC % Abs Neuts (Manual) Abs Lymphs (Manual) Abs Monocytes (Manual) Nucleated RBCs Blast Cells Platelet Estimate % Immature Plt Fraction Schistocytes PT INR APTT Sodium Potassium Chloride Carbon Dioxide Anion Gap BUN Creatinine Estim Creat Clear Calc Estimated GFR Glucose Calcium Total Bilirubin AST ALT Alkaline Phosphatase Troponin I 0.047 H* Total Protein Albumin Lipase Influenza A (RT-PCR) Influenza B (RT-PCR) RSV (RT-PCR) SARS-CoV-2 RNA (RT-PCR)
--- NOTE | 2025-07-15 12:44 | P.CONCA_ITS ---
Assessment and Plan Assessment and plan (1) Chest pain: Code(s): R07.9 - Chest pain, unspecified Status: Acute Assessment and Plan: Atypical chest pain which seems pleuritic. She is being treated for pneumonitis. No ischemic changes on EKG. Troponin was mildly elevated but remained flat; not consistent with ACS and more likely related to underlying infection. Will check echo, but if unremarkabe no further cardiac workup is anticipated. (2) Elevated troponin: Code(s): R79.89 - Other specified abnormal findings of blood chemistry Status: Acute Assessment and Plan: As above. (3) Leukocytosis: Code(s): D72.829 - Elevated white blood cell count, unspecified Status: Acute Assessment and Plan: WBC at presentation 46.2k. Diagnosed with acute leukemia and also being treated for pneumonitis. ID and heme/onc consulted. Appreciate ID input and recs. History of Present Illness History of Present Illness Consult date/time: 07/15/25 12:44 Requesting physician: Robin Keane MD Consult reason: chest pain Reason For Visit: NSTEMI Narrative: Chantal Singh is a 55 year old female with hyperthyroidism and type 2 diabetes mellitus. She presents to the hospital with complaints of shortness of breath and palpitations. Cardiology is consulted for chest pain. Patient reports a sharp, left sided chest pain occurring intermittently for the past several weeks. Seems to come and go at random, only lasts for a very brief period of time, and she has not noticed any aggravating or alleviating factors. She's also been having a sensation of her heart pounding, and her Apple watch has recorded heart rates in the 130's with minimal activity but no atrial fibrillation noted. She is feeling better at the moment - denies any chest pain, shortness of breath, or palpitations. She has been diagnosed with acute leukemia during this admission and workup for that is underway. Review of Systems 2 Review of Systems: All systems reviewed & are unremarkable except as noted in HPI and below PMFSH Past Medical History Medical History Hypothyroidism Diabetes Surgical History Surgical History No pertinent past surgical history Family History Family History Mother Acute myocardial infarction Passed at age of 43 2 heart attacks prior to passing Sibling Acute myocardial infarction, Onset Age: 57 has pacemaker now Diabetes mellitus Hypertension Other Leukemia Uncle Social History Social History Smoking packs per day: 1 Smoking cigarettes per day: 20.0 Years smoked: 12 Smoking pack-years: 12.00 Smoking status: Former smoker Second hand tobacco smoke exposure: Yes Additional smoking assessment comments: quit in 2014 Alcohol intake: current Drinks per week: 3 Substance use: current Substance use type: marijuana Last use: 07/07/25 Lack of Transportation: No Lack of Food: Never True Current Housing: I Have Housing Concerned About Future Housing: No Difficulty Paying Gas/Electric Bills: No Difficulty Paying for Meds: No Currently Unemployed: No Education: High School Diploma/GED Difficulty w/ Childcare or Family Care: No Gender identity (if verbalized by the patient): Female Spiritual care concerns: No Meds Home Medications and Allergies Home Medications ?Medication ?Instructions ?Recorded ?Confirmed ?Type levothyroxine 50 mcg tablet 50 mcg PO DAILY 07/01/24 1 09/14/24 History tirzepatide 10 mg/0.5 mL 10 mg subcut WEEKLY 04/13/25 07/14/25 History subcutaneous pen injector (Mounjaro) Allergies Allergy/AdvReac Type Severity Reaction Status Date / Time oseltamivir Allergy Severe Swelling Verified 07/14/25 16:54 of Lip/Tongue/Throat propoxyphene Allergy Intermediate Vomiting Verified 07/14/25 16:54 fluvoxamine Allergy Unknown Unknown Verified 07/14/25 16:54 sulfamethoxazole Allergy Unknown Unknown Verified 07/14/25 16:54 trimethoprim Allergy Unknown Unknown Verified 07/14/25 16:54 azithromycin AdvReac Unknown DOESNT Verified 07/14/25 16:54 WORK Vital Signs Vital Signs - 24 hr 07/14/25 13:27 07/14/25 13:27 07/14/25 14:00 Temperature Pulse Rate 100 101 H Respiratory Rate 17 Blood Pressure Pulse Oximetry 98 100 Oxygen Delivery Room Air 07/14/25 14:48 07/14/25 14:59 07/14/25 15:16 Temperature 36.9 C Pulse Rate 99 100 94 Respiratory Rate 15 14 14 Blood Pressure 157/84 H 141/73 H Pulse Oximetry 96 98 95 Oxygen Delivery 07/14/25 15:38 07/14/25 16:03 07/14/25 16:40 Temperature 36.8 C Pulse Rate 97 96 Respiratory Rate 19 13 Blood Pressure 148/90 H 148/80 H Pulse Oximetry 100 Oxygen Delivery Room Air 07/14/25 16:40 07/14/25 18:00 07/14/25 19:53 Temperature 36.6 C 36.5 C Pulse Rate 106 H 102 H 96 Respiratory Rate 22 H 16 Blood Pressure 173/82 H 150/72 H Pulse Oximetry 98 100 Oxygen Delivery 07/14/25 20:00 07/14/25 20:00 07/15/25 00:00 Temperature 36.8 C Pulse Rate 96 93 107 H Respiratory Rate 16 20 Blood Pressure 159/72 H Pulse Oximetry 100 96 Oxygen Delivery Room Air 07/15/25 00:00 07/15/25 00:00 07/15/25 02:00 Temperature Pulse Rate 101 H 102 H Respiratory Rate Blood Pressure Pulse Oximetry Oxygen Delivery Room Air 07/15/25 04:00 07/15/25 04:00 07/15/25 04:00 Temperature 36.9 C Pulse Rate 103 H 97 103 H Respiratory Rate 20 20 Blood Pressure 130/68 Pulse Oximetry 94 94 Oxygen Delivery Room Air 07/15/25 06:00 07/15/25 07:53 07/15/25 11:58 Temperature 36.7 C 36.8 C Pulse Rate 96 99 92 Respiratory Rate 16 16 Blood Pressure 126/54 L 131/61 Pulse Oximetry 95 96 Oxygen Delivery Exam 2 Const: General: comfortable, no acute distress, alert and awake O rientation/consciousness: patient oriented x3 HENMT: Head: normal to inspection Eyes: General: appearance normal, both eyes and all related structures P upils: Equal, round and reactive pupils present Neck: Neck: normal visual inspection, supple and no JVD Carotids: normal carotid upstroke Resp: Effort & Inspection: normal respiratory effort Auscultation: clear to auscultation bilaterally Cardio: Rate: regular rate Rhythm: regular rhythm Heart sounds: S1 normal heart sound present, S2 normal heart sound present, no murmurs and no rubs GI: Auscultation: normal bowel sounds Skin: General skin exam: normal color Neuro: General: patient oriented x3 Cranial nerves: Yes Equal, round and reactive pupils present Extrem: General: normal to inspection Psych: Appearance: grossly normal Mental Status: mental status grossly normal Results Labs and Meds 07/14/25 12:46 07/14/25 12:46 Lab results: Cardiac Enzymes 07/14/25 07/14/25 07/14/25 Range/Units 12:46 16:01 19:41 AST 43 H (14-36) U/L Troponin I 0.054 H* 0.057 H* 0.047 H* (0.000-0.034) ng/mL Coagulation 07/14/25 Range/Units 12:46 PT 17.5 H (11.1-14.7) Seconds APTT 26.7 (22.3-36.8) Seconds CBC 07/14/25 Range/Units 12:46 WBC 46.2 H (4.5-10.0) K/mm3 RBC 3.98 L (4.2-5.4) M/mm3 Hgb 12.5 (12.0-15.0) g/dL Hct 36.2 L (37.0-47.0) % Plt Count 32 L D (150-375) k/mm3 Lymph # (Auto) Not Reportable Harrison # (Auto) Not Reportable Eos # (Auto) Not Reportable Baso # (Auto) Not Reportable Comprehensive Metabolic Panel 07/14/25 Range/Units 12:46 Sodium 139 (137-145) mmol/L Potassium 4.1 (3.4-5.0) mmol/L Chloride 106 (98-107) mmol/L Carbon Dioxide 25 (22-30) mmol/L BUN 20 H (7-17) mg/dL Creatinine 0.80 (0.7-1.0) mg/dL Glucose 117 H (65-110) mg/dL Calcium 9.5 (8.4-10.2) mg/dL AST 43 H (14-36) U/L ALT 31 (6-35) U/L Alkaline Phosphatase 83 (38-126) U/L Total Protein 7.7 (6.3-8.2) g/dL Albumin 4.5 (3.5-5.1) g/dL Intake and Output 07/14/25 07/15/25 07/15/25 23:59 07:59 15:59 Intake Total 2119 2049 Balance 2119 2049 Intake: IV 1000 50 Sodium Chloride 0.9% IV 1,000 1000 ml @ 999 mls/hr IV CONT .Q1H1M STA Rx#:[id number] cefTRIAXone 1 gm In Sodium 50 Chloride 0.9% IV 50 ml @ 100 mls/hr IVPB Q24H JAMIL Rx#: [id number] Oral 1120 1999 Other: # Unmeasured Voids 2 4 Patient Weight 07/15/25 23:59 Weight 77.3 kg
--- NOTE | 2025-07-15 13:50 | WPDIDCN ---
Assessment and Plan Assessment and plan (1) Leukocytosis: Code(s): D72.829 - Elevated white blood cell count, unspecified Status: Acute Plan #Leukocytosis. 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 With history of recurrent UTI. Exposure to monkeys at home but patient is trying to take care of these. No recent imports of the monkeys. 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 Ages 15, 8 and 5 without any new illnesses. Any monkey related infection would seem less likely to be complicating the leukemia. Rule out the possibility of transient infectious source with the acute leukemia/white blood cell dysfunction. Plan: Maintain ceftriaxone for now. Can stop doxycycline. Oral acyclovir prophylaxis. If any new fevers, add vancomycin IV and switch ceftriaxone to cefepime. Heme workup underway. Check baseline HIV. Check baseline hepatitis panels. Will follow. 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 She wears her Apple Watch. Place close attention to her pulse. Had been noting that she became more fatigued. Heart rate was going up to 125 with minimal exertion. Came in through the ED. Concern for initial pneumonitis. White blood cell count elevated 46,000. 50% blast. Consideration for leukemia by initial workup. Heme/[facility] evaluation is pending. She had noticed some bruising over the past week. No dysuria although she does have a history of UTIs in the past. No cough. No nausea or vomiting. No headache. No change in vision. She has 2 spider monkeys and 1 macaw monkey. The spider monkeys are 17 and 10 years old and the Duran is 7 years old. They have been in her house without any travel. No illnesses. No monkey bites, etc. No scratches. PMFSH Past Medical History Medical History Hypothyroidism Diabetes Surgical History Surgical History No pertinent past surgical history Family History Family History (Updated 07/14/25 @ 16:58 by Georgette Vega RN) Mother Acute myocardial infarction Passed at age of 43 2 heart attacks prior to passing Sibling Acute myocardial infarction, Onset Age: 57 has pacemaker now Diabetes mellitus Hypertension Other Leukemia Uncle Social History Social History Smoking packs per day: 1 Smoking cigarettes per day: 20.0 Years smoked: 12 Smoking pack-years: 12.00 Smoking status: Former smoker Second hand tobacco smoke exposure: Yes Additional smoking assessment comments: quit in 2014 Alcohol intake: current Drinks per week: 3 Substance use: current Substance use type: marijuana Last use: 07/07/25 Lack of Transportation: No Lack of Food: Never True Current Housing: I Have Housing Concerned About Future Housing: No Difficulty Paying Gas/Electric Bills: No Difficulty Paying for Meds: No Currently Unemployed: No Education: High School Diploma/GED Difficulty w/ Childcare or Family Care: No Gender identity (if verbalized by the patient): Female Spiritual care concerns: No Meds Home Medications and Allergies Home Medications ?Medication ?Instructions ?Recorded ?Confirmed ?Type levothyroxine 50 mcg tablet 50 mcg PO DAILY 07/01/24 07/14/25 History tirzepatide 10 mg/0.5 mL 10 mg subcut WEEKLY 04/13/25 07/14/25 History subcutaneous pen injector (Сергейuntawnyro) Allergies Allergy/AdvReac Type Severity Reaction Status Date / Time oseltamivir Allergy Severe Swelling Verified 07/14/25 16:54 of Lip/Tongue/Throat propoxyphene Allergy Intermediate Vomiting Verified 07/14/25 16:54 fluvoxamine Allergy Unknown Unknown Verified 07/14/25 16:54 sulfamethoxazole Allergy Unknown Unknown Verified 07/14/25 16:54 trimethoprim Allergy Unknown Unknown Verified 07/14/25 16:54 azithromycin AdvReac Unknown DOESNT Verified 07/14/25 16:54 WORK Vital Signs Vital Signs - 24 hr 07/14/25 14:00 07/14/25 14:48 07/14/25 14:59 Temperature 36.9 C Pulse Rate 101 H 99 100 Respiratory Rate 17 15 14 Blood Pressure 157/84 H Pulse Oximetry 100 96 98 Oxygen Delivery 07/14/25 15:16 07/14/25 15:38 07/14/25 16:03 Temperature 36.8 C Pulse Rate 94 97 96 Respiratory Rate 14 19 13 Blood Pressure 141/73 H 148/90 H 148/80 H Pulse Oximetry 95 100 Oxygen Delivery 07/14/25 16:40 07/14/25 16:40 07/14/25 18:00 Temperature 36.6 C Pulse Rate 106 H 102 H Respiratory Rate 22 H Blood Pressure 173/82 H Pulse Oximetry 98 Oxygen Delivery Room Air 07/14/25 19:53 07/14/25 20:00 07/14/25 20:00 Temperature 36.5 C Pulse Rate 96 96 93 Respiratory Rate 16 16 Blood Pressure 150/72 H Pulse Oximetry 100 100 Oxygen Delivery Room Air 07/15/25 00:00 07/15/25 00:00 07/15/25 00:00 Temperature 36.8 C Pulse Rate 107 H 101 H Respiratory Rate 20 Blood Pressure 159/72 H Pulse Oximetry 96 Oxygen Delivery Room Air 07/15/25 02:00 07/15/25 04:00 07/15/25 04:00 Temperature Pulse Rate 102 H 103 H 97 Respiratory Rate 20 Blood Pressure Pulse Oximetry 94 Oxygen Delivery Room Air 07/15/25 04:00 07/15/25 06:00 07/15/25 07:53 Temperature 36.9 C 36.7 C Pulse Rate 103 H 96 99 Respiratory Rate 20 16 Blood Pressure 130/68 126/54 L Pulse Oximetry 94 95 Oxygen Delivery 07/15/25 11:58 Temperature 36.8 C Pulse Rate 92 Respiratory Rate 16 Blood Pressure 131/61 Pulse Oximetry 96 Oxygen Delivery Exam Narrative: Alert and oriented to person place and time. She has bruise on her left hand. Examined via telemedicine. No rash. No accessory muscles for breathing. Results Labs 07/14/25 12:46 07/14/25 12:46 Labs: Cardiac Enzymes 07/14/25 07/14/25 Range/Units 16:01 19:41 Troponin I 0.057 H* 0.047 H* (0.000-0.034) ng/mL
--- NOTE | 2025-07-15 15:35 | P.TS_ITS ---
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 07/14/25 18:06 Consult to Physician Routine Comment: Called exchange and notified them of consult Consulting Provider: Jonathan Melton Reason for consultation: Leukocytosis-WBC 46.2, Possible Leukemia Has provider been notified: Yes 07/15/25 Consult to Physician Routine Comment: Spoke with exchange 07/15 @ 1138 Consulting Provider: Jonathan Melton reference assistant/MD group to consult: Hematology/ Oncology Reason for consultation: Very high wbc Has provider been notified: Yes Consult to Physician Routine Comment: Spoke with provider 07/15 @ 1025 Consulting Provider: Anai Peterson Reason for consultation: chest pain Has provider been notified: Yes Attending physician on discharge: Robin Keane Discharging clinician: Robin Keane Anticipated date of transfer: 07/15/25 Receiving physician/facility: Dr Mckeon at [facility] DS: Admitting Diagnosis Discharge Date 07/14/2025 Admitting Diagnosis Leukocytosis DS: Discharge Diagnosis Discharge Diagnosis (1) Leukocytosis: Code(s): D72.829 - Elevated white blood cell count, unspecified Status: Acute Assessment and Plan: Leukocytosis over 20,000 and platelets under 50 blood smear shows likely acute leukemia Blood cultures ordered ID consulted (2) Pneumonitis: Code(s): J98.4 - Other disorders of lung Status: Acute Assessment and Plan: Due to likely diagnosis of acute leukemia will treat for infection Doxy and Rocephin (3) Diabetes: Code(s): E11.9 - Type 2 diabetes mellitus without complications Status: Acute Assessment and Plan: on mounjaro (4) Hypothyroidism: Code(s): E03.9 - Hypothyroidism, unspecified Status: Acute Assessment and Plan: Continue Synthroid (5) Elevated troponin: Code(s): R79.89 - Other specified abnormal findings of blood chemistry Status: Acute Assessment and Plan: Denies chest pain Troponin trending down Plan Code status full DVT prophylaxis SCD boots Transfer Discharge Sum: Med Medications Active and Home Medications: Home Medications levothyroxine 50 mcg tablet 50 mcg PO DAILY 07/01/24 [History Confirmed 07/14/25] tirzepatide 10 mg/0.5 mL subcutaneous pen injector (Сергейuntawnyro) 10 mg subcut WEEKLY 04/13/25 [History Confirmed 07/14/25] Active Medications Acetaminophen (Acetaminophen 325 Mg Tablet) 650 mg PO Q4H PRN PRN Reason: Mild Pain (1-3) or Fever Last Admin: 07/15/25 09:29 Dose: 650 mg Alprazolam (Alprazolam (*Crx) 0.5 Mg Tablet) 0.5 mg PO Q6HR PRN PRN Reason: Anxiety Doxycycline Hyclate (Doxycycline Hyclate 100 Mg Tablet) 100 mg PO Q12HR [facility] Last Admin: 07/15/25 09:21 Dose: 100 mg Ceftriaxone Sodium 1 gm/ (Sodium Chloride) 50 mls @ 100 mls/hr IVPB Q24H [facility] Last Infusion: 07/15/25 00:05 Dose: Infused Levothyroxine Sodium (Levothyroxine Sodium 50 Mcg Tablet) 50 mcg PO DAILY@0630 [facility] Last Admin: 07/15/25 05:52 Dose: 50 mcg Morphine Sulfate (Morphine Sulfate (*Crx) 4 Mg/Ml Inj) 2 mg IV PUSH Q5M PRN PRN Reason: Pain Rated 4-6 Nitroglycerin (Nitroglycerin Sl 0.4 Mg Tablet) 0.4 mg SUBLINGUAL Q5MIN PRN PRN Reason: Chest Pain Ondansetron HCl (Ondansetron Inj 4 Mg/2 Ml Vial) 4 mg IV PUSH Q6H PRN PRN Reason: Nausea And Vomiting Last Admin: 07/14/25 23:36 Dose: 4 mg Perflutren Lipid Microsphere (Perflutren Lipid Microspheres 1.5 Ml Vial Diluted To 10 Ml Total Volume) 0 ml IV PUSH ONCE PRN; Protocol PRN Reason: adequate visualization Stop: 07/17/25 17:29 Perflutren Lipid Microsphere (Perflutren Lipid Microspheres 1.5 Ml Vial Diluted To 10 Ml Total Volume) 0 ml IV PUSH ONCE PRN; Protocol PRN Reason: adequate visualization Stop: 07/18/25 15:01 Transfer Discharge Sum: Hosp Hospital Course Hospital course: Chantal Singh is a 55 year old female was admitted for leukocytosis. Patient was found to have acute leukemia. After consultation with heme Onc for decided to transfer the patient to [facility] [place] for further evaluation treatment. Patient was transferred in stable condition. Patient Condition: Stable Time Spent with Patient Time attestation: Total time spent providing and/or coordinating transfer services: More than 30 minutes Exam Narrative: General: well appearing, appears stated age. HEENT: normocephalic, atraumatic. Mucous membranes moist. EOMI, PERRLA, bilateral sclera anicteric, no conjunctival injection. Neck supple without JVD, lymphadenopathy, or bruit. Respiratory: clear bilaterally. No rales/rhonic/wheezes. Cardiovascular: Regular rate and rhythm, normal S1-S2. No murmurs, rubs, or clicks. PMI is nondisplaced, capillary refill less than 3 second. Abdomen: Soft, round, no pulsatile masses, nondistended and nontender. No rebound, no guarding. Bowel sounds present to all four quadrants. No high pitch or tinkling sounds, resonant to percussion. Extremities: No cyanosis, clubbing, or edema present. Pulses are palpable 2/2. Active ROM to all four extremities. Neuro: Alert and orientated x 4. PERRLA. Cranial nerves 2-12 intact without focal deficit. Skin: Warm, dry, and intact, without rash, erythema, or lesion. Psych: pleasant, cooperative, normal speech, normal affect, no hallucinations, no dysarthia Sinus tachycardia on monitor DS: Data Data Completed and Pending Labs on day of discharge: Labs from last 24 hours 07/14/25 07/14/25 19:41 16:01 Troponin I 0.047 H* 0.057 H*
[2025-07-15 16:07] LABS: Hematocrit 28.1 % (37.0-47.0); Hemoglobin 9.8 g/dL (12.0-15.0); Immature Platelet Fraction Pct 3.5 % (0.9-11.2); Mean Corpuscular HGB Conc 34.9 g/dl (32-36); Mean Corpuscular Hemoglobin 31.8 pg (26-34); Mean Corpuscular Volume 91.2 fl (80-100); Platelet Count Result 25 k/mm3 (150-375); Red Blood Count 3.08 M/mm3 (4.2-5.4)
[2025-07-15 16:10] LABS: White Blood Count 55.7 K/mm3 (4.5-10.0)
[2025-07-15 16:18] LABS: Alanine Aminotransferase 28 U/L (6-35); Albumin Level 3.8 g/dL (3.5-5.1); Alkaline Phosphatase 78 U/L (38-126); Anion Gap 4 mmol/L (4-12); Aspartate Amino Transferase 31 U/L (14-36); Bilirubin,Total 0.6 mg/dL (0.2-1.3); Blood Urea Nitrogen 12 mg/dL (7-17); Calcium 8.9 mg/dL (8.4-10.2); Carbon Dioxide 26 mmol/L (22-30); Chloride 109 mmol/L (98-107); Estimated CRCL calculation 68 ml/min; Estimated Glomerular Filt Rate > 60; Glucose 93 mg/dL (65-110); Potassium 4.0 mmol/L (3.4-5.0); Sodium 139 mmol/L (137-145); Total Protein 6.6 g/dL (6.3-8.2)
[2025-07-15 16:57] LABS: HIV 1/2 Ab P24 Ag Result Negative (Negative)
--- NOTE | 2025-07-15 17:00 | P.CONONC_ITS ---
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 D/w pathologist. Ordered PML SOBIA T 15;17 translocation PCR and called tutorial laboratory supervisor to help expedite testing. Per pathology, this could take a day to a few days. I called pharmacy to check whether ATRA medication is available and unfortunately it is not available at [facility]. D/w pt the importance of being transferred immediately to a tertiary center for higher level of care. She is made aware that if this is APL, the risk of morbidity/mortality increases the longer the wait is prior to initiation of therapy. Also made her aware that prognosis is generally better with APL compared to other types of AML. D/w and coordinated care with U for direct hospital to hospital transfer. Peripheral flow cytometry has been sent. Advised nurse to place another large IV and run IVF. (2) Chest pain: Code(s): R07.9 - Chest pain, unspecified Status: Acute Assessment and Plan: Followed by cardiology. She is on telemetry. D/w pt of the risk of hyper- leucocytosis. She reported chest pain as occasional and not persistent. Pt to let primary team know if she has worsening chest pain or dyspnea on rest or minimal exertion of vision changes and FNDs; Would plan for plasmapharesis. Pharmacy reported that someone from outside [facility] can come to perform plex if needed. TTE recommended as it can help with evaluation of Ef prior to future leukemia directed therapy. HPI Data of Consult Date/Time: 07/15/25 17:00 Requesting Physician: Eugenio Murray MD Primary Care Provider: Enoch Rosario Consult Narrative Narrative: Chantal Singh is a 55 year old female who presented with palpitations and further w/u showed leucocytosis and >20% blasts in smear concerning for leukemia. She has been having palpitations since 3 months and have gotten worse over the past 1 week. She also c/o headaches since last 1 week. She was in a shower and started having palpitations yesterday which worsened with exertion and she came to ER for further evaluation. She denied blurry vision or focal deficits. She however c/o sharp occasional chest pain. She also noticed abnormal bruising on her body since last 3-5 days. She has been moving at her home and ran into objects and assumed bruising is due to her activity. She is under telemetry and cardiology has been following along. Rest of ROS are negative except as listed in HPI. FORMERLY [facility], [facility] Past Medical History Medical History Hypothyroidism Diabetes Surgical History Surgical History No pertinent past surgical history Family History Family History Mother Acute myocardial infarction Passed at age of 43 2 heart attacks prior to passing Sibling Acute myocardial infarction, Onset Age: 57 has pacemaker now Diabetes mellitus Hypertension Other Leukemia Uncle Social History Social History Smoking packs per day: 1 Smoking cigarettes per day: 20.0 Years smoked: 12 Smoking pack-years: 12.00 Smoking status: Former smoker Second hand tobacco smoke exposure: Yes Additional smoking assessment comments: quit in 2014 Alcohol intake: current Drinks per week: 3 Substance use: current Substance use type: marijuana Last use: 07/07/25 Lack of Transportation: No Lack of Food: Never True Current Housing: I Have Housing Concerned About Future Housing: No Difficulty Paying Gas/Electric Bills: No Difficulty Paying for Meds: No Currently Unemployed: No Education: High School Diploma/GED Difficulty w/ Childcare or Family Care: No Gender identity (if verbalized by the patient): Female Spiritual care concerns: No Meds Home Medications and Allergies Home Medications ?Medication ?Instructions ?Recorded ?Confirmed ?Type levothyroxine 50 mcg tablet 50 mcg PO DAILY 07/01/24 1 09/14/24 History tirzepatide 10 mg/0.5 mL 10 mg subcut WEEKLY 04/13/25 07/14/25 History subcutaneous pen injector (Сергейuntawnyro) Allergies Allergy/AdvReac Type Severity Reaction Status Date / Time oseltamivir Allergy Severe Swelling Verified 07/14/25 16:54 of Lip/Tongue/Throat propoxyphene Allergy Intermediate Vomiting Verified 07/14/25 16:54 fluvoxamine Allergy Unknown Unknown Verified 07/14/25 16:54 sulfamethoxazole Allergy Unknown Unknown Verified 07/14/25 16:54 trimethoprim Allergy Unknown Unknown Verified 07/14/25 16:54 azithromycin AdvReac Unknown DOESNT Verified 07/14/25 16:54 WORK Vital Signs Vital Signs - 24 hr 07/14/25 18:00 07/14/25 19:53 07/14/25 20:00 Temperature 36.5 C Pulse Rate 102 H 96 96 Respiratory Rate 16 16 Blood Pressure 150/72 H Pulse Oximetry 100 100 Oxygen Delivery Room Air 07/14/25 20:00 07/15/25 00:00 07/15/25 00:00 Temperature 36.8 C Pulse Rate 93 107 H 101 H Respiratory Rate 20 Blood Pressure 159/72 H Pulse Oximetry 96 Oxygen Delivery 07/15/25 00:00 07/15/25 02:00 07/15/25 04:00 Temperature Pulse Rate 102 H 103 H Respiratory Rate 20 Blood Pressure Pulse Oximetry 94 Oxygen Delivery Room Air Room Air 07/15/25 04:00 07/15/25 04:00 07/15/25 06:00 Temperature 36.9 C Pulse Rate 97 103 H 96 Respiratory Rate 20 Blood Pressure 130/68 Pulse Oximetry 94 Oxygen Delivery 07/15/25 07:53 07/15/25 08:00 07/15/25 10:00 Temperature 36.7 C Pulse Rate 99 103 H 100 Respiratory Rate 16 Blood Pressure 126/54 L Pulse Oximetry 95 Oxygen Delivery 07/15/25 11:58 07/15/25 12:00 07/15/25 14:00 Temperature 36.8 C Pulse Rate 92 106 H 105 H Respiratory Rate 16 Blood Pressure 131/61 Pulse Oximetry 96 Oxygen Delivery 07/15/25 16:00 Temperature 36.8 C Pulse Rate 92 Respiratory Rate 16 Blood Pressure 128/67 Pulse Oximetry 98 Oxygen Delivery Exam 2 Narrative: Bruises noted on arm/forearm and R lateral abdomen. No focal neuro deficits. no oral gum bleeding. Rest of the exam is wnl Results Labs 07/15/25 15:56 07/15/25 15:56 Labs: Short CBC 07/15/25 Range/Units 15:56 WBC 55.7 H* (4.5-10.0) K/mm3 Hgb 9.8 L (12.0-15.0) g/dL Hct 28.1 L (37.0-47.0) % Plt Count 25 L (150-375) k/mm3 BMP 07/15/25 15:56 Sodium 139 Potassium 4.0 Chloride 109 H Carbon Dioxide 26 BUN 12 D Creatinine 0.72 Glucose 93 Calcium 8.9 Cardiac Enzymes 07/14/25 Range/Units 19:41 Troponin I 0.047 H* (0.000-0.034) ng/mL Liver Function 07/15/25 Range/Units 15:56 Total Bilirubin 0.6 (0.2-1.3) mg/dL AST 31 (14-36) U/L ALT 28 (6-35) U/L Alkaline Phosphatase 78 (38-126) U/L Albumin 3.8 (3.5-5.1) g/dL
[2025-07-15 17:35] LABS: INR 1.5; Prothrombin Time 17.6 Seconds (11.1-14.7)
[2025-07-15 17:36] LABS: Partial Thromboplastin Time 26.3 Seconds (22.3-36.8)
[2025-07-15 17:42] LABS: Fibrinogen 99 mg/dl (215-510)
[2025-07-15] MEDS: HYDROcodone/acetaminophen (*CRX) 5-325 MG TABLET 1 TAB PO (17:55)
== END 2025-07-15 22:45 | disposition short-term general hospital (02) | DRG 836 ==
LOC: ANHED 13:25 → ANHIMU 16:28
PROVIDERS: Emergency Medicine; Internal Medicine; Internal Medicine Hematology & Oncology; Admitting Provider Internal Medicine; Emergency Provider Student in an Organized Health Care Education/Training Program; Visit Provider Internal Medicine
DX: C95.00 Acute leukemia of unspecified cell type not having achieved remission (principal); J98.4 Other disorders of lung; E03.9 Hypothyroidism, unspecified; E11.9 Type 2 diabetes mellitus without complications; F12.90 Cannabis use, unspecified, uncomplicated; F10.90 Alcohol use, unspecified, uncomplicated; Z20.822 Contact with and (suspected) exposure to COVID-19; Z87.891 Personal history of nicotine dependence; Z87.440 Personal history of urinary (tract) infections; Z79.85 Long-term (current) use of injectable non-insulin antidiabetic drugs; R79.89 Other specified abnormal findings of blood chemistry
CPT/HCPCS: 36415; 71046; 71275; 74177; 80053; 83690; 84484; 85025; 85027; 85055; 85384; 85610; 85730; 86703; 87040; 87637; 93005; 96360; 99285; A9270; G0432; J0696; J2405; J7030; Q9967